=== PATIENT | female | born 1970 | race African-American/Black ===

== ENCOUNTER 2022-04-10 01:21 | Inpatient (IN) | payer OTHER, MEDICAID, SELFPAY ==
[2022-04-10] VITALS (13 sets, daily range): BP systolic 115–150; BP diastolic 63–89; PULSE 76–96; RESP 16–29; TEMP 36.3–37.8; O2SAT 85–98; BMI 50.6
--- NOTE | ~2022-04-10 | XR_ITS ---
EXAMINATION: XR CHEST CLINICAL INFORMATION: Dyspnea COMPARISON: None TECHNIQUE: Frontal view of the chest was obtained. FINDINGS: The lungs are well expanded. Patchy opacities bilaterally with bronchial wall thickening. No pleural effusion or pneumothorax. The cardiomediastinal silhouette is normal in size with a calcified aorta. XR/XR chest 1V IMPRESSION: Bronchial wall thickening with patchy bilateral opacities is likely infectious or inflammatory.
--- NOTE | ~2022-04-10 | XR_ITS ---
EXAMINATION: XR CHEST CLINICAL INFORMATION: Pneumonia, shortness of breath. COMPARISON: 04/10/2022 and 10/02/2007 chest radiographs. TECHNIQUE: Frontal view of the chest was obtained. FINDINGS: Mild bronchial wall thickening is seen bilaterally with similar appearance. No focal infiltrate or pleural effusions. The heart and mediastinal structures are unremarkable. XR/XR chest 1V IMPRESSION: Mild bronchial wall thickening without significant change. This could be baseline for the patient, but can be seen with small airways disease and viral etiologies. No new abnormality.
--- NOTE | 2022-04-10 01:35 | ECG_ITS ---
Test Reason : DYSPNEA Blood Pressure : / mmHG Vent. Rate : 094 BPM Atrial Rate : 094 BPM P-R Int : 168 ms QRS Dur : 096 ms QT Int : 366 ms P-R-T Axes : 057 053 011 degrees QTc Int : 457 ms Normal sinus rhythm Nonspecific T wave abnormality Inferior leads Abnormal ECG No previous ECGs available Referred By: Generic ED Physician Electronically Signed By:DIANA HOWARD MD
[2022-04-10 02:12] LABS: Basophils Percent Auto 0.3 % (0-2); Hemoglobin 12.9 g/dl (12.0-16.0); Imm Gran Abs Auto 0.01 X10*3/uL (0.00-0.03); Imm Gran Pct Auto 0.3 % (0.0-0.4); PLT CLUMP 1
[2022-04-10 02:14] LABS: Hematocrit 42.7 % (37.0-47.0); Lymphocytes Absolute Auto 0.4 X10*3/uL (1.2-4.9); Lymphocytes Percent Auto 11.7 % (20-40); MANUAL DIFF FLAG SCAN; Mean Corpuscular HGB Conc 30.2 g/dl (31.0-35.0); Mean Corpuscular Hemoglobin 28.9 pg (27.0-33.0); Mean Corpuscular Volume 95.7 fL (80.0-98.0); Mean Platelet Volume 9.6 fL (9.4-12.3); Monocytes Absolute Auto 0.6 X10*3/uL (0.1-1.2); Monocytes Percent Auto 20.4 % (2-11); Neutrophils Absolute Auto 2.1 x10*3/uL (2.0-8.3); Neutrophils Percent Auto 67.3 % (45-73); Red Blood Count 4.46 X10*6/uL (4.20-5.50); Red Cell Distribution Width 13.5 % (11.0-16.0); SCAN SMEAR FLAG 1
[2022-04-10 02:16] LABS: Platelet Count 146 X10*3/uL (160-400); White Blood Count 3.1 X10*3/uL (4.8-10.8)
[2022-04-10 02:23] LABS: COVID-19 Test Negative (Negative); IDNOW Serial# 9DB6401D
[2022-04-10 02:25] LABS: Anion Gap 14 (12-20); Blood Urea Nitrogen 10 mg/dL (9-16); Carbon Dioxide 26 mmol/L (22-29); Chloride 104 mmol/L (96-108); Creatinine Clr Calc Pharmacy 113.6; Estimated Glomerular Filt Rate > 60; Glucose Random 139 mg/dL (60-115); Potassium 3.1 mmol/L (3.3-5.1); Sodium 141 mmol/L (135-145)
[2022-04-10 02:33] LABS: Troponin-I High Sensitivity 7.5 ng/L (<3.5-17.0)
[2022-04-10 02:46] LABS: SLIDE REVIEW VERIFIED
--- NOTE | 2022-04-10 03:32 | ED.SOB ---
HPI - SOB/Dyspnea General Chief Complaint: Dyspnea Stated Complaint: Dyspnea- Asthma Time Seen by Provider: 04/10/22 03:13 Source: patient Mode of arrival: ambulatory Limitations: no limitations History of Present Illness HPI Narrative: Patient history of asthma been having shortness of breath with wheezing for last 2 days got worse today was using nebulizing treatment at home saturating high 80s after DuoNeb treatment by EMS patient saturating 96% patient feels slightly congested with dry cough no other family member sick Related Data Home Medications Medication Instructions Recorded Confirmed albuterol sulfate 2.5 mg/3 mL 1 vial inhalation Q6H PRN wheezing 04/10/22 (0.083 %) solution for nebulization albuterol sulfate 90 mcg/actuation 2 puff inhalation Q4H PRN 04/10/22 aerosol inhaler Shortness Of Breath Or Wheezing amlodipine 10 mg tablet 1 tab PO DAILY 04/10/22 atorvastatin 40 mg tablet 1 tab PO DAILY 04/10/22 baclofen 10 mg tablet 1 tab PO TID PRN muscle spasm 04/10/22 budesonide-formoterol HFA 160 2 puff inhalation BID 04/10/22 mcg-4.5 mcg/actuation aerosol inhaler (Symbicort) cholecalciferol (vitamin D3) 25 1 tab PO DAILY 04/10/22 mcg (1,000 unit) tablet (Vitamin D3) duloxetine 30 mg capsule,delayed 1 cap PO DAILY 04/10/22 release fluticasone propionate 50 intranasal 04/10/22 mcg/actuation nasal spray,suspension gabapentin 300 mg capsule 1 cap PO BID 04/10/22 glatiramer 40 mg/mL subcutaneous mg subcut 04/10/22 syringe ibuprofen 800 mg tablet 1 tab PO TID 04/10/22 montelukast 10 mg tablet 1 tab PO DAILY 04/10/22 Allergies Allergy/AdvReac Type Severity Reaction Status Date / Time No Known Allergies Allergy Verified 04/10/22 03:38 Review of Systems Review of Systems: Yes all other systems are reviewed and are negative [facility] Social History Social History Alcohol intake: never Smoked in Last 30 Days: No Use of substances other than those prescribed or required for medical reasons: No Advance Directives: No Advance Directives Information Provided: No Patient : No Physical Exam Vital Signs: Vital Signs: Last Vital Signs Temp 99.8 F 04/10/22 07:28 Pulse 92 04/10/22 07:28 Resp 29 H 04/10/22 07:28 BP 128/66 04/10/22 07:28 Pulse Ox 93 04/10/22 08:22 O2 Del Method 04/10/22 08:22 O2 Flow Rate 4 04/10/22 07:28 Oxygen Flow Rate 4 04/10/22 01:37 BMI result Body Mass Index 50.6 Appearance: Alert. Oriented X3. No acute distress. Eyes: No pallor or icterus ENT: Pharynx normal. Oral Mucosa moist Neck: Normal inspection. Neck supple. CVS: Normal heart rate and rhythm. Pulses normal. Respiratory: No respiratory distress. Equal air entry bilateral, prolonged expiration bilateral wheezing and rhonchi no rales Abdomen: Soft and nontender. Bowel sounds are present, no mass palpable, no CVA tenderness Skin: Skin warm and dry. Normal skin color. Normal skin turgor. Extremities: No lower extremity edema. No calf tenderness Neuro: Oriented X 3. No motor deficit. Medications Administered Discontinued Medications Generic Name Dose Route Start Last Admin Trade Name Freq PRN Reason Stop Dose Admin Albuterol Sulfate 5 mg/ 0 mg 04/10/22 05:14 04/10/22 05:30 Albuterol/Ipratropium 3 ml INHALE 04/10/22 05:15 1 each ONCE ONE Administration Methylprednisolone Sodium Succinate 125 mg 04/10/22 03:38 04/10/22 03:43 Methylprednisolone Sod Succ 125 Mg/2 Ml Vial IVPUSH 04/10/22 03:39 125 mg ONCE ONE Administration Oseltamivir Phosphate 75 mg 04/10/22 05:12 04/10/22 05:29 Oseltamivir Phosphate 75 Mg Capsule PO 04/10/22 05:13 75 mg ONCE ONE Administration MDM - SOB/Dyspnea MDM Narrative Medical decision making narrative: Patient influenza A positive with hypoxia not on oxygen at home with history of asthma will admit patient for acute respiratory failure with influenza a chest x-ray positive for patchy bilateral opacities likely infectious or inflammatory clinically not bacterial infection will admit patient for influenza a pneumonia Differential Diagnosis Differential diagnosis: Likely pneumonia and asthma with exacerbation Lab Data Attestation: I reviewed the patient's lab results. Result diagrams: 04/10/22 01:58 04/10/22 01:58 Labs: Lab Results 04/10/22 04/10/22 04/10/22 Range/Units 01:58 01:58 01:58 WBC 3.1 L (4.8-10.8) X10*3/uL RBC 4.46 (4.20-5.50) X10*6/uL Hgb 12.9 (12.0-16.0) g/dl Hct 42.7 (37.0-47.0) % MCV 95.7 (80.0-98.0) fL MCH 28.9 (27.0-33.0) pg MCHC 30.2 L (31.0-35.0) g/dl RDW 13.5 (11.0-16.0) % Plt Count 146 L (160-400) X10*3/uL MPV 9.6 (9.4-12.3) fL Immature Gran % (Auto) 0.3 (0.0-0.4) % Neut % (Auto) 67.3 (45-73) % Lymph % (Auto) 11.7 L (20-40) % [place] % (Auto) 20.4 H (2-11) % Eos % (Auto) 0.0 (0-4) % Baso % (Auto) 0.3 (0-2) % Lymph # (Auto) 0.4 L (1.2-4.9) X10*3/uL [place] # (Auto) 0.6 (0.1-1.2) X10*3/uL Eos # (Auto) 0.0 (0.0-0.4) X10*3/uL Baso # (Auto) 0.0 (0.0-0.2) X10*3/uL Abs Immat Gran (auto) 0.01 (0.00-0.03) X10*3/uL Absolute Neuts (auto) 2.1 (2.0-8.3) x10*3/uL Absolute Nucleated RBC 0.000 (0.0-0.012) X10*3/uL Nucleated RBC % (auto) 0.0 (0.0-0.2) /100WBC Smear Tech's Comments VERIFIED Sodium 141 (135-145) mmol/L Potassium 3.1 L (3.3-5.1) mmol/L Chloride 104 (96-108) mmol/L Carbon Dioxide 26 (22-29) mmol/L Anion Gap 14 (12-20) BUN 10 (9-16) mg/dL Creatinine 0.78 (0.5-1.4) mg/dL Estim Creat Clear Calc 113.6 Estimated GFR > 60 Random Glucose 139 H (60-115) mg/dL Calcium 9.0 (8.4-10.2) mg/dL Troponin I High Sens 7.5 (<3.5-17.0) ng/L B-Natriuretic Peptide (<100) pg/mL COVID-19 ([facility]) (Negative) COVID-19 Clin Com Influenza Type A ([facility]) (Negative) Influenza Type B ([facility]) (Negative) Influenza A & B Note 04/10/22 04/10/22 04/10/22 Range/Units 01:58 01:58 04:06 WBC (4.8-10.8) X10*3/uL RBC (4.20-5.50) X10*6/uL Hgb (12.0-16.0) g/dl Hct (37.0-47.0) % MCV (80.0-98.0) fL MCH (27.0-33.0) pg MCHC (31.0-35.0) g/dl RDW (11.0-16.0) % Plt Count (160-400) X10*3/uL MPV (9.4-12.3) fL Immature Gran % (Auto) (0.0-0.4) % Neut % (Auto) (45-73) % Lymph % (Auto) (20-40) % [place] % (Auto) (2-11) % Eos % (Auto) (0-4) % Baso % (Auto) (0-2) % Lymph # (Auto) (1.2-4.9) X10*3/uL [place] # (Auto) (0.1-1.2) X10*3/uL Eos # (Auto) (0.0-0.4) X10*3/uL Baso # (Auto) (0.0-0.2) X10*3/uL Abs Immat Gran (auto) (0.00-0.03) X10*3/uL Absolute Neuts (auto) (2.0-8.3) x10*3/uL Absolute Nucleated RBC (0.0-0.012) X10*3/uL Nucleated RBC % (auto) (0.0-0.2) /100WBC Smear Tech's Comments Sodium (135-145) mmol/L Potassium (3.3-5.1) mmol/L Chloride (96-108) mmol/L Carbon Dioxide (22-29) mmol/L Anion Gap (12-20) BUN (9-16) mg/dL Creatinine (0.5-1.4) mg/dL Estim Creat Clear Calc Estimated GFR Random Glucose (60-115) mg/dL Calcium (8.4-10.2) mg/dL Troponin I High Sens (<3.5-17.0) ng/L B-Natriuretic Peptide 60 (<100) pg/mL COVID-19 ([facility]) Negative (Negative) COVID-19 Clin Com See Note Influenza Type A ([facility]) Positive A (Negative) Influenza Type B ([facility]) Negative (Negative) Influenza A & B Note See Note ECG Data Attestation: I personally reviewed and interpreted this ECG as follows: Interpretation: Normal sinus rhythm heart rate 94 beats per minute normal interval normal axis no acute ST changes no acute ischemia impression normal EKG Discharge Plan Discharge Clinical Impression: Asthma with exacerbation, Influenza A, Acute respiratory failure with hypoxemia Patient Disposition: Admitted As Inpatient
[2022-04-10] MEDS: methylPREDNISolone Sod Succ 125 MG/2 ML VIAL IVPUSH (03:43)
[2022-04-10 03:49] LABS: B Type Natriuretic Peptide 60 pg/mL (<100)
[2022-04-10 04:31] LABS: IDNOW Serial# 16C4AD1C; Influenza A Positive (Negative); Influenza B2 Negative (Negative)
[2022-04-10] MEDS: Oseltamivir Phosphate 75 MG CAPSULE PO ×2 (05:29→18:02)
[2022-04-10] MEDS: Albuterol Sulfate 5 MG, Albuterol/Iprat 2.5/0.5MG 3 ML 3 ML INHALE (05:30)
--- NOTE | 2022-04-10 09:01 | P.HPHOSP_ITS ---
History of Present Illness Date of Service: 04/10/22 Chief Complaint: Shortness of breath 51-year-old female presents with worsening shortness of breath over the 48 hours prior to admission. Patient admits known history of asthma however states her nebulizer treatments were not effective. EMS arrived patient was satting in the 80s after DuoNeb improved to 96%. Chest x-ray demonstrates bilateral patchy opacities likely infectious. Review of Systems Review of Systems: Denies chest pain Admits to shortness of breath with minimal exertion Denies nausea vomiting diarrhea Admits fevers to 103 at home PMFSH Social History Alcohol intake: never Smoked in Last 30 Days: No Use of substances other than those prescribed or required for medical reasons: No Advance Directives: No Advance Directives Information Provided: No Patient : No Meds Allergies Allergy/AdvReac Type Severity Reaction Status Date / Time No Known Allergies Allergy Verified 04/10/22 03:38 Active Medications: Current Medications Acetaminophen (Acetaminophen 325 Mg Tablet) 650 mg PO Q6H [facility] Enoxaparin Sodium (Enoxaparin Sodium 40 Mg/0.4 Ml Syringe) 40 mg SUBCUT Q24H [facility] Ceftriaxone Sodium 1 gm/ (Sodium Chloride) 50 mls @ 100 mls/hr IV Q24H [facility] Doxycycline Hyclate 100 mg/ (Sodium Chloride) 250 mls @ 166.67 mls/hr IV Q12H [facility] Methylprednisolone Sodium Succinate (Methylprednisolone Sod Succ 125 Mg/2 Ml Vial) 60 mg IVPUSH Q6H [facility] Ondansetron HCl (Ondansetron Hcl 4 Mg/2 Ml Vial) 4 mg IVPUSH Q6H [facility] Oseltamivir Phosphate (Oseltamivir Phosphate 75 Mg Capsule) 75 mg PO Q12H [facility] Stop: 04/14/22 21:01 Pharmacy Consult (Consult Rx Perform Med Rec) 1 each MISCELLANE ONCE PRN PRN Reason: Consult order Sodium Chloride (0.9 % Sodium Chloride Flush 3 Ml Syringe) 3 ml IVFLUSH QSHIFT [facility] Home Medications Medication Instructions Recorded Confirmed Last Taken Type albuterol sulfate 2.5 mg/3 mL 1 vial inhalation Q6H PRN wheezing 04/10/22 Unknown History (0.083 %) solution for nebulization albuterol sulfate 90 mcg/actuation 2 puff inhalation Q4H PRN 04/10/22 Unknown History aerosol inhaler Shortness Of Breath Or Wheezing amlodipine 10 mg tablet 1 tab PO DAILY 04/10/22 Unknown History atorvastatin 40 mg tablet 1 tab PO DAILY 04/10/22 Unknown History baclofen 10 mg tablet 1 tab PO TID PRN muscle spasm 04/10/22 Unknown History budesonide-formoterol HFA 160 2 puff inhalation BID 04/10/22 Unknown History mcg-4.5 mcg/actuation aerosol inhaler (Symbicort) cholecalciferol (vitamin D3) 25 1 tab PO DAILY 04/10/22 Unknown History mcg (1,000 unit) tablet (Vitamin D3) duloxetine 30 mg capsule,delayed 1 cap PO DAILY 04/10/22 Unknown History release fluticasone propionate 50 intranasal 04/10/22 Unknown History mcg/actuation nasal spray,suspension gabapentin 300 mg capsule 1 cap PO BID 04/10/22 Unknown History glatiramer 40 mg/mL subcutaneous mg subcut 04/10/22 Unknown History syringe ibuprofen 800 mg tablet 1 tab PO TID 04/10/22 Unknown History montelukast 10 mg tablet 1 tab PO DAILY 04/10/22 Unknown History Physical Exam Vital Signs and Narrative: Vital Signs: Last Vital Signs Temp 99.8 F 04/10/22 07:28 Pulse 92 04/10/22 07:28 Resp 29 H 04/10/22 07:28 BP 128/66 04/10/22 07:28 Pulse Ox 93 04/10/22 08:22 O2 Del Method 04/10/22 08:22 O2 Flow Rate 4 04/10/22 07:28 Oxygen Flow Rate 4 04/10/22 01:37 BMI result Body Mass Index 50.6 Const: Other: Awake alert no acute distress. Able to speak full sentences while essentially supine HEENT: Other: Membranes dry Resp: Other: Diffuse expiratory wheezes with crackles heard left base Cardio: Other: No S4; positive S1-S2; no S3 murmurs rubs or gallops GI: Other: Soft nontender nondistended with normoactive bowel sounds Neuro: Other: Cranial nerves 2-12 grossly intact as tested. Motor is 5/5 all extremities. Sensation intact. Cognition appropriate Extrem: Other: No edema bilaterally Results Labs CBC and Chem 7: 04/10/22 01:58 04/10/22 01:58 Labs: Laboratory Results - last 24 hr 04/10/22 04/10/22 04/10/22 01:58 01:58 01:58 MCV 95.7 MCH 28.9 MCHC 30.2 L RDW 13.5 Plt Count 146 L MPV 9.6 Immature Gran % (Auto) 0.3 Neut % (Auto) 67.3 Lymph % (Auto) 11.7 L [place] % (Auto) 20.4 H Eos % (Auto) 0.0 Baso % (Auto) 0.3 Lymph # (Auto) 0.4 L [place] # (Auto) 0.6 Eos # (Auto) 0.0 Baso # (Auto) 0.0 Abs Immat Gran (auto) 0.01 Absolute Neuts (auto) 2.1 Absolute Nucleated RBC 0.000 Nucleated RBC % (auto) 0.0 Smear Tech's Comments VERIFIED Anion Gap 14 Estim Creat Clear Calc 113.6 Estimated GFR > 60 Random Glucose 139 H Calcium 9.0 Troponin I High Sens 7.5 B-Natriuretic Peptide COVID-19 ([facility]) COVID-19 Clin Com Influenza Type A ([facility]) Influenza Type B ([facility]) Influenza A & B Note 04/10/22 04/10/22 04/10/22 01:58 01:58 04:06 MCV MCH MCHC RDW Plt Count MPV Immature Gran % (Auto) Neut % (Auto) Lymph % (Auto) [place] % (Auto) Eos % (Auto) Baso % (Auto) Lymph # (Auto) [place] # (Auto) Eos # (Auto) Baso # (Auto) Abs Immat Gran (auto) Absolute Neuts (auto) Absolute Nucleated RBC Nucleated RBC % (auto) Smear Tech's Comments Anion Gap Estim Creat Clear Calc Estimated GFR Random Glucose Calcium Troponin I High Sens B-Natriuretic Peptide 60 COVID-19 ([facility]) Negative COVID-19 Clin Com See Note Influenza Type A ([facility]) Positive A Influenza Type B ([facility]) Negative Influenza A & B Note See Note Imaging Radiologist's Impressions: Impressions Chest X-Ray 04/10/22 02:05 IMPRESSION: Bronchial wall thickening with patchy bilateral opacities is likely infectious or inflammatory. Assessment and Plan (1) Acute respiratory failure with hypoxemia: Status: Acute (2) Asthma with exacerbation: Status: Acute (3) Influenza A: Status: Acute (4) Pneumonia: Status: Acute (5) Multiple sclerosis: Status: Acute (6) Hypertension: Status: Acute Plan 51-year-old female with known history of asthma presents with worsening shortness of breath or the 48 hours prior to admission. Failed outpatient therapies. In the emergency room O2 responsive saturation as well as DuoNebs with affect. 1. Acute respiratory failure with hypoxemia secondary to pneumonia -ceftriaxone/doxycycline -titrate O2 to maintain sats greater equal to 90% -DuoNebs q.4 hours while awake -pulse dose steroids 2. Influenza A -Oseltamivir b.i.d. x5 days 3. Multiple sclerosis -asymptomatic at this time -Glatiramer as per outpatient dosing 4. Hypertension -acceptable control on amlodipine -adjust as indicated Full code Lovenox Patient will require inpatient stay of at least 2 midnights for IV antibiotics to treat pneumonia secondary to influenza. This cannot be achieved and a lesser acute setting Quality Stroke Does the patient have a stroke diagnosis?: No VTE Prior VTE?: No VTE Risk Level:: Medical - moderate - high VTE Device Contraindication: Treatment Not Indicated VTE Drug Contraindication: N/A - Med Ordered
[2022-04-10] MEDS: Acetaminophen 325 MG TABLET 650 MG PO ×3 (10:16→22:06)
[2022-04-10] MEDS: cefTRIAXone sodium 1 GM in 0.9 % Sodium Chloride 50 ML IV (10:16)
[2022-04-10] MEDS: Potassium Chloride ER 20 MEQ TAB.ER.PRT 40 MEQ PO (10:17)
[2022-04-10] MEDS: Enoxaparin Sodium 40 MG/0.4 ML SYRINGE SUBCUT (10:17)
[2022-04-10] MEDS: ondansetron HCL 4 MG/2 ML VIAL IVPUSH ×3 (10:18→22:05)
[2022-04-10] MEDS: Doxycycline Hyclate 100 MG in 0.9 % Sodium Chloride 250 ML 166.67 MG IV ×2 (10:18→22:05)
[2022-04-10 10:22] LABS: Appearance Urine Clear; Color Urine Yellow; Glucose Urine UA Negative (Negative); Leukocyte Esterase Urine Negative (Negative); Nitrite Urine Negative (Negative); PH 6.5 (5.0-9.0); Specific Gravity - Urine 1.015 (1.005-1.025); UMIC TRIGGER UACC YES; Urine Blood Negative (Negative); Urine Ketones Negative (Negative); Urine Protein 100 (2+) mg/dL (Neg-Trace)
[2022-04-10 10:36] LABS: Bacteria Urine None Seen (None Seen); Hyaline Casts Urine 0-2 /LPF (0-2); Squamous Epithelial Cell Urine 0-2 /HPF (0-2); WBC Urine 0-5 /HPF (0-5)
--- NOTE | 2022-04-10 10:43 | PHA.MEDREC ---
Pharmacy Consult ? Medication Reconciliation Pharmacy has completed the medication reconciliation. Confirmed medication list with patient. She states she takes her glatiramer injection on tuesday, tuesday, and tuesday and she did use the injection yesterday (04/09/22). Confirmed that her next dose of that would be due on tuesday04/12/22.
--- NOTE | 2022-04-10 11:30 | PC.NURSE ---
sat patient at commode, washed pt while sitting on the commode, complete bed change
--- NOTE | 2022-04-10 14:08 | PC.NURSE ---
PT CONTINUES ON 02 IV ANTIBIOTICS ORDERED. AOX4 AMB WITH STEADY GAIT NEEDS BEING MET WAITING ON BED ASSIGNMENT
[2022-04-10] MEDS: methylPREDNISolone Sod Succ 125 MG/2 ML VIAL 60 MG IVPUSH ×2 (15:31→22:06)
[2022-04-10] MEDS: 0.9 % Sodium Chloride Flush 3 ML SYRINGE IVFLUSH (15:32)
--- NOTE | 2022-04-10 15:49 | PC.NURSE ---
Patient alert and oriented x 3. Patient afebrile, but still weak. Patient c/o back and leg pain from being on the stretcher just medicated with tylenol for the pain. Patient on 4l nasal cannula at 91% not on oxygen at home. tele: sinus rythym 70's Will continue with plan of care.
[2022-04-10] MEDS: Albuterol Sulfate (0.083%) 2.5 MG/3 ML VIAL.NEB INHALE ×2 (16:08→22:07)
--- NOTE | 2022-04-10 22:39 | PC.NURSE ---
Pt. requesting a breathing treatment, respiratory at bedside to administer treatment with good effect.
--- NOTE | 2022-04-11 02:44 | PC.NURSE ---
Pt. requesting PRN pain medications, doesn't have any ordered on JUL. Notified Hospitalist MD Rey for orders. Awaiting new orders at this time.
[2022-04-11] MEDS: methylPREDNISolone Sod Succ 125 MG/2 ML VIAL 60 MG IVPUSH ×4 (03:18→22:49)
[2022-04-11] MEDS: Acetaminophen 325 MG TABLET 650 MG PO ×4 (03:18→22:49)
[2022-04-11] MEDS: ondansetron HCL 4 MG/2 ML VIAL IVPUSH ×4 (03:18→22:49)
[2022-04-11] MEDS: traMADoL HCL 50 MG TABLET PO (03:18)
[2022-04-11 05:54] VITALS: BP 104/55; PULSE 79; RESP 17; TEMP 36.7; O2SAT 96
[2022-04-11] MEDS: Oseltamivir Phosphate 75 MG CAPSULE PO ×2 (06:50→17:24)
[2022-04-11 07:11] LABS: MANUAL DIFF FLAG NO
[2022-04-11 07:15] LABS: Hematocrit 44.3 % (37.0-47.0); Hemoglobin 13.2 g/dl (12.0-16.0); Imm Gran Pct Auto 3.7 % (0.0-0.4); Lymphocytes Absolute Auto 0.3 X10*3/uL (1.2-4.9); Lymphocytes Percent Auto 10.3 % (20-40); Mean Corpuscular HGB Conc 29.8 g/dl (31.0-35.0); Mean Corpuscular Hemoglobin 29.3 pg (27.0-33.0); Mean Corpuscular Volume 98.4 fL (80.0-98.0); Mean Platelet Volume 9.9 fL (9.4-12.3); Monocytes Absolute Auto 0.2 X10*3/uL (0.1-1.2); Monocytes Percent Auto 7.7 % (2-11); Neutrophils Absolute Auto 2.1 x10*3/uL (2.0-8.3); Neutrophils Percent Auto 78.3 % (45-73); Platelet Count 144 X10*3/uL (160-400); Red Cell Distribution Width 13.2 % (11.0-16.0); White Blood Count 2.7 X10*3/uL (4.8-10.8)
[2022-04-11 07:27] VITALS: BP 110/64; PULSE 78; RESP 23; O2SAT 93
[2022-04-11 07:36] LABS: Alanine Aminotransferase 10 U/L (0-31); Albumin Level 3.8 g/dL (3.5-5.0); Alkaline Phosphatase 55 U/L (39-117); Aspartate Amino Transferase 15 U/L (5-31); Bilirubin Total 0.3 mg/dL (0.0-1.0); Blood Urea Nitrogen 13 mg/dL (9-16); Calcium 8.9 mg/dL (8.4-10.2); Creatinine Clr Calc Pharmacy 113.6; Estimated Glomerular Filt Rate > 60; Glucose Fasting 158 mg/dL (60-99)
[2022-04-11 07:46] LABS: Anion Gap 15 (12-20); Carbon Dioxide 26 mmol/L (22-29); Chloride 106 mmol/L (96-108); Potassium 4.9 mmol/L (3.3-5.1); Sodium 142 mmol/L (135-145)
[2022-04-11] MEDS: Albuterol Sulfate (0.083%) 2.5 MG/3 ML VIAL.NEB INHALE ×2 (08:12→17:42)
[2022-04-11 08:13] VITALS: PULSE 73; RESP 19; O2SAT 97
[2022-04-11] MEDS: cefTRIAXone sodium 1 GM in 0.9 % Sodium Chloride 50 ML IV (08:29)
[2022-04-11] MEDS: Enoxaparin Sodium 40 MG/0.4 ML SYRINGE SUBCUT (08:30)
[2022-04-11] MEDS: 0.9 % Sodium Chloride Flush 3 ML SYRINGE IVFLUSH ×2 (08:35→17:25)
--- NOTE | 2022-04-11 11:38 | PC.NURSE ---
Per pharmacy, doxycyline hyclate currently unavailable
--- NOTE | 2022-04-11 15:36 | PC.NURSE ---
Pt sleeping at this time, respirations even and unlabored.
[2022-04-11 15:51] VITALS: BP 128/74; PULSE 79; TEMP 36.6; O2SAT 96
--- NOTE | 2022-04-11 15:56 | HO.PM.IMPN ---
Subjective Subjective Date of Service: 04/11/22 Interval History: Minimal improvement overnight. No acute issues Review of Systems Denies chest pain Admits to shortness of breath with minimal exertion Denies nausea vomiting diarrhea Admits fevers to 103 at home Physical Exam Vital Signs: Vital Signs: Last Vital Signs Temp 97.8 F 04/11/22 15:51 Pulse 79 04/11/22 15:51 Resp 19 04/11/22 08:13 BP 128/74 04/11/22 15:51 Pulse Ox 96 04/11/22 15:51 O2 Del Method 04/11/22 15:51 O2 Flow Rate 4 04/11/22 15:51 Oxygen Flow Rate 4 04/10/22 01:37 BMI result Body Mass Index 50.6 Const: Other: Awake alert no acute distress. Able to speak full sentences while essentially supine HEENT: Other: Membranes dry Resp: Other: Diffuse expiratory wheezes with crackles heard left base Cardio: Other: No S4; positive S1-S2; no S3 murmurs rubs or gallops GI: Other: Soft nontender nondistended with normoactive bowel sounds Neuro: Other: Cranial nerves 2-12 grossly intact as tested. Motor is 5/5 all extremities. Sensation intact. Cognition appropriate Extrem: Other: No edema bilaterally Objective Data Active Medications Acetaminophen (Acetaminophen 325 Mg Tablet) 650 mg PO Q6H [facility] Last Admin: 04/11/22 10:05 Dose: 650 mg Documented By: JASPER Albuterol Sulfate (Albuterol Sulfate (0.083%) 2.5 Mg/3 Ml Vial.Neb) 2.5 mg INHALE Q6H PRN PRN Reason: wheezing Last Admin: 04/11/22 08:12 Dose: 2.5 mg Documented By: MARLYN Albuterol Sulfate (Albuterol Sulfate 90 Mcg 8 Gm Inhaler) 2 puff INHALE Q4H PRN PRN Reason: Shortness Of Breath Or Wheezing Enoxaparin Sodium (Enoxaparin Sodium 40 Mg/0.4 Ml Syringe) 40 mg SUBCUT Q24H [facility] Last Admin: 04/11/22 08:30 Dose: 40 mg Documented By: JASPER Ceftriaxone Sodium 1 gm/ (Sodium Chloride) 50 mls @ 100 mls/hr IV Q24H [facility] Last Infusion: 04/11/22 09:58 Dose: 0 mls/hr Documented By: JASPER Doxycycline Hyclate 100 mg/ (Sodium Chloride) 250 mls @ 166.67 mls/hr IV Q12H [facility] Last Admin: 04/11/22 13:57 Dose: Not Given Documented By: JASPER Non-Admin Reason: Med Not Available Methylprednisolone Sodium Succinate (Methylprednisolone Sod Succ 125 Mg/2 Ml Vial) 60 mg IVPUSH Q6H [facility] Last Admin: 04/11/22 10:05 Dose: 60 mg Documented By: JASPER Ondansetron HCl (Ondansetron Hcl 4 Mg/2 Ml Vial) 4 mg IVPUSH Q6H [facility] Last Admin: 04/11/22 08:28 Dose: 4 mg Documented By: JASPER Oseltamivir Phosphate (Oseltamivir Phosphate 75 Mg Capsule) 75 mg PO Q12H [facility] Stop: 04/15/22 06:01 Last Admin: 04/11/22 06:50 Dose: 75 mg Documented By: MELO Pharmacy Consult (Consult Rx Perform Med Rec) 1 each MISCELLANE ONCE PRN PRN Reason: Consult order Sodium Chloride (0.9 % Sodium Chloride Flush 3 Ml Syringe) 3 ml IVFLUSH QSHIFT [facility] Last Admin: 04/11/22 08:35 Dose: 3 ml Documented By: JASPER Labs CBC & Chem 7: 04/11/22 06:59 04/11/22 06:59 Labs: Laboratory Results - last 24 hr 04/11/22 04/11/22 06:59 06:59 MCV 98.4 H MCH 29.3 MCHC 29.8 L RDW 13.2 Plt Count 144 L MPV 9.9 Immature Gran % (Auto) 3.7 H Neut % (Auto) 78.3 H Lymph % (Auto) 10.3 L [place] % (Auto) 7.7 Eos % (Auto) 0.0 Baso % (Auto) 0.0 Lymph # (Auto) 0.3 L [place] # (Auto) 0.2 Eos # (Auto) 0.0 Baso # (Auto) 0.0 Abs Immat Gran (auto) 0.10 H Absolute Neuts (auto) 2.1 Absolute Nucleated RBC 0.000 Nucleated RBC % (auto) 0.0 Anion Gap 15 Estim Creat Clear Calc 113.6 Estimated GFR > 60 Fasting Glucose 158 H Calcium 8.9 Total Bilirubin 0.3 AST 15 ALT 10 Alkaline Phosphatase 55 Total Protein 7.0 Albumin 3.8 Assessment and Plan (1) Acute respiratory failure with hypoxemia: Status: Acute (2) Pneumonia: Status: Acute (3) Asthma with exacerbation: Status: Acute (4) Influenza A: Status: Acute Plan 51-year-old female with known history of asthma presents with worsening shortness of breath or the 48 hours prior to admission. Failed outpatient therapies. In the emergency room O2 responsive saturation as well as DuoNebs with affect. 1.Acute respiratory failure with hypoxemia secondary to pneumonia -ceftriaxone/doxycycline(2) -titrate O2 to maintain sats greater equal to 90% -DuoNebs q.4 hours while awake -pulse dose steroids 2. Influenza A -Oseltamivir b.i.d. x5 days 3. Multiple sclerosis -asymptomatic at this time -Glatiramer as per outpatient dosing 4. Hypertension -acceptable control on amlodipine -adjust as indicated Full code Lovenox Requires ongoing hospitalization for IV antibiotics to treat pneumonia Quality Stroke Does the patient have a stroke diagnosis?: No VTE Prior VTE?: No VTE Risk Level:: Medical - moderate - high VTE Device Contraindication: Treatment Not Indicated VTE Drug Contraindication: N/A - Med Ordered
[2022-04-11 17:42] VITALS: PULSE 74; RESP 18; O2SAT 95
--- NOTE | 2022-04-11 17:49 | PC.NURSE ---
Respiratory at bedside for PRN
[2022-04-11] MEDS: Albuterol Sulfate 90 MCG 8 GM INHALER 2 PUFF INHALE (19:25)
[2022-04-11 19:26] VITALS: PULSE 74; RESP 19; O2SAT 94
[2022-04-11] MEDS: Doxycycline Hyclate 100 MG in 0.9 % Sodium Chloride 250 ML 200 MG IV (22:50)
[2022-04-12 00:03] VITALS: BP 115/58; PULSE 74; RESP 20; TEMP 36.4; O2SAT 96
--- NOTE | 2022-04-12 01:32 | PC.NURSE ---
late entry-pt reporting that iv in L AC was bothering her because she cant use her arm. pt requested that rn place new IV in hand. this rn informed iv may be more painful. pt requested iv be placed in hand despite this. this rn place 20 in L hand. flushed well, medication running through well
--- NOTE | 2022-04-12 01:50 | PC.NURSE ---
pt requested that this rn come to pt room. pt states that recently placed L hand IV was killing her . this assessed IV placed in L AC, noticed this IV had been removed from arm. pt states she
--- NOTE | 2022-04-12 01:59 | PC.NURSE ---
pt requested that this rn come to pt room. pt states that recently placed L hand IV was killing her . this assessed IV placed in L AC, noticed this IV had been removed from arm. pt states she was not aware of this. this RN placed new IC 20 in R AC. flushed well. L hand IV removed at this time. pt reports no pain at this time
--- NOTE | 2022-04-12 03:08 | PC.NURSE ---
pt states to this RN she would like something to help her sleep. this rn relayed this messaged to Dr. Le. Dr. le placed order for melatonin 6mg
[2022-04-12] MEDS: Albuterol Sulfate (0.083%) 2.5 MG/3 ML VIAL.NEB INHALE (03:25)
[2022-04-12 03:27] VITALS: PULSE 74; RESP 20; O2SAT 94
[2022-04-12 04:10] VITALS: BP 128/70; PULSE 73; RESP 23; O2SAT 94
[2022-04-12] MEDS: Melatonin 3 MG TABLET 6 MG PO (04:12)
--- NOTE | 2022-04-12 04:15 | PC.NURSE ---
this rn, social media sr strategy manager, and another rn assisted pt in transfer to hospital bed. pt repositioned in bed with use of pillows. this rn medicated pt with melatonin 6mg at this time. pt reports no pain and no SOB at this time
[2022-04-12] MEDS: Acetaminophen 325 MG TABLET 650 MG PO ×2 (04:47→18:10)
[2022-04-12] MEDS: methylPREDNISolone Sod Succ 125 MG/2 ML VIAL 60 MG IVPUSH ×4 (04:48→20:48)
[2022-04-12] MEDS: ondansetron HCL 4 MG/2 ML VIAL IVPUSH ×4 (04:48→20:48)
--- NOTE | 2022-04-12 04:54 | PC.NURSE ---
pt medicated according to [facility]. warm blanket provided at this time
[2022-04-12] MEDS: Oseltamivir Phosphate 75 MG CAPSULE PO ×2 (06:19→18:10)
[2022-04-12 06:26] LABS: MANUAL DIFF FLAG NO
[2022-04-12 06:29] LABS: Hematocrit 43.6 % (37.0-47.0); Hemoglobin 12.8 g/dl (12.0-16.0); Imm Gran Abs Auto 0.09 X10*3/uL (0.00-0.03); Lymphocytes Absolute Auto 0.3 X10*3/uL (1.2-4.9); Mean Corpuscular HGB Conc 29.4 g/dl (31.0-35.0); Mean Corpuscular Hemoglobin 28.8 pg (27.0-33.0); Mean Corpuscular Volume 98.2 fL (80.0-98.0); Mean Platelet Volume 9.9 fL (9.4-12.3); Monocytes Absolute Auto 0.2 X10*3/uL (0.1-1.2); Monocytes Percent Auto 6.4 % (2-11); NRBC Pct Auto 0.7 /100WBC (0.0-0.2); Neutrophils Absolute Auto 2.4 x10*3/uL (2.0-8.3); Neutrophils Percent Auto 81.6 % (45-73); Platelet Count 158 X10*3/uL (160-400); Red Blood Count 4.44 X10*6/uL (4.20-5.50)
[2022-04-12 07:07] LABS: Alanine Aminotransferase 9 U/L (0-31); Albumin Level 3.8 g/dL (3.5-5.0); Alkaline Phosphatase 49 U/L (39-117); Anion Gap 10 (12-20); Aspartate Amino Transferase 11 U/L (5-31); Bilirubin Total 0.3 mg/dL (0.0-1.0); Blood Urea Nitrogen 20 mg/dL (9-16); Calcium 9.1 mg/dL (8.4-10.2); Carbon Dioxide 30 mmol/L (22-29); Chloride 102 mmol/L (96-108); Creatinine Clr Calc Pharmacy 115.1; Estimated Glomerular Filt Rate > 60; Glucose Fasting 173 mg/dL (60-99); Potassium 4.5 mmol/L (3.3-5.1); Sodium 137 mmol/L (135-145); Total Protein 6.8 g/dL (6.5-8.0)
--- NOTE | 2022-04-12 09:12 | P.CDIC_ITS ---
CDI Concurrent Query Documentation Clarification: PHYSICIAN'S DOCUMENTATION REQUEST Date of Query: 04/12/22 0913 Patient Name: Roxane Chapa Admit Date: 04/10/22 Dear Doctor, Please review the following and provide your response in the progress notes. Clinical Indicators: Risk Factors/Clinical Indicators/Treatments ED 04/10 - Clinical impression - Asthma exacerbation Nebulizer treatment not effective. Albuterol Based on the above, please clarify in the Progress Notes further specificity regarding the type and acuity of the asthma: Type: * Mild intermittent - less than 2x/week * Mild persistent - more than 2x/week but not daily * Moderate persistent - daily and may restrict physical activity * Severe persistent - throughout the day with frequent attacks, limiting activities * Other ? please specify * Unable to determine Acuity: * With acute exacerbation * With status asthmaticus * Uncomplicated * Unable to determine Use of terms such as suspected, likely, concern for, or probable (associated with a specific diagnosis that is being evaluated, monitored, or treated as if it exists) are acceptable and can be coded in the inpatient setting, when documented at the time of discharge. Thank you, Regi Ghosh [facility], CDIS Extension: [phone] Please use your independent medical judgment in providing your response. THIS QUERY IS PART OF THE PERMANENT MEDICAL RECORD Provider Response: Other Other Diagnosis: Mild intermittent asthma with acute exacerbation
--- NOTE | 2022-04-12 09:12 | MHC.CDI.CONC ---
CDI Concurrent Query Documentation Clarification: PHYSICIAN'S DOCUMENTATION REQUEST Date of Query: 04/12/22 0913 Patient Name: Roxane Chapa Admit Date: 04/10/22 Dear Doctor, Please review the following and provide your response in the progress notes. Clinical Indicators: Risk Factors/Clinical Indicators/Treatments ED 04/10 - Clinical impression - Asthma exacerbation Nebulizer treatment not effective. Albuterol Based on the above, please clarify in the Progress Notes further specificity regarding the type and acuity of the asthma: Type: Mild intermittent - less than 2x/week Mild persistent - more than 2x/week but not daily Moderate persistent - daily and may restrict physical activity Severe persistent - throughout the day with frequent attacks, limiting activities Other ? please specify Unable to determine Acuity: With acute exacerbation With status asthmaticus Uncomplicated Unable to determine Use of terms such as suspected, likely, concern for, or probable (associated with a specific diagnosis that is being evaluated, monitored, or treated as if it exists) are acceptable and can be coded in the inpatient setting, when documented at the time of discharge. Thank you, Regi Ghosh [facility], CDIS Extension: [phone] Please use your independent medical judgment in providing your response. THIS QUERY IS PART OF THE PERMANENT MEDICAL RECORD Provider Response: Other Other Diagnosis: Mild intermittent asthma with acute exacerbation
--- NOTE | 2022-04-12 09:16 | P.CDIC_ITS ---
CDI Concurrent Query Documentation Clarification: PHYSICIAN'S DOCUMENTATION REQUEST Date of Query: 04/12/22 0916 Patient Name: Roxane Chapa Admit Date: 04/10/22 Dear Doctor, A review of the medical record indicates additional documentation may be needed. Please review below and update the documentation accordingly. Clinical Indicators: Risk Factors/Clinical Indicators/Treatments BMI: 50.6 5' 4 in height If possible, please provide an associated diagnosis related to the abnormal BMI, such as: For a BMI >= 40: * Overweight * Obesity * Due to excess calories * Drug induced * Due to other cause * Severe or Morbid Obesity * With alveolar hypoventilation * Without alveolar hypoventilation Use of terms such as suspected, likely, concern for, or probable (associated with a specific diagnosis that is being evaluated, monitored, or treated as if it exists) are acceptable and can be coded in the inpatient setting, when documented at the time of discharge. Thank you, Regi Ghosh [facility], CDIS Extension:[phone] Please use your independent medical judgment in providing your response. THIS QUERY IS PART OF THE PERMANENT MEDICAL RECORD Provider Response: Other Other Diagnosis: Obesity due to excess calories
--- NOTE | 2022-04-12 09:25 | PC.NURSE ---
Antibioic given late due to not being loaded in pyxis
[2022-04-12] MEDS: Enoxaparin Sodium 40 MG/0.4 ML SYRINGE SUBCUT (09:44)
[2022-04-12] MEDS: 0.9 % Sodium Chloride Flush 3 ML SYRINGE IVFLUSH ×2 (09:44→21:40)
--- NOTE | 2022-04-12 10:38 | PC.NURSE ---
Addendum entered by Bradford Seals 04/12/22 12:21: Dr. Ngo to order blood cultures and pharmacyy to change time of antibiotics Original Note: Blood cultures were not drawn. Dr. Ngo notified. Awaiting pharmacy to bring antibitoic
--- NOTE | 2022-04-12 11:45 | HO.PM.IMPN ---
Subjective Subjective Date of Service: 04/12/22 Interval History: Still short of breath with minimal exertion Review of Systems Denies chest pain Admit shortness of breath Denies nausea vomiting diarrhea Denies fever chills Physical Exam Vital Signs: Vital Signs: Last Vital Signs Temp 97.5 F 04/12/22 00:03 Pulse 73 04/12/22 04:10 Resp 23 H 04/12/22 04:10 BP 128/70 04/12/22 04:10 Pulse Ox 94 04/12/22 04:10 O2 Del Method 04/12/22 04:10 O2 Flow Rate 4 04/12/22 04:10 Oxygen Flow Rate 4 04/10/22 01:37 BMI result Body Mass Index 50.6 Const: Other: Awake alert no acute distress. Able to speak full sentences while essentially supine HEENT: Other: Membranes dry Resp: Other: Diffuse expiratory wheezes with crackles heard left base Cardio: Other: No S4; positive S1-S2; no S3 murmurs rubs or gallops GI: Other: Soft nontender nondistended with normoactive bowel sounds Neuro: Other: Cranial nerves 2-12 grossly intact as tested. Motor is 5/5 all extremities. Sensation intact. Cognition appropriate Extrem: Other: No edema bilaterally Objective Data Active Medications Acetaminophen (Acetaminophen 325 Mg Tablet) 650 mg PO Q6H [facility] Last Admin: 04/12/22 04:47 Dose: 650 mg Documented By: DAVONTE Albuterol Sulfate (Albuterol Sulfate (0.083%) 2.5 Mg/3 Ml Vial.Neb) 2.5 mg INHALE Q6H PRN PRN Reason: wheezing Last Admin: 04/12/22 03:25 Dose: 2.5 mg Documented By: RONALD Albuterol Sulfate (Albuterol Sulfate 90 Mcg 8 Gm Inhaler) 2 puff INHALE Q4H PRN PRN Reason: Shortness Of Breath Or Wheezing Last Admin: 04/11/22 19:25 Dose: 2 puff Documented By: RONALD Enoxaparin Sodium (Enoxaparin Sodium 40 Mg/0.4 Ml Syringe) 40 mg SUBCUT Q24H [facility] Last Admin: 04/12/22 09:44 Dose: 40 mg Documented By: DILAN Ceftriaxone Sodium 1 gm/ (Sodium Chloride) 50 mls @ 100 mls/hr IV Q24H [facility] Last Infusion: 04/11/22 09:58 Dose: 0 mls/hr Documented By: JASPER Doxycycline Hyclate 100 mg/ (Sodium Chloride) 250 mls @ 166.67 mls/hr IV Q12H [facility] Last Infusion: 04/12/22 01:50 Dose: 0 mls/hr Documented By: DAVONTE Melatonin (Melatonin 3 Mg Tablet) 6 mg PO BEDTIME PRN PRN Reason: insomnia Last Admin: 04/12/22 04:12 Dose: 6 mg Documented By: DAVONTE Methylprednisolone Sodium Succinate (Methylprednisolone Sod Succ 125 Mg/2 Ml Vial) 60 mg IVPUSH Q6H [facility] Last Admin: 04/12/22 09:44 Dose: 60 mg Documented By: DILAN Ondansetron HCl (Ondansetron Hcl 4 Mg/2 Ml Vial) 4 mg IVPUSH Q6H [facility] Last Admin: 04/12/22 09:44 Dose: 4 mg Documented By: DILAN Oseltamivir Phosphate (Oseltamivir Phosphate 75 Mg Capsule) 75 mg PO Q12H [facility] Stop: 04/15/22 06:01 Last Admin: 04/12/22 06:19 Dose: 75 mg Documented By: DAVONTE Pharmacy Consult (Consult Rx Perform Med Rec) 1 each MISCELLANE ONCE PRN PRN Reason: Consult order Sodium Chloride (0.9 % Sodium Chloride Flush 3 Ml Syringe) 3 ml IVFLUSH QSHIFT [facility] Last Admin: 04/12/22 09:44 Dose: 3 ml Documented By: DILAN Labs CBC & Chem 7: 04/12/22 05:55 04/12/22 05:55 Labs: Laboratory Results - last 24 hr 04/12/22 04/12/22 05:55 05:55 MCV 98.2 H MCH 28.8 MCHC 29.4 L RDW 13.0 Plt Count 158 L MPV 9.9 Immature Gran % (Auto) 3.0 H Neut % (Auto) 81.6 H Lymph % (Auto) 9.0 L [place] % (Auto) 6.4 Eos % (Auto) 0.0 Baso % (Auto) 0.0 Lymph # (Auto) 0.3 L [place] # (Auto) 0.2 Eos # (Auto) 0.0 Baso # (Auto) 0.0 Abs Immat Gran (auto) 0.09 H Absolute Neuts (auto) 2.4 Absolute Nucleated RBC 0.020 H Nucleated RBC % (auto) 0.7 H Anion Gap 10 L Estim Creat Clear Calc 115.1 Estimated GFR > 60 Fasting Glucose 173 H Calcium 9.1 Total Bilirubin 0.3 AST 11 ALT 9 Alkaline Phosphatase 49 Total Protein 6.8 Albumin 3.8 Assessment and Plan (1) Acute respiratory failure with hypoxemia: Status: Acute (2) Asthma with exacerbation: Status: Acute (3) Pneumonia: Status: Acute (4) Multiple sclerosis: Status: Acute (5) Hypertension: Status: Acute Plan 51-year-old female with known history of asthma presents with worsening shortness of breath or the 48 hours prior to admission. Failed outpatient therapies. In the emergency room O2 responsive saturation as well as DuoNebs with affect. 1.Acute respiratory failure with hypoxemia secondary to pneumonia -ceftriaxone/doxycycline(3)... Minimal improvement thus far -titrate O2 to maintain sats greater equal to 90% -DuoNebs q.4 hours while awake -pulse dose steroids 2. Influenza A -Oseltamivir b.i.d. x5 days 3. Multiple sclerosis -asymptomatic at this time -Glatiramer as per outpatient dosing 4. Hypertension -acceptable control on amlodipine -adjust as indicated Full code Lovenox Requires ongoing hospitalization for IV antibiotics to treat pneumonia Quality Stroke Does the patient have a stroke diagnosis?: No VTE Prior VTE?: No VTE Risk Level:: Medical - moderate - high VTE Device Contraindication: Treatment Not Indicated VTE Drug Contraindication: N/A - Med Ordered
--- NOTE | 2022-04-12 11:45 | MHC.CM.PN ---
This process description writer meet with patient @ bedside in the ER. IMM Delivered. Patient is from home, lived alone, uses walker in the home. Receives [employer] services via [facility]. Marco Antonio'd and agustin. Reports having HCP as sister, copy requested. D/C plan is to return home w/ existed services. Sister to transport.
[2022-04-12] MEDS: Doxycycline Hyclate 100 MG in 0.9 % Sodium Chloride 250 ML 166.67 MG IV (14:33)
[2022-04-12 14:46] VITALS: BP 126/72; PULSE 72; RESP 22; TEMP 36.4; O2SAT 97
[2022-04-12] MEDS: cefTRIAXone sodium 1 GM in 0.9 % Sodium Chloride 50 ML IV (16:33)
[2022-04-12] MEDS: Albuterol Sulfate 90 MCG 8 GM INHALER 2 PUFF INHALE (16:44)
[2022-04-12 19:54] VITALS: BP 118/62; PULSE 76; RESP 17; TEMP 36.6; O2SAT 97
[2022-04-12] MEDS: hydrOXYzine HCL 50 MG TABLET PO (21:34)
[2022-04-12 23:44] VITALS: BP 125/65; PULSE 79; RESP 18; TEMP 36.9; O2SAT 100
[2022-04-13] MEDS: diphenhydrAMINE HCL 50 MG/ML VIAL 25 MG IVPUSH (01:30)
[2022-04-13] MEDS: Doxycycline Hyclate 100 MG in 0.9 % Sodium Chloride 250 ML 166.67 MG IV ×2 (01:30→12:37)
[2022-04-13] MEDS: Acetaminophen 325 MG TABLET 650 MG PO ×3 (01:31→21:11)
[2022-04-13] MEDS: ondansetron HCL 4 MG/2 ML VIAL IVPUSH ×3 (01:31→21:12)
[2022-04-13 04:00] VITALS: BP 131/62; PULSE 78; RESP 17; TEMP 36; O2SAT 96
[2022-04-13] MEDS: Oseltamivir Phosphate 75 MG CAPSULE PO ×2 (05:21→16:56)
[2022-04-13] MEDS: methylPREDNISolone Sod Succ 125 MG/2 ML VIAL 60 MG IVPUSH ×4 (05:21→21:12)
[2022-04-13 05:42] LABS: MANUAL DIFF FLAG NO
[2022-04-13 05:44] LABS: Hematocrit 41.8 % (37.0-47.0); Hemoglobin 12.3 g/dl (12.0-16.0); Imm Gran Abs Auto 0.09 X10*3/uL (0.00-0.03); Imm Gran Pct Auto 3.3 % (0.0-0.4); Lymphocytes Absolute Auto 0.3 X10*3/uL (1.2-4.9); Lymphocytes Percent Auto 12.1 % (20-40); Mean Corpuscular HGB Conc 29.4 g/dl (31.0-35.0); Mean Corpuscular Hemoglobin 28.7 pg (27.0-33.0); Mean Corpuscular Volume 97.7 fL (80.0-98.0); Mean Platelet Volume 10.3 fL (9.4-12.3); Monocytes Absolute Auto 0.2 X10*3/uL (0.1-1.2); Monocytes Percent Auto 7.3 % (2-11); Neutrophils Absolute Auto 2.1 x10*3/uL (2.0-8.3); Neutrophils Percent Auto 77.3 % (45-73); Platelet Count 146 X10*3/uL (160-400); Red Blood Count 4.28 X10*6/uL (4.20-5.50); White Blood Count 2.7 X10*3/uL (4.8-10.8)
[2022-04-13 06:03] LABS: Alanine Aminotransferase 12 U/L (0-31); Albumin Level 3.7 g/dL (3.5-5.0); Alkaline Phosphatase 46 U/L (39-117); Anion Gap 10 (12-20); Aspartate Amino Transferase 12 U/L (5-31); Bilirubin Total 0.3 mg/dL (0.0-1.0); Blood Urea Nitrogen 20 mg/dL (9-16); Calcium 9.2 mg/dL (8.4-10.2); Carbon Dioxide 29 mmol/L (22-29); Chloride 104 mmol/L (96-108); Creatinine Clr Calc Pharmacy 112.2; Estimated Glomerular Filt Rate > 60; Glucose Fasting 193 mg/dL (60-99); Potassium 4.1 mmol/L (3.3-5.1); Sodium 139 mmol/L (135-145); Total Protein 6.7 g/dL (6.5-8.0)
[2022-04-13 07:08] VITALS: BP 152/75; PULSE 74; RESP 16; TEMP 36.1; O2SAT 97
[2022-04-13] MEDS: Enoxaparin Sodium 40 MG/0.4 ML SYRINGE SUBCUT (08:11)
[2022-04-13] MEDS: 0.9 % Sodium Chloride Flush 3 ML SYRINGE IVFLUSH ×3 (08:12→21:12)
[2022-04-13 11:42] VITALS: BP 145/73; PULSE 87; RESP 20; TEMP 36.5
[2022-04-13] MEDS: cefTRIAXone sodium 1 GM in 0.9 % Sodium Chloride 50 ML IV (12:06)
[2022-04-13] MEDS: DULoxetine HCl 30 MG CAPSULE.DR PO (14:29)
[2022-04-13] MEDS: amLODIPine Besylate 10 MG TABLET PO (14:29)
[2022-04-13] MEDS: ALPRAZolam 0.25 MG TABLET PO (14:29)
[2022-04-13] MEDS: Atorvastatin Calcium 40 MG TABLET PO (14:29)
[2022-04-13] MEDS: Gabapentin 300 MG CAPSULE PO ×2 (14:29→21:11)
[2022-04-13] MEDS: Cholecalciferol (Vitamin D3) 25 MCG TABLET PO (14:29)
[2022-04-13 14:57] VITALS: BP 129/63; PULSE 73; RESP 18; TEMP 36.4; O2SAT 97
--- NOTE | 2022-04-13 15:51 | HO.PM.IMPN ---
Subjective Subjective Date of Service: 04/13/22 Interval History: Acute respiratory failure with hypoxemia secondary to pneumonia Review of Systems Still short of breath with minimal exertion, talk with short sentences. Physical Exam Vital Signs: Vital Signs: Last Vital Signs Temp 97.6 F 04/13/22 14:57 Pulse 73 04/13/22 14:57 Resp 18 04/13/22 14:57 BP 129/63 04/13/22 14:57 Pulse Ox 97 04/13/22 14:57 O2 Del Method 04/13/22 14:57 O2 Flow Rate 4.0 04/13/22 14:57 Oxygen Flow Rate 4 04/10/22 01:37 BMI result Body Mass Index 50.6 Appearance: Alert.? Oriented X3.? anxious /sob cvs: rrr, [id number] , no murmur res: Air entry diminished, bilateral wheezing. abd: no rebound or guarding ,nt, bs present. ext pulses present , no cyanosis. neuro: axo3 , nonfocal. Objective Data Active Medications Acetaminophen (Acetaminophen 325 Mg Tablet) 650 mg PO Q6H [facility] Last Admin: 04/13/22 14:29 Dose: Not Given Documented By: SANDY Non-Admin Reason: Patient Refused Albuterol Sulfate (Albuterol Sulfate (0.083%) 2.5 Mg/3 Ml Vial.Neb) 2.5 mg INHALE Q6H PRN PRN Reason: wheezing Last Admin: 04/12/22 03:25 Dose: 2.5 mg Documented By: RONALD Albuterol Sulfate (Albuterol Sulfate 90 Mcg 8 Gm Inhaler) 2 puff INHALE Q4H PRN PRN Reason: Shortness Of Breath Or Wheezing Last Admin: 04/12/22 16:44 Dose: 2 puff Documented By: CHELO Amlodipine Besylate (Amlodipine Besylate 10 Mg Tablet) 10 mg PO DAILY [facility]; Protocol Last Admin: 04/13/22 14:29 Dose: 10 mg Documented By: SANDY Atorvastatin Calcium (Atorvastatin Calcium 40 Mg Tablet) 40 mg PO DAILY [facility] Last Admin: 04/13/22 14:29 Dose: 40 mg Documented By: SANDY Baclofen (Baclofen 10 Mg Tablet) 10 mg PO TID PRN PRN Reason: muscle spasm Duloxetine HCl (Duloxetine Hcl 30 Mg Capsule.) 30 mg PO DAILY [facility] Last Admin: 04/13/22 14:29 Dose: 30 mg Documented By: SANDY Enoxaparin Sodium (Enoxaparin Sodium 40 Mg/0.4 Ml Syringe) 40 mg SUBCUT Q24H [facility] Last Admin: 04/13/22 08:11 Dose: 40 mg Documented By: SANDY Fluticasone Propionate (Fluticasone Propionate Nasal 16 Gm [place]) 1 spray NOSTRIL-B BID [facility] Last Admin: 04/13/22 14:33 Dose: Not Given Documented By: SANDY Non-Admin Reason: Med Not Available Gabapentin (Gabapentin 300 Mg Capsule) 300 mg PO TID [facility] Last Admin: 04/13/22 14:29 Dose: 300 mg Documented By: SANDY Ceftriaxone Sodium 1 gm/ (Sodium Chloride) 50 mls @ 100 mls/hr IV Q24H [facility] Last Infusion: 04/13/22 12:38 Dose: 0 mls/hr Documented By: SANDY Doxycycline Hyclate 100 mg/ (Sodium Chloride) 250 mls @ 166.67 mls/hr IV Q12H [facility] Last Infusion: 04/13/22 14:13 Dose: 0 mls/hr Documented By: SANDY Melatonin (Melatonin 3 Mg Tablet) 6 mg PO BEDTIME PRN PRN Reason: insomnia Last Admin: 04/12/22 04:12 Dose: 6 mg Documented By: DAVONTE Methylprednisolone Sodium Succinate (Methylprednisolone Sod Succ 125 Mg/2 Ml Vial) 60 mg IVPUSH Q6H [facility] Last Admin: 04/13/22 15:23 Dose: 60 mg Documented By: SANDY Non-Formulary Medication (Glatiramer) 40 mg SUBCUT MOWEFR [facility] Ondansetron HCl (Ondansetron Hcl 4 Mg/2 Ml Vial) 4 mg IVPUSH Q6H [facility] Last Admin: 04/13/22 14:29 Dose: Not Given Documented By: SANDY Non-Admin Reason: Patient Refused Oseltamivir Phosphate (Oseltamivir Phosphate 75 Mg Capsule) 75 mg PO Q12H [facility] Stop: 04/15/22 06:01 Last Admin: 04/13/22 05:21 Dose: 75 mg Documented By: CAIN Pharmacy Consult (Consult Rx Perform Med Rec) 1 each MISCELLANE ONCE PRN PRN Reason: Consult order Sodium Chloride (0.9 % Sodium Chloride Flush 3 Ml Syringe) 3 ml IVFLUSH QSHIFT [facility] Last Admin: 04/13/22 14:34 Dose: 3 ml Documented By: SANDY Vitamin D (Cholecalciferol (Vitamin D3) 25 Mcg Tablet) 25 mcg PO DAILY [facility] Last Admin: 04/13/22 14:29 Dose: 25 mcg Documented By: SANDY Labs CBC & Chem 7: 04/13/22 05:05 04/13/22 05:05 Labs: Laboratory Results - last 24 hr 04/13/22 04/13/22 05:05 05:05 MCV 97.7 MCH 28.7 MCHC 29.4 L RDW 13.0 Plt Count 146 L MPV 10.3 Immature Gran % (Auto) 3.3 H Neut % (Auto) 77.3 H Lymph % (Auto) 12.1 L [place] % (Auto) 7.3 Eos % (Auto) 0.0 Baso % (Auto) 0.0 Lymph # (Auto) 0.3 L [place] # (Auto) 0.2 Eos # (Auto) 0.0 Baso # (Auto) 0.0 Abs Immat Gran (auto) 0.09 H Absolute Neuts (auto) 2.1 Absolute Nucleated RBC 0.000 Nucleated RBC % (auto) 0.0 Anion Gap 10 L Estim Creat Clear Calc 112.2 Estimated GFR > 60 Fasting Glucose 193 H Calcium 9.2 Total Bilirubin 0.3 AST 12 ALT 12 Alkaline Phosphatase 46 Total Protein 6.7 Albumin 3.7 Microbiology Microbiology Results: Microbiology 04/12/22 13:33 Blood Culture - Preliminary Blood - Venous No growth after 24 hours. 04/12/22 13:33 Blood Culture - Preliminary Blood - Venous No growth after 24 hours. Assessment and Plan (1) Acute respiratory failure with hypoxemia: Status: Acute (2) Asthma with exacerbation: Status: Acute (3) Pneumonia: Status: Acute (4) Multiple sclerosis: Status: Acute (5) Hypertension: Status: Acute Plan 51-year-old female with known history of asthma presents with worsening shortness of breath or the 48 hours prior to admission. Failed outpatient therapies. In the emergency room O2 responsive saturation as well as DuoNebs with affect. 1.Acute respiratory failure with hypoxemia secondary to pneumonia -ceftriaxone/doxycycline(4)... Minimal improvement thus far -titrate O2 to maintain sats greater equal to 90% -DuoNebs q.4 hours while awake -pulse dose steroids 2. Influenza A -Oseltamivir b.i.d. x5 days 3. Multiple sclerosis -asymptomatic at this time -Glatiramer as per outpatient dosing 4. Hypertension -acceptable control on amlodipine -adjust as indicated 5. morbid obesity: Encouraged to lose weight. Full code Lovenox Requires ongoing hospitalization for IV antibiotics to treat pneumonia/Acute respiratory failure with hypoxemia Quality Stroke Does the patient have a stroke diagnosis?: No VTE Prior VTE?: No VTE Risk Level:: Medical - moderate - high VTE Device Contraindication: Treatment Not Indicated VTE Drug Contraindication: N/A - Med Ordered
--- NOTE | 2022-04-13 18:14 | PM.PSYCN ---
History of Present Illness Date of Service: 04/13/2022 Chief Complaint: Pneumonia HPI Narrative: Roxane is a 51-year-old female who carries a dx of NED. Hx of MS, HTN, morbid obesity. She presented to [facility] [place] [facility] on 04/10/22 due to worsening shortness of breath over the 48 hours prior to admission. Failed outpatient therapies. Admitted to [facility] [place] [place] for further workup of acute respiratory failure with hypoxemia secondary to pneumonia, influenza. Given antibiotics, DuoNebs, steroids. Psych consult placed for pt presenting with acute anxiety, panic attacks. Has been given one time doses of hydroxyzine 50 mg and Xanax 0.25 mg with good effect. Pt takes duloxetine 30 mg daily at home, however this had not been restarted on admission, only started it today 04/13. I spoke with pt this evening, she reports positive benefit on Cymbalta 30 mg daily and appreciates restarting it, thinks this will help with her anxiety. Says she has ?a lot? of episodes of anxiety. Sleep has been poor, ?I wasnt getting any sleep for days,? attributes this to ?my anxiety was real high.? Energy is low. States she has felt increased anxiety for a while, not able to say what triggered it, just says ?I felt really anxious, I was overwhelmed.? She denies depression. No psychotic sx. No hx of manic or hypomanic episodes endorsed. She denies agitation. Past Psychiatric History: Past meds: sertraline Medical Evaluation Reviewed: Yes Diagnostics Vital Signs (24Hr): Vital Signs - 24 hr 04/12/22 19:54 04/12/22 23:44 04/13/22 04:00 Temperature 97.9 F 98.4 F 96.8 F Pulse Rate 76 79 78 Respiratory Rate 17 18 17 Blood Pressure 118/62 125/65 131/62 Pulse Oximetry 97 100 96 Oxygen Delivery Method Room Air Nasal Cannula Nasal Cannula Oxygen Flow Rate 3 2 04/13/22 07:08 04/13/22 11:42 04/13/22 14:57 Temperature 96.9 F 97.7 F 97.6 F Pulse Rate 74 87 73 Respiratory Rate 16 20 18 Blood Pressure 152/75 H 145/73 H 129/63 Pulse Oximetry 97 97 Oxygen Delivery Method Nasal Cannula Nasal Cannula Oxygen Flow Rate 3 4.0 BMI result Body Mass Index 50.6 Labs Results: 04/13/22 05:05 04/13/22 05:05 Labs: Laboratory Results - last 48 hr 04/12/22 04/12/22 04/13/22 05:55 05:55 05:05 WBC 3.0 L 2.7 L RBC 4.44 4.28 Hgb 12.8 12.3 Hct 43.6 41.8 MCV 98.2 H 97.7 MCH 28.8 28.7 MCHC 29.4 L 29.4 L RDW 13.0 13.0 Plt Count 158 L 146 L MPV 9.9 10.3 Immature Gran % (Auto) 3.0 H 3.3 H Neut % (Auto) 81.6 H 77.3 H Lymph % (Auto) 9.0 L 12.1 L [place] % (Auto) 6.4 7.3 Eos % (Auto) 0.0 0.0 Baso % (Auto) 0.0 0.0 Lymph # (Auto) 0.3 L 0.3 L [place] # (Auto) 0.2 0.2 Eos # (Auto) 0.0 0.0 Baso # (Auto) 0.0 0.0 Abs Immat Gran (auto) 0.09 H 0.09 H Absolute Neuts (auto) 2.4 2.1 Absolute Nucleated RBC 0.020 H 0.000 Nucleated RBC % (auto) 0.7 H 0.0 Sodium 137 Potassium 4.5 Chloride 102 Carbon Dioxide 30 H Anion Gap 10 L BUN 20 H Creatinine 0.77 Estim Creat Clear Calc 115.1 Estimated GFR > 60 Fasting Glucose 173 H Calcium 9.1 Total Bilirubin 0.3 AST 11 ALT 9 Alkaline Phosphatase 49 Total Protein 6.8 Albumin 3.8 04/13/22 05:05 WBC RBC Hgb Hct MCV MCH MCHC RDW Plt Count MPV Immature Gran % (Auto) Neut % (Auto) Lymph % (Auto) [place] % (Auto) Eos % (Auto) Baso % (Auto) Lymph # (Auto) [place] # (Auto) Eos # (Auto) Baso # (Auto) Abs Immat Gran (auto) Absolute Neuts (auto) Absolute Nucleated RBC Nucleated RBC % (auto) Sodium 139 Potassium 4.1 Chloride 104 Carbon Dioxide 29 Anion Gap 10 L BUN 20 H Creatinine 0.79 Estim Creat Clear Calc 112.2 Estimated GFR > 60 Fasting Glucose 193 H Calcium 9.2 Total Bilirubin 0.3 AST 12 ALT 12 Alkaline Phosphatase 46 Total Protein 6.7 Albumin 3.7 Imaging Radiology Impressions: ITS Impressions Chest X-Ray 04/10/22 02:05 IMPRESSION: Bronchial wall thickening with patchy bilateral opacities is likely infectious or inflammatory. Mental Status Exam Mental Status Exam Narrative: A&O. Overweight, hospital attire. Poor eye contact, inattentive, lethargic, closing eyes. No Tics or Tremors. No abnormal involuntary movements. Calm, cooperative, engaged but tired and needed prompting to continue interview. Non-pressured speech, spontaneous with regular rate and rhythm, normal volume and prosody. No prolonged speech latency or dysarthria. Mood is ?fine,? affect is appripriate. Denies SI/SIB/HI upon inquiry. Denies A/VH or delusional thought content. Thoughts are coherent, organized. No known cognitive or memory impairment. Insight/ Judgment fair and adequate. Medications Medications Current Medications Acetaminophen (Acetaminophen 325 Mg Tablet) 650 mg PO Q6H [facility] Last Admin: 04/13/22 14:29 Dose: Not Given Albuterol Sulfate (Albuterol Sulfate (0.083%) 2.5 Mg/3 Ml Vial.Neb) 2.5 mg INHALE Q6H PRN PRN Reason: wheezing Last Admin: 04/12/22 03:25 Dose: 2.5 mg Albuterol Sulfate (Albuterol Sulfate 90 Mcg 8 Gm Inhaler) 2 puff INHALE Q4H PRN PRN Reason: Shortness Of Breath Or Wheezing Last Admin: 04/12/22 16:44 Dose: 2 puff Amlodipine Besylate (Amlodipine Besylate 10 Mg Tablet) 10 mg PO DAILY [facility]; Protocol Last Admin: 04/13/22 14:29 Dose: 10 mg Atorvastatin Calcium (Atorvastatin Calcium 40 Mg Tablet) 40 mg PO DAILY [facility] Last Admin: 04/13/22 14:29 Dose: 40 mg Baclofen (Baclofen 10 Mg Tablet) 10 mg PO TID PRN PRN Reason: muscle spasm Duloxetine HCl (Duloxetine Hcl 30 Mg Capsule.Dr) 30 mg PO DAILY [facility] Last Admin: 04/13/22 14:29 Dose: 30 mg Enoxaparin Sodium (Enoxaparin Sodium 40 Mg/0.4 Ml Syringe) 40 mg SUBCUT Q24H [facility] Last Admin: 04/13/22 08:11 Dose: 40 mg Fluticasone Propionate (Fluticasone Propionate Nasal 16 Gm [place]) 1 spray NOSTRIL-B BID [facility] Last Admin: 04/13/22 14:33 Dose: Not Given Gabapentin (Gabapentin 300 Mg Capsule) 300 mg PO TID [facility] Last Admin: 04/13/22 14:29 Dose: 300 mg Ceftriaxone Sodium 1 gm/ (Sodium Chloride) 50 mls @ 100 mls/hr IV Q24H [facility] Last Infusion: 04/13/22 12:38 Dose: Infused Doxycycline Hyclate 100 mg/ (Sodium Chloride) 250 mls @ 166.67 mls/hr IV Q12H [facility] Last Infusion: 04/13/22 14:13 Dose: Infused Melatonin (Melatonin 3 Mg Tablet) 6 mg PO BEDTIME PRN PRN Reason: insomnia Last Admin: 04/12/22 04:12 Dose: 6 mg Methylprednisolone Sodium Succinate (Methylprednisolone Sod Succ 125 Mg/2 Ml Vial) 60 mg IVPUSH Q6H [facility] Last Admin: 04/13/22 15:23 Dose: 60 mg Non-Formulary Medication (Glatiramer) 40 mg SUBCUT MOWEFR [facility] Ondansetron HCl (Ondansetron Hcl 4 Mg/2 Ml Vial) 4 mg IVPUSH Q6H [facility] Last Admin: 04/13/22 14:29 Dose: Not Given Oseltamivir Phosphate (Oseltamivir Phosphate 75 Mg Capsule) 75 mg PO Q12H [facility] Stop: 04/15/22 06:01 Last Admin: 04/13/22 16:56 Dose: 75 mg Pharmacy Consult (Consult Rx Perform Med Rec) 1 each MISCELLANE ONCE PRN PRN Reason: Consult order Sodium Chloride (0.9 % Sodium Chloride Flush 3 Ml Syringe) 3 ml IVFLUSH QSHIFT [facility] Last Admin: 04/13/22 14:34 Dose: 3 ml Vitamin D (Cholecalciferol (Vitamin D3) 25 Mcg Tablet) 25 mcg PO DAILY [facility] Last Admin: 04/13/22 14:29 Dose: 25 mcg Allergies Allergies Allergy/AdvReac Type Severity Reaction Status Date / Time No Known Allergies Allergy Verified 04/10/22 03:38 Assessment & Plan Assessment & Plan (1) NED (generalized anxiety disorder): Status: Acute Code(s): F41.1 - Generalized anxiety disorder (2) Panic disorder without agoraphobia: Status: Acute Code(s): F41.0 - Panic disorder [episodic paroxysmal anxiety] Plan Plan: Continue Cymbalta at 30 mg daily for sx of anxiety. Will add hydroxyzine 50 mg Q6H PRN for anxiety, trazodone 50 mg HS PRN for insomnia as she is on steroids. Thank you for this consultation. If you have any questions or concerns, please do not hesitate to contact psychiatry service. I spent minutes with the patient and/or on the patient floor today, greater than?50% of which was spent counseling/coordinating care.
[2022-04-13 19:04] VITALS: BP 144/69; PULSE 81; RESP 20; TEMP 36.4; O2SAT 94
[2022-04-13] MEDS: Melatonin 3 MG TABLET 6 MG PO (21:11)
[2022-04-13] MEDS: Fluticasone Propionate Nasal 16 GM SPRAY 1 SPRAY NOSTRIL-B (22:38)
[2022-04-13 23:23] VITALS: BP 122/67; PULSE 76; RESP 18; TEMP 36.6; O2SAT 100
[2022-04-14] VITALS (7 sets, daily range): BP systolic 121–134; BP diastolic 60–77; PULSE 68–85; RESP 18–22; TEMP 36.3–36.8; O2SAT 88–97
[2022-04-14] MEDS: Doxycycline Hyclate 100 MG in 0.9 % Sodium Chloride 250 ML 166.67 MG IV ×2 (01:40→13:11)
[2022-04-14] MEDS: methylPREDNISolone Sod Succ 125 MG/2 ML VIAL 60 MG IVPUSH ×3 (03:15→19:30)
[2022-04-14] MEDS: ondansetron HCL 4 MG/2 ML VIAL IVPUSH ×3 (03:15→19:30)
[2022-04-14] MEDS: Acetaminophen 325 MG TABLET 650 MG PO ×4 (03:15→19:30)
[2022-04-14] MEDS: Oseltamivir Phosphate 75 MG CAPSULE PO ×2 (05:40→17:23)
[2022-04-14] MEDS: Cholecalciferol (Vitamin D3) 25 MCG TABLET PO (08:09)
[2022-04-14] MEDS: Atorvastatin Calcium 40 MG TABLET PO (08:09)
[2022-04-14] MEDS: DULoxetine HCl 30 MG CAPSULE.DR PO (08:09)
[2022-04-14] MEDS: Gabapentin 300 MG CAPSULE PO ×3 (08:09→19:30)
[2022-04-14] MEDS: amLODIPine Besylate 10 MG TABLET PO (08:09)
[2022-04-14] MEDS: Fluticasone Propionate Nasal 16 GM SPRAY 1 SPRAY NOSTRIL-B ×2 (08:09→19:31)
[2022-04-14] MEDS: Enoxaparin Sodium 40 MG/0.4 ML SYRINGE SUBCUT (08:10)
[2022-04-14] MEDS: 0.9 % Sodium Chloride Flush 3 ML SYRINGE IVFLUSH ×3 (08:10→19:31)
[2022-04-14] MEDS: cefTRIAXone sodium 1 GM in 0.9 % Sodium Chloride 50 ML IV (12:37)
--- NOTE | 2022-04-14 14:15 | P.PNIM_ITS ---
Subjective Subjective Date of Service: 04/14/22 Interval History: Acute respiratory failure with hypoxemia secondary to pneumonia Review of Systems Still short of breath with minimal exertion, talk with short sentences. Physical Exam Vital Signs: Vital Signs: Last Vital Signs Temp 97.6 F 04/14/22 11:00 Pulse 73 04/14/22 11:00 Resp 18 04/14/22 11:00 BP 134/77 04/14/22 11:00 Pulse Ox 91 L 04/14/22 11:00 O2 Del Method 04/14/22 11:00 O2 Flow Rate 1.0 04/14/22 11:00 Oxygen Flow Rate 4 04/10/22 01:37 BMI result Body Mass Index 50.6 Appearance: Alert.? Oriented X3.? anxious /sob cvs: rrr, [id number] , no murmur res: ? Air entry diminished, bilateral wheezing. abd: no rebound or guarding ,nt, bs present. ext pulses present , no cyanosis. neuro: axo3 , nonfocal. Objective Data Active Medications Acetaminophen (Acetaminophen 325 Mg Tablet) 650 mg PO Q6H [facility] Last Admin: 04/14/22 08:09 Dose: 650 mg Documented By: SANDY Albuterol Sulfate (Albuterol Sulfate (0.083%) 2.5 Mg/3 Ml Vial.Neb) 2.5 mg INHALE Q6H PRN PRN Reason: wheezing Last Admin: 04/12/22 03:25 Dose: 2.5 mg Documented By: RONALD Albuterol Sulfate (Albuterol Sulfate 90 Mcg 8 Gm Inhaler) 2 puff INHALE Q4H PRN PRN Reason: Shortness Of Breath Or Wheezing Last Admin: 04/12/22 16:44 Dose: 2 puff Documented By: CHELO Amlodipine Besylate (Amlodipine Besylate 10 Mg Tablet) 10 mg PO DAILY [facility]; Protocol Last Admin: 04/14/22 08:09 Dose: 10 mg Documented By: SANDY Atorvastatin Calcium (Atorvastatin Calcium 40 Mg Tablet) 40 mg PO DAILY [facility] Last Admin: 04/14/22 08:09 Dose: 40 mg Documented By: SANDY Baclofen (Baclofen 10 Mg Tablet) 10 mg PO TID PRN PRN Reason: muscle spasm Duloxetine HCl (Duloxetine Hcl 30 Mg Capsule.) 30 mg PO DAILY [facility] Last Admin: 04/14/22 08:09 Dose: 30 mg Documented By: SANDY Enoxaparin Sodium (Enoxaparin Sodium 40 Mg/0.4 Ml Syringe) 40 mg SUBCUT Q24H [facility] Last Admin: 04/14/22 08:10 Dose: 40 mg Documented By: SANDY Fluticasone Propionate (Fluticasone Propionate Nasal 16 Gm [place]) 1 spray NOSTRIL-B BID [facility] Last Admin: 04/14/22 08:09 Dose: 1 spray Documented By: SANDY Gabapentin (Gabapentin 300 Mg Capsule) 300 mg PO TID [facility] Last Admin: 04/14/22 08:09 Dose: 300 mg Documented By: SANDY Hydroxyzine HCl (Hydroxyzine Hcl 50 Mg Tablet) 50 mg PO Q6H PRN PRN Reason: anxiety Ceftriaxone Sodium 1 gm/ (Sodium Chloride) 50 mls @ 100 mls/hr IV Q24H [facility] Last Infusion: 04/14/22 13:16 Dose: 0 mls/hr Documented By: SANDY Doxycycline Hyclate 100 mg/ (Sodium Chloride) 250 mls @ 166.67 mls/hr IV Q12H [facility] Last Admin: 04/14/22 13:11 Dose: 166.67 mls/hr Documented By: SANDY Melatonin (Melatonin 3 Mg Tablet) 6 mg PO BEDTIME PRN PRN Reason: insomnia Last Admin: 04/13/22 21:11 Dose: 6 mg Documented By: PHANI Methylprednisolone Sodium Succinate (Methylprednisolone Sod Succ 125 Mg/2 Ml Vial) 60 mg IVPUSH Q6H [facility] Last Admin: 04/14/22 08:13 Dose: 60 mg Documented By: SANDY Non-Formulary Medication (Glatiramer) 40 mg SUBCUT MOWEFR [facility] Ondansetron HCl (Ondansetron Hcl 4 Mg/2 Ml Vial) 4 mg IVPUSH Q6H [facility] Last Admin: 04/14/22 08:09 Dose: 4 mg Documented By: SANDY Oseltamivir Phosphate (Oseltamivir Phosphate 75 Mg Capsule) 75 mg PO Q12H [facility] Stop: 04/15/22 06:01 Last Admin: 04/14/22 05:40 Dose: 75 mg Documented By: PHANI Comments: downtime Pharmacy Consult (Consult Rx Perform Med Rec) 1 each MISCELLANE ONCE PRN PRN Reason: Consult order Sodium Chloride (0.9 % Sodium Chloride Flush 3 Ml Syringe) 3 ml IVFLUSH QSHIFT [facility] Last Admin: 04/14/22 08:10 Dose: 3 ml Documented By: SANDY Trazodone HCl (Trazodone Hcl 50 Mg Tablet) 50 mg PO BEDTIME PRN PRN Reason: insomnia Vitamin D (Cholecalciferol (Vitamin D3) 25 Mcg Tablet) 25 mcg PO DAILY [facility] Last Admin: 04/14/22 08:09 Dose: 25 mcg Documented By: SANDY Labs CBC & Chem 7: 04/13/22 05:05 04/13/22 05:05 Microbiology Microbiology Results: Microbiology 04/12/22 13:33 Blood Culture - Preliminary Blood - Venous No growth after 24 hours. 04/12/22 13:33 Blood Culture - Preliminary Blood - Venous No growth after 24 hours. Assessment and Plan (1) Influenza A: Status: Acute (2) Asthma with exacerbation: Status: Acute (3) Panic disorder without agoraphobia: Status: Acute Plan 51-year-old female with known history of asthma presents with worsening shortness of breath or the 48 hours prior to admission.? Failed outpatient therapies.? In the emergency room O2 responsive saturation as well as DuoNebs with affect. 1.Acute respiratory failure with hypoxemia secondary to pneumonia -ceftriaxone/doxycycline(5)...? Minimal improvement thus far -titrate O2 to maintain sats greater equal to 90% -DuoNebs q.4 hours while awake -pulse dose steroids 2. Influenza A -Oseltamivir b.i.d. x5 days 3. Multiple sclerosis -asymptomatic at this time -Glatiramer as per outpatient dosing 4. Hypertension -acceptable control on amlodipine -adjust as indicated 5. morbid obesity: ? Encouraged to lose weight. 6. anxiety/panic: continue home meds,prn trazodone ,if needed prn hydroxyzine Full code Lovenox Requires ongoing hospitalization for IV antibiotics to treat pneumonia/Acute respiratory failure with hypoxemia Quality Stroke Does the patient have a stroke diagnosis?: No VTE Prior VTE?: No VTE Risk Level:: Medical - moderate - high VTE Device Contraindication: Treatment Not Indicated VTE Drug Contraindication: N/A - Med Ordered
--- NOTE | 2022-04-14 14:24 | MHC.CM.PN ---
EMR REVIEWED, PT REMAINS ON SUPPLEMENTAL O2, NEB TX'S AND IV SOLUMEDROL, PT NOT READY FOR D/C AT THIS TIME, CM WILL CONT TO FOLLOW D/C NEEDS.
[2022-04-14] MEDS: traZODone HCL 50 MG TABLET PO (19:30)
[2022-04-14] MEDS: Melatonin 3 MG TABLET 6 MG PO (19:30)
[2022-04-15] VITALS (8 sets, daily range): BP systolic 131–149; BP diastolic 68–73; PULSE 68–102; RESP 16–24; TEMP 36.2–36.7; O2SAT 80–97
[2022-04-15] MEDS: Doxycycline Hyclate 100 MG in 0.9 % Sodium Chloride 250 ML 166.67 MG IV ×2 (01:33→13:58)
[2022-04-15] MEDS: ondansetron HCL 4 MG/2 ML VIAL IVPUSH ×2 (03:20→20:14)
[2022-04-15] MEDS: Acetaminophen 325 MG TABLET 650 MG PO ×4 (03:20→20:14)
[2022-04-15] MEDS: Oseltamivir Phosphate 75 MG CAPSULE PO (05:33)
[2022-04-15] MEDS: Atorvastatin Calcium 40 MG TABLET PO (08:47)
[2022-04-15] MEDS: Cholecalciferol (Vitamin D3) 25 MCG TABLET PO (08:47)
[2022-04-15] MEDS: amLODIPine Besylate 10 MG TABLET PO (08:47)
[2022-04-15] MEDS: Gabapentin 300 MG CAPSULE PO ×3 (08:47→20:13)
[2022-04-15] MEDS: DULoxetine HCl 30 MG CAPSULE.DR PO (08:47)
[2022-04-15] MEDS: methylPREDNISolone Sod Succ 125 MG/2 ML VIAL 60 MG IVPUSH ×2 (08:48→20:13)
[2022-04-15] MEDS: Fluticasone Propionate Nasal 16 GM SPRAY 1 SPRAY NOSTRIL-B ×2 (08:49→20:15)
[2022-04-15] MEDS: 0.9 % Sodium Chloride Flush 3 ML SYRINGE IVFLUSH ×3 (08:49→20:16)
[2022-04-15] MEDS: Enoxaparin Sodium 40 MG/0.4 ML SYRINGE SUBCUT (08:51)
--- NOTE | 2022-04-15 11:21 | HO.PM.IMPN ---
Subjective Subjective Date of Service: 04/15/22 Interval History: Acute respiratory failure with hypoxemia secondary to pneumonia Review of Systems Still short of breath with minimal exertion, talk with short sentences. Physical Exam Vital Signs: Vital Signs: Last Vital Signs Temp 97.6 F 04/15/22 07:43 Pulse 68 04/15/22 07:43 Resp 19 04/15/22 07:43 BP 149/72 H 04/15/22 07:43 Pulse Ox 95 04/15/22 07:43 O2 Del Method 04/15/22 07:43 O2 Flow Rate 3.0 04/15/22 07:43 Oxygen Flow Rate 4 04/10/22 01:37 BMI result Body Mass Index 50.6 Appearance: Alert.? Oriented X3.? anxious /sob cvs: rrr, [id number] , no murmur res: ? Air entry diminished, bilateral wheezing. abd: no rebound or guarding ,nt, bs present. ext pulses present , no cyanosis. neuro: axo3 , nonfocal. Objective Data Active Medications Acetaminophen (Acetaminophen 325 Mg Tablet) 650 mg PO Q6H [facility] Last Admin: 04/15/22 08:48 Dose: 650 mg Documented By: SANDY Albuterol Sulfate (Albuterol Sulfate (0.083%) 2.5 Mg/3 Ml Vial.Neb) 2.5 mg INHALE Q6H PRN PRN Reason: wheezing Last Admin: 04/12/22 03:25 Dose: 2.5 mg Documented By: RONALD Albuterol Sulfate (Albuterol Sulfate 90 Mcg 8 Gm Inhaler) 2 puff INHALE Q4H PRN PRN Reason: Shortness Of Breath Or Wheezing Last Admin: 04/12/22 16:44 Dose: 2 puff Documented By: CHELO Amlodipine Besylate (Amlodipine Besylate 10 Mg Tablet) 10 mg PO DAILY [facility]; Protocol Last Admin: 04/15/22 08:47 Dose: 10 mg Documented By: SANDY Atorvastatin Calcium (Atorvastatin Calcium 40 Mg Tablet) 40 mg PO DAILY [facility] Last Admin: 04/15/22 08:47 Dose: 40 mg Documented By: SANDY Baclofen (Baclofen 10 Mg Tablet) 10 mg PO TID PRN PRN Reason: muscle spasm Duloxetine HCl (Duloxetine Hcl 30 Mg Capsule.) 30 mg PO DAILY [facility] Last Admin: 04/15/22 08:47 Dose: 30 mg Documented By: SANDY Enoxaparin Sodium (Enoxaparin Sodium 40 Mg/0.4 Ml Syringe) 40 mg SUBCUT Q24H [facility] Last Admin: 04/15/22 08:51 Dose: 40 mg Documented By: SANDY Fluticasone Propionate (Fluticasone Propionate Nasal 16 Gm [place]) 1 spray NOSTRIL-B BID [facility] Last Admin: 04/15/22 08:49 Dose: 1 spray Documented By: SANDY Gabapentin (Gabapentin 300 Mg Capsule) 300 mg PO TID [facility] Last Admin: 04/15/22 08:47 Dose: 300 mg Documented By: SANDY Guaifenesin/Codeine Phosphate (Guaifen/Codeine Sf 200/20/10ml 10 Ml Liquid) 10 ml PO Q4H PRN PRN Reason: Cough Hydroxyzine HCl (Hydroxyzine Hcl 50 Mg Tablet) 50 mg PO Q6H PRN PRN Reason: anxiety Ceftriaxone Sodium 1 gm/ (Sodium Chloride) 50 mls @ 100 mls/hr IV Q24H [facility] Last Infusion: 04/14/22 13:16 Dose: 0 mls/hr Documented By: SANDY Doxycycline Hyclate 100 mg/ (Sodium Chloride) 250 mls @ 166.67 mls/hr IV Q12H [facility] Last Infusion: 04/15/22 03:20 Dose: 0 mls/hr Documented By: PHANI Melatonin (Melatonin 3 Mg Tablet) 6 mg PO BEDTIME PRN PRN Reason: insomnia Last Admin: 04/14/22 19:30 Dose: 6 mg Documented By: PHANI Methylprednisolone Sodium Succinate (Methylprednisolone Sod Succ 125 Mg/2 Ml Vial) 60 mg IVPUSH Q12H [facility] Last Admin: 04/15/22 08:48 Dose: 60 mg Documented By: SANDY Non-Formulary Medication (Glatiramer) 40 mg SUBCUT MOWEFR [facility] Ondansetron HCl (Ondansetron Hcl 4 Mg/2 Ml Vial) 4 mg IVPUSH Q6H [facility] Last Admin: 04/15/22 08:50 Dose: Not Given Documented By: SANDY Non-Admin Reason: Patient Refused Pharmacy Consult (Consult Rx Perform Med Rec) 1 each MISCELLANE ONCE PRN PRN Reason: Consult order Sodium Chloride (0.9 % Sodium Chloride Flush 3 Ml Syringe) 3 ml IVFLUSH QSHIFT [facility] Last Admin: 04/15/22 08:49 Dose: 3 ml Documented By: SANDY Trazodone HCl (Trazodone Hcl 50 Mg Tablet) 50 mg PO BEDTIME PRN PRN Reason: insomnia Last Admin: 04/14/22 19:30 Dose: 50 mg Documented By: DILCIAQC Vitamin D (Cholecalciferol (Vitamin D3) 25 Mcg Tablet) 25 mcg PO DAILY [facility] Last Admin: 04/15/22 08:47 Dose: 25 mcg Documented By: SANDY Labs CBC & Chem 7: 04/13/22 05:05 04/13/22 05:05 Microbiology Microbiology Results: Microbiology 04/12/22 13:33 Blood Culture - Preliminary Blood - Venous No growth after 48 hours. 04/12/22 13:33 Blood Culture - Preliminary Blood - Venous No growth after 48 hours. Assessment and Plan (1) Pneumonia: Status: Acute (2) Asthma with exacerbation: Status: Acute Plan 51-year-old female with known history of asthma presents with worsening shortness of breath or the 48 hours prior to admission.? Failed outpatient therapies.? In the emergency room O2 responsive saturation as well as DuoNebs with affect. 1.Acute respiratory failure with hypoxemia secondary to pneumonia having coughing spells, also seems anxious Added Hycodan, loratidine -ceftriaxone/doxycycline(6)...? Minimal improvement thus far -titrate O2 to maintain sats greater equal to 90% -DuoNebs q.4 hours while awake -pulse dose steroids 2. Influenza A -Oseltamivir b.i.d. x5 days 3. Multiple sclerosis -asymptomatic at this time -Glatiramer as per outpatient dosing 4. Hypertension -acceptable control on amlodipine -adjust as indicated 5. morbid obesity: ? Encouraged to lose weight. 6. anxiety/panic: continue home meds,prn trazodone ,if needed prn hydroxyzine Full code Lovenox Requires ongoing hospitalization :IV antibiotics to treat pneumonia/Acute respiratory failure with hypoxemia Quality Stroke Does the patient have a stroke diagnosis?: No VTE Prior VTE?: No VTE Risk Level:: Medical - moderate - high VTE Device Contraindication: Treatment Not Indicated VTE Drug Contraindication: N/A - Med Ordered
[2022-04-15] MEDS: ALPRAZolam 0.25 MG TABLET PO (11:59)
[2022-04-15] MEDS: Loratadine 10 MG TABLET PO (11:59)
[2022-04-15 12:09] LABS: Venous Blood Gas Refer to POC result
[2022-04-15 12:11] LABS: VBG Base Excess 4.7 mmol/L; VBG HCO3 33 mmol/L (22-26); VBG pCO2 68 mmHg; VBG pO2 202 mmHg
[2022-04-15] MEDS: cefTRIAXone sodium 1 GM in 0.9 % Sodium Chloride 50 ML IV (13:05)
[2022-04-15] MEDS: Albuterol Sulfate (0.083%) 2.5 MG/3 ML VIAL.NEB INHALE ×2 (15:57→22:50)
[2022-04-15] MEDS: Melatonin 3 MG TABLET 6 MG PO (20:14)
[2022-04-15] MEDS: traZODone HCL 50 MG TABLET PO (20:15)
[2022-04-16] MEDS: Doxycycline Hyclate 100 MG in 0.9 % Sodium Chloride 250 ML 166.67 MG IV ×2 (01:39→14:10)
[2022-04-16 03:05] VITALS: BP 146/77; PULSE 74; RESP 19; TEMP 36.2; O2SAT 96
[2022-04-16] MEDS: ondansetron HCL 4 MG/2 ML VIAL IVPUSH ×4 (03:12→20:50)
[2022-04-16] MEDS: Acetaminophen 325 MG TABLET 650 MG PO ×4 (03:12→20:51)
[2022-04-16 07:32] VITALS: BP 132/76; PULSE 66; RESP 20; TEMP 36.2; O2SAT 94
[2022-04-16] MEDS: amLODIPine Besylate 10 MG TABLET PO (07:52)
[2022-04-16] MEDS: Gabapentin 300 MG CAPSULE PO ×3 (07:52→20:51)
[2022-04-16] MEDS: Cholecalciferol (Vitamin D3) 25 MCG TABLET PO (07:52)
[2022-04-16] MEDS: DULoxetine HCl 30 MG CAPSULE.DR PO (07:52)
[2022-04-16] MEDS: Enoxaparin Sodium 40 MG/0.4 ML SYRINGE SUBCUT (07:52)
[2022-04-16] MEDS: Loratadine 10 MG TABLET PO (07:52)
[2022-04-16] MEDS: Atorvastatin Calcium 40 MG TABLET PO (07:52)
[2022-04-16] MEDS: 0.9 % Sodium Chloride Flush 3 ML SYRINGE IVFLUSH ×3 (07:53→20:50)
[2022-04-16] MEDS: Fluticasone Propionate Nasal 16 GM SPRAY 1 SPRAY NOSTRIL-B ×2 (07:53→20:53)
[2022-04-16] MEDS: predniSONE 10 MG TABLET 50 MG PO (09:34)
--- NOTE | 2022-04-16 11:44 | MHC.CM.PN ---
EMR REVIEWED, PT REMAINS ON SUPPLEMENTAL O2 W/NEED INCREASING, TWO IV ABX'S AND PREDNISONE CHANGED TO PO THIS AM, PER HOSPITALIST PT NOT READY FOR D/C, CM WILL CONT TO FOLLOW.
[2022-04-16] MEDS: cefTRIAXone sodium 1 GM in 0.9 % Sodium Chloride 50 ML IV (13:30)
[2022-04-16 14:48] VITALS: PULSE 100; PULSE 88; PULSE 94; PULSE 98; O2SAT 82; O2SAT 84; O2SAT 88; O2SAT 91; O2SAT 99
[2022-04-16 14:56] VITALS: BP 132/76; PULSE 66; O2SAT 94
[2022-04-16 15:13] VITALS: BP 154/76; PULSE 81; RESP 16; TEMP 36.1; O2SAT 93
--- NOTE | 2022-04-16 16:23 | HO.PM.IMPN ---
Subjective Subjective Date of Service: 04/16/22 Interval History: hypoxia,cough Review of Systems Patient still short of breath with mild exertion? , out this intermittent coughing spells. Physical Exam Vital Signs: Vital Signs: Last Vital Signs Temp 97 F 04/16/22 15:13 Pulse 81 04/16/22 15:13 Resp 16 04/16/22 15:13 BP 154/76 H 04/16/22 15:13 Pulse Ox 93 04/16/22 15:13 O2 Del Method 04/16/22 15:13 O2 Flow Rate 4 04/16/22 15:13 Oxygen Flow Rate 4 04/10/22 01:37 BMI result Body Mass Index 50.6 Appearance: Alert.? Oriented X3.? anxious /sob cvs: rrr, [id number] , no murmur res: ? Air entry diminished, bilateral wheezing. abd: no rebound or guarding ,nt, bs present. ext pulses present , no cyanosis. neuro: axo3 , nonfocal. Objective Data Active Medications Acetaminophen (Acetaminophen 325 Mg Tablet) 650 mg PO Q6H [facility] Last Admin: 04/16/22 15:43 Dose: 650 mg Documented By: MAURO Albuterol Sulfate (Albuterol Sulfate (0.083%) 2.5 Mg/3 Ml Vial.Neb) 2.5 mg INHALE Q6H PRN PRN Reason: wheezing Last Admin: 04/15/22 22:50 Dose: 2.5 mg Documented By: AMINATA Albuterol Sulfate (Albuterol Sulfate 90 Mcg 8 Gm Inhaler) 2 puff INHALE Q4H PRN PRN Reason: Shortness Of Breath Or Wheezing Last Admin: 04/12/22 16:44 Dose: 2 puff Documented By: CHELO Amlodipine Besylate (Amlodipine Besylate 10 Mg Tablet) 10 mg PO DAILY [facility]; Protocol Last Admin: 04/16/22 07:52 Dose: 10 mg Documented By: MAURO Atorvastatin Calcium (Atorvastatin Calcium 40 Mg Tablet) 40 mg PO DAILY [facility] Last Admin: 04/16/22 07:52 Dose: 40 mg Documented By: MAURO Baclofen (Baclofen 10 Mg Tablet) 10 mg PO TID PRN PRN Reason: muscle spasm Duloxetine HCl (Duloxetine Hcl 30 Mg Capsule.) 30 mg PO DAILY [facility] Last Admin: 04/16/22 07:52 Dose: 30 mg Documented By: MAURO Enoxaparin Sodium (Enoxaparin Sodium 40 Mg/0.4 Ml Syringe) 40 mg SUBCUT Q24H [facility] Last Admin: 04/16/22 07:52 Dose: 40 mg Documented By: MAURO Fluticasone Propionate (Fluticasone Propionate Nasal 16 Gm [place]) 1 spray NOSTRIL-B BID [facility] Last Admin: 04/16/22 07:53 Dose: 1 spray Documented By: MAURO Gabapentin (Gabapentin 300 Mg Capsule) 300 mg PO TID [facility] Last Admin: 04/16/22 15:44 Dose: 300 mg Documented By: MAURO Guaifenesin/Codeine Phosphate (Guaifen/Codeine Sf 200/20/10ml 10 Ml Liquid) 10 ml PO Q4H PRN PRN Reason: Cough Hydroxyzine HCl (Hydroxyzine Hcl 50 Mg Tablet) 50 mg PO Q6H PRN PRN Reason: anxiety Ceftriaxone Sodium 1 gm/ (Sodium Chloride) 50 mls @ 100 mls/hr IV Q24H [facility] Last Infusion: 04/16/22 14:20 Dose: 0 mls/hr Documented By: MAURO Doxycycline Hyclate 100 mg/ (Sodium Chloride) 250 mls @ 166.67 mls/hr IV Q12H [facility] Last Infusion: 04/16/22 16:05 Dose: 0 mls/hr Documented By: MAURO Loratadine (Loratadine 10 Mg Tablet) 10 mg PO DAILY [facility] Last Admin: 04/16/22 07:52 Dose: 10 mg Documented By: MAURO Melatonin (Melatonin 3 Mg Tablet) 6 mg PO BEDTIME PRN PRN Reason: insomnia Last Admin: 04/15/22 20:14 Dose: 6 mg Documented By: PHANI Non-Formulary Medication (Glatiramer) 40 mg SUBCUT MOWEFR [facility] Ondansetron HCl (Ondansetron Hcl 4 Mg/2 Ml Vial) 4 mg IVPUSH Q6H [facility] Last Admin: 04/16/22 15:44 Dose: 4 mg Documented By: MAURO Pharmacy Consult (Consult Rx Perform Med Rec) 1 each MISCELLANE ONCE PRN PRN Reason: Consult order Prednisone (Prednisone 10 Mg Tablet) 50 mg PO DAILY [facility] Last Admin: 04/16/22 09:34 Dose: 50 mg Documented By: MAURO Sodium Chloride (0.9 % Sodium Chloride Flush 3 Ml Syringe) 3 ml IVFLUSH QSHIFT [facility] Last Admin: 04/16/22 15:45 Dose: 3 ml Documented By: MAURO Trazodone HCl (Trazodone Hcl 50 Mg Tablet) 50 mg PO BEDTIME PRN PRN Reason: insomnia Last Admin: 04/15/22 20:15 Dose: 50 mg Documented By: PHANI Vitamin D (Cholecalciferol (Vitamin D3) 25 Mcg Tablet) 25 mcg PO DAILY [facility] Last Admin: 04/16/22 07:52 Dose: 25 mcg Documented By: MAURO Labs CBC & Chem 7: 04/13/22 05:05 04/13/22 05:05 Assessment and Plan (1) Influenza A: Status: Acute (2) Asthma with exacerbation: Status: Acute (3) Pneumonia: Status: Acute (4) Panic disorder without agoraphobia: Status: Acute Plan 51-year-old female with known history of asthma presents with worsening shortness of breath or the 48 hours prior to admission.? Failed outpatient therapies.? In the emergency room O2 responsive saturation as well as DuoNebs with affect. 1.Acute respiratory failure with hypoxemia secondary to pneumonia having coughing spells, also seems anxious Added Hycodan, loratidine -ceftriaxone/doxycycline(6)...? Minimal improvement thus far -titrate O2 to maintain sats greater equal to 90% -DuoNebs q.4 hours while awake -pulse dose steroids 2. Influenza A -Oseltamivir b.i.d. x5 days 3. Multiple sclerosis -asymptomatic at this time -Glatiramer as per outpatient dosing 4. Hypertension -acceptable control on amlodipine -adjust as indicated 5. morbid obesity: ? Encouraged to lose weight. 6. anxiety/panic: continue home meds,prn trazodone ,if needed prn hydroxyzine added pt eval Full code Lovenox Requires ongoing hospitalization :IV antibiotics to treat pneumonia/Acute respiratory failure with hypoxemia Quality Stroke Does the patient have a stroke diagnosis?: No VTE Prior VTE?: No VTE Risk Level:: Medical - moderate - high VTE Device Contraindication: Treatment Not Indicated VTE Drug Contraindication: N/A - Med Ordered
[2022-04-16 19:15] VITALS: BP 153/81; PULSE 73; RESP 16; TEMP 36.6; O2SAT 95
[2022-04-17] MEDS: Doxycycline Hyclate 100 MG in 0.9 % Sodium Chloride 250 ML 166.67 MG IV (01:01)
[2022-04-17] MEDS: ondansetron HCL 4 MG/2 ML VIAL IVPUSH (02:23)
[2022-04-17] MEDS: Acetaminophen 325 MG TABLET 650 MG PO ×2 (02:23→10:06)
--- NOTE | 2022-04-17 03:06 | PC.NURSE ---
Pt C/0 of IV site pain, IV taken out; Patient refused another IV access. Sister Gin called this nurse that her sister would not get anymore IV access. Hospitalis, Dr. Le made aware.
[2022-04-17 04:00] VITALS: BP 140/73; PULSE 100; RESP 18; TEMP 36.9; O2SAT 93
[2022-04-17 07:23] VITALS: BP 153/75; PULSE 69; RESP 16; TEMP 37.1; O2SAT 96
[2022-04-17] MEDS: Enoxaparin Sodium 40 MG/0.4 ML SYRINGE SUBCUT (10:05)
[2022-04-17] MEDS: amLODIPine Besylate 10 MG TABLET PO (10:06)
[2022-04-17] MEDS: DULoxetine HCl 30 MG CAPSULE.DR PO (10:06)
[2022-04-17] MEDS: Loratadine 10 MG TABLET PO (10:06)
[2022-04-17] MEDS: predniSONE 10 MG TABLET 50 MG PO (10:06)
[2022-04-17] MEDS: Cholecalciferol (Vitamin D3) 25 MCG TABLET PO (10:06)
[2022-04-17] MEDS: Gabapentin 300 MG CAPSULE PO (10:07)
[2022-04-17] MEDS: Atorvastatin Calcium 40 MG TABLET PO (10:07)
--- NOTE | 2022-04-17 11:03 | PM.DS ---
DS: Providers Provider Date of Service: 04/17/22 Date of admission: 04/10/22 08:48 Primary care physician: Nonstaff Physician Consults: 04/13/22 16:45 Consult to Psychiatry Routine Consulting Provider: Psych Covering Reason for consultation: anxiety vs panic type symptoms Has provider been notified: No 04/16/22 07:33 Consult to Pulmonology Routine Consulting Provider: [facility] Reason for consultation: hypoxia -not improving ,in setting of asthma excerebation/flu Has provider been notified: No DS: Diagnosis Discharge Diagnosis (1) Influenza A: Status: Acute (2) Asthma with exacerbation: Status: Acute (3) Pneumonia: Status: Acute (4) Panic disorder without agoraphobia: Status: Acute (5) Acute respiratory failure with hypoxemia: Status: Acute DS: Summary Hospital Course Hospital Course: 51-year-old female presents with worsening shortness of breath over the 48 hours prior to admission.? Patient admits known history of asthma however states her nebulizer treatments were not effective.? EMS arrived patient was satting in the 80s after DuoNeb improved to 96%.? Chest x-ray demonstrates bilateral patchy opacities likely infectious. Hospital course: Patient admitted for acute hypoxemic respiratory failure secondary to asthma exacerbation(mild intermittent asthma), pneumonia, flu: Patient was started on nebs, steroids, IV antibiotics seems to be improving significantly but still required some oxygen considering multifactorial respiratory failure. Patient completed the course of Tamiflu, will switch to p.o. antibiotics and steroids upon discharge. Patient has mild leukopenia and thrombocytopenia possibly related to recent infection as above-monitor CBC outpatient. Please repeat chest imaging in 3-4 weeks to see resolution of pneumonia. Patient is going to go home with oxygen. Further management outpatient with PCP. Assessment and plan coordination time spent 50 minute, discussed with the patient in detail length she understand and in agreement with the plan. Time Spent with Patient Time attestation: Total time spent providing and/or coordinating discharge services: Discharge coordination time: Greater than 30 minutes Quality: Safe Use of Opioids Does Pt have an Active Cancer Diagnosis on the Problem List?: No Quality: Stroke Does the patient have a stroke diagnosis?: No Physical Exam Vital Signs: Vital Signs: Last Vital Signs Temp 98.7 F 04/17/22 07:23 Pulse 69 04/17/22 07:23 Resp 16 04/17/22 07:23 BP 153/75 H 04/17/22 07:23 Pulse Ox 96 04/17/22 07:23 O2 Del Method 04/17/22 07:23 O2 Flow Rate 4 04/17/22 07:23 Oxygen Flow Rate 4 04/10/22 01:37 BMI result Body Mass Index 50.6 Appearance: Alert.? Oriented X3.? cvs: rrr, [id number] , no murmur res: ? Air entry improving ,no rales /wheezin. abd: no rebound or guarding ,nt, bs present. ext pulses present , no cyanosis. neuro: axo3 , nonfocal. DS: Data Data Completed and Pending Labs on day of discharge: Preliminary micro results at discharge 04/12/22 13:33 Blood Culture - Preliminary Blood - Venous No growth after 48 hours. 04/12/22 13:33 Blood Culture - Preliminary Blood - Venous No growth after 48 hours. Imaging Chest x-ray: Radiologist's impression: ITS Impressions Chest X-Ray 04/10/22 02:05 IMPRESSION: Bronchial wall thickening with patchy bilateral opacities is likely infectious or inflammatory. Chest X-Ray 04/15/22 11:47 IMPRESSION: Mild bronchial wall thickening without significant change. This could be baseline for the patient, but can be seen with small airways disease and viral etiologies. No new abnormality. Discharge Plan Discharge Anticipated Discharge Date/Time: 04/17/22 10:48 Patient Disposition: Home Health Service Discharge Diagnosis: Acute hypoxemic respiratory failure multifactorial including pneumonia, asthma exacerbation and flu. Referrals: Toby PINEDA [Outside] - 1 Week Physician,Nonstaff [Primary Care Provider] - 1 Week Discharge Medications: New loratadine 10 mg Tablet 10 mg PO DAILY Qty: 7 0RF prednisone 10 mg tablet See Taper PO DAILY Qty: 30 0RF Taper: Prednisone 40 mg daily for 3 Days and 0 Hour 30 mg daily for 3 Days and 0 Hour 20 mg daily for 3 Days and 0 Hour 10 mg daily for 3 Days and 0 Hour doxycycline monohydrate 100 mg Capsule 100 mg PO Q12H Qty: 8 0RF cefuroxime axetil 500 mg Tablet 500 mg PO Q12H Qty: 8 0RF Continued atorvastatin 40 mg tablet 40 mg PO DAILY albuterol sulfate 2.5 mg /3 mL (0.083 %) solution for nebulization 2.5 mg inhalation Q6H PRN (Reason: wheezing) ibuprofen 800 mg tablet 800 mg PO TID PRN (Reason: Pain) baclofen 10 mg tablet 10 mg PO TID PRN (Reason: muscle spasm) amlodipine 10 mg tablet 10 mg PO DAILY gabapentin 300 mg capsule 300 mg PO TID albuterol sulfate 90 mcg/actuation HFA aerosol inhaler 2 puff INHALATION Q4H PRN (Reason: Shortness Of Breath Or Wheezing) fluticasone propionate 50 mcg/actuation spray,suspension 1 spray intranasal BID duloxetine 30 mg capsule,delayed release(DR/EC) 30 mg PO DAILY cholecalciferol (vitamin D3) [Vitamin D3] 25 mcg (1,000 unit) tablet 25 mcg PO DAILY budesonide-formoterol [Symbicort] 160-4.5 mcg/actuation HFA aerosol inhaler 2 puff INHALATION BID glatiramer 40 mg/mL syringe 40 mg subcut MOWEFR Discharge Orders: Discharge Order (Routine); Ordered 04/17/22 Ordered By: Deedee Valdez Diet: Advance to usual diet Activity on Discharge: As tolerated Stand Alone Forms: Patient Portal Discharge page Care Plan Goals: Patient admitted for acute hypoxemic respiratory failure secondary to asthma exacerbation(mild intermittent asthma), pneumonia, flu: Patient was started on nebs, steroids, IV antibiotics seems to be improving significantly but still required some oxygen considering multifactorial respiratory failure. Patient completed the course of Tamiflu, will switch to p.o. antibiotics and steroids upon discharge. Patient has mild leukopenia and thrombocytopenia possibly related to recent infection as above-monitor CBC outpatient. Please repeat chest imaging in 3-4 weeks to see resolution of pneumonia. Patient is going to go home with oxygen. Further management outpatient with PCP. Health Concerns: As above. Plan of Treatment: As above. Assessment: As above.
--- NOTE | 2022-04-17 11:34 | MHC.CM.PN ---
Patient has been medically cleared for dc to home today with [facility]. A referral has been made to [facility], who has been made aware of today's dc. CM met with Patient at bedside and addressed IMM with her, providing her with the original and placing a copy on the chart.
[2022-04-17] MEDS: Doxycycline Monohydrate 100 MG CAPSULE PO (11:38)
--- NOTE | 2022-04-17 12:57 | P.F2F_ITS ---
Service Date Service Date: 04/17/22 Encounter Date of encounter: 04/17/22 Encounter: Asthma, pneumonia, flu Reasons for Services Signs and symptoms assessed: Shortness of breath or fever or chills. Reason for jail: medication management, medication treatment and teach disease management Reason for physical therapy: home safety and mobility, therapeutic exercises, restore joint function, gait/transfer training, assess need for DME, ADL training, energy conservation and other MD Overseeing Care: Louisa Guzmán Homebound: Leaving the home is medically contraindicated at this time without the asist of a device and/or another person due th the listed conditions above and below. Reason homebound: weakness related to hospital stay Homebound supporting statement: Patient is generally weak and has multiple medical issues including pneumonia, generalized weak post hospitalization-need help to go appointments as well as outpatient PT Certification: Based on the above findings, I certify that this patient is confined to the home and needs intermittent jail care, physical therapy and/or speech t herapy, or continues to need occupational therapy. The patient is under my care, and I have initiated the establishment of the plan of care. The patient will be followed by a physician who will periodically review the plan of care.
== END 2022-04-17 15:52 | disposition home health service (06) | DRG 193 ==
LOC: HO.ED 08:14 → HO.EDOVER 08:53 → HO.S3 04-12 17:52 → HO.IMC 04-17 07:21
PROVIDERS: Admitting Provider Hospitalist; Emergency Provider Internal Medicine; Visit Provider Internal Medicine
DX: J10.00 Influenza due to other identified influenza virus with unspecified type of pneumonia (principal); J96.01 Acute respiratory failure with hypoxia; J45.21 Mild intermittent asthma with (acute) exacerbation; Z68.43 Body mass index [BMI] 50.0-59.9, adult; F41.1 Generalized anxiety disorder; F41.0 Panic disorder [episodic paroxysmal anxiety]; E66.01 Morbid (severe) obesity due to excess calories; I10 Essential (primary) hypertension; G35 Multiple sclerosis; Z20.822 Contact with and (suspected) exposure to COVID-19; Z79.899 Other long term (current) drug therapy
CPT/HCPCS: 36415; 71045; 80048; 80053; 81001; 82803; 83880; 84484; 85025; 87040; 87502; 87635; 93005; 94640; 97162; 99285; J0696; J1200; J1650; J2405; J2930

== ENCOUNTER 2023-04-14 17:55 | Emergency (ER) | payer OTHER, SELFPAY ==
--- NOTE | ~2023-04-14 | XR_ITS ---
EXAMINATION: XR ABDOMEN KUB CLINICAL INDICATION: Constipation. COMPARISON: None available. TECHNIQUE: AP view of the abdomen. FINDINGS: Nonobstructive bowel gas pattern. Large amount of stool in the left hemicolon and rectum. Lung bases are clear. 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 XR/XR KUB IMPRESSION: 1. Nonobstructive bowel gas pattern. 2. Large amount of stool in the left hemicolon and rectum.
[2023-04-14 18:04] VITALS: BP 128/70; PULSE 88; O2SAT 96; BMI 43.2
[2023-04-14 18:06] VITALS: BP 101/41; PULSE 96; RESP 18; O2SAT 94
--- NOTE | 2023-04-14 18:10 | PC.NURSE ---
a&ox3, vss and up to date. pt comes in today d/t constipation x 3 days. pt denies n/v/pain/any medication administration to help promote PM. abdomen slightly distended/tender upon palpation. provider bedside assessing pt as well. pt aware of plan of care at this time. no sob/wob noted at this time. respirations even and unlabored. call muir placed within reach.
--- NOTE | 2023-04-14 18:33 | ED.GENADULT ---
HPI - General Adult General Chief complaint: General Medical Stated complaint: CONSTIPATION X3DAYS Time Seen by Provider: 04/14/23 18:02 Source: patient Mode of arrival: ambulatory Limitations: no limitations History of Present Illness HPI narrative: Patient comes to the emergency room complaining of constipation for 3 days. Patient denies nausea vomiting or diarrhea, no abdominal pain. Patient states that she has not tried any [id number] medications yet. Related Data Home Medications Medication Instructions Recorded Confirmed albuterol sulfate 2.5 mg/3 mL 2.5 mg inhalation Q6H PRN wheezing 04/10/22 04/10/22 (0.083 %) solution for nebulization albuterol sulfate 90 mcg/actuation 2 puff inhalation Q4H PRN 04/10/22 04/10/22 aerosol inhaler Shortness Of Breath Or Wheezing amlodipine 10 mg tablet 10 mg PO DAILY 04/10/22 04/10/22 atorvastatin 40 mg tablet 40 mg PO DAILY 04/10/22 04/10/22 baclofen 10 mg tablet 10 mg PO TID PRN muscle spasm 04/10/22 04/10/22 budesonide-formoterol HFA 160 2 puff inhalation BID 04/10/22 04/10/22 mcg-4.5 mcg/actuation aerosol inhaler (Symbicort) cholecalciferol (vitamin D3) 25 25 mcg PO DAILY 04/10/22 04/10/22 mcg (1,000 unit) tablet (Vitamin D3) duloxetine 30 mg capsule,delayed 30 mg PO DAILY 04/10/22 04/10/22 release fluticasone propionate 50 1 spray intranasal BID 04/10/22 04/10/22 mcg/actuation nasal spray,suspension gabapentin 300 mg capsule 300 mg PO TID 04/10/22 04/10/22 glatiramer 40 mg/mL subcutaneous 40 mg subcut MOWEFR 04/10/22 04/10/22 syringe ibuprofen 800 mg tablet 800 mg PO TID PRN Pain 04/10/22 04/10/22 Previous Rx's Medication Instructions Recorded cefuroxime axetil 500 mg tablet 500 mg PO Q12H #8 tabs 04/17/22 doxycycline monohydrate 100 mg 100 mg PO Q12H #8 caps 04/17/22 capsule loratadine 10 mg tablet 10 mg PO DAILY #7 tabs 04/17/22 prednisone 10 mg tablet See Taper PO DAILY #30 tabs 04/17/22 polyethylene glycol 3350 17 17 g PO BID #510 grams 04/14/23 gram/dose oral powder (Miralax) Allergies Allergy/AdvReac Type Severity Reaction Status Date / Time No Known Allergies Allergy Verified 04/14/23 18:04 Review of Systems Review of Systems: Constitutional : No Weight loss, No Fever, No Chills, No Night Sweats, No Fatigue, No Malaise ENT/Mouth : No Hearing loss, No Ear Pain, No Nasal Congestion, No Sinus Pain, No Hoarseness, No sore throat, No Rhinorrhea, No Swallowing Difficulty Eyes: No Eye Pain, No Swelling, No Redness, No Foreign Body, No Discharge, No Vision Changes Cardiovascular : No Chest Pain, No SOB, No Dyspnea on Exertion, No Orthopnea, No Edema, No Palpitations Respiratory : No Cough, No Sputum, No Wheezing, No Smoke Exposure, No Dyspnea Gastrointestinal : No Nausea, No Vomiting, No Diarrhea, complaining of Constipation, No abdominal Pain, No Hematochezia, No Melena Genitourinary : no irregular bleeding, No Dysuria, No Urinary Frequency, No Hematuria, No Urinary Incontinence, No Urgency, No Flank Pain, No Urinary Flow Changes, No Hesitancy Musculoskeletal : No joint pain, No Myalgias, No Joint Swelling Skin : No Skin Lesions, No rash Neuro : No Weakness, No Numbness, No Paresthesias, No Loss of Consciousness, No Dizziness, No Headache Psych : No Anxiety/Panic, No Depression, No SI/HI/AH/VH, No Social Issues, Heme/Lymph: No Bruising, No Bleeding,No Lymphadenopathy Endocrine : No Polyuria, No Polydipsia, No Temperature Intolerance [facility] Past Medical History Medical History (Updated 04/14/23 @ 21:32 by Merle Harper MD) Vitiligo Panic disorder without agoraphobia NED (generalized anxiety disorder) Hypertension Multiple sclerosis Asthma with exacerbation Social History Social History Household Members: Family Housing: Apartment Do you presently have visiting nurse or other home services: No Alcohol intake: never Patient Tobacco Use Status: Never used Tobacco Smoked in Last 30 Days: No Use of substances other than those prescribed or required for medical reasons: Yes Substance Use Type: Marijuana Advance Directives: No Patient : No service: No Current occupational status: unemployed Physical Exam ED Vital Signs: Vital Signs - 24 hr 04/14/23 18:06 Pulse Rate 96 Respiratory Rate 18 Blood Pressure 101/41 L Pulse Oximetry 94 Oxygen Delivery Method Room Air BMI result Body Mass Index 43.2 Const Other: Appearance: Alert. Oriented X3. No acute distress. Eyes: Pupils equal, round and reactive to light. ENT: Pharynx normal. Neck: Normal inspection. Neck supple. No lymph nodes noted. No crepitus CVS: Normal heart rate and rhythm. Pulses normal. Normal S1 and S2 Respiratory: No respiratory distress. Breath sounds normal. No Wheezing. No rales Abdomen: Soft and nontender. No rigidity. No distention. Skin: Skin warm and dry. Normal skin color. Normal skin turgor. Extremities: No lower extremity edema. No Lacerations. No Rash Neuro: Oriented X 3. No motor deficit. No sensory deficit. Moving all extremities. No slurred speech. CN 2 through 12 grossly intact Psych: calm, cooperative, normal affect Medications Administered Discontinued Medications Generic Name Dose Route Start Last Admin Trade Name Freq PRN Reason Stop Dose Admin Sodium Biphosphate/Sodium Phosphate 133 ml 04/14/23 20:16 04/14/23 20:38 Sodium Phosphate,[place]-Dibasic 133 Ml Enema AL 04/14/23 20:17 133 ml ONCE ONE Administration Medical Decision Making Medical Decision Making [facility] Narrative: -abdominal exam unremarkable -my interpretation KUB: Large amount of stool in colon -patient was giving a Fleet enema, patient had good results, patient feeling better. Radiology Impression Discussion of test interpretation with radiology: I have reviewed the radiologist's reading. Radiologist Impression: FINDINGS: Nonobstructive bowel gas pattern. Large amount of stool in the left hemicolon and rectum. Lung bases are clear. 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 XR/XR KUB IMPRESSION: 1. Nonobstructive bowel gas pattern. 2. Large amount of stool in the left hemicolon and rectum. Discharge Plan Discharge Clinical Impression: Constipation Patient Disposition: Home, Self-Care Instructions: Constipation (ED) Additional Instructions: Please follow-up with your primary care physician tomorrow. If you have any worsening or new symptoms, please return to the emergency room or call 911 Prescriptions: New polyethylene glycol 3350 [Miralax] 17 gram/dose powder 17 g PO BID Qty: 510 0RF No Action atorvastatin 40 mg tablet 40 mg PO DAILY albuterol sulfate 2.5 mg /3 mL (0.083 %) solution for nebulization 2.5 mg inhalation Q6H PRN (Reason: wheezing) ibuprofen 800 mg tablet 800 mg PO TID PRN (Reason: Pain) baclofen 10 mg tablet 10 mg PO TID PRN (Reason: muscle spasm) amlodipine 10 mg tablet 10 mg PO DAILY gabapentin 300 mg capsule 300 mg PO TID albuterol sulfate 90 mcg/actuation HFA aerosol inhaler 2 puff INHALATION Q4H PRN (Reason: Shortness Of Breath Or Wheezing) fluticasone propionate 50 mcg/actuation spray,suspension 1 spray intranasal BID duloxetine 30 mg capsule,delayed release(DR/EC) 30 mg PO DAILY cholecalciferol (vitamin D3) [Vitamin D3] 25 mcg (1,000 unit) tablet 25 mcg PO DAILY budesonide-formoterol [Symbicort] 160-4.5 mcg/actuation HFA aerosol inhaler 2 puff INHALATION BID glatiramer 40 mg/mL syringe 40 mg subcut MOWEFR loratadine 10 mg Tablet 10 mg PO DAILY Qty: 7 0RF prednisone 10 mg tablet See Taper PO DAILY Qty: 30 0RF Taper: Prednisone 40 mg daily for 3 Days and 0 Hour 30 mg daily for 3 Days and 0 Hour 20 mg daily for 3 Days and 0 Hour 10 mg daily for 3 Days and 0 Hour doxycycline monohydrate 100 mg Capsule 100 mg PO Q12H Qty: 8 0RF cefuroxime axetil 500 mg Tablet 500 mg PO Q12H Qty: 8 0RF
--- NOTE | 2023-04-14 19:11 | PC.NURSE ---
pt to xray at this time.
--- NOTE | 2023-04-14 19:38 | PC.NURSE ---
pt resting w/ eyes closed in no apparent distress at this time. pt awaiting results from xray at this time.
[2023-04-14] MEDS: Sodium Phosphate,Mono-Dibasic 133 ML ENEMA PR (20:38)
--- NOTE | 2023-04-14 20:42 | PC.NURSE ---
enema administered per provider order.
--- NOTE | 2023-04-14 20:51 | PC.NURSE ---
BM successful - pt resting on bed padilla at this time. remains in no apparent distress. respirations remain even and unlabored. call muir placed within reach.
--- NOTE | 2023-04-14 21:40 | PC.NURSE ---
pt had 1 large bm and 1 small. pt states feels comfortable now requesting to go home. Dr. Harper notified. Monogram Operator notified for ems transport home.
== END 2023-04-14 23:33 | disposition home or self-care (01) ==
PROVIDERS: Emergency Provider Emergency Medicine
DX: K59.00 Constipation, unspecified (principal); R11.2 Nausea with vomiting, unspecified
CPT/HCPCS: 74018; 99284

== ENCOUNTER 2023-04-29 14:15 | Outpatient (REF) | payer OTHER, SELFPAY ==
[2023-04-29 15:19] LABS: MANUAL DIFF FLAG NO
[2023-04-29 15:31] LABS: Basophils Percent Auto 0.4 % (0-2); Eosinophils Absolute Auto 0.1 X10*3/uL (0.0-0.4); Eosinophils Percent Auto 1.8 % (0-4); Hematocrit 42.3 % (37.0-47.0); Hemoglobin 12.6 g/dl (12.0-16.0); Imm Gran Abs Auto 0.01 X10*3/uL (0.00-0.03); Imm Gran Pct Auto 0.2 % (0.0-0.4); Lymphocytes Absolute Auto 0.9 X10*3/uL (1.2-4.9); Lymphocytes Percent Auto 19.1 % (20-40); Mean Corpuscular HGB Conc 29.8 g/dl (31.0-35.0); Mean Corpuscular Hemoglobin 27.4 pg (27.0-33.0); Mean Platelet Volume 9.1 fL (9.4-12.3); Monocytes Absolute Auto 0.4 X10*3/uL (0.1-1.2); Neutrophils Absolute Auto 3.2 x10*3/uL (2.0-8.3); Neutrophils Percent Auto 69.5 % (45-73); Platelet Count 227 X10*3/uL (160-400); Red Cell Distribution Width 14.5 % (11.0-16.0); White Blood Count 4.6 X10*3/uL (4.8-10.8)
[2023-04-29 16:15] LABS: Alanine Aminotransferase 6 U/L (0-31); Albumin Level 3.6 g/dL (3.5-5.0); Alkaline Phosphatase 71 U/L (39-117); Aspartate Amino Transferase 10 U/L (5-31); Bilirubin Direct 0.1 mg/dL (0.0-0.5); Bilirubin Total 0.4 mg/dL (0.0-1.0); Blood Urea Nitrogen 20 mg/dL (9-16); Estimated Glomerular Filt Rate > 60; Rheumatoid Factor < 13.0 IU/mL (<15.0)
[2023-04-29 16:31] LABS: TSH reflex Free T4 0.78 uIU/mL (0.32-4.0); Vitamin D 25-OH Total 24.9 ng/mL (>30)
[2023-04-29 16:45] LABS: Vitamin B12 617 pg/mL (200-900)
[2023-05-01 23:54] LABS: TS Negative Control Passed; TS Panel A 0; TS Panel B 0; TS Positive Control Passed; TSpotTB Negative (Negative)
[2023-05-02 04:19] LABS: HBc Num1 0.11 S/CO (0.00-0.79); HBsAGNum1 0.29 S/CO (0.00-0.99); Hepatitis B Core Antibody Nonreactive (Nonreactive); Hepatitis B Surface Antigen Negative (Negative)
[2023-05-02 05:26] LABS: ~HepC Num2 0.85; ~HepC Num3 0.88; ~Hepatitis C Antibody GRAYZONE (Nonreactive)
[2023-05-02 22:18] LABS: Varicella IgG Antibody <135.00 index
[2023-05-03 09:58] LABS: Antibody to SS-A Antigen <1.0 NEG AI (<1.0 NEG); Antibody to SS-B Antigen <1.0 NEG AI (<1.0 NEG)
[2023-05-03 15:37] LABS: Anti Nuclear Antibody Screen NEGATIVE (NEGATIVE)
[2023-05-03 19:04] LABS: IgA 345 mg/dL (47-310); IgG 1181 mg/dL (600-1640); IgM 196 mg/dL (50-300)
[2023-05-04 22:07] LABS: Angiotensin Converting Enzyme 21.7 U/L (9-67)
[2023-05-09 21:24] LABS: JCV Antibody POSITIVE
== END 2023-04-29 14:16 | disposition home or self-care (01) ==
LOC: HO.LAB 14:15
PROVIDERS: PCP Student in an Organized Health Care Education/Training Program; Visit Provider Student in an Organized Health Care Education/Training Program
DX: Z11.1 Encounter for screening for respiratory tuberculosis (principal); G35 Multiple sclerosis
CPT/HCPCS: 80076; 82164; 82306; 82565; 82607; 82746; 82784; 84443; 84520; 85025; 86038; 86052; 86235; 86362; 86431; 86481; 86704; 86711; 86787; 86803; 87340; 87536; 87900

== ENCOUNTER 2023-09-06 19:29 | Inpatient (IN) | payer MEDICARE, SELFPAY ==
--- NOTE | ~2023-09-06 | XR_ITS ---
EXAMINATION: XR CHEST CLINICAL INFORMATION: Reason for Exam Hypoxia F U COMPARISON: Chest radiograph 09/07/2023 TECHNIQUE: One view of the chest FINDINGS: Lines and tubes: Removal of the enteric tube. Clear lungs. No pleural effusion. No pneumothorax. Unchanged cardiomediastinal silhouette. XR/XR chest 1V IMPRESSION: 1. Clear lungs. 2. Removal of the enteric tube.
--- NOTE | ~2023-09-06 | XR_ITS ---
EXAMINATION: XR CHEST CLINICAL INFORMATION: Shortness of breath. COMPARISON: Chest radiograph 04/15/2022. TECHNIQUE: Frontal view of the chest was obtained. FINDINGS: Stable prominence of the cardiomediastinal silhouette. Unchanged mild diffuse interstitial thickening. No focal consolidation, pleural effusion or pneumothorax. No acute osseous findings. XR/XR chest 1V IMPRESSION: Stable compared to 04/15/2022.
--- NOTE | ~2023-09-06 | XR_ITS ---
EXAMINATION: XR CHEST CLINICAL INFORMATION: Respiratory failure. Status post intubation. COMPARISON: 09/06/2023 TECHNIQUE: Frontal view of the chest was obtained. FINDINGS: The cardiomediastinal silhouette is stable. There is an endotracheal tube in good position above the pooja. A gastric tube extends below the diaphragm into left upper abdomen. There is no focal lung consolidation or pleural effusion. The bony structures and soft tissues are unremarkable. XR/XR chest 1V IMPRESSION: No evidence for acute disease in the chest. Endotracheal tube and gastric tube in good position.
--- NOTE | ~2023-09-06 | CT_ITS ---
EXAMINATION: CT HEAD WITHOUT CONTRAST CLINICAL INFORMATION: Altered mental status. Pain. COMPARISON: None available. TECHNIQUE: Contiguous axial imaging was performed from the skull base to vertex without intravenous administration of contrast. This CT examination was performed using dose optimization techniques as appropriate, variously including the following: *Automated exposure control *Adjustment of mA and/or kV according to patient size (this includes techniques or standardized protocols for targeted exams where dose is matched to indication/reason for exam; i.e. extremities or head) *Use of iterative reconstruction technique DLP: 1476 mGy-cm FINDINGS: Study is limited as the patient is unable to fully cooperate and there is motion. The lateral, third and fourth ventricles are normally outlined. The cortical sulci and basal cisterns are normally outlined as well. There is no acute territorial defect, hemorrhage or midline shift. The extra-axial spaces are unremarkable. Calvarium: Intact. Maxillofacial sinuses and mastoids: Clear as visualized. CT/CT head/brain wo IV con IMPRESSION: 1. Limited study as the patient is unable to fully cooperate and there is motion artifact. 2. No gross acute intracranial pathology.
--- NOTE | 2023-09-06 19:30 | ED_ITS ---
HPI - SOB/Dyspnea General Chief Complaint: Altered Mental Status Stated Complaint: SOB Time Seen by Provider: 09/06/23 19:30 Source: EMS Mode of arrival: EMS Limitations: altered mental status History of Present Illness HPI Narrative: Patient's history of asthma hypertension multiple sclerosis on home oxygen noncompliant brought by EMS for increased shortness of breath and increased lethargy for last few days patient was saturating 86% at room air patient is very poor historian falling asleep Related Data Home Medications ?Medication ?Instructions ?Recorded ?Confirmed albuterol sulfate 2.5 mg/3 mL 2.5 mg inhalation Q6H PRN wheezing 04/10/22 04/10/22 (0.083 %) solution for nebulization albuterol sulfate 90 mcg/actuation 2 puff inhalation Q4H PRN 04/10/22 04/10/22 aerosol inhaler Shortness Of Breath Or Wheezing amlodipine 10 mg tablet 10 mg PO DAILY 04/10/22 04/10/22 atorvastatin 40 mg tablet 40 mg PO DAILY 04/10/22 04/10/22 baclofen 10 mg tablet 10 mg PO TID PRN muscle spasm 04/10/22 04/10/22 budesonide-formoterol HFA 160 2 puff inhalation BID 04/10/22 04/10/22 mcg-4.5 mcg/actuation aerosol inhaler (Symbicort) cholecalciferol (vitamin D3) 25 25 mcg PO DAILY 04/10/22 04/10/22 mcg (1,000 unit) tablet (Vitamin D3) duloxetine 30 mg capsule,delayed 30 mg PO DAILY 04/10/22 04/10/22 release fluticasone propionate 50 1 spray intranasal BID 04/10/22 04/10/22 mcg/actuation nasal spray,suspension gabapentin 300 mg capsule 300 mg PO TID 04/10/22 04/10/22 glatiramer 40 mg/mL subcutaneous 40 mg subcut MOWEFR 04/10/22 04/10/22 syringe ibuprofen 800 mg tablet 800 mg PO TID PRN Pain 04/10/22 04/10/22 Previous Rx's ?Medication ?Instructions ?Recorded cefuroxime axetil 500 mg tablet 500 mg PO Q12H #8 tabs 04/17/22 doxycycline monohydrate 100 mg 100 mg PO Q12H #8 caps 12/03/22 capsule loratadine 10 mg tablet 10 mg PO DAILY #7 tabs 04/17/22 prednisone 10 mg tablet See Taper PO DAILY #30 tabs 04/17/22 polyethylene glycol 3350 17 17 g PO BID #510 grams 04/14/23 gram/dose oral powder (Miralax) Allergies Allergy/AdvReac Type Severity Reaction Status Date / Time No Known Allergies Allergy Verified 09/06/23 19:39 Review of Systems 2 Review of Systems: Yes Unobtainable due to mental status PMFSH Past Medical History Medical History Vitiligo Panic disorder without agoraphobia NED (generalized anxiety disorder) Hypertension Multiple sclerosis Asthma with exacerbation Social History Social History Household Members: Family Housing: Apartment Do you presently have visiting nurse or other home services: No Alcohol intake: never Patient Tobacco Use Status: Never used Tobacco Smoked in Last 30 Days: Yes Use of substances other than those prescribed or required for medical reasons: No Substance Use Type: Marijuana Advance Directives: No Advance Directives Information Provided: No Do you have a plan to hurt others: No Plan service: No Current occupational status: unemployed Physical Exam 2 Vital Signs: Vital Signs: Last Vital Signs Temp 98.2 F 09/06/23 19:33 Pulse 84 09/07/23 01:44 Resp 22 H 09/07/23 01:44 BP 127/78 09/07/23 01:17 Pulse Ox 95 09/07/23 01:17 O2 Del Method Nasal Cannula 09/07/23 00:44 O2 Flow Rate 4 09/06/23 22:00 FiO2 60 09/07/23 01:44 BMI result Body Mass Index 34.9 Appearance: Lethargic falling sleep Eyes: PERRLA, ENT: Pharynx normal. Oral Mucosa moist AT NC Neck: Normal inspection. Neck supple. CVS: Normal heart rate and rhythm. Pulses normal. Respiratory: Motor respiratory distress. Equal air entry bilateral, bilateral crackles+ Abdomen: Soft and nontender. Bowel sounds are present, no mass palpable, no CVA tenderness Skin: Skin warm and dry. Normal skin color. Normal skin turgor. Extremities: No lower extremity edema. No calf tenderness Neuro: Lethargic sleepy No motor deficit. Medications Administered Generic Name Dose Route Start Last Admin Trade Name Freq PRN Reason Stop Dose Admin Propofol 1,000 mg in 100 mls @ 0 mls/hr 09/07/23 01:00 09/07/23 01:17 Diprivan IVCONT 30 mcg/kg/min .Q0M ELOY 17.66 mls/hr Administration Protocol Per Protocol Discontinued Medications Generic Name Dose Route Start Last Admin Trade Name Ramyq PRN Reason Stop Dose Admin Albuterol Sulfate 7.5 mg/ 0 mg 09/07/23 01:41 09/07/23 01:49 Albuterol/Ipratropium 3 ml INHALE 09/07/23 01:42 2.5 each ONCE ONE Administration Etomidate 20 mg 09/07/23 00:57 09/07/23 01:05 Etomidate 20 Mg/10 Ml Vial IVPUSH 09/07/23 00:58 20 mg ONCE ONE Administration Ketamine HCl 100 mg 09/06/23 21:52 09/06/23 21:57 Ketamine Hcl 500 Mg/5 Ml Vial IM 09/06/23 21:53 100 mg ONCE ONE Administration Ketamine HCl 100 mg 09/06/23 22:00 09/06/23 22:01 Ketamine Hcl 500 Mg/5 Ml Vial IM 09/06/23 22:01 100 mg ONCE ONE Administration Ketamine HCl 100 mg 09/06/23 22:05 09/06/23 22:06 Ketamine Hcl 500 Mg/5 Ml Vial IM 09/06/23 22:06 100 mg ONCE ONE Administration Lorazepam 2 mg 09/06/23 20:57 09/06/23 21:00 Lorazepam 2 Mg/Ml Vial IVPUSH 09/06/23 20:58 2 mg ONCE ONE Administration Naloxone HCl 2 mg 09/07/23 00:26 09/07/23 00:35 Naloxone Hcl 2 Mg/2 Ml Syringe IVPUSH 09/07/23 00:27 2 mg ONCE ONE Administration Rocuronium [place] 50 mg 09/07/23 00:57 09/07/23 01:05 Rocuronium [place] 50 Mg/5 Ml Vial IVPUSH 09/07/23 00:58 50 mg ONCE ONE Administration Medical Decision Making Medical Decision Making MDM Narrative: Patient's sister came to the ER says that patient does have a history of asthma anxiety hypertension multiple sclerosis uses oxygen off and on walks with walker was okay until yesterday today she woke up was very agitated and hyper patient took her gabapentin went to sleep patient's sister gives her medication in regulated way denies any likelihood of overdose or opiate use after taking the medication patient went to sleep and woke up lethargic just prior to arrival door sister called EMS at 15:30 also for increased agitation but patient refused transport to the hospital patient was brought the ED at 19:30 etiology is not very clear per sister unlikely would be any overdose as she has a control of medications patient does have ?history of sleep apnea but does not use CPAP 1 am patient is still obtunded thick secretions from the nose and oropharynx poor gag reflex etiology not very clear poor response to Narcan will intubate patient for airway protection patient placed on pressure control as peak inspiratory pressure was more than 45 Differential Diagnosis Differential Diagnoses: The differential diagnosis associated with the presentation includes Metabolic encephalopathy/pneumonia/opiate use/CVA Admission/Observation Consideration of admission/observation: Escalation of care including admission/observation considered Lab Data MDM Lab Attestation statement: I reviewed the patient's lab results. 09/06/23 20:04 09/06/23 20:03 Labs: Lab Results 09/06/23 09/06/23 09/06/23 Range/Units 20:02 20:03 20:04 WBC 6.1 (4.8-10.8) X10*3/uL RBC 5.66 H D (4.20-5.50) X10*6/uL Hgb 15.0 (12.0-16.0) g/dl Hct 50.5 H (37.0-47.0) % MCV 89.2 (80.0-98.0) fL MCH 26.5 L (27.0-33.0) pg MCHC 29.7 L (31.0-35.0) g/dl RDW 14.4 (11.0-16.0) % Plt Count 176 (160-400) X10*3/uL MPV 9.7 (9.4-12.3) fL Immature Gran % (Auto) 0.2 (0.0-0.4) % Neut % (Auto) 81.5 H (45-73) % Lymph % (Auto) 10.4 L (20-40) % [place] % (Auto) 7.2 (2-11) % Eos % (Auto) 0.5 (0-4) % Baso % (Auto) 0.2 (0-2) % Lymph # (Auto) 0.6 L (1.2-4.9) X10*3/uL [place] # (Auto) 0.4 (0.1-1.2) X10*3/uL Eos # (Auto) 0.0 (0.0-0.4) X10*3/uL Baso # (Auto) 0.0 (0.0-0.2) X10*3/uL Abs Immat Gran (auto) 0.01 (0.00-0.03) X10*3/uL Absolute Neuts (auto) 5.0 (2.0-8.3) x10*3/uL Absolute Nucleated RBC 0.000 (0.0-0.012) X10*3/uL Nucleated RBC % (auto) 0.0 (0.0-0.2) /100WBC PT (11.1-13.3) SEC INR (0.9-1.1) VBG pH (7.32-7.43) VBG pCO2 mmHg VBG pO2 mmHg VBG HCO3 (22-26) mmol/L VBG O2 Saturation % VBG Base Excess mmol/L Sodium 143 (135-145) mmol/L Potassium 3.8 (3.3-5.1) mmol/L Chloride 105 (96-108) mmol/L Carbon Dioxide 28 (22-29) mmol/L Anion Gap 14 (12-20) BUN 14 (9-16) mg/dL Creatinine 0.76 (0.5-1.4) mg/dL Estim Creat Clear Calc 98.8 Estimated GFR > 60 Random Glucose 103 (60-115) mg/dL Lactic Acid 1.1 (0.5-2.0) mmol/L Calcium 9.7 (8.4-10.2) mg/dL Magnesium 2.0 (1.6-2.6) mg/dL Total Bilirubin 0.8 (0.0-1.0) mg/dL AST 13 (5-31) U/L ALT 8 (0-31) U/L Alkaline Phosphatase 78 (39-117) U/L Troponin I High Sens < 2.7 D (<3.5-17.0) ng/L B-Natriuretic Peptide 25 (<100) pg/mL Total Protein 7.8 (6.5-8.0) g/dL Albumin 3.9 (3.5-5.0) g/dL Urine Color Urine Appearance Urine pH (5.0-9.0) Ur Specific [place] (1.005-1.025) Urine Protein (Neg-Trace) mg/dL Urine Glucose (UA) (Negative) mg/dL Urine Ketones (Negative) mg/dL Urine Blood (Negative) Urine Nitrite (Negative) Ur Leukocyte Esterase (Negative) Urine RBC (0-2) /HPF Urine WBC (0-5) /HPF Ur Squamous Epith Cells (0-2) /HPF Urine Bacteria (None Seen) Hyaline Casts (0-2) /LPF Urine Opiates Screen (Not Detect) Ur Buprenorphine Scrn (Not Detect) ng/mL Ur Oxycodone Screen (Not Detect) ng/mL Urine Methadone Screen (Not Detect) ng/mL Urine Fentanyl Screen (Not Detect) Ur Barbiturates Screen (Not Detect) Ur Phencyclidine Scrn (Not Detect) Ur Amphetamines Screen (Not Detect) U Benzodiazepines Scrn (Not Detect) Urine Cocaine Screen (Not Detect) U Marijuana (THC) Screen (Not Detect) Influenza Type A (PCR) NEGATIVE (Negative) Influenza Type B (PCR) NEGATIVE (Negative) RSV RNA Qual (PCR) NEGATIVE (Negative) SARS-CoV-2 RNA (RT-PCR) NEGATIVE (Negative) 09/06/23 09/06/23 09/07/23 Range/Units 20:09 20:19 00:28 WBC (4.8-10.8) X10*3/uL RBC (4.20-5.50) X10*6/uL Hgb (12.0-16.0) g/dl Hct (37.0-47.0) % MCV (80.0-98.0) fL MCH (27.0-33.0) pg MCHC (31.0-35.0) g/dl RDW (11.0-16.0) % Plt Count (160-400) X10*3/uL MPV (9.4-12.3) fL Immature Gran % (Auto) (0.0-0.4) % Neut % (Auto) (45-73) % Lymph % (Auto) (20-40) % [place] % (Auto) (2-11) % Eos % (Auto) (0-4) % Baso % (Auto) (0-2) % Lymph # (Auto) (1.2-4.9) X10*3/uL [place] # (Auto) (0.1-1.2) X10*3/uL Eos # (Auto) (0.0-0.4) X10*3/uL Baso # (Auto) (0.0-0.2) X10*3/uL Abs Immat Gran (auto) (0.00-0.03) X10*3/uL Absolute Neuts (auto) (2.0-8.3) x10*3/uL Absolute Nucleated RBC (0.0-0.012) X10*3/uL Nucleated RBC % (auto) (0.0-0.2) /100WBC PT 12.4 (11.1-13.3) SEC INR 1.0 (0.9-1.1) VBG pH 7.30 L (7.32-7.43) VBG pCO2 61 mmHg VBG pO2 60 mmHg VBG HCO3 30 H (22-26) mmol/L VBG O2 Saturation 88.0 % VBG Base Excess 2.5 mmol/L Sodium (135-145) mmol/L Potassium (3.3-5.1) mmol/L Chloride (96-108) mmol/L Carbon Dioxide (22-29) mmol/L Anion Gap (12-20) BUN (9-16) mg/dL Creatinine (0.5-1.4) mg/dL Estim Creat Clear Calc Estimated GFR Random Glucose (60-115) mg/dL Lactic Acid (0.5-2.0) mmol/L Calcium (8.4-10.2) mg/dL Magnesium (1.6-2.6) mg/dL Total Bilirubin (0.0-1.0) mg/dL AST (5-31) U/L ALT (0-31) U/L Alkaline Phosphatase (39-117) U/L Troponin I High Sens (<3.5-17.0) ng/L B-Natriuretic Peptide (<100) pg/mL Total Protein (6.5-8.0) g/dL Albumin (3.5-5.0) g/dL Urine Color Urine Appearance Urine pH (5.0-9.0) Ur Specific [place] (1.005-1.025) Urine Protein (Neg-Trace) mg/dL Urine Glucose (UA) (Negative) mg/dL Urine Ketones (Negative) mg/dL Urine Blood (Negative) Urine Nitrite (Negative) Ur Leukocyte Esterase (Negative) Urine RBC (0-2) /HPF Urine WBC (0-5) /HPF Ur Squamous Epith Cells (0-2) /HPF Urine Bacteria (None Seen) Hyaline Casts (0-2) /LPF Urine Opiates Screen Not Detected (Not Detect) Ur Buprenorphine Scrn Not Detected (Not Detect) ng/mL Ur Oxycodone Screen Positive (Not Detect) ng/mL Urine Methadone Screen Not Detected (Not Detect) ng/mL Urine Fentanyl Screen Not Detected (Not Detect) Ur Barbiturates Screen Not Detected (Not Detect) Ur Phencyclidine Scrn Not Detected (Not Detect) Ur Amphetamines Screen Not Detected (Not Detect) U Benzodiazepines Scrn POSITIVE H (Not Detect) Urine Cocaine Screen POSITIVE H (Not Detect) U Marijuana (THC) Screen POSITIVE H (Not Detect) Influenza Type A (PCR) (Negative) Influenza Type B (PCR) (Negative) RSV RNA Qual (PCR) (Negative) SARS-CoV-2 RNA (RT-PCR) (Negative) 09/07/23 Range/Units 00:30 WBC (4.8-10.8) X10*3/uL RBC (4.20-5.50) X10*6/uL Hgb (12.0-16.0) g/dl Hct (37.0-47.0) % MCV (80.0-98.0) fL MCH (27.0-33.0) pg MCHC (31.0-35.0) g/dl RDW (11.0-16.0) % Plt Count (160-400) X10*3/uL MPV (9.4-12.3) fL Immature Gran % (Auto) (0.0-0.4) % Neut % (Auto) (45-73) % Lymph % (Auto) (20-40) % [place] % (Auto) (2-11) % Eos % (Auto) (0-4) % Baso % (Auto) (0-2) % Lymph # (Auto) (1.2-4.9) X10*3/uL [place] # (Auto) (0.1-1.2) X10*3/uL Eos # (Auto) (0.0-0.4) X10*3/uL Baso # (Auto) (0.0-0.2) X10*3/uL Abs Immat Gran (auto) (0.00-0.03) X10*3/uL Absolute Neuts (auto) (2.0-8.3) x10*3/uL Absolute Nucleated RBC (0.0-0.012) X10*3/uL Nucleated RBC % (auto) (0.0-0.2) /100WBC PT (11.1-13.3) SEC INR (0.9-1.1) VBG pH (7.32-7.43) VBG pCO2 mmHg VBG pO2 mmHg VBG HCO3 (22-26) mmol/L VBG O2 Saturation % VBG Base Excess mmol/L Sodium (135-145) mmol/L Potassium (3.3-5.1) mmol/L Chloride (96-108) mmol/L Carbon Dioxide (22-29) mmol/L Anion Gap (12-20) BUN (9-16) mg/dL Creatinine (0.5-1.4) mg/dL Estim Creat Clear Calc Estimated GFR Random Glucose (60-115) mg/dL Lactic Acid (0.5-2.0) mmol/L Calcium (8.4-10.2) mg/dL Magnesium (1.6-2.6) mg/dL Total Bilirubin (0.0-1.0) mg/dL AST (5-31) U/L ALT (0-31) U/L Alkaline Phosphatase (39-117) U/L Troponin I High Sens (<3.5-17.0) ng/L B-Natriuretic Peptide (<100) pg/mL Total Protein (6.5-8.0) g/dL Albumin (3.5-5.0) g/dL Urine Color Dark Yellow Urine Appearance Clear Urine pH 6.5 (5.0-9.0) Ur Specific [place] 1.025 (1.005-1.025) Urine Protein 100 (2+) H (Neg-Trace) mg/dL Urine Glucose (UA) Negative (Negative) mg/dL Urine Ketones 40 (Negative) mg/dL Urine Blood Negative (Negative) Urine Nitrite Negative (Negative) Ur Leukocyte Esterase Negative (Negative) Urine RBC 0-2 (0-2) /HPF Urine WBC 0-5 (0-5) /HPF Ur Squamous Epith Cells 0-2 (0-2) /HPF Urine Bacteria None Seen (None Seen) Hyaline Casts 0-2 (0-2) /LPF Urine Opiates Screen (Not Detect) Ur Buprenorphine Scrn (Not Detect) ng/mL Ur Oxycodone Screen (Not Detect) ng/mL Urine Methadone Screen (Not Detect) ng/mL Urine Fentanyl Screen (Not Detect) Ur Barbiturates Screen (Not Detect) Ur Phencyclidine Scrn (Not Detect) Ur Amphetamines Screen (Not Detect) U Benzodiazepines Scrn (Not Detect) Urine Cocaine Screen (Not Detect) U Marijuana (THC) Screen (Not Detect) Influenza Type A (PCR) (Negative) Influenza Type B (PCR) (Negative) RSV RNA Qual (PCR) (Negative) SARS-CoV-2 RNA (RT-PCR) (Negative) ABG Data Attestation ABG: I personally reviewed and interpreted this ABG as follows: Interpretation: Mild respiratory hypoxia Independent Interpretation I performed an independent interpretation of an: EKG, Plain X-Ray and CT Scan Interpretation: Normal sinus rhythm heart rate 83 beats per minute normal interval normal axis no acute ST T wave changes no acute ischemia Radiology Impression Discussion of test interpretation with radiology: I have reviewed the radiologist's reading. Procedures Intubation Intubation Type:: Endotracheal Tube Insertion Intubation Date:: 09/07/23 Intubation Time:: 01:11 Time out performed: Yes sedative: Etomidate Mg Given: 20 paralytic: Rocuronium Mg Given: 50 Laryngoscope: fiber optic video scope ET Tube Size: 6 ET Tube Uncuffed: Yes Tube Secured Depth (cm): 23 Tube Secured Location: teeth Tube Placement Confirmation: visualized tube passing through cords Patient Tolerated Procedure: well Intubation Complications: none Critical Care Time Critical Care Time Critical Care Time: Yes Total Critical Care Time: 100 Attestation: The patient was critically ill with a high probability of imminent or life threatening deterioration. I spent greater than 110?minutes of discontinuous time evaluating the patient,delivering critical care at the bedside, discussing and evaluating pertinent data with consultants. Critical care time does not include time spent performing separately billable procedures or teaching. Total time spent performing critical care was 100??minutes. Discharge Plan Discharge Clinical Impression: Acute respiratory failure with hypoxemia, Acute metabolic encephalopathy Patient Disposition: Admitted As Inpatient
--- NOTE | 2023-09-06 19:30 | ECG_ITS ---
Test Reason : AMS Blood Pressure : / mmHG Vent. Rate : 083 BPM Atrial Rate : 083 BPM P-R Int : 178 ms QRS Dur : 088 ms QT Int : 360 ms P-R-T Axes : 061 062 042 degrees QTc Int : 423 ms Normal sinus rhythm Normal ECG When compared with ECG of 10-APR-2022 01:46, Non-specific change in ST segment in Inferior leads Referred By: Urbano Matthews Electronically Signed By:MARCELLO OGLESBY MD
[2023-09-06 19:33] VITALS: BP 132/72; BP 137/75; PULSE 74; PULSE 81; RESP 22; TEMP 36.8; O2SAT 87; O2SAT 93; BMI 34.9
[2023-09-06 20:00] VITALS: BP 137/66; PULSE 82; RESP 18; O2SAT 91
[2023-09-06 20:11] LABS: Basophils Percent Auto 0.2 % (0-2); Eosinophils Percent Auto 0.5 % (0-4); Hematocrit 50.5 % (37.0-47.0); Imm Gran Abs Auto 0.01 X10*3/uL (0.00-0.03); Imm Gran Pct Auto 0.2 % (0.0-0.4); Lymphocytes Absolute Auto 0.6 X10*3/uL (1.2-4.9); Lymphocytes Percent Auto 10.4 % (20-40); MANUAL DIFF FLAG NO; Mean Corpuscular HGB Conc 29.7 g/dl (31.0-35.0); Mean Corpuscular Hemoglobin 26.5 pg (27.0-33.0); Mean Corpuscular Volume 89.2 fL (80.0-98.0); Mean Platelet Volume 9.7 fL (9.4-12.3); Monocytes Absolute Auto 0.4 X10*3/uL (0.1-1.2); Monocytes Percent Auto 7.2 % (2-11); Neutrophils Percent Auto 81.5 % (45-73); Platelet Count 176 X10*3/uL (160-400); Red Blood Count 5.66 X10*6/uL (4.20-5.50); Red Cell Distribution Width 14.4 % (11.0-16.0); White Blood Count 6.1 X10*3/uL (4.8-10.8)
[2023-09-06 20:14] LABS: Venous Blood Gas Refer to POC result
[2023-09-06 20:15] LABS: VBG Base Excess 2.5 mmol/L; VBG HCO3 30 mmol/L (22-26); VBG pCO2 61 mmHg; VBG pO2 60 mmHg
[2023-09-06 20:24] LABS: Lactic Acid 1.1 mmol/L (0.5-2.0)
[2023-09-06 20:29] LABS: Alanine Aminotransferase 8 U/L (0-31); Albumin Level 3.9 g/dL (3.5-5.0); Alkaline Phosphatase 78 U/L (39-117); Anion Gap 14 (12-20); Aspartate Amino Transferase 13 U/L (5-31); Bilirubin Total 0.8 mg/dL (0.0-1.0); Blood Urea Nitrogen 14 mg/dL (9-16); Calcium 9.7 mg/dL (8.4-10.2); Carbon Dioxide 28 mmol/L (22-29); Chloride 105 mmol/L (96-108); Creatinine Clr Calc Pharmacy 98.8; Estimated Glomerular Filt Rate > 60; Glucose Random 103 mg/dL (60-115); Potassium 3.8 mmol/L (3.3-5.1); Sodium 143 mmol/L (135-145); Total Protein 7.8 g/dL (6.5-8.0)
[2023-09-06 20:32] LABS: Prothrombin Time 12.4 SEC (11.1-13.3)
[2023-09-06 20:34] LABS: B Type Natriuretic Peptide 25 pg/mL (<100)
[2023-09-06 20:36] LABS: Troponin-I High Sensitivity < 2.7 ng/L (<3.5-17.0)
[2023-09-06 20:51] LABS: Influenza A PCR NEGATIVE (Negative); Influenza B PCR NEGATIVE (Negative); Resp Syncy Virus RNA Qual PCR NEGATIVE (Negative); SARS COV2 PCR INHOUSE NEGATIVE (Negative)
[2023-09-06] MEDS: LORazepam 2 MG/ML VIAL IVPUSH (21:00)
[2023-09-06] MEDS: Ketamine HCl 500 MG/5 ML VIAL 100 MG IM ×3 (21:57→22:06)
[2023-09-06 22:00] VITALS: BP 142/82; PULSE 90; RESP 20; O2SAT 92
--- NOTE | 2023-09-06 22:24 | PC.NURSE ---
Addendum entered by Edwardo Wiley RN 09/06/23 22:29: Jagruti, Pharmacy was contact for notification Original Note: Due to pt alteration in mentation, Ketamine used to obtain CT. Initiallly pulled 500mg vial, wasted 400mg with Venkat Barrera RN, maintained vial in the event additional would have to be given. Additional 200mg given per orders, notified Pharmacy of use of documented waste and use from vial. Discarded remaining 200mg witnessed by Holly Robledo RN.
[2023-09-06 22:32] VITALS: BP 173/92; PULSE 88; RESP 13; O2SAT 92
[2023-09-07] VITALS (35 sets, daily range): BP systolic 115–182; BP diastolic 70–96; PULSE 61–105; RESP 16–25; TEMP 34.5–37.6; O2SAT 90–96; BMI 34.9; BMI 35.2
[2023-09-07] MEDS: Naloxone HCl 2 MG/2 ML SYRINGE IVPUSH (00:35)
[2023-09-07 00:36] LABS: Appearance Urine Clear; Color Urine Dark Yellow; Glucose Urine UA Negative (Negative); Leukocyte Esterase Urine Negative (Negative); Nitrite Urine Negative (Negative); PH 6.5 (5.0-9.0); Specific Gravity - Urine 1.025 (1.005-1.025); UMIC TRIGGER UACC YES; Urine Blood Negative (Negative); Urine Ketones 40 mg/dL (Negative); Urine Protein 100 (2+) mg/dL (Neg-Trace)
[2023-09-07 00:44] LABS: Bacteria Urine None Seen (None Seen); Hyaline Casts Urine 0-2 /LPF (0-2); RBC Urine 0-2 /HPF (0-2); Squamous Epithelial Cell Urine 0-2 /HPF (0-2); WBC Urine 0-5 /HPF (0-5)
[2023-09-07 00:45] LABS: Amphetamine Screen Urine Not Detected (Not Detect); Barbiturates, Urine Not Detected (Not Detect); Benzodiazepines Screen Urine POSITIVE (Not Detect); Buprenorphine Scr Not Detected (Not Detect); Cannabinoid Screen Urine POSITIVE (Not Detect); Cocaine Screen Urine POSITIVE (Not Detect); Fentanyl, urine Not Detected (Not Detect); Methadone Screen, Urine Not Detected (Not Detect); Opiate Screen Urine Not Detected (Not Detect); Oxycodone Screen Urine Positive (Not Detect); Phencyclidine Screen Urine Not Detected (Not Detect)
--- NOTE | 2023-09-07 00:55 | PC.NURSE ---
With pt reduced mental status and decreased oxygenation, plan for intubation.
[2023-09-07] MEDS: Rocuronium Bromide 50 MG/5 ML VIAL IVPUSH (01:05)
[2023-09-07] MEDS: Etomidate 20 MG/10 ML VIAL IVPUSH (01:05)
[2023-09-07] MEDS: propofoL 1,000 MG/100 ML VIAL 17.66 MG IVCONT (01:17)
--- NOTE | 2023-09-07 01:32 | PC.NURSE ---
Pt intubated successfully, 6.0, 24 at [facility], OG in place, both verified by CXR at bedside, confirmed by MD Matthews.
[2023-09-07] MEDS: Albuterol Sulfate 7.5 MG, Albuterol/Iprat 2.5/0.5MG 3 ML 3 ML INHALE (01:49)
--- NOTE | 2023-09-07 01:58 | P.HPCC_ITS ---
History of Present Illness Date of Service: 09/07/23 <FAY Guerra - Last Filed: 09/07/23 03:23> Attending physician on admission: Misbah Murillo <FAY Guerra - Last Filed: 09/07/23 03:23> Chief Complaint: TOXIC ENCEPHALOPATHY / POLY SUBS ABUSE <FAY Guerra - Last Filed: 09/07/23 03:23> HPI: ?53-year-old female with underlying history of hypoxic respiratory failure in the setting of influenza, history of asthma who is noncompliant with her O2 nasal cannula usage, hypertension, multiple sclerosis, generalized anxiety disorder, obesity, peripheral neuropathy, constipation, vitiligo, panic disorder among others. ?Patient had been transported via EMS, family members have reported the patient had increased shortness of breath and lethargy over the past few days with an oxygen saturation of 86% and falling asleep constantly but also having intermittent episodes of alertness and sort of erratic behavior which was also noted in the emergency room.? Patient received Narcan with very little effect but she also received lorazepam and ketamine . ?Family also reported the patient had been very agitated and had been taking gabapentin going back to sleep, they deny the possibility of this being related to an opioid overdose as they claimed that she does not use any drugs and the sister controls her home medications. In the emergency room, her workup revealed normal vital signs without hypoxia, tachycardia tachypnea, no white count or fever. ?Given the obtunded state, CT of the head was done which showed no gross acute intracranial pathology. ?Her H&H was 15 and 50 respectively, completely unremarkable electrolytes and renal function.? Her initial venous blood gas pH was 7.30 with pCO2 of 61, PO2 of 60 and HC03 of 30, oxygen saturation 88%.? Urine show 100 (2+) proteinuria and patient is positive for benzos, cocaine, oxycodone and THC. ?Respiratory panel negative.? Patient had become obtunded having thick secretions from nose and mouth; given the concern of a crush airway in the setting of intermittent episodes of delirium, delusion and obtunded state patient was intubated for airway protection. ?Review of x-ray pre and post intubation show no evidence of acute pulmonary disease and endotracheal tube, gastric tube in good position. ?Patient was then subsequently admitted to the ICU. ROS:? Unable to obtain Past Medical History:? As above Past Surgical History: ?None per records Family history:? Noncontributory Social History:? Lives at home with her family, has never smoked other than marijuana, apparently uses cocaine, oxycodone but family had denied their knowledge about this. CODE STATUS: FULL CODE Allergies: NKDA Home Medications: See Med Rec PHYSICAL EXAM: VS: ?128/78, 89, 20, 92% on a mechanical ventilator AC, 20, 500, 35%, 5 General:? Sedated and intubated Skin: ?Hypopigmented skin of the lips, multiple areas of the bilateral forearms, hands consistent with vitiligo, otherwise Intact, no lesions, edema, erythema, clubbing or cyanosis.? No ulcers. HEENT:? Head is normocephalic, atraumatic, pupils equal round reactive to light accommodation bilaterally.? Extraocular movements appear intact.? Buccal mucosa is moist, Neck is supple without lymphadenopathy. Cardiac:? Clear S1-S2, no murmurs rubs or gallops. Pulmonary:? Minimal expiratory wheezing in an intermittent manner, no crackles, rales or rhonchi. Abdomen:? Protuberant, positive bowel sounds in all 4 quadrants.? Soft, nontender, no rebound or guarding.? Musculoskeletal:? On passive range of motion of the upper and lower extremities at the major joints there is no crepitus, no cogwheeling, no asymmetry of the legs and no edema. Neurologic:? As above, otherwise unable to further assess Vascular:? 2+ pulses upper and lower extremities distally. SIGNIFICANT LABORATORY DATA:? As above? REVIEW OF IMAGES: ?As above EKG REVIEW: ?To my view this sinus rhythm rate of 83 beats per minute.? There is no ST elevations, no ST depressions.? QTC 423.? No comparison available. ? ASSESSMENT: 1. Acute toxic encephalopathy 2. Acute hypoxic/early hypercarbic respiratory failure 3. Polysubstance abuse 4. Drug related delirium 5. Acute asthma exacerbation 6. Hemo concentration and Clinical ehydration 7. Chronic MS PLAN OF CARE: Patient admitted to ICU, monitor vital signs, I and O's, continue with propofol for sedation, obtain TSH, T4, ammonia, ventilation support with overall goal of O2 sat between 90 and 92% for which I have decreased the FiO2 from 60% to 35% and decrease the vent rate to 20.? Repeat labs in the morning as well as blood gas. Patient will need addiction medicine consult eventually, will start her on maintenance LR, Pandya catheter placement, methylprednisolone 40 mg q.8 hours along with DuoNebs every 6 and albuterol p.r.n. wheezing.? I do not think this patient needs antibiotics at this point. ? There was a question of whether or not the patient had dinner way edema given the difficult intubation and although a CT of the neck soft tissue evaluation was order, patient was unable to tolerate the pressure control ambulatory event therefore this study was not performed.? I do not think the patient has any evidence of angioedema and I am not concerned about epiglottitis. GI PROPHYLAXIS: ?Famotidine IV DVT PROPHYLAXIS:? Lovenox subQ Critical care time used for critical evaluation of this patient, diagnosis, treatment and coordination of care, review her records and documentation TOTAL CRITICAL CARE TIME? 75 MIN . discussion and coordination with consultants, completely separate from any procedures performed. Patient's care was discussed in detail with Dr. Murillo who is aware of all the above as well as the plan of care for this patient. <FAY Guerra - Last Filed: 09/07/23 03:23> [facility] Past Medical History Medical History: Medical History Vitiligo Panic disorder without agoraphobia NED (generalized anxiety disorder) Hypertension Multiple sclerosis Asthma with exacerbation <FAY Guerra - Last Filed: 09/07/23 03:23> Social History Social History: Social History Household Members: Unknown / Unable to assess Housing: Apartment Do you presently have visiting nurse or other home services: No Alcohol intake: never Patient Tobacco Use Status: Never used Tobacco Smoked in Last 30 Days: Yes Use of substances other than those prescribed or required for medical reasons: Unable to respond Substance Use Type: Marijuana Currently Displaying Signs/Symptoms of Drug Intoxication Withdrawal: No Advance Directives: No Advance Directives Information Provided: No Do you have a plan to hurt others: No Plan Nutrition Risks: On aspiration precautions Patient : No service: No Current occupational status: unemployed <FAY Guerra - Last Filed: 09/07/23 03:23> Meds Allergies/Adverse reactions: Allergies Allergy/AdvReac Type Severity Reaction Status Date / Time No Known Allergies Allergy Verified 09/06/23 19:39 <FAY Guerra - Last Filed: 09/07/23 03:23> Active Medications: Current Medications Enoxaparin Sodium (Enoxaparin Sodium 40 Mg/0.4 Ml Syringe) 40 mg SUBCUT ONCE ONE Stop: 09/07/23 01:57 Famotidine (Famotidine/Pf 20 Mg/2 Ml Vial) 20 mg IVPUSH DAILY ONE Stop: 09/07/23 06:01 Propofol (Diprivan) 1,000 mg in 100 mls @ 0 mls/hr IVCONT .Q0M ELOY; Protocol Last Admin: 09/07/23 01:17 Dose: 30 mcg/kg/min, 17.66 mls/hr Lactated Ringer's (Lr) 1,000 mls @ 100 mls/hr IVCONT .Q10H ELOY <FAY Guerra - Last Filed: 09/07/23 03:23> Home medications: Home Medications ?Medication ?Instructions ?Recorded ?Confirmed ?Last Taken ?Type albuterol sulfate 2.5 mg/3 mL mg inhalation 09/07/23 Unknown History (0.083 %) solution for nebulization albuterol sulfate 90 mcg/actuation 2 puff inhalation QID PRN wheezing 09/07/23 Unknown History aerosol inhaler amlodipine 5 mg tablet 5 mg PO DAILY 09/07/23 Unknown History baclofen 20 mg tablet 20 mg PO TID 09/07/23 Unknown History budesonide-formoterol HFA 160 inhalation 09/07/23 Unknown History mcg-4.5 mcg/actuation aerosol inhaler duloxetine 30 mg capsule,delayed 1 - 2 PO BEDTIME 09/07/23 Unknown History release ergocalciferol (vitamin D2) 1,250 1,250 mcg PO QWEEK 09/07/23 Unknown History mcg (50,000 unit) capsule gabapentin 600 mg tablet 600 mg PO TID 09/07/23 Unknown History glatiramer 40 mg/mL subcutaneous mg subcut 09/07/23 Unknown History syringe montelukast 10 mg tablet 10 mg PO DAILY 09/07/23 Unknown History <FAY Guerra - Last Filed: 09/07/23 03:23> Physical Exam 2 Vital Signs: Vital Signs: Last Vital Signs Temp 98.2 F 09/06/23 19:33 Pulse 84 09/07/23 01:44 Resp 22 H 09/07/23 01:44 BP 127/78 09/07/23 01:17 Pulse Ox 95 09/07/23 01:17 O2 Del Method Nasal Cannula 09/07/23 00:44 O2 Flow Rate 4 09/06/23 22:00 FiO2 60 09/07/23 01:44 BMI result Body Mass Index 34.9 <FAY Guerra - Last Filed: 09/07/23 03:23> Results Labs CBC and Chem 7: 09/07/23 05:55 09/07/23 05:55 <FAY Guerra - Last Filed: 09/07/23 03:23> Labs: Laboratory Results - last 24 hr 09/06/23 09/06/23 09/06/23 20:02 20:03 20:04 MCV 89.2 MCH 26.5 L MCHC 29.7 L RDW 14.4 Plt Count 176 MPV 9.7 Immature Gran % (Auto) 0.2 Neut % (Auto) 81.5 H Lymph % (Auto) 10.4 L [place] % (Auto) 7.2 Eos % (Auto) 0.5 Baso % (Auto) 0.2 Lymph # (Auto) 0.6 L [place] # (Auto) 0.4 Eos # (Auto) 0.0 Baso # (Auto) 0.0 Abs Immat Gran (auto) 0.01 Absolute Neuts (auto) 5.0 Absolute Nucleated RBC 0.000 Nucleated RBC % (auto) 0.0 PT INR VBG pH VBG pCO2 VBG pO2 VBG HCO3 VBG O2 Saturation VBG Base Excess Anion Gap 14 Estim Creat Clear Calc 98.8 Estimated GFR > 60 Random Glucose 103 Lactic Acid 1.1 Calcium 9.7 Magnesium 2.0 Total Bilirubin 0.8 AST 13 ALT 8 Alkaline Phosphatase 78 Troponin I High Sens < 2.7 D B-Natriuretic Peptide 25 Total Protein 7.8 Albumin 3.9 Urine Color Urine Appearance Urine pH Ur Specific [place] Urine Protein Urine Glucose (UA) Urine Ketones Urine Blood Urine Nitrite Ur Leukocyte Esterase Urine RBC Urine WBC Ur Squamous Epith Cells Urine Bacteria Hyaline Casts Urine Opiates Screen Ur Buprenorphine Scrn Ur Oxycodone Screen Urine Methadone Screen Urine Fentanyl Screen Ur Barbiturates Screen Ur Phencyclidine Scrn Ur Amphetamines Screen U Benzodiazepines Scrn Urine Cocaine Screen U Marijuana (THC) Screen Influenza Type A (PCR) NEGATIVE Influenza Type B (PCR) NEGATIVE RSV RNA Qual (PCR) NEGATIVE SARS-CoV-2 RNA (RT-PCR) NEGATIVE 09/06/23 09/06/23 09/07/23 20:09 20:19 00:28 MCV MCH MCHC RDW Plt Count MPV Immature Gran % (Auto) Neut % (Auto) Lymph % (Auto) [place] % (Auto) Eos % (Auto) Baso % (Auto) Lymph # (Auto) [place] # (Auto) Eos # (Auto) Baso # (Auto) Abs Immat Gran (auto) Absolute Neuts (auto) Absolute Nucleated RBC Nucleated RBC % (auto) PT 12.4 INR 1.0 VBG pH 7.30 L VBG pCO2 61 VBG pO2 60 VBG HCO3 30 H VBG O2 Saturation 88.0 VBG Base Excess 2.5 Anion Gap Estim Creat Clear Calc Estimated GFR Random Glucose Lactic Acid Calcium Magnesium Total Bilirubin AST ALT Alkaline Phosphatase Troponin I High Sens B-Natriuretic Peptide Total Protein Albumin Urine Color Urine Appearance Urine pH Ur Specific [place] Urine Protein Urine Glucose (UA) Urine Ketones Urine Blood Urine Nitrite Ur Leukocyte Esterase Urine RBC Urine WBC Ur Squamous Epith Cells Urine Bacteria Hyaline Casts Urine Opiates Screen Not Detected Ur Buprenorphine Scrn Not Detected Ur Oxycodone Screen Positive Urine Methadone Screen Not Detected Urine Fentanyl Screen Not Detected Ur Barbiturates Screen Not Detected Ur Phencyclidine Scrn Not Detected Ur Amphetamines Screen Not Detected U Benzodiazepines Scrn POSITIVE H Urine Cocaine Screen POSITIVE H U Marijuana (THC) Screen POSITIVE H Influenza Type A (PCR) Influenza Type B (PCR) RSV RNA Qual (PCR) SARS-CoV-2 RNA (RT-PCR) 09/07/23 00:30 MCV MCH MCHC RDW Plt Count MPV Immature Gran % (Auto) Neut % (Auto) Lymph % (Auto) [place] % (Auto) Eos % (Auto) Baso % (Auto) Lymph # (Auto) [place] # (Auto) Eos # (Auto) Baso # (Auto) Abs Immat Gran (auto) Absolute Neuts (auto) Absolute Nucleated RBC Nucleated RBC % (auto) PT INR VBG pH VBG pCO2 VBG pO2 VBG HCO3 VBG O2 Saturation VBG Base Excess Anion Gap Estim Creat Clear Calc Estimated GFR Random Glucose Lactic Acid Calcium Magnesium Total Bilirubin AST ALT Alkaline Phosphatase Troponin I High Sens B-Natriuretic Peptide Total Protein Albumin Urine Color Dark Yellow Urine Appearance Clear Urine pH 6.5 Ur Specific [place] 1.025 Urine Protein 100 (2+) H Urine Glucose (UA) Negative Urine Ketones 40 Urine Blood Negative Urine Nitrite Negative Ur Leukocyte Esterase Negative Urine RBC 0-2 Urine WBC 0-5 Ur Squamous Epith Cells 0-2 Urine Bacteria None Seen Hyaline Casts 0-2 Urine Opiates Screen Ur Buprenorphine Scrn Ur Oxycodone Screen Urine Methadone Screen Urine Fentanyl Screen Ur Barbiturates Screen Ur Phencyclidine Scrn Ur Amphetamines Screen U Benzodiazepines Scrn Urine Cocaine Screen U Marijuana (THC) Screen Influenza Type A (PCR) Influenza Type B (PCR) RSV RNA Qual (PCR) SARS-CoV-2 RNA (RT-PCR) <FAY Guerra - Last Filed: 09/07/23 03:23> Imaging Radiologist's Impressions: Impressions Chest X-Ray 09/06/23 19:38 IMPRESSION: Stable compared to 04/15/2022. Head CT 09/06/23 22:25 IMPRESSION: 1. Limited study as the patient is unable to fully cooperate and there is motion artifact. 2. No gross acute intracranial pathology. Chest X-Ray 09/07/23 01:30 IMPRESSION: No evidence for acute disease in the chest. Endotracheal tube and gastric tube in good position. <FAY Guerra - Last Filed: 09/07/23 03:23> Assessment and Plan (1) Acute metabolic encephalopathy: Status: Acute <FAY Guerra - Last Filed: 09/07/23 03:23> (2) Asthma with exacerbation: Status: Acute <FAY Guerra Last Filed: 09/07/23 03:23> (3) Acute respiratory failure with hypoxemia: Status: Acute <FAY Guerra - Last Filed: 09/07/23 03:23> (4) Multiple sclerosis: Status: Acute <FYA Guerra Last Filed: 09/07/23 03:23> (5) Hypertension: Status: Acute <FAY Guerra - Last Filed: 09/07/23 03:23> 53-year-old lady with past medical history of chronic lung possibly asthma? Noncompliant to home oxygen therapy, hypertension, obesity, multiple sclerosis, generalized anxiety disorder presented to the ED with acute encephalopathy possibly due to toxic encephalopathy as a UDS is positive for cocaine and marijuana. Subsequently She also developed hypoxemic respiratory failure needing intubation and ventilator support. Neurology: Acute encephalopathy possibly secondary to toxic metabolic encephalopathy CT brain normal UDS positive for cocaine, marijuana; received lorazepam in the ED distal positive for benzodiazepines too Currently on propofol for sedation, we will add Precedex and wean propofol Cardiology: Blood pressure slightly on the higher side, possibly secondary to sympathomimetic action of cocaine Will add as needed labetalol, we will restart home amlodipine 10 mg Respiratory: Acute hypoxemic respiratory failure on ventilator support Respiratory failure is possibly secondary to poor mental status leading to respiratory depression leading to agonal breaths Currently on pressure control mode FiO2 50%, 24/5, rate 20 Rule out bronchodilators as needed Ventilator bundle, her dental elevation to 30 degrees, oral hygiene with chlorhexidine, frequent suctioning, daily spontaneous awakening trials, daily spontaneous breathing trials GI: We will start the patient on tube feeds Kidneys: Normal renal function We will monitor I's and O's Hematology: Normal WBC and hemoglobin Endocrinology: Blood sugars under control Infectious disease: No source of infection, not on any antibiotics Lines: Peripheral lines We will take out catheter Prophylaxis: Lovenox and famotidine <Misbah Murillo MD - Last Filed: 09/07/23 11:23> Total time managing care of this patient today: 45 minutes. <Misbah Murillo MD - Last Filed: 09/07/23 11:23>
[2023-09-07] MEDS: cefTRIAXone sodium 1 GM in 0.9 % Sodium Chloride 50 ML IV (02:05)
[2023-09-07 02:16] LABS: ABG Base Excess 3.1 mmol/L; ABG HCO3 30 mmol/L (22-26); ABG pCO2 54 mmHg (32-45); ABG pH 7.34 (7.35-7.45); ABG pO2 74 mmHg (83-108)
[2023-09-07 02:25] LABS: ABG Refer to POC result
[2023-09-07 02:26] LABS: T4 Thyroxine 6.7 ug/dL (4.5-12.0); Thyroid Stimulating Hormone 0.93 uIU/mL (0.32-4.0)
--- NOTE | 2023-09-07 02:28 | MHC.EDTECH ---
Daughter took all belonging home. patient only has what is stated on belongings lists
--- NOTE | 2023-09-07 02:30 | PC.NURSE ---
Pt demonstrated continuing decline in O2 saturation and mentation, requiring need for intubation. 2nd IV access obtained, difficult intubation completed, OG tube inserted, temp sensing cassidy placed, sedation medication titrated per MAR for decrease in RASS with changing respiratory systems (vent to portable vent, bagging). Unable to obtain neck CT d/t pt sedation decrease, defered per MD. Report given via phone and at bedside to BROADCAST METEOROLOGIST.
[2023-09-07 02:38] LABS: Phosphorus 3.3 mg/dL (2.7-4.5)
[2023-09-07] MEDS: Lactated Ringers 1,000 ML 100 ML IVCONT (02:47)
[2023-09-07] MEDS: Enoxaparin Sodium 40 MG/0.4 ML SYRINGE SUBCUT (02:48)
[2023-09-07] MEDS: propofoL 1,000 MG/100 ML VIAL 29.43 MG IVCONT ×2 (03:52→06:21)
[2023-09-07 06:02] LABS: VBG Base Excess 3.5 mmol/L; VBG HCO3 26 mmol/L (22-26); VBG pCO2 35 mmHg; VBG pH 7.48 (7.32-7.43); VBG pO2 44 mmHg
[2023-09-07 06:17] LABS: MANUAL DIFF FLAG NO
[2023-09-07 06:18] LABS: Venous Blood Gas Refer to POC result
[2023-09-07 06:19] LABS: Basophils Percent Auto 0.3 % (0-2); Eosinophils Percent Auto 0.3 % (0-4); Hematocrit 49.1 % (37.0-47.0); Hemoglobin 14.8 g/dl (12.0-16.0); Imm Gran Abs Auto 0.02 X10*3/uL (0.00-0.03); Imm Gran Pct Auto 0.3 % (0.0-0.4); Lymphocytes Absolute Auto 0.8 X10*3/uL (1.2-4.9); Lymphocytes Percent Auto 12.3 % (20-40); Mean Corpuscular HGB Conc 30.1 g/dl (31.0-35.0); Mean Corpuscular Volume 89.4 fL (80.0-98.0); Mean Platelet Volume 9.8 fL (9.4-12.3); Monocytes Absolute Auto 0.6 X10*3/uL (0.1-1.2); Monocytes Percent Auto 9.2 % (2-11); Neutrophils Absolute Auto 4.7 x10*3/uL (2.0-8.3); Neutrophils Percent Auto 77.6 % (45-73); Platelet Count 172 X10*3/uL (160-400); Red Blood Count 5.49 X10*6/uL (4.20-5.50); Red Cell Distribution Width 14.5 % (11.0-16.0); White Blood Count 6.1 X10*3/uL (4.8-10.8)
[2023-09-07] MEDS: Famotidine/PF 20 MG/2 ML VIAL IVPUSH (06:21)
[2023-09-07 06:34] LABS: Alanine Aminotransferase 9 U/L (0-31); Albumin Level 3.5 g/dL (3.5-5.0); Alkaline Phosphatase 73 U/L (39-117); Anion Gap 14 (12-20); Aspartate Amino Transferase 12 U/L (5-31); Bilirubin Total 0.9 mg/dL (0.0-1.0); Blood Urea Nitrogen 14 mg/dL (9-16); Calcium 9.7 mg/dL (8.4-10.2); Carbon Dioxide 26 mmol/L (22-29); Chloride 104 mmol/L (96-108); Creatinine Clr Calc Pharmacy 107.2; Estimated Glomerular Filt Rate > 60; Glucose Random 114 mg/dL (60-115); Potassium 3.5 mmol/L (3.3-5.1); Sodium 140 mmol/L (135-145); Total Protein 7.1 g/dL (6.5-8.0)
--- NOTE | 2023-09-07 09:43 | MHC.CM.PN ---
EMR REVIEWED, PT ADMITTED W/TOXIC ENCEPHALOPATHY/PSA/ASTHMA, PT NOW VENTED AND SEDATED, CM ATTEMPTED TO CONTACT PT'S SISTER ARISTIDES AT 9:40AM [phone], NO ANSWER AND DETAILED MESSAGE LEFT W/REQUEST FOR CALL BACK. PER PREVIOUS ADMISSION PT LIVES ALONE, USES A WALKER FOR AMBULATION, HAS [facility] STRATEGIC ADVISOR (HRS UNKNOWN), HAS HCP WHO IS PT'S SISTER HOWEVER NO COPY ON FILE, PCP NOT NOTED. CM WILL REVISIT IF NO CALL BACK FROM PT'S SISTER, PT WILL NEED RECOVERY TEAM PRIOR TO DC.
[2023-09-07] MEDS: dexmedeTOMIDidine HCL/NS 400 MCG/100 ML INFUS..BTL 24.5 MCG IVCONT (10:10)
[2023-09-07] MEDS: amLODIPine Besylate 10 MG TABLET PO (12:15)
--- NOTE | 2023-09-07 12:16 | PHA.MEDREC ---
Pharmacy Consult ? Medication Reconciliation Pharmacy has completed the medication reconciliation. Spoke to nurse Becerril regarding patient contact to complete med rec, unable to get in touch with patient's sister all day. Utilized claim history and information from last visit med rec to complete.
[2023-09-07] MEDS: Labetalol HCL 100 MG/20 ML VIAL 20 MG IVPUSH ×2 (13:00→19:13)
[2023-09-07] MEDS: dexmedeTOMIDidine HCL/NS 400 MCG/100 ML INFUS..BTL 34.3 MCG IVCONT ×4 (13:13→21:40)
[2023-09-07] MEDS: Chlorhexidine Gluc Oral Rinse 15 ML MOUTHWASH BUCCAL ×2 (15:31→21:40)
[2023-09-07] MEDS: Nicotine 14 MG PATCH.TD24 TRANSDERMA (16:35)
[2023-09-07] MEDS: hydrALAZINE HCl 20 MG/ML VIAL 10 MG IVPUSH (20:00)
[2023-09-07] MEDS: Gabapentin 600 MG TABLET PO (22:29)
[2023-09-08] VITALS (31 sets, daily range): BP systolic 102–159; BP diastolic 58–95; PULSE 60–110; RESP 12–67; TEMP 35–37.3; O2SAT 90–98; BMI 37.1
[2023-09-08] MEDS: Enoxaparin Sodium 40 MG/0.4 ML SYRINGE SUBCUT ×2 (00:11→23:45)
[2023-09-08] MEDS: dexmedeTOMIDidine HCL/NS 400 MCG/100 ML INFUS..BTL 34.3 MCG IVCONT ×2 (00:17→02:54)
[2023-09-08 06:06] LABS: VBG Base Excess 3.1 mmol/L; VBG HCO3 25 mmol/L (22-26); VBG pCO2 33 mmHg; VBG pH 7.49 (7.32-7.43); VBG pO2 80 mmHg
[2023-09-08 06:07] LABS: Venous Blood Gas Refer to POC result
[2023-09-08] MEDS: dexmedeTOMIDidine HCL/NS 400 MCG/100 ML INFUS..BTL 26.95 MCG IVCONT (06:12)
[2023-09-08 06:36] LABS: MANUAL DIFF FLAG NO
[2023-09-08 06:37] LABS: Basophils Percent Auto 0.4 % (0-2); Eosinophils Absolute Auto 0.1 X10*3/uL (0.0-0.4); Eosinophils Percent Auto 1.2 % (0-4); Hematocrit 45.1 % (37.0-47.0); Imm Gran Abs Auto 0.01 X10*3/uL (0.00-0.03); Imm Gran Pct Auto 0.2 % (0.0-0.4); Lymphocytes Absolute Auto 1.1 X10*3/uL (1.2-4.9); Lymphocytes Percent Auto 21.9 % (20-40); Mean Corpuscular Hemoglobin 26.3 pg (27.0-33.0); Mean Corpuscular Volume 84.8 fL (80.0-98.0); Mean Platelet Volume 9.4 fL (9.4-12.3); Monocytes Absolute Auto 0.6 X10*3/uL (0.1-1.2); Monocytes Percent Auto 11.2 % (2-11); Neutrophils Absolute Auto 3.2 x10*3/uL (2.0-8.3); Neutrophils Percent Auto 65.1 % (45-73); Platelet Count 184 X10*3/uL (160-400); Red Blood Count 5.32 X10*6/uL (4.20-5.50); Red Cell Distribution Width 14.3 % (11.0-16.0); White Blood Count 4.9 X10*3/uL (4.8-10.8)
[2023-09-08 06:51] LABS: Alanine Aminotransferase 7 U/L (0-31); Albumin Level 3.2 g/dL (3.5-5.0); Alkaline Phosphatase 68 U/L (39-117); Anion Gap 10 (12-20); Aspartate Amino Transferase 9 U/L (5-31); Bilirubin Total 0.7 mg/dL (0.0-1.0); Blood Urea Nitrogen 10 mg/dL (9-16); Carbon Dioxide 27 mmol/L (22-29); Chloride 105 mmol/L (96-108); Creatinine Clr Calc Pharmacy 119.7; Estimated Glomerular Filt Rate > 60; Glucose Random 135 mg/dL (60-115); Potassium 3.3 mmol/L (3.3-5.1); Sodium 139 mmol/L (135-145); Total Protein 6.6 g/dL (6.5-8.0)
[2023-09-08] MEDS: Nicotine 14 MG PATCH.TD24 TRANSDERMA (07:22)
[2023-09-08] MEDS: Chlorhexidine Gluc Oral Rinse 15 ML MOUTHWASH BUCCAL ×2 (07:22→16:09)
[2023-09-08] MEDS: Baclofen 20 MG TABLET PO ×3 (07:22→20:26)
[2023-09-08] MEDS: amLODIPine Besylate 10 MG TABLET PO (07:22)
[2023-09-08] MEDS: Gabapentin 600 MG TABLET PO ×3 (07:22→20:26)
[2023-09-08 08:33] LABS: Prolactin 14.6 ng/mL
--- NOTE | 2023-09-08 09:56 | P.PNCC_ITS ---
Subjective Subjective Date of Service: 09/08/23 Critical Care Time (minutes): 40 Comment: Doing better, continues to be on ventilator Support this morning. Placed on supper pressor support trials, doing well Sedation tapered off currently on only on Precedex following some commands Physical Exam 2 Vital Signs: Vital Signs: Last Vital Signs Temp 98.8 F 09/08/23 08:00 Pulse 64 09/08/23 09:00 Resp 28 H 09/08/23 09:00 BP 151/84 H 09/08/23 09:00 Pulse Ox 94 09/08/23 09:00 O2 Del Method Mechanical Ventil ation 09/08/23 09:00 O2 Flow Rate 4 09/06/23 22:00 FiO2 30 09/08/23 09:02 BMI result Body Mass Index 37.1 Const: General: comfortable, no acute distress (Mild distress) and confusion (Mild confusion) Orientation/consciousness: confusion (Mild confusion) HEENT: Head: Yes normal to inspection and Yes normocephalic Eyes: General: appearance normal, both eyes and all related structures V isual Dominique: normal visual dominique by confrontation Chest: Other: Occasional wheezes heard bilaterally, breath sounds equal bilaterally, ET tube in place Cardio: Other: Normal as normal S1-S2 heard no murmur GI: Other: Soft, nontender, no organomegaly : General: Yes bladder normal to inspection and Yes bladder normal to palpation Bimanual exam- vagina & uterus: bladder normal to palpation Skin: Other: No breakdown Neuro: Other: Passive movements okay, no focal deficits General: confusion (Mild confusion) Objective Data Labs 09/08/23 06:11 09/08/23 06:11 Labs: Laboratory Results - last 24 hr 09/07/23 09/08/23 09/08/23 05:55 05:56 06:11 WBC 4.9 RBC 5.32 Hgb 14.0 Hct 45.1 MCV 84.8 MCH 26.3 L MCHC 31.0 RDW 14.3 Plt Count 184 MPV 9.4 Immature Gran % (Auto) 0.2 Neut % (Auto) 65.1 Lymph % (Auto) 21.9 [place] % (Auto) 11.2 H Eos % (Auto) 1.2 Baso % (Auto) 0.4 Lymph # (Auto) 1.1 L [place] # (Auto) 0.6 Eos # (Auto) 0.1 Baso # (Auto) 0.0 Abs Immat Gran (auto) 0.01 Absolute Neuts (auto) 3.2 Absolute Nucleated RBC 0.000 Nucleated RBC % (auto) 0.0 VBG pH 7.49 H VBG pCO2 33 VBG pO2 80 VBG HCO3 25 VBG O2 Saturation 98.0 VBG Base Excess 3.1 Sodium 139 Potassium 3.3 Chloride 105 Carbon Dioxide 27 Anion Gap 10 L BUN 10 Creatinine 0.63 Estim Creat Clear Calc 119.7 Estimated GFR > 60 Random Glucose 135 H Calcium 9.0 D Total Bilirubin 0.7 AST 9 ALT 7 Alkaline Phosphatase 68 Total Protein 6.6 Albumin 3.2 L Prolactin 14.6 Microbiology Microbiology Results: Microbiology 09/06/23 20:01 Blood - Venous Blood Culture - Preliminary No growth after 24 hours. 09/06/23 20:02 Blood - Venous Blood Culture - Preliminary No growth after 24 hours. Progress Note: A&P Assessment and plan (1) Acute metabolic encephalopathy: Status: Acute (2) Asthma with exacerbation: Status: Acute (3) Multiple sclerosis: Status: Acute (4) Hypertension: Status: Acute (5) Acute respiratory failure with hypoxemia: Status: Acute Plan 53-year-old lady with past medical history of chronic lung disease possibly asthma? Noncompliant to home oxygen therapy, hypertension, obesity, multiple sclerosis with significant difficulty in ambulation where she can not walk outside the home, needs assistance walking, generalized anxiety disorder presented to the ED with acute encephalopathy possibly due to toxic encephalopathy as a UDS is positive for cocaine and marijuana. Subsequently She also developed hypoxemic respiratory failure needing intubation and ventilator support. Neurology: Acute encephalopathy possibly secondary to toxic metabolic encephalopathy CT brain normal UDS positive for cocaine, marijuana; received lorazepam in the ED distal positive for benzodiazepines too Currently on Precedex for anxiolysis, off propofol Cardiology: Blood pressure slightly on the higher side, possibly secondary to sympathomimetic action of cocaine Continue home amlodipine 10 mg daily, as needed hydralazine Respiratory: Acute hypoxemic respiratory failure on ventilator support Respiratory failure is possibly secondary to poor mental status leading to respiratory depression leading to agonal breaths Currently on pressure control mode FiO2 50%, 24/5, rate 20 doing well. We will get weaning parameters and possibly extubate the patient Rule out bronchodilators as needed Ventilator bundle, her dental elevation to 30 degrees, oral hygiene with chlorhexidine, frequent suctioning, daily spontaneous awakening trials, daily spontaneous breathing trials GI: We will do a bedside swallow evaluation once she is extubated and started on oral feeds. Kidneys: Normal renal function We will monitor I's and O's Hematology: Normal WBC and hemoglobin Endocrinology: Blood sugars under control Infectious disease: No source of infection, not on any antibiotics Lines: Peripheral lines [place] catheter Prophylaxis: Lovenox and famotidine Quality Stroke Does the patient have a stroke diagnosis?: No VTE Prior VTE?: No VTE Risk Level:: Medical - moderate - high VTE Device Contraindication: N/A - Device Ordered VTE Drug Contraindication: N/A - Med Ordered
--- NOTE | 2023-09-08 10:49 | MHC.CLN ---
F/U DISCUSSED AT ROUNDS WITH MD PLAN TO EXTUBATE TODAY TF PAUSED R/T PLAN FOR EXTUBATION FOLLOWING WITH TEAM
[2023-09-08] MEDS: Albuterol/Iprat 2.5/0.5MG 3 ML AMPUL.NEB INHALE ×3 (12:11→19:47)
[2023-09-08] MEDS: Ketorolac Tromethamine 30 MG/ML VIAL IM (12:16)
--- NOTE | 2023-09-08 13:15 | MHC.CM.PN ---
Pt extubated today and is on nasal canula O2: Pt groggy and not able to fully participate in CM assessment: CM to follow
[2023-09-08] MEDS: Montelukast Sodium 10 MG TABLET PO (20:26)
[2023-09-08] MEDS: Acetaminophen 325 MG TABLET 975 MG PO (20:26)
[2023-09-08] MEDS: DULoxetine HCl 20 MG CAPSULE.DR PO (20:27)
[2023-09-09] VITALS (12 sets, daily range): BP systolic 129–149; BP diastolic 66–77; PULSE 72–84; RESP 16–18; TEMP 36.1–36.7; O2SAT 92–98; BMI 31.5
[2023-09-09] MEDS: Acetaminophen 325 MG TABLET 975 MG PO ×3 (04:41→21:51)
[2023-09-09 06:06] LABS: MANUAL DIFF FLAG NO
[2023-09-09 06:26] LABS: Alanine Aminotransferase 8 U/L (0-31); Albumin Level 3.3 g/dL (3.5-5.0); Alkaline Phosphatase 63 U/L (39-117); Anion Gap 10 (12-20); Aspartate Amino Transferase 10 U/L (5-31); Basophils Percent Auto 0.7 % (0-2); Bilirubin Total 0.6 mg/dL (0.0-1.0); Blood Urea Nitrogen 10 mg/dL (9-16); Calcium 8.7 mg/dL (8.4-10.2); Carbon Dioxide 29 mmol/L (22-29); Chloride 106 mmol/L (96-108); Eosinophils Absolute Auto 0.1 X10*3/uL (0.0-0.4); Eosinophils Percent Auto 2.5 % (0-4); Estimated Glomerular Filt Rate > 60; Glucose Random 106 mg/dL (60-115); Hematocrit 45.7 % (37.0-47.0); Hemoglobin 13.9 g/dl (12.0-16.0); Imm Gran Abs Auto 0.02 X10*3/uL (0.00-0.03); Imm Gran Pct Auto 0.5 % (0.0-0.4); Lymphocytes Absolute Auto 0.8 X10*3/uL (1.2-4.9); Mean Corpuscular HGB Conc 30.4 g/dl (31.0-35.0); Mean Corpuscular Hemoglobin 26.9 pg (27.0-33.0); Mean Corpuscular Volume 88.4 fL (80.0-98.0); Mean Platelet Volume 9.8 fL (9.4-12.3); Monocytes Absolute Auto 0.5 X10*3/uL (0.1-1.2); Monocytes Percent Auto 12.1 % (2-11); Neutrophils Absolute Auto 2.6 x10*3/uL (2.0-8.3); Neutrophils Percent Auto 64.2 % (45-73); Platelet Count 177 X10*3/uL (160-400); Potassium 3.3 mmol/L (3.3-5.1); Red Blood Count 5.17 X10*6/uL (4.20-5.50); Red Cell Distribution Width 14.6 % (11.0-16.0); Sodium 142 mmol/L (135-145); Total Protein 6.7 g/dL (6.5-8.0); White Blood Count 4.1 X10*3/uL (4.8-10.8)
[2023-09-09] MEDS: Albuterol/Iprat 2.5/0.5MG 3 ML AMPUL.NEB INHALE ×4 (07:28→19:07)
[2023-09-09] MEDS: Gabapentin 600 MG TABLET PO ×3 (09:32→21:51)
[2023-09-09] MEDS: amLODIPine Besylate 10 MG TABLET PO (09:32)
[2023-09-09] MEDS: Baclofen 20 MG TABLET PO ×3 (09:33→21:52)
[2023-09-09] MEDS: Nicotine 14 MG PATCH.TD24 TRANSDERMA (09:33)
[2023-09-09] MEDS: DULoxetine HCl 20 MG CAPSULE.DR PO ×2 (09:33→21:52)
--- NOTE | 2023-09-09 11:55 | MHC.CM.PN ---
IMM DELIVERED PT LIVES WITH SISTER. PT USES WALKER/ELECTRIC W/C FOR MOBILITY. USES HOME 02 AT 2L/MIN VIA [facility]. + HCP ON FILE PCP DR. MARLINE CONNER. DP: HOME, NO SERVICES VS HOME WITH SERVICES. PT WILL GET RIDE HOME WITH SON. CM WILL CONTINUE TO FOLLOW FOR ANY CHANGE IN DC NEEDS/PLAN.
--- NOTE | 2023-09-09 13:08 | MHC.CLN ---
F/U PATIENT EXTUBATED 09/07 AND TF DISCONTINUED. DIET ADVANCED TO 2 GRAM SODIUM 09/07. NELIA=19. NO SKIN ISSUES NOTED. RD TO FOLLOW UP WEEKLY.
[2023-09-09] MEDS: Montelukast Sodium 10 MG TABLET PO (21:52)
[2023-09-10] MEDS: Enoxaparin Sodium 40 MG/0.4 ML SYRINGE SUBCUT (00:32)
[2023-09-10 04:00] VITALS: BP 130/62; PULSE 75; RESP 18; TEMP 36.7; O2SAT 95
[2023-09-10] MEDS: Acetaminophen 325 MG TABLET 975 MG PO ×2 (04:16→12:39)
[2023-09-10 07:29] VITALS: PULSE 75; RESP 18; O2SAT 93
[2023-09-10] MEDS: Albuterol/Iprat 2.5/0.5MG 3 ML AMPUL.NEB INHALE ×3 (07:29→15:35)
[2023-09-10 07:41] VITALS: BP 134/75; PULSE 76; RESP 20; TEMP 36.8; O2SAT 92
[2023-09-10 09:52] VITALS: BP 130/74
[2023-09-10] MEDS: amLODIPine Besylate 10 MG TABLET PO (09:52)
[2023-09-10] MEDS: DULoxetine HCl 20 MG CAPSULE.DR PO (09:52)
[2023-09-10] MEDS: Gabapentin 600 MG TABLET PO ×2 (09:52→15:26)
[2023-09-10] MEDS: Nicotine 14 MG PATCH.TD24 TRANSDERMA (09:53)
[2023-09-10] MEDS: Baclofen 20 MG TABLET PO ×2 (09:53→15:26)
[2023-09-10 11:15] VITALS: PULSE 76; RESP 20; O2SAT 94
--- NOTE | 2023-09-10 11:38 | P.DS_ITS ---
DS: Providers Provider Date of Service: 09/10/23 Date of admission: 09/07/23 01:46 Primary care physician: None Physician Consults: 09/10/23 11:35 Addiction Medicine Routine Consulting Provider: Addiction Covering Reason for consultation: Pending discharge, for eval, rec and outpatient plan DS: Diagnosis Discharge Diagnosis (1) Acute metabolic encephalopathy: Status: Acute (2) Acute respiratory failure with hypoxemia: Status: Acute (3) Drug abuse: Status: Acute DS: Summary Hospital Course Hospital Course: Admission note 53-year-old female with underlying history of hypoxic respiratory failure in the setting of influenza, history of asthma who is noncompliant with her O2 nasal cannula usage, hypertension, multiple sclerosis, generalized anxiety disorder, obesity, peripheral neuropathy, constipation, vitiligo, panic disorder among others. ?Patient had been transported via EMS, family members have reported the patient had increased shortness of breath and lethargy over the past few days with an oxygen saturation of 86% and falling asleep constantly but also having intermittent episodes of alertness and sort of erratic behavior which was also noted in the emergency room.? Patient received Narcan with very little effect but she also received lorazepam and ketamine . ?F jesica also reported the patient had been very agitated and had been taking gabapentin going back to sleep, they deny the possibility of this being related to an opioid overdose as they claimed that she does not use any drugs and the sister controls her home medications. In the emergency room, her workup revealed normal vital signs without hypoxia, tachycardia tachypnea, no white count or fever. ?Given the obtunded state, CT of the head was done which showed no gross acute intracranial pathology. ?Her H&H was 15 and 50 respectively, completely unremarkable electrolytes and renal function.? Her initial venous blood gas pH was 7.30 with pCO2 of 61, PO2 of 60 and HC03 of 30, oxygen saturation 88%.? Urine show 100 (2+) proteinuria and patient is positive for benzos, cocaine, oxycodone and THC. ?Respiratory panel negative.? Patient had become obtunded having thick secretions from nose and mouth; given the concern of a crush airway in the setting of intermittent episodes of delirium, delusion and obtunded state patient was intubated for airway protection. ?Review of x-ray pre and post intubation show no evidence of acute pulmonary disease and endotracheal tube, gastric tube in good position. ?Patient was then subsequently admitted to the ICU. Hospital course The patient was intubated and admitted to ICU with likely cause of altered mentation and respiratory failure a drug overdose as she tested positive for Benzodiazepines, Cocaine and THC. She was monitored in ICU and extubated successfully with no reported hypoxia as she is stable on 2L home O2 dose. She was able to participate with PT and will do home VNA PT. Started on Nicotine patches to help quitting smoking. Evaluated by Recovery team for drug abuse. Discharge Plan We advise you complete abstinence from drugs Increase physical activity as tolerated Time Attestation Discharge Coordination Time (in mins): 36 Quality: Safe Use of Opioids Does Pt have an Active Cancer Diagnosis on the Problem List?: No Quality: Stroke Does the patient have a stroke diagnosis?: No Physical Exam Vital Signs: Vital Signs: Last Vital Signs Temp 98.3 F 09/10/23 07:41 Pulse 76 09/10/23 11:15 Resp 20 09/10/23 11:15 BP 130/74 09/10/23 09:52 Pulse Ox 92 09/10/23 07:41 O2 Del Method Nasal Cannula 09/10/23 07:41 O2 Flow Rate 2 09/10/23 07:41 FiO2 30 09/08/23 10:00 BMI result Body Mass Index 31.5 Const: Other: Constitutional : Awake, interactive, not in distress Neck : Normal inspection, Supple Cardiovascular : RRR, no JVP, no lower extremity edema Respiratory : good bilateral air entry, no crackles, wheezes or rhonchi Gastrointestinal: soft, lax, Normal bowel sounds, Non tender Skin : Warm, Dry Neurological : Alert & oriented x3, No focal deficit DS: Data Data Completed and Pending Labs on day of discharge: Preliminary micro results at discharge 09/06/23 20:01 Blood Culture - Preliminary Blood - Venous No growth after 48 hours. 09/06/23 20:02 Blood Culture - Preliminary Blood - Venous No growth after 48 hours. Imaging Chest x-ray: Radiologist's impression: ITS Impressions Chest X-Ray 09/06/23 19:38 IMPRESSION: Stable compared to 04/15/2022. Head CT 09/06/23 22:25 IMPRESSION: 1. Limited study as the patient is unable to fully cooperate and there is motion artifact. 2. No gross acute intracranial pathology. Chest X-Ray 09/07/23 01:30 IMPRESSION: No evidence for acute disease in the chest. Endotracheal tube and gastric tube in good position. Discharge Plan Discharge Anticipated Discharge Date/Time: 09/10/23 11:34 Patient Disposition: Home Health Service Discharge Diagnosis: Drug overdose Respiratory failure Referrals: Toby PINEDA [Outside] - 3-5 Days (home physical therapy) Elida Powell MD [Physician] - 1 Week Discharge Medications: New nicotine 14 mg/24 hr Patch 24 Hour 14 mg transdermal DAILY Qty: 30 0RF Continued gabapentin 600 mg tablet 600 mg PO TID albuterol sulfate 2.5 mg /3 mL (0.083 %) solution for nebulization 2.5 mg inhalation Q6H PRN (Reason: Shortness Of Breath Or Wheezing) amlodipine 5 mg tablet 5 mg PO DAILY baclofen 20 mg tablet 20 mg PO TID montelukast 10 mg tablet 10 mg PO DAILY ergocalciferol (vitamin D2) 1,250 mcg (50,000 unit) capsule 1,250 mcg PO MARTI albuterol sulfate 90 mcg/actuation HFA aerosol inhaler 2 puff INHALATION QID PRN (Reason: wheezing) duloxetine 30 mg capsule,delayed release(DR/EC) 1 - 2 PO BEDTIME budesonide-formoterol 160-4.5 mcg/actuation HFA aerosol inhaler 2 inh inhalation BID glatiramer 40 mg/mL syringe 40 mg subcut MOWEFR Discharge Orders: Discharge Order (Routine); Ordered 09/10/23 Ordered By: Zenia Kilpatrick Diet: Advance to usual diet Activity on Discharge: As tolerated Stand Alone Forms: Patient Portal Discharge page Print Language: Malaysian Care Plan Goals: Read below Health Concerns: Read below Plan of Treatment: Read below Assessment: We advise you complete abstinence from drugs Increase physical activity as tolerated Discharge Date/Time: 09/10/23 16:25
--- NOTE | 2023-09-10 12:19 | HE.CSO ---
pt medically cleared for dc w/new [facility] for home PT.
[2023-09-10 15:36] VITALS: PULSE 60; RESP 20; O2SAT 95
--- NOTE | 2023-09-14 14:42 | W.MHC.F2F ---
Service Date Service Date: 09/14/23 Encounter Date of encounter: 09/14/23 Reasons for Services Signs and symptoms assessed: Physical deconditioning Reason for physical therapy: home safety and mobility and therapeutic exercises Homebound: Leaving the home is medically contraindicated at this time without the asist of a device and/or another person due th the listed conditions above and below. Reason homebound: unsteady gait / fall risk Certification: Based on the above findings, I certify that this patient is confined to the home and needs intermittent care home care, physical therapy and/or speech therapy, or continues to need occupational therapy. The patient is under my care, and I have initiated the establishment of the plan of care. The patient will be followed by a physician who will periodically review the plan of care. Time Spent With Patient Time: Total time managing care of this patient today ____ minutes.
== END 2023-09-10 16:25 | disposition home health service (06) | DRG 917 ==
LOC: HO.ED 21:25 → HO.EDOVER 09-07 02:02 → HO.ICU 09-07 02:09 → HO.S3 09-08 22:29
PROVIDERS: Internal Medicine Critical Care Medicine; Admitting Provider Physician Assistant Medical; Emergency Provider Internal Medicine; PCP Internal Medicine; Visit Provider Student in an Organized Health Care Education/Training Program
DX: T42.4X1A Poisoning by benzodiazepines, accidental (unintentional), initial encounter (principal); G92.8 Other toxic encephalopathy; J96.01 Acute respiratory failure with hypoxia; J45.901 Unspecified asthma with (acute) exacerbation; T40.5X1A Poisoning by cocaine, accidental (unintentional), initial encounter; G35 Multiple sclerosis; I10 Essential (primary) hypertension; F41.1 Generalized anxiety disorder; L80 Vitiligo; F19.10 Other psychoactive substance abuse, uncomplicated; E86.0 Dehydration; E66.9 Obesity, unspecified; Z68.31 Body mass index [BMI] 31.0-31.9, adult; Z20.822 Contact with and (suspected) exposure to COVID-19; Z99.81 Dependence on supplemental oxygen; Z91.199 Patient's noncompliance with other medical treatment and regimen due to unspecified reason; Z79.899 Other long term (current) drug therapy
CPT/HCPCS: 0241U; 36415; 70450; 71045; 80053; 80307; 81001; 82803; 82947; 83605; 83735; 83880; 84100; 84146; 84436; 84443; 84484; 85025; 85610; 87040; 93005; 94002; 94003; 94640; 99284; 99285; C1758; J0360; J0696; J1650; J1885; J1920; J2060; J2310; J2704; J7120

== ENCOUNTER → 2023-09-06 19:30 | Outpatient (BNV) | payer OTHER, SELFPAY | PROVIDERS: Admitting Provider Physician Assistant Medical; Emergency Provider Internal Medicine; Visit Provider Internal Medicine Cardiovascular Disease | DX: R41.82 Altered mental status, unspecified (principal) | CPT/HCPCS: 93010 ==

== ENCOUNTER → 2023-09-07 01:46 | Outpatient (BNV) | payer MEDICARE, SELFPAY | PROVIDERS: Admitting Provider Physician Assistant Medical; Emergency Provider Internal Medicine; Visit Provider Student in an Organized Health Care Education/Training Program | DX: R53.81 Other malaise (principal) | CPT/HCPCS: 99239; G0180 ==

== ENCOUNTER → 2023-09-07 01:46 | Outpatient (BNV) | payer OTHER, SELFPAY | PROVIDERS: Admitting Provider Physician Assistant Medical; Emergency Provider Internal Medicine; Visit Provider Physician Assistant Medical | DX: G93.41 Metabolic encephalopathy (principal); J45.901 Unspecified asthma with (acute) exacerbation; J96.01 Acute respiratory failure with hypoxia; G35 Multiple sclerosis; I10 Essential (primary) hypertension | CPT/HCPCS: 99291 ==

== ENCOUNTER 2023-12-30 11:51 | Inpatient (IN) | payer MEDICARE, SELFPAY ==
[2023-12-30] VITALS (24 sets, daily range): BP systolic 100–177; BP diastolic 60–91; PULSE 73–92; RESP 18–27; TEMP 36.6–37.6; O2SAT 82–98; BMI 36.1
--- NOTE | ~2023-12-30 | CT_ITS ---
EXAMINATION: CT HEAD WITHOUT CONTRAST CLINICAL INFORMATION: Change in mental status. Head trauma. COMPARISON: CT head dated 09/06/2023. TECHNIQUE: Contiguous axial imaging was performed from the skull base to vertex without intravenous administration of contrast. This CT examination was performed using dose optimization techniques as appropriate, variously including the following: *Automated exposure control *Adjustment of mA and/or kV according to patient size (this includes techniques or standardized protocols for targeted exams where dose is matched to indication/reason for exam; i.e. extremities or head) *Use of iterative reconstruction technique DLP: 1463 mGy-cm FINDINGS: The examination is limited secondary to motion artifact. There is no gross intracranial hemorrhage. There is no evidence of acute/subacute cerebral or cerebellar infarction. There is no midline shift or mass effect. Grossly, there is no extra-axial fluid collection. The ventricles are normal in size. The visualized orbits are normal in appearance. There is no depressed skull fracture. The mastoid air cells and paranasal sinuses are clear. CT/CT head/brain wo IV con IMPRESSION: This examination is markedly limited secondary to motion artifact. Grossly there is no acute intracranial abnormality detected.
--- NOTE | ~2023-12-30 | CT_ITS ---
EXAMINATION: CT CHEST WITHOUT CONTRAST CLINICAL INFORMATION: Hypoxia, cough COMPARISON: None available. TECHNIQUE: Multidetector volumetric CT imaging of the chest was done. Axial MIP volume rendering provided. Sagittal and coronal reformatted images were obtained. This CT examination was performed using dose optimization techniques as appropriate, variously including the following: *Automated exposure control *Adjustment of mA and/or kV according to patient size (this includes techniques or standardized protocols for targeted exams where dose is matched to indication/reason for exam; i.e. extremities or head) *Use of iterative reconstruction technique DLP: 549 mGy-cm EXAMINATION: CT chest. INDICATION: Hypoxia, cough. COMPARISON: None. TECHNIQUE: A multidetector helical CT acquisition of the chest was obtained without intravenous contrast injection. Multiplanar reformats were acquired and utilized for image interpretation. Coronal and sagittal images were reconstructed from axial image data. Dose reduction technique: One or more of the following individual dose optimization techniques were used including: Automated exposure control, mA and/or kV were adjusted according to patient size or iterative reconstruction. DLP: 549 mGy-cm FINDINGS: LUNGS: Extensive lobar airspace disease with air bronchograms is seen in the right middle lobe, more extensive in the lateral segment. Additional coronal atelectasis is seen along the posterior lateral pleural border of right lower lobe lateral and posterior basal segments. More focal coronal atelectasis is seen at posterior border of left lower lobe posterior basal segment. -Nodule #1 (Series 35, image 206): 4.2 mm solid nodule, right upper lobe anterior segment. PLEURA: No pleural effusion or pneumothorax is seen. PERICARDIUM: No pericardial effusion is seen. There is marked cardiomegaly. MEDIASTINUM AND FANG: Inadequate evaluation of the mediastinal and hilar lymph nodes due to absence of IV contrast filling the surrounding blood vessels. TRACHEOBRONCHIAL TREE: Trachea and bilateral mainstem bronchi are patent. Layering retained secretion is seen in the right mainstem bronchus. The right middle lobe are bronchus could be occluded. THORACIC AORTA: The thoracic aorta is normal in size with scattered atherosclerotic calcifications. CORONARY ARTERY CALCIFICATIONS: Absent PULMONARY ARTERIES: The main pulmonary arteries appear to be normal in size. CHEST WALL AND LOWER NECK: The subcutaneous and muscular chest wall are intact with no focal lesion. No abnormal mass lesion could be seen in the visualized lower neck. BONES: No fracture or dislocation. No focal bone lesion diagnostic of metastatic disease could be seen in the thorax. VISUALIZED UPPER ABDOMEN: Bilateral adrenal glands are not enlarged. There is hepatic steatosis, mean attenuation of 24 Hounsfield units, compared to splenic attenuation of [address]/CT chest wo IV con IMPRESSION: 1. Extensive lobar airspace disease with air bronchograms is seen in the right middle lobe, more extensive in the lateral segment, could be associated with right middle lobe bronchial obstruction, possibly by mucus plugging and postobstructive pneumonia. 2. Bilateral lower lobe platelike atelectasis. 3. 4.2 mm solid nodule, right upper lobe anterior segment. 4. Marked cardiomegaly. 5. Hepatic steatosis. According to the UPDATED 2017 Fleischner Society recommendations, the advised follow-up imaging for nodules <6mm in the upper lobes is not necessarily required in low-risk patients. In high-risk patients with a nodule in the upper lobe and/or demonstrating suspicious morphology, an optional CT follow-up at 12 months may be obtained. If stable at 12 months, no further follow-up is recommended. Fleischner guidelines were followed.
--- NOTE | ~2023-12-30 | XR_ITS ---
EXAMINATION: XR CHEST CLINICAL INFORMATION: Intubation COMPARISON: 09/10/2023 TECHNIQUE: AP upright portable view of the chest was obtained. FINDINGS: Endotracheal tube tip midline projecting approximately 4-5 cm above the pooja. Abnormal opacity at the right base. This is consistent with consolidation in the middle and lower lobes. Small right hemithorax. Favor atelectasis. Attention on short follow-up. Left lung clear. Cardiac silhouette remains prominent partially obscured on the right by middle lobe disease. Central vasculature is prominent, unchanged from prior without overt edema. Nonobstructive gas pattern. A nasogastric tube passes beneath the diaphragm tip not seen. No acute osseous finding XR/XR chest 1V IMPRESSION: 1. Endotracheal tube tip 4-5 cm above pooja. 2. Right middle and lower lobe consolidation and partial collapse.
--- NOTE | ~2023-12-30 | CT_ITS ---
EXAMINATION: CT CERVICAL SPINE WITHOUT CONTRAST CLINICAL INFORMATION: Neck trauma. Fall. COMPARISON: None available. TECHNIQUE: Noncontrast computed tomography of the cervical spine was performed. This CT examination was performed using dose optimization techniques as appropriate, variously including the following: *Automated exposure control *Adjustment of mA and/or kV according to patient size (this includes techniques or standardized protocols for targeted exams where dose is matched to indication/reason for exam; i.e. extremities or head) *Use of iterative reconstruction technique DLP: 2394 mGy-cm FINDINGS: There is straightening of the cervical lordosis. Alignment is otherwise anatomic. The vertebral bodies demonstrate preserved stature. Intervertebral disc space heights are well preserved. The prevertebral soft tissue is grossly normal in appearance. The C1-C2 relationship appears anatomic. The dens appears intact. No gross cervical spine fracture is identified. Please note, this evaluation is markedly limited secondary to motion artifact. The lung apices are clear. The thyroid gland is normal in appearance. CT/CT cervical spine wo IV con IMPRESSION: This examination is markedly limited secondary to motion artifact. Grossly, there is no acute osseous cervical spine abnormality. Fleischner guidelines were followed.
--- NOTE | 2023-12-30 12:12 | ECG_ITS ---
Test Reason : ALTERED MENTAL Blood Pressure : / mmHG Vent. Rate : 085 BPM Atrial Rate : 085 BPM P-R Int : 140 ms QRS Dur : 098 ms QT Int : 376 ms P-R-T Axes : 076 056 -16 degrees QTc Int : 447 ms Normal sinus rhythm T wave abnormality, consider anterior ischemia Abnormal ECG When compared with ECG of 06-SEP-2023 19:44, Non-specific change in ST segment in Inferior leads Inverted T waves have replaced nonspecific T wave abnormality in Inferior leads Nonspecific T wave abnormality now evident in Anterolateral leads Referred By: Vero Hand Electronically Signed By:SCOUT GARCIA
[2023-12-30 12:15] LABS: Glucose, Whole Blood 136 mg/dL (60-115)
[2023-12-30 12:23] LABS: ABG Base Excess 3.1 mmol/L; ABG HCO3 35 mmol/L (22-26); ABG pCO2 89 mmHg (32-45); ABG pH 7.19 (7.35-7.45); ABG pO2 70 mmHg (83-108)
[2023-12-30] MEDS: Naloxone HCl 0.4 MG/ML VIAL 0.2 MG IVPUSH ×2 (12:23→12:42)
[2023-12-30] MEDS: ondansetron HCL 4 MG/2 ML VIAL IVPUSH (12:26)
[2023-12-30] MEDS: Albuterol Sulfate 5 MG, Albuterol/Iprat 2.5/0.5MG 3 ML 3 ML INHALE (12:27)
--- NOTE | 2023-12-30 12:30 | ED_ITS ---
HPI - Altered Mental Status General Chief Complaint: Fall Stated Complaint: WEAKNESS FALL THIS AM Time Seen by Provider: 12/30/23 12:11 Source: patient, EMS and old records reviewed Mode of arrival: EMS Limitations: altered mental status History of Present Illness ED Provider: SAÚL CALL narrative: 53 yo female with PMH of prior hypoxic respiratory failure due to flu, asthma who is not compliant with her home O2, HTN, MS, anxiety, neuropathy, vitiligo admitted to our ICU in August for AMS in setting of grossly positive tox screen benzos, cocaine, oxycodone and THC that led to respiratory failure, obtundation, hypoxia requiring intubation and ICU stay. Admitted for 3 days. She called 911 today and told EMS that she was weak after sliding off her bed. They note on arrival she was talking to them alert and oriented x 3 moving all extremities. She denied taking any of her medications including gabapentin or baclofen this AM. EMS noted her O2 sat was 82% on RA and she was not on her home O2. They placed her on 6L O2 and she went up to 94%. On ED EMS called staff to stretcher on arrival to ED patient had acute change more sleepy sedated somnolent and not answering many questions started to have slower RR - brought right to room CO2 elevated, hypoxic, seems to be retaining she is answering questions - denies she took extra medications denies hitting her head. ABG ordered. 0.2mg IV narcan x 2 no response, IV 4mg zofran. Bipap for hypercarbic and hypoxic respiratory failure ordered. MD complaint: altered mental status, confusion and decreased responsiveness Onset (ago): minute(s) (5) Timing confirmed by: other (EMS) Consistency of symptoms: waxing and waning Context: drug abuse and other (hypercarbia) Associated symptoms: cough and other (reports her MS is bad and she is weak) Treatments prior to arrival: oxygen (increased from 2L to 6L ) Related Data Home Medications ?Medication ?Instructions ?Recorded ?Confirmed albuterol sulfate 2.5 mg/3 mL 2.5 mg inhalation Q6H PRN 09/07/23 09/07/23 (0.083 %) solution for nebulization Shortness Of Breath Or Wheezing albuterol sulfate 90 mcg/actuation 2 puff inhalation QID PRN wheezing 09/07/23 09/07/23 aerosol inhaler amlodipine 5 mg tablet 5 mg PO DAILY 09/07/23 09/07/23 baclofen 20 mg tablet 20 mg PO TID 09/07/23 09/07/23 budesonide-formoterol HFA 160 2 inh inhalation BID 09/07/23 09/07/23 mcg-4.5 mcg/actuation aerosol inhaler duloxetine 30 mg capsule,delayed 1 - 2 PO BEDTIME 09/07/23 release ergocalciferol (vitamin D2) 1,250 1,250 mcg PO MARTI 09/07/23 09/07/23 mcg (50,000 unit) capsule gabapentin 600 mg tablet 600 mg PO TID 09/07/23 09/07/23 glatiramer 40 mg/mL subcutaneous 40 mg subcut MOWEFR 09/07/23 09/07/23 syringe montelukast 10 mg tablet 10 mg PO DAILY 09/07/23 09/07/23 Previous Rx's ?Medication ?Instructions ?Recorded nicotine 14 mg/24 hr daily 14 mg transdermal DAILY #30 ea 09/10/23 transdermal patch Allergies Allergy/AdvReac Type Severity Reaction Status Date / Time No Known Allergies Allergy Verified 12/30/23 12:16 Review of Systems 2 Review of Systems: ROS unable to be obtained due to altered mental status PMFSH Past Medical History Attestation statement: The following information was validated with the patient. Source: old records reviewed Medical History Vitiligo Panic disorder without agoraphobia NED (generalized anxiety disorder) Hypertension Multiple sclerosis Asthma with exacerbation Social History Social History Household Members: Unknown / Unable to assess Housing: Apartment Do you presently have visiting nurse or other home services: No Alcohol intake: never Patient Tobacco Use Status: Never used Tobacco Substance Use Type: Marijuana Advance Directives: No Advance Directives Information Provided: No service: No Current occupational status: unemployed Physical Exam ED Vital Signs: Vital Signs - 24 hr 12/30/23 12:14 12/30/23 12:34 12/30/23 12:34 Pulse Rate 88 84 Respiratory Rate 20 20 Blood Pressure 121/70 109/74 Pulse Oximetry 89 L 86 L 93 Oxygen Delivery Method Nasal Cannula Nasal Cannula BiPAP Oxygen Flow Rate 2 Fraction of Inspired Oxygen 100 12/30/23 12:36 12/30/23 13:11 12/30/23 14:00 Pulse Rate 85 91 Respiratory Rate 25 H 22 H 19 Blood Pressure 127/83 177/83 H Pulse Oximetry 91 L 89 L Oxygen Delivery Method BiPAP BiPAP Oxygen Flow Rate Fraction of Inspired Oxygen 40 12/30/23 14:02 12/30/23 14:55 12/30/23 14:58 Pulse Rate 87 83 Respiratory Rate 27 H 19 Blood Pressure 142/91 H 115/64 Pulse Oximetry 93 Oxygen Delivery Method BiPAP Oxygen Flow Rate Fraction of Inspired Oxygen 12/30/23 15:02 Pulse Rate Respiratory Rate 25 H Blood Pressure Pulse Oximetry Oxygen Delivery Method Oxygen Flow Rate Fraction of Inspired Oxygen BMI result Body Mass Index 36.1 Appearance: Somnolent. she is able to answer most questions but is confused on time and is slow to respond. she is able to clear her airway. Moderate acute distress. Eyes: Pupils equal, round and reactive to light. not pinpoint ENT: Pharynx normal. Neck: Normal inspection. Neck supple. CVS: Normal heart rate and rhythm. Pulses normal. Respiratory: No respiratory distress. Breath sounds wheezes heard posteriorly diminished bases Abdomen: Soft and nontender. Skin: Skin warm and dry. Normal skin color. Normal skin turgor. Extremities: No lower extremity edema. No calf ttp Neuro: Oriented to person and place. No motor deficit. No sensory deficit. Course Course Course Narrative: hypercarbic hypoxic respiratory failure due to substance misuse and not infection or severe sepsis Reevaluation(s) Reevaluation #1: repeat VBG ordered Reevaluation #2: no change in VBG plan to admit to unit Reevaluation #3: 307pm patient has been difficult to stay awake and now is asking for pain medications will stick with tylenol at this time 325pm patient more sleeping difficult to ventilate failed AVAPS, RT and me at bedside not responding much at this time she does not have secure airway will intubate Additional Reevaluation(s): infection suspected 348pm at 12/30/23 will order zosyn and vancomycin Medications Administered Generic Name Dose Route Start Last Admin Trade Name Freq PRN Reason Stop Dose Admin Fentanyl 1,000 mcg in 100 mls @ 0 mls/hr 12/30/23 15:30 12/30/23 15:47 Sublimaze/Ns IVCONT 25 mcg/hr .Q0M ELOY 2.5 mls/hr Administration Protocol Per Protocol Propofol 1,000 mg in 100 mls @ 0 mls/hr 12/30/23 15:30 12/30/23 15:48 Diprivan IVCONT 30 mcg/kg/min .Q0M ELOY 17.44 mls/hr Administration Protocol Per Protocol Discontinued Medications Generic Name Dose Route Start Last Admin Trade Name [place]ita PRN Reason Stop Dose Admin Albuterol Sulfate 5 mg/ 0 mg 12/30/23 12:21 12/30/23 12:27 Albuterol/Ipratropium 3 ml INHALE 12/30/23 12:22 1 each ONCE ONE Administration Albuterol Sulfate 2.5 mg/ 0 mg 12/30/23 13:57 12/30/23 14:01 Albuterol/Ipratropium 3 ml INHALE 12/30/23 13:58 1 dose ONCE ONE Administration Furosemide 40 mg 12/30/23 14:38 12/30/23 14:55 Furosemide 40 Mg/4 Ml Vial IVPUSH 12/30/23 14:39 40 mg STAT STA Administration Protocol Methylprednisolone Sodium Succinate 60 mg 12/30/23 12:39 12/30/23 12:42 Methylprednisolone Sod Succ 125 Mg/2 Ml Vial IVPUSH 12/30/23 12:40 60 mg ONCE ONE Administration Naloxone HCl 0.2 mg 12/30/23 12:20 12/30/23 12:23 Naloxone Hcl 0.4 Mg/Ml Vial IVPUSH 12/30/23 12:21 0.2 mg STAT STA Administration Naloxone HCl 0.2 mg 12/30/23 12:37 12/30/23 12:42 Naloxone Hcl 0.4 Mg/Ml Vial IVPUSH 12/30/23 12:38 0.2 mg STAT STA Administration Ondansetron HCl 4 mg 12/30/23 12:22 12/30/23 12:26 Ondansetron Hcl 4 Mg/2 Ml Vial IVPUSH 12/30/23 12:23 4 mg ONCE ONE Administration Medical Decision Making Medical Decision Making MDM Narrative: 53 yo female with PMH of prior hypoxic respiratory failure due to flu, asthma who is not compliant with her home O2, HTN, MS, anxiety, neuropathy, vitiligo hx of intubation and ICU stay post substance misuse and overdose here initially for MS flare and slip out of bed then became somnolent with hypercarbic respiratory failure denies drug use to me. At this time no signs of head trauma, will place in Bipap for retention possibly in setting of drug misuse, narcan x 2, neb, IV steroids, CT head for ICH, CT chest for pneumonia. Hx of similar presentation in the past. Drug screen ordered. Differential Diagnosis Differential Diagnoses: The differential diagnosis associated with the presentation includes drug abuse, hypoxic hypercarbic respiratory failure, asthma, encephalopathy Admission/Observation Consideration of admission/observation: Escalation of care including admission/observation considered admit given respiratory failure Consult Healthcare Provider Management of the patient was discussed with: Hematology Oncology Consultant (Dr. Dupree aware plan to admit) Lab Data MDM Lab Attestation statement: I reviewed the patient's lab results. 12/30/23 12:51 12/30/23 12:51 Labs: Lab Results 12/30/23 12/30/23 12/30/23 Range/Units 12:08 12:13 12:17 WBC (4.8-10.8) X10*3/uL RBC (4.20-5.50) X10*6/uL Hgb (12.0-16.0) g/dl Hct (37.0-47.0) % MCV (80.0-98.0) fL MCH (27.0-33.0) pg MCHC (31.0-35.0) g/dl RDW (11.0-16.0) % Plt Count (160-400) X10*3/uL MPV (9.4-12.3) fL Immature Gran % (Auto) (0.0-0.4) % Neut % (Auto) (45-73) % Lymph % (Auto) (20-40) % [place] % (Auto) (2-11) % Eos % (Auto) (0-4) % Baso % (Auto) (0-2) % Lymph # (Auto) (1.2-4.9) X10*3/uL [place] # (Auto) (0.1-1.2) X10*3/uL Eos # (Auto) (0.0-0.4) X10*3/uL Baso # (Auto) (0.0-0.2) X10*3/uL Abs Immat Gran (auto) (0.00-0.03) X10*3/uL Absolute Neuts (auto) (2.0-8.3) x10*3/uL Absolute Nucleated RBC (0.0-0.012) X10*3/uL Nucleated RBC % (auto) (0.0-0.2) /100WBC PT (11.1-13.3) SEC INR (0.9-1.1) O2 Saturation 91.0 % ABG pH at Pt Temp 7.19 L* (7.35-7.45) ABG pCO2 at Pt Temp 89 H* (32-45) mmHg ABG pO2 at Pt Temp 70 L (83-108) mmHg ABG HCO3 35 H (22-26) mmol/L ABG Base Excess (Actual) 3.1 mmol/L VBG pH (7.32-7.43) VBG pCO2 mmHg VBG pO2 mmHg VBG HCO3 (22-26) mmol/L VBG O2 Saturation % VBG Base Excess mmol/L Sodium (135-145) mmol/L Potassium (3.3-5.1) mmol/L Chloride (96-108) mmol/L Carbon Dioxide (22-29) mmol/L Anion Gap (12-20) BUN (9-16) mg/dL Creatinine (0.5-1.4) mg/dL Estim Creat Clear Calc Estimated GFR POC Glucose 136 H (60-115) mg/dL Random Glucose (60-115) mg/dL Lactic Acid (0.5-2.0) mmol/L Calcium (8.4-10.2) mg/dL Magnesium (1.6-2.6) mg/dL Total Bilirubin (0.0-1.0) mg/dL Direct Bilirubin (0.0-0.5) mg/dL AST (5-31) U/L ALT (0-31) U/L Alkaline Phosphatase (39-117) U/L Ammonia (13-55) umol/L Total Creatine Kinase (26-140) U/L Troponin I High Sens (<3.5-17.0) ng/L C-Reactive Protein (< or = 0.50) mg/dL B-Natriuretic Peptide 939 H (<100) pg/mL Total Protein (6.5-8.0) g/dL Albumin (3.5-5.0) g/dL Lipase (8-78) U/L Procalcitonin ng/mL TSH (0.32-4.0) uIU/mL Urine Color Urine Appearance Urine pH (5.0-9.0) Ur Specific [place] (1.005-1.025) Urine Protein (Neg-Trace) mg/dL Urine Glucose (UA) (Negative) mg/dL Urine Ketones (Negative) mg/dL Urine Blood (Negative) Urine Nitrite (Negative) Ur Leukocyte Esterase (Negative) Urine RBC (0-2) /HPF Urine WBC (0-5) /HPF Ur Squamous Epith Cells (0-2) /HPF Urine Bacteria (None Seen) Hyaline Casts (0-2) /LPF Urine Opiates Screen (Not Detect) Ur Buprenorphine Scrn (Not Detect) ng/mL Ur Oxycodone Screen (Not Detect) ng/mL Urine Methadone Screen (Not Detect) ng/mL Urine Fentanyl Screen (Not Detect) Ur Barbiturates Screen (Not Detect) Ur Phencyclidine Scrn (Not Detect) Ur Amphetamines Screen (Not Detect) U Benzodiazepines Scrn (Not Detect) Urine Cocaine Screen (Not Detect) U Marijuana (THC) Screen (Not Detect) Influenza Type A (PCR) (Negative) Influenza Type B (PCR) (Negative) RSV RNA Qual (PCR) (Negative) SARS-CoV-2 RNA (RT-PCR) (Negative) 12/30/23 12/30/23 12/30/23 Range/Units 12:18 12:19 12:28 WBC (4.8-10.8) X10*3/uL RBC (4.20-5.50) X10*6/uL Hgb (12.0-16.0) g/dl Hct (37.0-47.0) % MCV (80.0-98.0) fL MCH (27.0-33.0) pg MCHC (31.0-35.0) g/dl RDW (11.0-16.0) % Plt Count (160-400) X10*3/uL MPV (9.4-12.3) fL Immature Gran % (Auto) (0.0-0.4) % Neut % (Auto) (45-73) % Lymph % (Auto) (20-40) % [place] % (Auto) (2-11) % Eos % (Auto) (0-4) % Baso % (Auto) (0-2) % Lymph # (Auto) (1.2-4.9) X10*3/uL [place] # (Auto) (0.1-1.2) X10*3/uL Eos # (Auto) (0.0-0.4) X10*3/uL Baso # (Auto) (0.0-0.2) X10*3/uL Abs Immat Gran (auto) (0.00-0.03) X10*3/uL Absolute Neuts (auto) (2.0-8.3) x10*3/uL Absolute Nucleated RBC (0.0-0.012) X10*3/uL Nucleated RBC % (auto) (0.0-0.2) /100WBC PT 12.6 (11.1-13.3) SEC INR 1.0 (0.9-1.1) O2 Saturation % ABG pH at Pt Temp (7.35-7.45) ABG pCO2 at Pt Temp (32-45) mmHg ABG pO2 at Pt Temp (83-108) mmHg ABG HCO3 (22-26) mmol/L ABG Base Excess (Actual) mmol/L VBG pH 7.16 L* (7.32-7.43) VBG pCO2 95 mmHg VBG pO2 66 mmHg VBG HCO3 34 H (22-26) mmol/L VBG O2 Saturation 89.0 % VBG Base Excess 1.4 mmol/L Sodium (135-145) mmol/L Potassium (3.3-5.1) mmol/L Chloride (96-108) mmol/L Carbon Dioxide (22-29) mmol/L Anion Gap (12-20) BUN (9-16) mg/dL Creatinine (0.5-1.4) mg/dL Estim Creat Clear Calc Estimated GFR POC Glucose (60-115) mg/dL Random Glucose (60-115) mg/dL Lactic Acid (0.5-2.0) mmol/L Calcium (8.4-10.2) mg/dL Magnesium (1.6-2.6) mg/dL Total Bilirubin (0.0-1.0) mg/dL Direct Bilirubin (0.0-0.5) mg/dL AST (5-31) U/L ALT (0-31) U/L Alkaline Phosphatase (39-117) U/L Ammonia 50 (13-55) umol/L Total Creatine Kinase (26-140) U/L Troponin I High Sens 15.4 D (<3.5-17.0) ng/L C-Reactive Protein (< or = 0.50) mg/dL B-Natriuretic Peptide (<100) pg/mL Total Protein (6.5-8.0) g/dL Albumin (3.5-5.0) g/dL Lipase (8-78) U/L Procalcitonin ng/mL TSH 3.20 (0.32-4.0) uIU/mL Urine Color Urine Appearance Urine pH (5.0-9.0) Ur Specific [place] (1.005-1.025) Urine Protein (Neg-Trace) mg/dL Urine Glucose (UA) (Negative) mg/dL Urine Ketones (Negative) mg/dL Urine Blood (Negative) Urine Nitrite (Negative) Ur Leukocyte Esterase (Negative) Urine RBC (0-2) /HPF Urine WBC (0-5) /HPF Ur Squamous Epith Cells (0-2) /HPF Urine Bacteria (None Seen) Hyaline Casts (0-2) /LPF Urine Opiates Screen (Not Detect) Ur Buprenorphine Scrn (Not Detect) ng/mL Ur Oxycodone Screen (Not Detect) ng/mL Urine Methadone Screen (Not Detect) ng/mL Urine Fentanyl Screen (Not Detect) Ur Barbiturates Screen (Not Detect) Ur Phencyclidine Scrn (Not Detect) Ur Amphetamines Screen (Not Detect) U Benzodiazepines Scrn (Not Detect) Urine Cocaine Screen (Not Detect) U Marijuana (THC) Screen (Not Detect) Influenza Type A (PCR) (Negative) Influenza Type B (PCR) (Negative) RSV RNA Qual (PCR) (Negative) SARS-CoV-2 RNA (RT-PCR) (Negative) 12/30/23 12/30/23 12/30/23 Range/Units 12:51 13:40 14:23 WBC 7.0 (4.8-10.8) X10*3/uL RBC 4.91 (4.20-5.50) X10*6/uL Hgb 13.8 (12.0-16.0) g/dl Hct 47.9 H (37.0-47.0) % MCV 97.6 (80.0-98.0) fL MCH 28.1 (27.0-33.0) pg MCHC 28.8 L (31.0-35.0) g/dl RDW 15.9 (11.0-16.0) % Plt Count 162 (160-400) X10*3/uL MPV 9.6 (9.4-12.3) fL Immature Gran % (Auto) 0.7 H (0.0-0.4) % Neut % (Auto) 78.3 H (45-73) % Lymph % (Auto) 10.1 L (20-40) % [place] % (Auto) 10.3 (2-11) % Eos % (Auto) 0.3 (0-4) % Baso % (Auto) 0.3 (0-2) % Lymph # (Auto) 0.7 L (1.2-4.9) X10*3/uL [place] # (Auto) 0.7 (0.1-1.2) X10*3/uL Eos # (Auto) 0.0 (0.0-0.4) X10*3/uL Baso # (Auto) 0.0 (0.0-0.2) X10*3/uL Abs Immat Gran (auto) 0.05 H (0.00-0.03) X10*3/uL Absolute Neuts (auto) 5.5 (2.0-8.3) x10*3/uL Absolute Nucleated RBC 0.090 H (0.0-0.012) X10*3/uL Nucleated RBC % (auto) 1.3 H (0.0-0.2) /100WBC PT (11.1-13.3) SEC INR (0.9-1.1) O2 Saturation % ABG pH at Pt Temp (7.35-7.45) ABG pCO2 at Pt Temp (32-45) mmHg ABG pO2 at Pt Temp (83-108) mmHg ABG HCO3 (22-26) mmol/L ABG Base Excess (Actual) mmol/L VBG pH 7.17 L* (7.32-7.43) VBG pCO2 94 mmHg VBG pO2 78 mmHg VBG HCO3 35 H (22-26) mmol/L VBG O2 Saturation 95.0 % VBG Base Excess 2.7 mmol/L Sodium 141 (135-145) mmol/L Potassium 4.6 D (3.3-5.1) mmol/L Chloride 104 (96-108) mmol/L Carbon Dioxide 29 (22-29) mmol/L Anion Gap 13 (12-20) BUN 17 H (9-16) mg/dL Creatinine 1.01 (0.5-1.4) mg/dL Estim Creat Clear Calc 71.1 Estimated GFR 57 POC Glucose (60-115) mg/dL Random Glucose 130 H (60-115) mg/dL Lactic Acid 0.9 (0.5-2.0) mmol/L Calcium 9.3 D (8.4-10.2) mg/dL Magnesium 2.3 (1.6-2.6) mg/dL Total Bilirubin 0.8 (0.0-1.0) mg/dL Direct Bilirubin 0.4 (0.0-0.5) mg/dL AST 20 (5-31) U/L ALT 27 (0-31) U/L Alkaline Phosphatase 87 (39-117) U/L Ammonia (13-55) umol/L Total Creatine Kinase 35 (26-140) U/L Troponin I High Sens (<3.5-17.0) ng/L C-Reactive Protein 2.15 H (< or = 0.50) mg/dL B-Natriuretic Peptide (<100) pg/mL Total Protein 7.2 (6.5-8.0) g/dL Albumin 3.6 (3.5-5.0) g/dL Lipase 8 (8-78) U/L Procalcitonin 0.07 ng/mL TSH (0.32-4.0) uIU/mL Urine Color Dark Yellow Urine Appearance Clear Urine pH 6.0 (5.0-9.0) Ur Specific [place] 1.015 (1.005-1.025) Urine Protein 100 (2+) H (Neg-Trace) mg/dL Urine Glucose (UA) Negative (Negative) mg/dL Urine Ketones Trace (Negative) mg/dL Urine Blood Negative (Negative) Urine Nitrite Negative (Negative) Ur Leukocyte Esterase Trace H (Negative) Urine RBC 0-2 (0-2) /HPF Urine WBC 0-5 (0-5) /HPF Ur Squamous Epith Cells 3-5 (0-2) /HPF Urine Bacteria None Seen (None Seen) Hyaline Casts 11-20 (0-2) /LPF Urine Opiates Screen Not Detected (Not Detect) Ur Buprenorphine Scrn Not Detected (Not Detect) ng/mL Ur Oxycodone Screen Not Detected (Not Detect) ng/mL Urine Methadone Screen Not Detected (Not Detect) ng/mL Urine Fentanyl Screen Not Detected (Not Detect) Ur Barbiturates Screen Not Detected (Not Detect) Ur Phencyclidine Scrn Not Detected (Not Detect) Ur Amphetamines Screen Not Detected (Not Detect) U Benzodiazepines Scrn POSITIVE H (Not Detect) Urine Cocaine Screen POSITIVE H (Not Detect) U Marijuana (THC) Screen Not Detected (Not Detect) Influenza Type A (PCR) NEGATIVE (Negative) Influenza Type B (PCR) NEGATIVE (Negative) RSV RNA Qual (PCR) NEGATIVE (Negative) SARS-CoV-2 RNA (RT-PCR) NEGATIVE (Negative) Independent Interpretation I performed an independent interpretation of an: EKG and CT Scan (no ICH - artifact, R lung fluid in the fissure) Interpretation: Rate: 85 Rhythm: NSR [place]: normal Normal P waves. Normal MONO. Normal QRS complex. ST T wave : inverted t waves V3-V5, III and aVF, no ZOEY qTC: 447 prior studies: new t wave changes The study has been interpreted contemporaneously by me. . Radiology Impression Discussion of test interpretation with radiology: I have reviewed the radiologist's reading. Independent Historian Clinical information obtained from an independent historian. History obtained from or confirmed by: EMS External Record Review External record reviewed: Inpatient record Procedures Procedure Narrative Procedure Narrative: OG tube placed no issues. one attempt under glidescope view confirmed by xray Intubation Intubation Type:: Endotracheal Tube Insertion Intubation Date:: 12/30/23 Intubation Time:: 15:50 Time out performed: Yes sedative: Ketamine Mg Given: 75 paralytic: Rocuronium Mg Given: 50 Laryngoscope: other (glidescope) ET Tube Size: 6 ET Tube Uncuffed: Yes Tube Secured Depth (cm): 24 Tube Secured Location: teeth Tube Placement Confirmation: visualized tube passing through cords, equal breath sounds bilaterally, no breath sounds over epigastrium and confirmation by capnometry Patient Tolerated Procedure: well Additional Comments: 1st pass attempt cords were very swollen and unable to pass 7.5 tube also curved to the right and would not pass - placed 6.0 tube no issue but still felt curve to the right, was bagged in between no issues lowest O2 sat 95% for procedure duration as she was preoxygenated. Critical Care Time Critical Care Time Critical Care Time: Yes Total Critical Care Time: 75 Attestation: repeat ABG, NIPPV, admission to ICU, review of records, IV narcan x 2 I attest to this time spent taking care of the patient Discharge Plan Discharge Clinical Impression: Substance abuse, Acute on chronic respiratory failure with hypoxia and hypercapnia, Elevated brain natriuretic peptide (BNP) level Patient Disposition: Admitted As Inpatient
--- NOTE | 2023-12-30 12:37 | PC.RT ---
RT at bedside. Pt lethagric and sleepy, quantitative CO2 WNL, SATs 88% on 6L NC. ABG drawn and results showed a respiratory acidosis. Pt placed on bipap and given breathing tx. Pt khurram allan, settings optimized for pt. Will continue to monitor.
[2023-12-30 12:40] LABS: VBG Base Excess 1.4 mmol/L; VBG HCO3 34 mmol/L (22-26); VBG pCO2 95 mmHg; VBG pH 7.16 (7.32-7.43); VBG pO2 66 mmHg
[2023-12-30 12:41] LABS: Venous Blood Gas Refer to POC result
[2023-12-30] MEDS: methylPREDNISolone Sod Succ 125 MG/2 ML VIAL 60 MG IVPUSH (12:42)
[2023-12-30 12:46] LABS: Prothrombin Time 12.6 SEC (11.1-13.3)
[2023-12-30 12:50] LABS: B Type Natriuretic Peptide 939 pg/mL (<100)
[2023-12-30 12:51] LABS: Troponin-I High Sensitivity 15.4 ng/L (<3.5-17.0)
[2023-12-30 12:53] LABS: Ammonia 50 umol/L (13-55)
[2023-12-30 12:57] LABS: MANUAL DIFF FLAG NO
[2023-12-30 12:58] LABS: Basophils Percent Auto 0.3 % (0-2); Eosinophils Percent Auto 0.3 % (0-4); Hematocrit 47.9 % (37.0-47.0); Hemoglobin 13.8 g/dl (12.0-16.0); Imm Gran Abs Auto 0.05 X10*3/uL (0.00-0.03); Imm Gran Pct Auto 0.7 % (0.0-0.4); Lymphocytes Absolute Auto 0.7 X10*3/uL (1.2-4.9); Lymphocytes Percent Auto 10.1 % (20-40); Mean Corpuscular HGB Conc 28.8 g/dl (31.0-35.0); Mean Corpuscular Hemoglobin 28.1 pg (27.0-33.0); Mean Corpuscular Volume 97.6 fL (80.0-98.0); Mean Platelet Volume 9.6 fL (9.4-12.3); Monocytes Absolute Auto 0.7 X10*3/uL (0.1-1.2); Monocytes Percent Auto 10.3 % (2-11); Neutrophils Absolute Auto 5.5 x10*3/uL (2.0-8.3); Neutrophils Percent Auto 78.3 % (45-73); Platelet Count 162 X10*3/uL (160-400); Red Blood Count 4.91 X10*6/uL (4.20-5.50); Red Cell Distribution Width 15.9 % (11.0-16.0)
[2023-12-30 12:59] LABS: NRBC Pct Auto 1.3 /100WBC (0.0-0.2)
[2023-12-30 13:09] LABS: Lactic Acid 0.9 mmol/L (0.5-2.0)
--- NOTE | 2023-12-30 13:13 | PC.NURSE ---
Pt brought to CT, pt would not follow directions during CT. Pt brought back to room, BiPap mask changed to bigger size to better fit the pt
[2023-12-30 13:25] LABS: Alanine Aminotransferase 27 U/L (0-31); Albumin Level 3.6 g/dL (3.5-5.0); Alkaline Phosphatase 87 U/L (39-117); Anion Gap 13 (12-20); Aspartate Amino Transferase 20 U/L (5-31); Bilirubin Direct 0.4 mg/dL (0.0-0.5); Bilirubin Total 0.8 mg/dL (0.0-1.0); Blood Urea Nitrogen 17 mg/dL (9-16); C Reactive Protein 2.15 mg/dL (< or = 0.50); Calcium 9.3 mg/dL (8.4-10.2); Carbon Dioxide 29 mmol/L (22-29); Chloride 104 mmol/L (96-108); Creatinine Clr Calc Pharmacy 71.1; Estimated Glomerular Filt Rate 57; Glucose Random 130 mg/dL (60-115); Lipase 8 U/L (8-78); Magnesium 2.3 mg/dL (1.6-2.6); Potassium 4.6 mmol/L (3.3-5.1); Sodium 141 mmol/L (135-145); Total Protein 7.2 g/dL (6.5-8.0)
[2023-12-30 13:47] LABS: ABG Refer to POC result
[2023-12-30 13:48] LABS: Procalcitonin 0.07 ng/mL
[2023-12-30 13:49] LABS: Appearance Urine Clear; Color Urine Dark Yellow; Glucose Urine UA Negative (Negative); Leukocyte Esterase Urine Trace (Negative); Nitrite Urine Negative (Negative); Specific Gravity - Urine 1.015 (1.005-1.025); UMIC TRIGGER UACC YES; Urine Blood Negative (Negative); Urine Ketones Trace mg/dL (Negative); Urine Protein 100 (2+) mg/dL (Neg-Trace)
[2023-12-30 13:58] LABS: Bacteria Urine None Seen (None Seen); RBC Urine 0-2 /HPF (0-2); WBC Urine 0-5 /HPF (0-5)
[2023-12-30] MEDS: Albuterol Sulfate 2.5 MG, Albuterol/Iprat 2.5/0.5MG 3 ML 3 ML INHALE (14:01)
[2023-12-30 14:07] LABS: Amphetamine Screen Urine Not Detected (Not Detect); Barbiturates, Urine Not Detected (Not Detect); Benzodiazepines Screen Urine POSITIVE (Not Detect); Buprenorphine Scr Not Detected (Not Detect); Cannabinoid Screen Urine Not Detected (Not Detect); Cocaine Screen Urine POSITIVE (Not Detect); Fentanyl, urine Not Detected (Not Detect); Methadone Screen, Urine Not Detected (Not Detect); Opiate Screen Urine Not Detected (Not Detect); Oxycodone Screen Urine Not Detected (Not Detect); Phencyclidine Screen Urine Not Detected (Not Detect)
[2023-12-30 14:25] LABS: Influenza A PCR NEGATIVE (Negative); Influenza B PCR NEGATIVE (Negative); Resp Syncy Virus RNA Qual PCR NEGATIVE (Negative); SARS COV2 PCR INHOUSE NEGATIVE (Negative)
--- NOTE | 2023-12-30 14:25 | PC.NURSE ---
Pt BIBA, per EMS pt was not lethargic en route. Upon arrival pt was lethargic, opening eyes to verbal stimuli only, not following commands and a few episodes of vomiting. EMS had pt on 2L NC and was satting 84-87%. Respiratory at bedside and Pt immediately placed on BIPAP with good effects, O2 sat 92-96%. 20g IV placed in right ac, labs and EKG obtained. MD at bedside assessing pt. Pt was given IV narcan and zofran. Pt more alert, maintaining sat on BIPAP.
[2023-12-30 14:32] LABS: VBG Base Excess 2.7 mmol/L; VBG HCO3 35 mmol/L (22-26); VBG pCO2 94 mmHg; VBG pH 7.17 (7.32-7.43); VBG pO2 78 mmHg; Venous Blood Gas Refer to POC result
[2023-12-30] MEDS: Furosemide 40 MG/4 ML VIAL IVPUSH (14:55)
--- NOTE | 2023-12-30 15:02 | PC.NURSE ---
Pt O2 sat decreased to 92-94%, respiratory at bedside to adjust BIPAP numbers. Pt now maintaining sat at 96%. Pt lethargic and confused. Medicated per MAR with 40mg Lasix.
[2023-12-30] MEDS: Ketamine HCl/NS 50 MG/5 ML SYRINGE IVPUSH (15:45)
[2023-12-30] MEDS: Ketamine HCl 500 MG/5 ML VIAL 25 MG IVPUSH (15:45)
[2023-12-30] MEDS: fentaNYL citrate/NS 1,000 MCG/100 ML PLAST..BAG 2.5 MCG IVCONT (15:47)
[2023-12-30] MEDS: Rocuronium Bromide 50 MG/5 ML VIAL IVPUSH (15:47)
[2023-12-30] MEDS: propofoL 1,000 MG/100 ML VIAL 17.44 MG IVCONT (15:48)
--- NOTE | 2023-12-30 16:02 | PC.RT ---
Pt attempted on AVAPs settings. Pt was not tolerating. Decision was made by MD, RN and RT to intubate. Intubation attempts x2 with first failure due to what MD described as a blockage in airway just below vocal cords. Pt successfully intubated by MD with a 6.0 ETT 24 cm at the teeth. Intubation was confirmed with colormetric and quantitative CO2, bilateral breath sounds, condensation in tube, and pending x-ray. Pt placed on ventilator settings PC settings after not tolerating volume settings. Pt resting comfortably on mechanical ventilation as documented. MD Dupree at bedside. ETT off loaded and alarms audible.
--- NOTE | 2023-12-30 16:04 | P.HPCC_ITS ---
History of Present Illness Date of Service: 12/30/23 Chief Complaint: Acute respiratory failure 53-year-old lady with underlying history asthma, chronic hypoxic respiratory failure 2 L of supplemental oxygen multiple sclerosis, generalized anxiety disorder obesity, panic disorder admitted on 12/30/2023 with acute hypoxic and hypercapnia respiratory failure secondary to exacerbation of underlying asthma and polysubstance abuse initially trialed on BiPAP, with worsening hypercapnia requiring intubation and emergency room, on the able to place [address] head with acute findings. CT chest with right-sided basilar infiltrate likely secondary to an aspiration. Admitted to the intensive care unit. Review of Systems 2 Review of Systems: Yes unobtainable due to endotracheal tube and Unobtainable due to mental condition PMFSH Past Medical History Medical History Vitiligo Panic disorder without agoraphobia NED (generalized anxiety disorder) Hypertension Multiple sclerosis Asthma with exacerbation Social History Social History Household Members: Unknown / Unable to assess Housing: Apartment Do you presently have visiting nurse or other home services: No Alcohol intake: never Patient Tobacco Use Status: Never used Tobacco Substance Use Type: Marijuana Advance Directives: No Advance Directives Information Provided: No service: No Current occupational status: unemployed Meds Allergies Allergy/AdvReac Type Severity Reaction Status Date / Time No Known Allergies Allergy Verified 12/30/23 12:16 Active Medications: Current Medications Albuterol/Ipratropium (Albuterol/Iprat 2.5/0.5mg 3 Ml Ampul.Neb) 3 ml INHALE RQ6H WHILE AWAKE [facility] Chlorhexidine Gluconate (Chlorhexidine Gluc Oral Rinse 15 Ml Mouthwash) 15 ml BUCCAL TID [facility] Famotidine (Famotidine/Pf 20 Mg/2 Ml Vial) 20 mg IVPUSH DAILY [facility] Heparin Sodium (Porcine) (Heparin Sodium,Porcine 5,000 Unit/Ml Vial) 5,000 unit SUBCUT Q8H [facility] Fentanyl (Sublimaze/Ns) 1,000 mcg in 100 mls @ 0 mls/hr IVCONT .Q0M [facility]; Protocol Last Admin: 12/30/23 15:47 Dose: 25 mcg/hr, 2.5 mls/hr Propofol (Diprivan) 1,000 mg in 100 mls @ 0 mls/hr IVCONT .Q0M [facility]; Protocol Last Admin: 12/30/23 15:48 Dose: 30 mcg/kg/min, 17.44 mls/hr Piperacillin Sod/Tazobactam (Sod 4.5 gm/ Sodium Chloride) 100 mls @ 200 mls/hr IV ONCE ONE Stop: 12/30/23 16:18 Vancomycin HCl 2,000 mg/ (Sodium Chloride) 500 mls @ 250 mls/hr IV ONCE ONE Stop: 12/30/23 17:48 Levofloxacin (Levaquin) 750 mg in 150 mls @ 100 mls/hr IV Q24H [facility] Methylprednisolone Sodium Succinate (Methylprednisolone Sod Succ 40 Mg/Ml Vial) 40 mg IVPUSH Q24H [facility] Naloxone HCl (Naloxone Hcl 0.4 Mg/Ml Vial) 0.2 mg IVPUSH Q2M PRN PRN Reason: Excessive sedation or RR < 8 Home Medications ?Medication ?Instructions ?Recorded ?Confirmed ?Last Taken ?Type albuterol sulfate 2.5 mg/3 mL 2.5 mg inhalation Q6H PRN 09/07/23 09/07/23 Unknown History (0.083 %) solution for nebulization Shortness Of Breath Or Wheezing albuterol sulfate 90 mcg/actuation 2 puff inhalation QID PRN wheezing 09/07/23 09/07/23 Unknown History aerosol inhaler amlodipine 5 mg tablet 5 mg PO DAILY 09/07/23 09/07/23 Unknown History baclofen 20 mg tablet 20 mg PO TID 09/07/23 09/07/23 Unknown History budesonide-formoterol HFA 160 2 inh inhalation BID 09/07/23 09/07/23 Unknown History mcg-4.5 mcg/actuation aerosol inhaler duloxetine 30 mg capsule,delayed 1 - 2 PO BEDTIME 09/07/23 Unknown History release ergocalciferol (vitamin D2) 1,250 1,250 mcg PO MARTI 09/07/23 09/07/23 Unknown History mcg (50,000 unit) capsule gabapentin 600 mg tablet 600 mg PO TID 09/07/23 09/07/23 Unknown History glatiramer 40 mg/mL subcutaneous 40 mg subcut MOWEFR 09/07/23 09/07/23 Unknown History syringe montelukast 10 mg tablet 10 mg PO DAILY 09/07/23 09/07/23 Unknown History Physical Exam 2 Vital Signs: Vital Signs: Last Vital Signs Pulse 85 12/30/23 15:48 Resp 18 12/30/23 15:48 BP 121/78 12/30/23 15:48 Pulse Ox 96 12/30/23 15:48 O2 Del Method BiPAP 12/30/23 14:58 O2 Flow Rate 2 12/30/23 12:34 FiO2 40 12/30/23 15:58 Oxygen Flow Rate 2 12/30/23 12:14 BMI result Body Mass Index 36.1 Const: General: no acute distress and other (Sedated on ventilatory support) Nutritional Appearance: obese Eyes: Sclerae: sclerae normal EOM: EOMs intact bilaterally Neck: Neck: Yes no lymphadenopathy, Yes trachea midline and Yes supple Resp: Auscultation: crackles (Right basilar) Cardio: Rate: regular rate Rhythm: regular rhythm Heart sounds: no gallops, no murmurs and no rubs GI: Palpation (GI): Soft to palpation and Other GI palpation findings present ( Nontender) Auscultation: normal bowel sounds Extrem: General: No clubbing, No cyanosis and Yes edema (1+ bilateral) Results Labs 12/30/23 12:51 12/30/23 12:51 Labs: Laboratory Results - last 24 hr 12/30/23 12/30/23 12/30/23 12:08 12:13 12:17 MCV MCH MCHC RDW Plt Count MPV Immature Gran % (Auto) Neut % (Auto) Lymph % (Auto) [place] % (Auto) Eos % (Auto) Baso % (Auto) Lymph # (Auto) [place] # (Auto) Eos # (Auto) Baso # (Auto) Abs Immat Gran (auto) Absolute Neuts (auto) Absolute Nucleated RBC Nucleated RBC % (auto) PT INR O2 Saturation 91.0 ABG pH at Pt Temp 7.19 L* ABG pCO2 at Pt Temp 89 H* ABG pO2 at Pt Temp 70 L ABG HCO3 35 H ABG Base Excess (Actual) 3.1 VBG pH VBG pCO2 VBG pO2 VBG HCO3 VBG O2 Saturation VBG Base Excess Anion Gap Estim Creat Clear Calc Estimated GFR POC Glucose 136 H Random Glucose Lactic Acid Calcium Magnesium Total Bilirubin Direct Bilirubin AST ALT Alkaline Phosphatase Ammonia Total Creatine Kinase Troponin I High Sens C-Reactive Protein B-Natriuretic Peptide 939 H Total Protein Albumin Lipase Procalcitonin TSH Urine Color Urine Appearance Urine pH Ur Specific [place] Urine Protein Urine Glucose (UA) Urine Ketones Urine Blood Urine Nitrite Ur Leukocyte Esterase Urine RBC Urine WBC Ur Squamous Epith Cells Urine Bacteria Hyaline Casts Urine Opiates Screen Ur Buprenorphine Scrn Ur Oxycodone Screen Urine Methadone Screen Urine Fentanyl Screen Ur Barbiturates Screen Ur Phencyclidine Scrn Ur Amphetamines Screen U Benzodiazepines Scrn Urine Cocaine Screen U Marijuana (THC) Screen Influenza Type A (PCR) Influenza Type B (PCR) RSV RNA Qual (PCR) SARS-CoV-2 RNA (RT-PCR) 12/30/23 12/30/23 12/30/23 12:18 12:19 12:28 MCV MCH MCHC RDW Plt Count MPV Immature Gran % (Auto) Neut % (Auto) Lymph % (Auto) [place] % (Auto) Eos % (Auto) Baso % (Auto) Lymph # (Auto) [place] # (Auto) Eos # (Auto) Baso # (Auto) Abs Immat Gran (auto) Absolute Neuts (auto) Absolute Nucleated RBC Nucleated RBC % (auto) PT 12.6 INR 1.0 O2 Saturation ABG pH at Pt Temp ABG pCO2 at Pt Temp ABG pO2 at Pt Temp ABG HCO3 ABG Base Excess (Actual) VBG pH 7.16 L* VBG pCO2 95 VBG pO2 66 VBG HCO3 34 H VBG O2 Saturation 89.0 VBG Base Excess 1.4 Anion Gap Estim Creat Clear Calc Estimated GFR POC Glucose Random Glucose Lactic Acid Calcium Magnesium Total Bilirubin Direct Bilirubin AST ALT Alkaline Phosphatase Ammonia 50 Total Creatine Kinase Troponin I High Sens 15.4 D C-Reactive Protein B-Natriuretic Peptide Total Protein Albumin Lipase Procalcitonin TSH 3.20 Urine Color Urine Appearance Urine pH Ur Specific [place] Urine Protein Urine Glucose (UA) Urine Ketones Urine Blood Urine Nitrite Ur Leukocyte Esterase Urine RBC Urine WBC Ur Squamous Epith Cells Urine Bacteria Hyaline Casts Urine Opiates Screen Ur Buprenorphine Scrn Ur Oxycodone Screen Urine Methadone Screen Urine Fentanyl Screen Ur Barbiturates Screen Ur Phencyclidine Scrn Ur Amphetamines Screen U Benzodiazepines Scrn Urine Cocaine Screen U Marijuana (THC) Screen Influenza Type A (PCR) Influenza Type B (PCR) RSV RNA Qual (PCR) SARS-CoV-2 RNA (RT-PCR) 12/30/23 12/30/2324 12:51 13:40 14:23 MCV 97.6 MCH 28.1 MCHC 28.8 L RDW 15.9 Plt Count 162 MPV 9.6 Immature Gran % (Auto) 0.7 H Neut % (Auto) 78.3 H Lymph % (Auto) 10.1 L [place] % (Auto) 10.3 Eos % (Auto) 0.3 Baso % (Auto) 0.3 Lymph # (Auto) 0.7 L [place] # (Auto) 0.7 Eos # (Auto) 0.0 Baso # (Auto) 0.0 Abs Immat Gran (auto) 0.05 H Absolute Neuts (auto) 5.5 Absolute Nucleated RBC 0.090 H Nucleated RBC % (auto) 1.3 H PT INR O2 Saturation ABG pH at Pt Temp ABG pCO2 at Pt Temp ABG pO2 at Pt Temp ABG HCO3 ABG Base Excess (Actual) VBG pH 7.17 L* VBG pCO2 94 VBG pO2 78 VBG HCO3 35 H VBG O2 Saturation 95.0 VBG Base Excess 2.7 Anion Gap 13 Estim Creat Clear Calc 71.1 Estimated GFR 57 POC Glucose Random Glucose 130 H Lactic Acid 0.9 Calcium 9.3 D Magnesium 2.3 Total Bilirubin 0.8 Direct Bilirubin 0.4 AST 20 ALT 27 Alkaline Phosphatase 87 Ammonia Total Creatine Kinase 35 Troponin I High Sens C-Reactive Protein 2.15 H B-Natriuretic Peptide Total Protein 7.2 Albumin 3.6 Lipase 8 Procalcitonin 0.07 TSH Urine Color Dark Yellow Urine Appearance Clear Urine pH 6.0 Ur Specific [place] 1.015 Urine Protein 100 (2+) H Urine Glucose (UA) Negative Urine Ketones Trace Urine Blood Negative Urine Nitrite Negative Ur Leukocyte Esterase Trace H Urine RBC 0-2 Urine WBC 0-5 Ur Squamous Epith Cells 3-5 Urine Bacteria None Seen Hyaline Casts 11-20 Urine Opiates Screen Not Detected Ur Buprenorphine Scrn Not Detected Ur Oxycodone Screen Not Detected Urine Methadone Screen Not Detected Urine Fentanyl Screen Not Detected Ur Barbiturates Screen Not Detected Ur Phencyclidine Scrn Not Detected Ur Amphetamines Screen Not Detected U Benzodiazepines Scrn POSITIVE H Urine Cocaine Screen POSITIVE H U Marijuana (THC) Screen Not Detected Influenza Type A (PCR) NEGATIVE Influenza Type B (PCR) NEGATIVE RSV RNA Qual (PCR) NEGATIVE SARS-CoV-2 RNA (RT-PCR) NEGATIVE Imaging Radiologist's Impressions: Impressions Cervical Spine CT 12/30/23 13:04 IMPRESSION: This examination is markedly limited secondary to motion artifact. Grossly, there is no acute osseous cervical spine abnormality. Fleischner guidelines were followed. Chest CT 12/30/23 13:04 IMPRESSION: 1. Extensive lobar airspace disease with air bronchograms is seen in the right middle lobe, more extensive in the lateral segment, could be associated with right middle lobe bronchial obstruction, possibly by mucus plugging and postobstructive pneumonia. 2. Bilateral lower lobe platelike atelectasis. 3. 4.2 mm solid nodule, right upper lobe anterior segment. 4. Marked cardiomegaly. 5. Hepatic steatosis. According to the UPDATED 2017 Fleischner Society recommendations, the advised follow-up imaging for nodules <6mm in the upper lobes is not necessarily required in low-risk patients. In high-risk patients with a nodule in the upper lobe and/or demonstrating suspicious morphology, an optional CT follow-up at 12 months may be obtained. If stable at 12 months, no further follow-up is recommended. Fleischner guidelines were followed. Head CT 12/30/23 13:04 IMPRESSION: This examination is markedly limited secondary to motion artifact. Grossly there is no acute intracranial abnormality detected. Assessment and Plan (1) Acute on chronic respiratory failure with hypoxia and hypercapnia: Status: Acute (2) Substance abuse: Status: Acute (3) Asthma: Status: Acute (4) Aspiration pneumonitis: Status: Acute Plan Assessment: 53-year-old lady with underlying chronic hypoxic respiratory failure, asthma, multiple sclerosis, and substance abuse admitted with acute hypoxic and hypercapnic respiratory failure requiring ventilatory support Plan: Neuro: No acute issues. Underlying multiple sclerosis. Cardiac: No acute issues. Elevated BNP. Will obtain 2D echocardiogram. Pulmonary: Acute on chronic hypoxic and hypercapnic respiratory failure requiring ventilatory support. Continue to titrate off as tolerated. Likely underlying aspiration pneumonitis. Underlying asthma. Renal: No acute issues. Endo: No acute issues. GI: No acute issues. ID: Empiric coverage for aspiration pneumonitis/pneumonia with Levaquin. Heme/Onc: No acute issues. Psych: No acute issues. Miscellaneous: No acute issues. Prophylaxis: Heparin, famotidine Diet: NPO Critical care time spent: 60 minutes
--- NOTE | 2023-12-30 16:32 | PC.NURSE ---
This RN notified RT that patient continued to not do well on BiPAP and continued to alarm and guppy breath. Decision was made to intubate patient, pt brought to room5, all supplies ready, RSI medications given per JUL, IVF sedation started post intubation per JUL. Pt intubated with some difficulty, ICU MD notified to come to bedside, intubation was completed, cassidy paced, second IV placed. Resp at bedside for suctioning. Report called to RESIDENTIAL SERVICE TECHNICIAN, pt transferred to ICU at this time.
[2023-12-30] MEDS: levoFLOXacin/D5W 750 MG/150 ML PIGGYBACK 100 MG IV (16:44)
[2023-12-30] MEDS: Piperacillin Sodium/Tazobactam 4.5 GM in 0.9 % Sodium Chloride 100 ML IV (16:50)
[2023-12-30] MEDS: Heparin Sodium,Porcine 5,000 UNIT/ML VIAL 5000 UNIT SUBCUT ×2 (16:51→23:34)
[2023-12-30 17:05] LABS: ABG Base Excess 7.3 mmol/L; ABG HCO3 34 mmol/L (22-26); ABG pCO2 57 mmHg (32-45); ABG pH 7.38 (7.35-7.45); ABG pO2 73 mmHg (83-108)
[2023-12-30] MEDS: propofoL 1,000 MG/100 ML VIAL 29.07 MG IVCONT ×2 (18:34→21:34)
[2023-12-30] MEDS: Albuterol/Iprat 2.5/0.5MG 3 ML AMPUL.NEB INHALE (18:48)
--- NOTE | 2023-12-30 21:02 | PHA.MEDREC ---
Addendum entered by Manuel Cagle [facility] 12/31/23 11:17: Reviewed by [facility] Addendum entered by Shabbir Reeder 12/31/23 10:56: Spoke with patient's sister Rosy over the phone. She confirmed that patient is not using nicotine patches or symbicort. She only uses albuterol inhaler and nebulizer solution. She confirmed the patient uses duloxetine prn at bedtime but was unsure of the reason. She reports the patient has glatiramer injection (40mg SQ MOWEFR) at home but has not used it in about a month or two because it makes her sore. She confirmed she takes atorvastatin and tylenol prn, along with the rest of her medications. Original Note: Pharmacy Consult ? Medication Reconciliation Pharmacy has completed the medication reconciliation, called pt's sister Rosy x2 with no response and left a message. Looked at previous discharge packet and utilized was matched with pharmacy claims. Pt previously had [facility] earlier this year, spoke to [facility] nurse who confirmed medications that were on the list in September 2023, although claims weren't completely accurate with list so left some meds unconfirmed.
[2023-12-30] MEDS: Chlorhexidine Gluc Oral Rinse 15 ML MOUTHWASH BUCCAL (21:20)
[2023-12-30] MEDS: Midazolam HCl/PF 2 MG/2 ML VIAL IVPUSH (22:06)
[2023-12-30] MEDS: fentaNYL citrate/NS 1,000 MCG/100 ML PLAST..BAG 12.5 MCG IVCONT (23:39)
[2023-12-30 23:48] LABS: ABG Refer to POC result
[2023-12-31] VITALS (29 sets, daily range): BP systolic 106–145; BP diastolic 59–90; PULSE 68–99; RESP 8–26; TEMP 36.2–37.5; O2SAT 91–98; BMI 37.2
[2023-12-31] MEDS: propofoL 1,000 MG/100 ML VIAL 29.07 MG IVCONT ×4 (00:49→09:45)
[2023-12-31] MEDS: Midazolam HCl/PF 2 MG/2 ML VIAL IVPUSH (02:30)
[2023-12-31 05:18] LABS: VBG Base Excess 9.7 mmol/L; VBG HCO3 31 mmol/L (22-26); VBG pCO2 34 mmHg; VBG pH 7.57 (7.32-7.43); VBG pO2 65 mmHg
[2023-12-31 05:28] LABS: MANUAL DIFF FLAG NO
[2023-12-31 05:31] LABS: Basophils Percent Auto 0.2 % (0-2); Hemoglobin 13.3 g/dl (12.0-16.0); Imm Gran Abs Auto 0.02 X10*3/uL (0.00-0.03); Imm Gran Pct Auto 0.4 % (0.0-0.4); Lymphocytes Absolute Auto 0.8 X10*3/uL (1.2-4.9); Mean Corpuscular HGB Conc 30.9 g/dl (31.0-35.0); Mean Corpuscular Hemoglobin 28.1 pg (27.0-33.0); Mean Corpuscular Volume 90.9 fL (80.0-98.0); Mean Platelet Volume 9.8 fL (9.4-12.3); Monocytes Absolute Auto 0.6 X10*3/uL (0.1-1.2); Monocytes Percent Auto 11.4 % (2-11); NRBC Pct Auto 0.6 /100WBC (0.0-0.2); Neutrophils Absolute Auto 3.9 x10*3/uL (2.0-8.3); Platelet Count 147 X10*3/uL (160-400); Red Blood Count 4.73 X10*6/uL (4.20-5.50); Red Cell Distribution Width 14.9 % (11.0-16.0); White Blood Count 5.3 X10*3/uL (4.8-10.8)
[2023-12-31 05:34] LABS: Venous Blood Gas Refer to POC result
[2023-12-31 05:48] LABS: Alanine Aminotransferase 24 U/L (0-31); Albumin Level 3.1 g/dL (3.5-5.0); Alkaline Phosphatase 75 U/L (39-117); Anion Gap 16 (12-20); Aspartate Amino Transferase 17 U/L (5-31); Bilirubin Total 1.2 mg/dL (0.0-1.0); Blood Urea Nitrogen 18 mg/dL (9-16); Calcium 9.3 mg/dL (8.4-10.2); Carbon Dioxide 30 mmol/L (22-29); Chloride 100 mmol/L (96-108); Creatinine Clr Calc Pharmacy 83.9; Estimated Glomerular Filt Rate > 60; Glucose Random 90 mg/dL (60-115); Magnesium 1.7 mg/dL (1.6-2.6); Phosphorus 2.2 mg/dL (2.7-4.5); Potassium 3.8 mmol/L (3.3-5.1); Sodium 142 mmol/L (135-145); Total Protein 6.3 g/dL (6.5-8.0)
[2023-12-31] MEDS: Potassium Phosphate/NS 15 MMOL/250 ML PLAST..BAG 62.5 MMOL IV (06:16)
[2023-12-31] MEDS: Albumin Human 25 % 100 ML IV ×4 (06:19→23:21)
[2023-12-31] MEDS: Heparin Sodium,Porcine 5,000 UNIT/ML VIAL 5000 UNIT SUBCUT ×3 (07:26→23:21)
[2023-12-31] MEDS: fentaNYL citrate/NS 1,000 MCG/100 ML PLAST..BAG 12.5 MCG IVCONT (07:28)
[2023-12-31] MEDS: Famotidine/PF 20 MG/2 ML VIAL IVPUSH (07:29)
[2023-12-31] MEDS: Chlorhexidine Gluc Oral Rinse 15 ML MOUTHWASH BUCCAL ×2 (07:29→16:04)
[2023-12-31] MEDS: methylPREDNISolone Sod Succ 40 MG/ML VIAL IVPUSH (07:29)
[2023-12-31] MEDS: Albuterol/Iprat 2.5/0.5MG 3 ML AMPUL.NEB INHALE ×3 (08:01→19:21)
--- NOTE | 2023-12-31 09:47 | PM.CCPN ---
Subjective Subjective Date of Service: 12/31/23 Interval History: 53-year-old lady with underlying history asthma, chronic hypoxic respiratory failure 2 L of supplemental oxygen multiple sclerosis, generalized anxiety disorder obesity, panic disorder admitted on 12/30/2023 with acute hypoxic and hypercapnia respiratory failure secondary to exacerbation of underlying asthma and polysubstance abuse initially trialed on BiPAP, with worsening hypercapnia requiring intubation and emergency room, on the able to place [address] head with acute findings. CT chest with right-sided basilar infiltrate likely secondary to an aspiration. Admitted to the intensive care unit. No events overnight. Critical Care Time (minutes): 60 Physical Exam Vital Signs: Vital Signs: Last Vital Signs Temp 99.1 F 12/31/23 09:00 Pulse 84 12/31/23 09:00 Resp 20 12/31/23 09:00 BP 131/75 12/31/23 09:00 Pulse Ox 96 12/31/23 09:00 O2 Del Method Mechanical Ventil ation 12/31/23 09:00 O2 Flow Rate 2 12/30/23 12:34 FiO2 35 12/31/23 09:00 Oxygen Flow Rate 2 12/30/23 12:14 BMI result Body Mass Index 37.2 Const: General: no acute distress and other (Sedated on ventilatory support) Eyes: Sclerae: sclerae normal EOM: EOMs intact bilaterally Neck: Neck: Yes no lymphadenopathy, Yes trachea midline and Yes supple Resp: Auscultation: crackles (Right basilar) Cardio: Rate: regular rate Rhythm: regular rhythm Heart sounds: no gallops, no murmurs and no rubs GI: Palpation (GI): Soft to palpation and Other GI palpation findings present ( Nontender) Auscultation: normal bowel sounds Extrem: General: Yes no pedal edema, No clubbing and No cyanosis Objective Data Labs 12/31/23 05:12 12/31/23 05:12 Labs: Laboratory Results - last 24 hr 12/30/23 12/30/23 12/30/23 12:08 12:13 12:17 WBC RBC Hgb Hct MCV MCH MCHC RDW Plt Count MPV Immature Gran % (Auto) Neut % (Auto) Lymph % (Auto) Alexander % (Auto) Eos % (Auto) Baso % (Auto) Lymph # (Auto) Alexander # (Auto) Eos # (Auto) Baso # (Auto) Abs Immat Gran (auto) Absolute Neuts (auto) Absolute Nucleated RBC Nucleated RBC % (auto) PT INR O2 Saturation 91.0 ABG pH at Pt Temp 7.19 L* ABG pCO2 at Pt Temp 89 H* ABG pO2 at Pt Temp 70 L ABG HCO3 35 H ABG Base Excess (Actual) 3.1 VBG pH VBG pCO2 VBG pO2 VBG HCO3 VBG O2 Saturation VBG Base Excess Sodium Potassium Chloride Carbon Dioxide Anion Gap BUN Creatinine Estim Creat Clear Calc Estimated GFR POC Glucose 136 H Random Glucose Lactic Acid Calcium Phosphorus Magnesium Total Bilirubin Direct Bilirubin AST ALT Alkaline Phosphatase Ammonia Total Creatine Kinase Troponin I High Sens C-Reactive Protein B-Natriuretic Peptide 939 H Total Protein Albumin Lipase Procalcitonin TSH Urine Color Urine Appearance Urine pH Ur Specific [place] Urine Protein Urine Glucose (UA) Urine Ketones Urine Blood Urine Nitrite Ur Leukocyte Esterase Urine RBC Urine WBC Ur Squamous Epith Cells Urine Bacteria Hyaline Casts Urine Opiates Screen Ur Buprenorphine Scrn Ur Oxycodone Screen Urine Methadone Screen Urine Fentanyl Screen Ur Barbiturates Screen Ur Phencyclidine Scrn Ur Amphetamines Screen U Benzodiazepines Scrn Urine Cocaine Screen U Marijuana (THC) Screen Influenza Type A (PCR) Influenza Type B (PCR) RSV RNA Qual (PCR) SARS-CoV-2 RNA (RT-PCR) 12/30/23 12/30/23 12/30/23 12:18 12:19 12:28 WBC RBC Hgb Hct MCV MCH MCHC RDW Plt Count MPV Immature Gran % (Auto) Neut % (Auto) Lymph % (Auto) Alexander % (Auto) Eos % (Auto) Baso % (Auto) Lymph # (Auto) Alexander # (Auto) Eos # (Auto) Baso # (Auto) Abs Immat Gran (auto) Absolute Neuts (auto) Absolute Nucleated RBC Nucleated RBC % (auto) PT 12.6 INR 1.0 O2 Saturation ABG pH at Pt Temp ABG pCO2 at Pt Temp ABG pO2 at Pt Temp ABG HCO3 ABG Base Excess (Actual) VBG pH 7.16 L* VBG pCO2 95 VBG pO2 66 VBG HCO3 34 H VBG O2 Saturation 89.0 VBG Base Excess 1.4 Sodium Potassium Chloride Carbon Dioxide Anion Gap BUN Creatinine Estim Creat Clear Calc Estimated GFR POC Glucose Random Glucose Lactic Acid Calcium Phosphorus Magnesium Total Bilirubin Direct Bilirubin AST ALT Alkaline Phosphatase Ammonia 50 Total Creatine Kinase Troponin I High Sens 15.4 D C-Reactive Protein B-Natriuretic Peptide Total Protein Albumin Lipase Procalcitonin TSH 3.20 Urine Color Urine Appearance Urine pH Ur Specific [place] Urine Protein Urine Glucose (UA) Urine Ketones Urine Blood Urine Nitrite Ur Leukocyte Esterase Urine RBC Urine WBC Ur Squamous Epith Cells Urine Bacteria Hyaline Casts Urine Opiates Screen Ur Buprenorphine Scrn Ur Oxycodone Screen Urine Methadone Screen Urine Fentanyl Screen Ur Barbiturates Screen Ur Phencyclidine Scrn Ur Amphetamines Screen U Benzodiazepines Scrn Urine Cocaine Screen U Marijuana (THC) Screen Influenza Type A (PCR) Influenza Type B (PCR) RSV RNA Qual (PCR) SARS-CoV-2 RNA (RT-PCR) 12/30/23 12/30/23 12/30/23 12:51 13:40 14:23 WBC 7.0 RBC 4.91 Hgb 13.8 Hct 47.9 H MCV 97.6 MCH 28.1 MCHC 28.8 L RDW 15.9 Plt Count 162 MPV 9.6 Immature Gran % (Auto) 0.7 H Neut % (Auto) 78.3 H Lymph % (Auto) 10.1 L Alexander % (Auto) 10.3 Eos % (Auto) 0.3 Baso % (Auto) 0.3 Lymph # (Auto) 0.7 L Alexander # (Auto) 0.7 Eos # (Auto) 0.0 Baso # (Auto) 0.0 Abs Immat Gran (auto) 0.05 H Absolute Neuts (auto) 5.5 Absolute Nucleated RBC 0.090 H Nucleated RBC % (auto) 1.3 H PT INR O2 Saturation ABG pH at Pt Temp ABG pCO2 at Pt Temp ABG pO2 at Pt Temp ABG HCO3 ABG Base Excess (Actual) VBG pH 7.17 L* VBG pCO2 94 VBG pO2 78 VBG HCO3 35 H VBG O2 Saturation 95.0 VBG Base Excess 2.7 Sodium 141 Potassium 4.6 D Chloride 104 Carbon Dioxide 29 Anion Gap 13 BUN 17 H Creatinine 1.01 Estim Creat Clear Calc 71.1 Estimated GFR 57 POC Glucose Random Glucose 130 H Lactic Acid 0.9 Calcium 9.3 D Phosphorus Magnesium 2.3 Total Bilirubin 0.8 Direct Bilirubin 0.4 AST 20 ALT 27 Alkaline Phosphatase 87 Ammonia Total Creatine Kinase 35 Troponin I High Sens C-Reactive Protein 2.15 H B-Natriuretic Peptide Total Protein 7.2 Albumin 3.6 Lipase 8 Procalcitonin 0.07 TSH Urine Color Dark Yellow Urine Appearance Clear Urine pH 6.0 Ur Specific [place] 1.015 Urine Protein 100 (2+) H Urine Glucose (UA) Negative Urine Ketones Trace Urine Blood Negative Urine Nitrite Negative Ur Leukocyte Esterase Trace H Urine RBC 0-2 Urine WBC 0-5 Ur Squamous Epith Cells 3-5 Urine Bacteria None Seen Hyaline Casts 11-20 Urine Opiates Screen Not Detected Ur Buprenorphine Scrn Not Detected Ur Oxycodone Screen Not Detected Urine Methadone Screen Not Detected Urine Fentanyl Screen Not Detected Ur Barbiturates Screen Not Detected Ur Phencyclidine Scrn Not Detected Ur Amphetamines Screen Not Detected U Benzodiazepines Scrn POSITIVE H Urine Cocaine Screen POSITIVE H U Marijuana (THC) Screen Not Detected Influenza Type A (PCR) NEGATIVE Influenza Type B (PCR) NEGATIVE RSV RNA Qual (PCR) NEGATIVE SARS-CoV-2 RNA (RT-PCR) NEGATIVE 12/30/23 12/31/23 12/31/23 16:55 05:09 05:12 WBC 5.3 RBC 4.73 Hgb 13.3 Hct 43.0 MCV 90.9 D MCH 28.1 MCHC 30.9 L RDW 14.9 Plt Count 147 L MPV 9.8 Immature Gran % (Auto) 0.4 Neut % (Auto) 73.0 Lymph % (Auto) 15.0 L Alexander % (Auto) 11.4 H Eos % (Auto) 0.0 Baso % (Auto) 0.2 Lymph # (Auto) 0.8 L Alexander # (Auto) 0.6 Eos # (Auto) 0.0 Baso # (Auto) 0.0 Abs Immat Gran (auto) 0.02 Absolute Neuts (auto) 3.9 Absolute Nucleated RBC 0.030 H Nucleated RBC % (auto) 0.6 H PT INR O2 Saturation 96.0 ABG pH at Pt Temp 7.38 ABG pCO2 at Pt Temp 57 H ABG pO2 at Pt Temp 73 L ABG HCO3 34 H ABG Base Excess (Actual) 7.3 VBG pH 7.57 H VBG pCO2 34 VBG pO2 65 VBG HCO3 31 H VBG O2 Saturation 95.0 VBG Base Excess 9.7 Sodium 142 Potassium 3.8 Chloride 100 Carbon Dioxide 30 H Anion Gap 16 BUN 18 H Creatinine 0.87 Estim Creat Clear Calc 83.9 Estimated GFR > 60 POC Glucose Random Glucose 90 Lactic Acid Calcium 9.3 Phosphorus 2.2 L Magnesium 1.7 Total Bilirubin 1.2 H Direct Bilirubin AST 17 ALT 24 Alkaline Phosphatase 75 Ammonia Total Creatine Kinase Troponin I High Sens C-Reactive Protein B-Natriuretic Peptide Total Protein 6.3 L Albumin 3.1 L Lipase Procalcitonin TSH Urine Color Urine Appearance Urine pH Ur Specific [place] Urine Protein Urine Glucose (UA) Urine Ketones Urine Blood Urine Nitrite Ur Leukocyte Esterase Urine RBC Urine WBC Ur Squamous Epith Cells Urine Bacteria Hyaline Casts Urine Opiates Screen Ur Buprenorphine Scrn Ur Oxycodone Screen Urine Methadone Screen Urine Fentanyl Screen Ur Barbiturates Screen Ur Phencyclidine Scrn Ur Amphetamines Screen U Benzodiazepines Scrn Urine Cocaine Screen U Marijuana (THC) Screen Influenza Type A (PCR) Influenza Type B (PCR) RSV RNA Qual (PCR) SARS-CoV-2 RNA (RT-PCR) Progress Note: A&P Assessment and plan (1) Aspiration pneumonitis: Status: Acute (2) Asthma: Status: Acute (3) Acute on chronic respiratory failure with hypoxia and hypercapnia: Status: Acute (4) Substance abuse: Status: Acute Plan Assessment: 53-year-old lady with underlying chronic hypoxic respiratory failure, asthma, multiple sclerosis, and substance abuse admitted with acute hypoxic and hypercapnic respiratory failure requiring ventilatory support Plan: Neuro: No acute issues. Underlying multiple sclerosis. Cardiac: No acute issues. Elevated BNP. Will obtain 2D echocardiogram. Pulmonary: Acute on chronic hypoxic and hypercapnic respiratory failure requiring ventilatory support. Continue to titrate off as tolerated. Likely underlying aspiration pneumonitis. Underlying asthma. Renal: No acute issues. Endo: No acute issues. GI: No acute issues. ID: Empiric coverage for aspiration pneumonitis/pneumonia with Levaquin. Heme/Onc: No acute issues. Psych: No acute issues. Miscellaneous: No acute issues. Prophylaxis: Heparin, famotidine Diet: NPO Critical care time spent: 60 minutes Quality Stroke Does the patient have a stroke diagnosis?: No VTE Prior VTE?: No VTE Risk Level:: Medical - moderate - high VTE Device Contraindication: Treatment Not Indicated VTE Drug Contraindication: N/A - Med Ordered
[2023-12-31] MEDS: Acetaminophen Oral Liquid 650 MG/20.3 ML SOLUTION PO ×2 (11:22→18:02)
--- NOTE | 2023-12-31 11:55 | PC.NURSE ---
Sedation vacation initiated at 1030 to determine appropriateness of extubation. At 1100, pt was able to follow commands. Pt extubated at 1105 with MD and RT at bedside. Oral suction provided. Pt able to cough and speak. Pt placed on HFNC, 50L @ 50%, o2 sat at 95%.
[2023-12-31] MEDS: levoFLOXacin/D5W 750 MG/150 ML PIGGYBACK 100 MG IV (16:04)
[2024-01-01] VITALS (11 sets, daily range): BP systolic 116–148; BP diastolic 55–75; PULSE 66–86; RESP 18–20; TEMP 36.3–37.1; O2SAT 91–98
[2024-01-01] MEDS: Acetaminophen Oral Liquid 650 MG/20.3 ML SOLUTION PO ×3 (01:50→16:20)
[2024-01-01] MEDS: traMADoL HCL 50 MG TABLET 25 MG PO (04:02)
[2024-01-01 06:17] LABS: MANUAL DIFF FLAG NO
[2024-01-01 06:21] LABS: Venous Blood Gas Refer to POC result
[2024-01-01 06:24] LABS: Basophils Percent Auto 0.3 % (0-2); Eosinophils Percent Auto 0.3 % (0-4); Hematocrit 39.5 % (37.0-47.0); Hemoglobin 11.8 g/dl (12.0-16.0); Imm Gran Abs Auto 0.01 X10*3/uL (0.00-0.03); Imm Gran Pct Auto 0.3 % (0.0-0.4); Lymphocytes Absolute Auto 0.7 X10*3/uL (1.2-4.9); Lymphocytes Percent Auto 18.3 % (20-40); Mean Corpuscular HGB Conc 29.9 g/dl (31.0-35.0); Mean Corpuscular Hemoglobin 28.3 pg (27.0-33.0); Mean Corpuscular Volume 94.7 fL (80.0-98.0); Mean Platelet Volume 9.5 fL (9.4-12.3); Monocytes Absolute Auto 0.5 X10*3/uL (0.1-1.2); Monocytes Percent Auto 14.4 % (2-11); Neutrophils Absolute Auto 2.4 x10*3/uL (2.0-8.3); Neutrophils Percent Auto 66.4 % (45-73); Platelet Count 130 X10*3/uL (160-400); Red Blood Count 4.17 X10*6/uL (4.20-5.50); Red Cell Distribution Width 15.4 % (11.0-16.0); White Blood Count 3.6 X10*3/uL (4.8-10.8)
[2024-01-01 06:28] LABS: VBG Base Excess 9.5 mmol/L; VBG HCO3 36 mmol/L (22-26); VBG pCO2 60 mmHg; VBG pH 7.38 (7.32-7.43); VBG pO2 103 mmHg
[2024-01-01 06:37] LABS: Albumin Level 3.8 g/dL (3.5-5.0); Anion Gap 12 (12-20); Blood Urea Nitrogen 18 mg/dL (9-16); Calcium 9.1 mg/dL (8.4-10.2); Carbon Dioxide 33 mmol/L (22-29); Chloride 102 mmol/L (96-108); Creatinine Clr Calc Pharmacy 86.9; Estimated Glomerular Filt Rate > 60; Glucose Random 124 mg/dL (60-115); Magnesium 1.9 mg/dL (1.6-2.6); Phosphorus 4.6 mg/dL (2.7-4.5); Potassium 3.7 mmol/L (3.3-5.1); Sodium 143 mmol/L (135-145)
[2024-01-01] MEDS: Albuterol/Iprat 2.5/0.5MG 3 ML AMPUL.NEB INHALE ×3 (07:43→18:41)
[2024-01-01] MEDS: Heparin Sodium,Porcine 5,000 UNIT/ML VIAL 5000 UNIT SUBCUT ×2 (08:47→15:08)
[2024-01-01] MEDS: methylPREDNISolone Sod Succ 40 MG/ML VIAL IVPUSH (08:47)
--- NOTE | 2024-01-01 11:49 | HO.PM.IMPN ---
Subjective Subjective Date of Service: 01/01/24 Review of Systems Follow up makenna SANTIZO from ICU Physical Exam Vital Signs: Vital Signs: Last Vital Signs Temp 97.3 F 01/01/24 07:27 Pulse 77 01/01/24 07:47 Resp 18 01/01/24 07:47 BP 143/75 H 01/01/24 07:27 Pulse Ox 92 01/01/24 07:27 O2 Del Method Nasal Cannula 01/01/24 07:27 O2 Flow Rate 2 01/01/24 07:27 FiO2 30 12/31/23 14:57 Oxygen Flow Rate 2 12/30/23 12:14 BMI result Body Mass Index 37.2 Appearing in no acute distress head is normocephalic atraumatic eyes pupils are PERRLA sclera is anicteric mouth throat mucous membranes are intact and moist neck is supple no lymphadenopathy, no JVD noted lung sounds are clear to auscultation heart regular rate rhythm, clear S1, S2 positive bowel sounds, abdomen is soft, nontender neuro patient is alert x3, no focal deficits Objective Data Active Medications Acetaminophen (Acetaminophen Oral Liquid 650 Mg/20.3 Ml Solution) 650 mg PO Q6H PRN PRN Reason: Headache Last Admin: 01/01/24 08:47 Dose: 650 mg Documented By: PHAN Albuterol/Ipratropium (Albuterol/Iprat 2.5/0.5mg 3 Ml Ampul.Neb) 3 ml INHALE RQ6H WHILE AWAKE [facility] Last Admin: 01/01/24 07:43 Dose: 3 ml Documented By: SEAN Heparin Sodium (Porcine) (Heparin Sodium,Porcine 5,000 Unit/Ml Vial) 5,000 unit SUBCUT Q8H [facility] Last Admin: 01/01/24 08:47 Dose: 5,000 unit Documented By: PHAN Levofloxacin (Levaquin) 750 mg in 150 mls @ 100 mls/hr IV Q24H [facility] Last Infusion: 12/31/23 17:50 Dose: Infused Documented By: KACI Methylprednisolone Sodium Succinate (Methylprednisolone Sod Succ 40 Mg/Ml Vial) 40 mg IVPUSH Q24H [facility] Last Admin: 01/01/24 08:47 Dose: 40 mg Documented By: PHAN Labs 01/01/24 06:11 01/01/24 06:11 Labs: Laboratory Results - last 24 hr 01/01/24 01/01/24 06:11 06:18 MCV 94.7 MCH 28.3 MCHC 29.9 L RDW 15.4 Plt Count 130 L MPV 9.5 Immature Gran % (Auto) 0.3 Neut % (Auto) 66.4 Lymph % (Auto) 18.3 L Craig % (Auto) 14.4 H Eos % (Auto) 0.3 Baso % (Auto) 0.3 Lymph # (Auto) 0.7 L Craig # (Auto) 0.5 Eos # (Auto) 0.0 Baso # (Auto) 0.0 Abs Immat Gran (auto) 0.01 Absolute Neuts (auto) 2.4 Absolute Nucleated RBC 0.000 Nucleated RBC % (auto) 0.0 VBG pH 7.38 VBG pCO2 60 VBG pO2 103 VBG HCO3 36 H VBG O2 Saturation 99.0 VBG Base Excess 9.5 Anion Gap 12 Estim Creat Clear Calc 86.9 Estimated GFR > 60 Random Glucose 124 H Calcium 9.1 Phosphorus 4.6 H Magnesium 1.9 Albumin 3.8 Microbiology Microbiology Results: Microbiology 12/30/23 12:51 Blood Culture - Preliminary Blood - Venous No growth after 24 hours. 12/30/23 12:51 Blood Culture - Preliminary Blood - Venous No growth after 24 hours. Assessment and Plan (1) Aspiration pneumonitis: Status: Acute Plan 53 year old women admitted to ICU with resp failure requiring bipap and subsequently emergent intubation. Chest CT showed right-sided basilar infiltrate secondary to aspiration. Acute on chronic hypoxic and hypercapnic respiratory failure secondary to aspiration pneumonitis Initial chest x-ray showing right middle and lower lobe consolidation and partial collapse Initially requiring ventilatory support in the ICU Was found to have oxygen saturation of 82% upon arrival of EMS to her home Now on supplemental oxygen Continue IV Levaquin Blood cultures negative after 24 hours Metabolic acidosis Likely secondary to GI losses Initial ABG 7.19/89/70/35 Received IV bicarb in the ICU with normalization of repeat ABG HTN continue amlodipine Weakness Initially found by EMS because she had slid off her bed, Thrombocytopenia Appears to be chronic No obvious bleeding History of multiple sclerosis History of substance abuse Toxicology screen positive for benzodiazepines and cocaine DVT prophylaxis with heparin full code Quality Stroke Does the patient have a stroke diagnosis?: No VTE Prior VTE?: No VTE Risk Level:: Medical - moderate - high VTE Device Contraindication: Treatment Not Indicated VTE Drug Contraindication: N/A - Med Ordered
--- NOTE | 2024-01-01 14:45 | MHC.CM.PN ---
IMM 01/01/24 Patient lives at home with her sister. She has a [employer]PER[employer] MANAGER thru [employer]. They assist with personal care. Patient uses a walker. 2L home O2 provided by [facility]. A new HCP has been documented. The previous HCP named the patients . The new HCP names her Sister Rosy. DP resume SUPERMARKET MANAGER services at home. Rosy will provide transportation home.
[2024-01-01] MEDS: levoFLOXacin/D5W 750 MG/150 ML PIGGYBACK 100 MG IV (15:08)
[2024-01-01] MEDS: Gabapentin 600 MG TABLET PO ×2 (15:08→20:24)
[2024-01-01] MEDS: Baclofen 20 MG TABLET PO ×2 (15:08→20:24)
[2024-01-01] MEDS: Ergocalciferol (Vitamin D2) 1,250 MCG CAPSULE 1250 MCG PO (15:10)
[2024-01-01] MEDS: Albuterol Sulfate (0.083%) 2.5 MG/3 ML VIAL.NEB INHALE (17:47)
[2024-01-01] MEDS: Atorvastatin Calcium 40 MG TABLET PO (20:24)
[2024-01-02 03:31] VITALS: BP 118/64; PULSE 75; RESP 18; TEMP 36.6; O2SAT 95
[2024-01-02] MEDS: Acetaminophen Oral Liquid 650 MG/20.3 ML SOLUTION PO ×2 (03:51→12:41)
[2024-01-02 05:59] VITALS: BMI 37.6
--- NOTE | 2024-01-02 07:00 | CA_ITS ---
Transthoracic Echocardiogram Patient (Last, First, Middle): Roxane Chapa, Gender: Female Date of : 1970 Age: 53 Procedure Date: 01/02/2024 Procedure Type: Transthoracic Echocardiogram Location: [facility] [place] Height: 162.56 cm Weight: 100.7 kg BSA: 2.04 m2 Heart Rate: bpm BP: 126 / 74 mmHg Overlocker: DAVID Referring MD: Frankie Dupree MD Symptoms: Dyspnea Study Quality: Fair Conclusions: - Normal left ventricular size and systolic function. There is mildly increased left ventricular wall thickness. The visually estimated ejection fraction is between 55-60%. - There is a flattened septum in systole and diastole consistent with right ventricular pressure and volume overload. - Elevated filling pressures. - Severely increased right ventricular cavity size. - There is normal right ventricular systolic function. - There is mild aortic valve stenosis. - The right ventricular systolic pressure is 46 mmHg. Findings Left Ventricle Normal left ventricular size and systolic function. There is mildly increased left ventricular wall thickness. The visually estimated ejection fraction is between 55-60%. There is no evidence of regional wall motion abnormalities. There is a flattened septum in systole and diastole consistent with right ventricular pressure and volume overload. Abnormal diastolic function is noted. Spectral Doppler is indicative of a pseudonormal filling pattern. Elevated filling pressures. Right Ventricle Severely increased right ventricular cavity size. There is normal right ventricular systolic function. Atria The left atrium is moderately dilated. The right atrium is severely dilated. Aortic Valve There is a normal trileaflet aortic valve. There is mild thickening of the aortic valve. There is mild aortic valve stenosis. The peak aortic velocity is 1.98 m/s. There is no aortic valve regurgitation. Mitral Valve The mitral valve appears normal. There is trace mitral valve regurgitation. There is no mitral valve stenosis. Pulmonic Valve The pulmonic valve is normal. There is no pulmonic valve regurgitation. Tricuspid Valve Normal tricuspid valve structure. There is mild to moderate tricuspid valve regurgitation. The right ventricular systolic pressure is 46 mmHg. Moderately elevated right atrial pressure. Mild to moderate pulmonary hypertension is present. Venous The inferior vena cava is normal in size and collapses less than 50% with inspiration. Pericardium/Pleural There is no evidence of pericardial effusion. Prior Study Comparison No prior study available for comparison. Measurements 2D Linear Measurements IVSd: 1.05 0.6-0.9/0.6-1.0 cm LVIDd: 5.06 3.9-5.3/4.2-5.9 cm LVIDd Index: 2.48 2.4-3.2/2.2-3.1 cm/m2 LVIDs: 3.27 2.0-3.6 cm LVPWd: 1.00 0.7-1.1 cm LA Diam: 3.50 2.7-3.8/3.0-4.0 cm LAIDs Index: 1.72 1.5-2.3 cm/m2 LV Mass: 239.07 67-162/88-224 g LV Mass Index: 117.19 43-95/49-115 g/m2 LVOT Diam: 2.00 3.0+(-)1.3 cm 2D Systolic Function EF 4C: 67.10 >55% EF 2C: 52.20 >55% EF BiP: 59.80 >55% Mitral Valve MV Pk E: 1.30 MV PK A: 0.74 MV Decel Time: 283.00 E/A: 1.70 E'Lateral: 10.20 E'Medial: 7.62 E/E' Med: 17.10 E/E' Lat: 12.70 PHT: 83.00 MVA PHT: 2.65 Decel [place]: 4.59 Aortic Valve AoV Pk Jalen: 1.98 AoV Mn Jalen: 1.50 AoV VTI: 0.44 AoV Pk Grad: 16.00 Aov Mn Grad: 10.00 ANGELO Cont.VTI: 1.96 LVOT LVOT Pk Jalen: 1.27 LVOT Mn Jalen: 0.93 LVOT VTI: 0.27 LVOT Pk Grad: 6.00 LVOT Mn Grad: 4.00 LVOT Diam: 2.00 LVOT Area: 3.14 Diastolic Function MV Pk E: 1.30 MV Pk A: 0.74 E/A: 1.70 E'Medial: 7.62 E/E' Med: 17.10 E' Laterial: 10.20 E/E' Lat: 12.70 Right Ventricle TAPSE (mm): 29.50 TVS' Jalen: 13.60 Tricuspid Valve TR Pk Jalen: 3.09 TR Pk Grad: 38.00 RA Press: 8.00 RVSP: 46.00 Great Vessels Aorta Sinus of Valsalva: 2.83 2.0-3.5 cm Updated in Other Vendor System with Status of Final Laci Campos MD electronically signed on 01/02/2024 2:17:56 PM with status of Final
[2024-01-02 07:23] VITALS: PULSE 75; RESP 18; O2SAT 94
[2024-01-02] MEDS: Albuterol/Iprat 2.5/0.5MG 3 ML AMPUL.NEB INHALE ×2 (07:23→13:18)
[2024-01-02 08:00] VITALS: BP 132/72; PULSE 62; RESP 18; TEMP 37; O2SAT 99
--- NOTE | 2024-01-02 09:03 | PM.DS ---
DS: Providers Provider Date of Service: 01/02/24 Date of admission: 12/30/23 15:33 Primary care physician: Elida Powell MD DS: Diagnosis Discharge Diagnosis (1) Aspiration pneumonitis: Status: Acute DS: Summary Hospital Course Hospital Course: History and physical as per admitting provider. 53-year-old lady with underlying history asthma, chronic hypoxic respiratory failure 2 L of supplemental oxygen multiple sclerosis, generalized anxiety disorder obesity, panic disorder admitted on 12/30/2023 with acute hypoxic and hypercapnia respiratory failure secondary to exacerbation of underlying asthma and polysubstance abuse initially trialed on BiPAP, with worsening hypercapnia requiring intubation and emergency room, on the able to place [address] head with acute findings. CT chest with right-sided basilar infiltrate likely secondary to an aspiration. Admitted to the intensive care unit. 53-year-old woman treated for acute on chronic hypoxic and hypercapnic respiratory failure secondary to aspiration pneumonitis. She was initially placed on BiPAP and subsequently emergently intubated. She had basilar infiltrate secondary to aspiration and was treated with IV Levaquin, blood cultures have remained negative. Extubated 12/31/2023 the patient is alert and oriented, ambulating, on usual dose of oxygen with no increased shortness of breath with ambulation. Patient was also treated with IV Solu-Medrol and scheduled DuoNebs. Plan is for patient to complete a short steroid taper and continue 2 more days of IV antibiotics. Metabolic acidosis. Secondary to GI losses. Initial ABG was 7.19/89/70/35. Received IV bicarb with normalization of ABG. Hypertension. Continue amlodipine Thrombocytopenia. Appears to be chronic, no obvious bleeding. History of multiple sclerosis. Continue care as she would at home History of substance abuse. Toxicology screen positive for benzodiazepine and cocaine. Encouraged to stop using street drugs. Time Attestation Discharge Coordination Time (in mins): 35 Quality: Safe Use of Opioids Does Pt have an Active Cancer Diagnosis on the Problem List?: No Quality: Stroke Does the patient have a stroke diagnosis?: No Physical Exam Vital Signs: Vital Signs: Last Vital Signs Temp 98.6 F 01/02/24 08:00 Pulse 62 01/02/24 08:00 Resp 18 01/02/24 08:00 BP 132/72 01/02/24 08:00 Pulse Ox 99 01/02/24 08:00 O2 Del Method Nasal Cannula 01/02/24 08:00 O2 Flow Rate 3 01/02/24 08:00 FiO2 30 12/31/23 14:57 Oxygen Flow Rate 2 12/30/23 12:14 BMI result Body Mass Index 37.6 Appearing in no acute distress head is normocephalic atraumatic eyes pupils are PERRLA sclera is anicteric mouth throat mucous membranes are intact and moist neck is supple no lymphadenopathy, no JVD noted lung sounds are clear to auscultation heart regular rate rhythm, clear S1, S2 positive bowel sounds, abdomen is soft, nontender neuro patient is alert x3, no focal deficits DS: Data Data Completed and Pending Completed studies during hospitalization [Text1]: Procedures Insertion of Endotracheal Airway into Trachea, Via Natural or Artificial Opening (09/07/23) Respiratory Ventilation, 24-96 Consecutive Hours (09/07/23) Labs on day of discharge: Preliminary micro results at discharge 12/30/23 12:51 Blood Culture - Preliminary Blood - Venous No growth after 48 hours. 12/30/23 12:51 Blood Culture - Preliminary Blood - Venous No growth after 48 hours. Discharge Plan Discharge Anticipated Discharge Date/Time: 01/02/24 08:59 Patient Disposition: Home, Self-Care Discharge Diagnosis: Acute on chronic hypoxic and hypercapnic respiratory failure Aspiration pneumonitis Metabolic acidosis Referrals: Elida Powell MD [Primary Care Provider] - 1 Week Discharge Medications: New prednisone 10 mg tablet See Taper PO DIRECTED Qty: 30 0RF Taper: Prednisone 40 mg daily for 3 Days and 0 Hour 30 mg daily for 3 Days and 0 Hour 20 mg daily for 3 Days and 0 Hour 10 mg daily for 3 Days and 0 Hour Rx Instructions: see taper instructions levofloxacin 500 mg tablet 500 mg PO DAILY Qty: 2 0RF Continued gabapentin 600 mg tablet 600 mg PO TID albuterol sulfate 2.5 mg /3 mL (0.083 %) solution for nebulization 2.5 mg inhalation Q6H PRN (Reason: Shortness Of Breath Or Wheezing) amlodipine 5 mg tablet 5 mg PO DAILY baclofen 20 mg tablet 20 mg PO TID montelukast 10 mg tablet 10 mg PO DAILY ergocalciferol (vitamin D2) 1,250 mcg (50,000 unit) capsule 1,250 mcg PO MARTI albuterol sulfate 90 mcg/actuation HFA aerosol inhaler 2 puff INHALATION QID PRN (Reason: wheezing) duloxetine 30 mg capsule,delayed release(DR/EC) 30 - 60 mg PO BEDTIME PRN (Reason: Sleep) atorvastatin 40 mg tablet 40 mg PO BEDTIME acetaminophen 500 mg Tablet 500 mg PO Q6H PRN (Reason: Pain) Discharge Orders: Discharge Order (Routine); Ordered 01/02/24 Ordered By: Kassie Price Diet: Advance to usual diet Activity on Discharge: As tolerated Stand Alone Forms: Patient Portal Discharge page Print Language: Mohawk Care Plan Goals: Continue home oxygen Complete steroid taper Health Concerns: Acute on chronic hypoxic and hypercapnic respiratory failure Aspiration pneumonitis Metabolic acidosis Plan of Treatment: Follow-up with primary care provider as needed Take all medications as prescribed Assessment: See discharge summary
[2024-01-02] MEDS: Montelukast Sodium 10 MG TABLET PO (10:20)
[2024-01-02] MEDS: methylPREDNISolone Sod Succ 40 MG/ML VIAL IVPUSH (10:20)
[2024-01-02] MEDS: Gabapentin 600 MG TABLET PO ×2 (10:20→16:26)
[2024-01-02] MEDS: amLODIPine Besylate 5 MG TABLET PO (10:20)
[2024-01-02] MEDS: Baclofen 20 MG TABLET PO ×2 (10:20→16:26)
[2024-01-02 12:00] VITALS: BP 126/74; PULSE 78; RESP 20; TEMP 36.8; O2SAT 94
[2024-01-02 13:18] VITALS: PULSE 78; RESP 20; O2SAT 93
--- NOTE | 2024-01-02 13:49 | W.MHC.F2F ---
Service Date Service Date: 01/02/24 Encounter Date of encounter: 01/02/24 Reasons for Services Signs and symptoms assessed: Acute on chronic hypoxic and hypercapnic respiratory failure Aspiration pneumonitis Reason for physical therapy: home safety and mobility Homebound: Leaving the home is medically contraindicated at this time without the asist of a device and/or another person due th the listed conditions above and below. Reason homebound: weakness related to hospital stay Certification: Based on the above findings, I certify that this patient is confined to the home and needs intermittent long-term care, physical therapy and/or speech therapy, or continues to need occupational therapy. The patient is under my care, and I have initiated the establishment of the plan of care. The patient will be followed by a physician who will periodically review the plan of care. Time Spent With Patient Time: Total time managing care of this patient today ____ minutes.
--- NOTE | 2024-01-02 14:07 | MHC.CM.PN ---
Patient has been medically cleared for dc to home/with services, today at 4PM, via [facility].A referral has been made to [facility], who has been made aware of today's dc. CM met with Patient at bedside and addressed IMM with her, providing Patient with the original and a copy has been placed on the chart.
== END 2024-01-02 17:45 | disposition home health service (06) | DRG 208 ==
LOC: HO.ED 15:32 → HO.EDOVER 15:50 → HO.ICU 15:54 → HO.IMC 12-31 19:22
PROVIDERS: Student in an Organized Health Care Education/Training Program; Admitting Provider Internal Medicine Pulmonary Disease; Emergency Provider Emergency Medicine; PCP Internal Medicine; Visit Provider Nurse Practitioner Acute Care
DX: J69.0 Pneumonitis due to inhalation of food and vomit (principal); J96.21 Acute and chronic respiratory failure with hypoxia; J96.22 Acute and chronic respiratory failure with hypercapnia; E87.21 Acute metabolic acidosis; D69.6 Thrombocytopenia, unspecified; F19.10 Other psychoactive substance abuse, uncomplicated; G35 Multiple sclerosis; F41.1 Generalized anxiety disorder; E66.9 Obesity, unspecified; Z68.37 Body mass index [BMI] 37.0-37.9, adult; L80 Vitiligo; Z20.822 Contact with and (suspected) exposure to COVID-19; Z99.81 Dependence on supplemental oxygen; Z91.199 Patient's noncompliance with other medical treatment and regimen due to unspecified reason; Z79.899 Other long term (current) drug therapy
CPT/HCPCS: 0241U; 36415; 36600; 70450; 71045; 71250; 72125; 80048; 80053; 80076; 80307; 81001; 82040; 82140; 82550; 82803; 82947; 83605; 83690; 83735; 83880; 84100; 84145; 84443; 84484; 85025; 85610; 86140; 87040; 93005; 93306; 94002; 94003; 94640; 94799; 97162; 99285; C1758; J1644; J1940; J1956; J2250; J2310; J2405; J2543; J2704; J2919; J3010; J3370; P9047; Q9957

== ENCOUNTER 2023-12-30 15:33 | Outpatient (BNV) | payer MEDICARE, SELFPAY | END 2024-01-02 07:00 | PROVIDERS: Admitting Provider Internal Medicine Pulmonary Disease; Emergency Provider Emergency Medicine; PCP Internal Medicine; Visit Provider Internal Medicine Cardiovascular Disease | DX: I35.0 Nonrheumatic aortic (valve) stenosis (principal); I36.1 Nonrheumatic tricuspid (valve) insufficiency; I27.20 Pulmonary hypertension, unspecified | CPT/HCPCS: 93306 ==

== ENCOUNTER → 2023-12-30 15:33 | Outpatient (BNV) | payer MEDICARE, SELFPAY | PROVIDERS: Admitting Provider Internal Medicine Pulmonary Disease; Emergency Provider Emergency Medicine; PCP Internal Medicine; Visit Provider Nurse Practitioner Acute Care | DX: J69.0 Pneumonitis due to inhalation of food and vomit (principal) | CPT/HCPCS: 99232; 99239; G0180 ==

== ENCOUNTER → 2023-12-30 15:33 | Outpatient (BNV) | payer MEDICARE, SELFPAY | PROVIDERS: Admitting Provider Internal Medicine Pulmonary Disease; Emergency Provider Emergency Medicine; PCP Internal Medicine; Visit Provider Internal Medicine Pulmonary Disease | DX: J96.21 Acute and chronic respiratory failure with hypoxia (principal); J96.22 Acute and chronic respiratory failure with hypercapnia; F19.10 Other psychoactive substance abuse, uncomplicated; J69.0 Pneumonitis due to inhalation of food and vomit; J45.909 Unspecified asthma, uncomplicated | CPT/HCPCS: 99291 ==

== ENCOUNTER 2024-07-13 07:21 | Inpatient (IN) | payer MEDICARE, SELFPAY ==
[2024-07-13] VITALS (14 sets, daily range): BP systolic 106–158; BP diastolic 55–91; PULSE 86–96; RESP 15–32; TEMP 36.2–36.6; O2SAT 85–97; BMI 34.3
--- NOTE | 2024-07-13 | ECG_ITS ---
Test Reason : dyspnea Blood Pressure : */* mmHG Vent. Rate : 83 BPM Atrial Rate : 83 BPM P-R Int : 158 ms QRS Dur : 92 ms QT Int : 400 ms P-R-T Axes : 81 53 36 degrees QTcB Int : 470 ms Normal sinus rhythm Left atrial enlargement Borderline ECG When compared with ECG of 30-Dec-2023 12:27, Non-specific change in ST segment in Inferior leads Nonspecific T wave abnormality has replaced inverted T waves in Inferior leads Nonspecific T wave abnormality no longer evident in Lateral leads Referred By: Generic ED Physician Electronically Signed By: Laci Campos
--- NOTE | ~2024-07-13 | XR_ITS ---
EXAMINATION: XR CHEST 2 VIEWS HISTORY: sob COMPARISON: Comparison is made with the prior examination dated 12/30/2023. FINDINGS: AP and lateral views of the chest are submitted. There is a predominantly linear opacity in the right middle lobe, consistent with atelectasis or pneumonia. The left lung is clear. There is no pleural effusion, pneumothorax, or pulmonary vascular congestion. The heart is enlarged. The aorta is calcified. The bones are intact. XR/XR chest 2V IMPRESSION: Cardiomegaly. Right middle lobe atelectasis versus pneumonia. Electronically signed by: Nicholas Clarke MD 07/13/2024 09:[address] [facility]
--- NOTE | ~2024-07-13 | CT_ITS ---
CLINICAL HISTORY: shortness of breath, elevated d-dimer CT angiography chest with contrast. 3D Postprocessing. Comparison: CT/IN/SR - CT ANGIO CHEST PE PROTOCOL - 07/13/24 14:08 EST Findings: Cardiomegaly. Aortic atherosclerosis. No pulmonary embolus to the proximal segmental level. More distal branches not adequately assessed due to motion. Heterogeneous thyroid gland. No enlarged mediastinal lymph nodes. Left lower lobe and right middle lobe consolidations. No pleural effusion or pneumothorax. Body wall edema. The bones are intact. IMPRESSION: 1. Left lower lobe and right middle lobe consolidations. 2. No pulmonary embolus identified to the proximal segmental level, with more distal branches not adequately assessed due to motion. This document has been electronically signed by: Zeferino Jolly MD on 07/13/2024 20:10:18
--- NOTE | ~2024-07-13 | US_ITS ---
CLINICAL HISTORY: bilat leg sweliing, pain Venous duplex ultrasound bilateral lower extremity Comparison: None Findings: The visualized deep veins are fully compressible with normal Doppler color flow and spectral tracings. No popliteal cyst. IMPRESSION: 1. Negative for bilateral lower extremity deep vein thrombosis. This document has been electronically signed by: Hansel Lujan MD on 07/13/2024 17:59:24
--- NOTE | ~2024-07-13 | CT_ITS ---
EXAMINATION: CT ANGIOGRAM CHEST CLINICAL INFORMATION: Dyspnea, hypoxia, high d-dimer. COMPARISON: Correlation made with CT chest 12/30/2023. Correlation made with chest x-ray dated 07/13/2024. TECHNIQUE: CT pulmonary angiogram chest was attempted. The patient could not lay flat for the examination and terminated the examination. Only the mobile therapist AP and lateral, and single slice localizer images were able to be obtained. This CT examination was performed using dose optimization techniques as appropriate, variously including the following: *Automated exposure control *Adjustment of mA and/or kV according to patient size (this includes techniques or standardized protocols for targeted exams where dose is matched to indication/reason for exam; i.e. extremities or head) *Use of iterative reconstruction technique FINDINGS: Linear platelike atelectasis or scarring right midlung. Cardiomegaly. No effusions. No pneumothorax allowing for limitations. CT/CT angio chest PE protocol IMPRESSION: 1. Incomplete exam. The patient could not lie flat and terminated the examination. See above. 2. Chronic appearing right middle lobe partial atelectasis. 3. Cardiomegaly. Electronically signed by: Desmond Haque MD 07/13/2024 03:43 PM [facility]
[2024-07-13 08:42] LABS: MANUAL DIFF FLAG NO
[2024-07-13 08:45] LABS: Basophils Percent Auto 0.6 % (0-2); Eosinophils Absolute Auto 0.1 X10*3/uL (0.0-0.4); Eosinophils Percent Auto 1.5 % (0-4); Hematocrit 47.3 % (37.0-47.0); Hemoglobin 13.4 g/dl (12.0-16.0); Imm Gran Abs Auto 0.01 X10*3/uL (0.00-0.03); Imm Gran Pct Auto 0.3 % (0.0-0.4); Lymphocytes Absolute Auto 0.3 X10*3/uL (1.2-4.9); Lymphocytes Percent Auto 9.4 % (20-40); Mean Corpuscular HGB Conc 28.3 g/dl (31.0-35.0); Mean Corpuscular Hemoglobin 28.2 pg (27.0-33.0); Mean Corpuscular Volume 99.6 fL (80.0-98.0); Mean Platelet Volume 9.6 fL (9.4-12.3); Monocytes Absolute Auto 0.4 X10*3/uL (0.1-1.2); Monocytes Percent Auto 10.6 % (2-11); Neutrophils Absolute Auto 2.7 x10*3/uL (2.0-8.3); Neutrophils Percent Auto 77.6 % (45-73); Platelet Count 159 X10*3/uL (160-400); Red Blood Count 4.75 X10*6/uL (4.20-5.50); Red Cell Distribution Width 14.7 % (11.0-16.0); White Blood Count 3.4 X10*3/uL (4.8-10.8)
[2024-07-13 09:10] LABS: B Type Natriuretic Peptide 249 pg/mL (<100)
[2024-07-13 09:11] LABS: Alanine Aminotransferase 13 U/L (0-31); Albumin Level 3.7 g/dL (3.5-5.0); Alkaline Phosphatase 81 U/L (39-117); Anion Gap 11 (12-20); Aspartate Amino Transferase 24 U/L (5-31); Bilirubin Total 0.8 mg/dL (0.0-1.0); Blood Urea Nitrogen 11 mg/dL (9-16); Calcium 9.1 mg/dL (8.4-10.2); Carbon Dioxide 32 mmol/L (22-29); Chloride 102 mmol/L (96-108); Creatinine Clr Calc Pharmacy 116.1; Estimated Glomerular Filt Rate > 60; Glucose Random 115 mg/dL (60-115); Potassium 4.4 mmol/L (3.3-5.1); Sodium 141 mmol/L (135-145); Total Protein 7.8 g/dL (6.5-8.0)
--- NOTE | 2024-07-13 10:08 | ED.GENADULT ---
HPI - General Adult General Chief complaint: Dyspnea Stated complaint: SOB Time Seen by Provider: 07/13/24 10:08 History of Present Illness ED Provider: Rj CALL narrative: the patient is a 54-year-old woman with a history of asthma and multiple sclerosis. She is on chronic home oxygen. She has a history of previous episodes of metabolic encephalopathy secondary to hypercarbia. She also has a history of substance use disorder. Substance use disorder. The patient states that over the last few days she has had worsening shortness of breath and an increasing oxygen requirement at home. She is normally on 2 L of oxygen at home but she has been increasing her oxygen to 4 L at home over the last 2 days. She also says that she has had new swelling in both of her legs. Today an ambulance was called. Paramedics felt that she was quite short of breath and may have thought that she was wheezing. She was given 2 albuterol bronchodilator treatments by paramedics and also was given 125 mg of methylprednisolone and 2 g of magnesium. Here the patient says that she has been having worsening shortness of breath and increasing edema of her lower legs. Does not know if she has had a fever. She has been coughing a bit. No significant chest pain. Related Data Home Medications ?Medication ?Instructions ?Recorded ?Confirmed albuterol sulfate 2.5 mg/3 mL 2.5 mg inhalation Q6H PRN 09/07/23 12/30/23 (0.083 %) solution for nebulization Shortness Of Breath Or Wheezing albuterol sulfate 90 mcg/actuation 2 puff inhalation QID PRN wheezing 09/07/23 12/30/23 aerosol inhaler amlodipine 5 mg tablet 5 mg PO DAILY 09/07/23 12/30/23 baclofen 20 mg tablet 20 mg PO TID 09/07/23 12/30/23 duloxetine 30 mg capsule,delayed 30 - 60 mg PO BEDTIME PRN Sleep 09/07/23 12/31/23 release ergocalciferol (vitamin D2) 1,250 1,250 mcg PO MARTI 09/07/23 12/30/23 mcg (50,000 unit) capsule gabapentin 600 mg tablet 600 mg PO TID 09/07/23 12/30/23 montelukast 10 mg tablet 10 mg PO DAILY 09/07/23 12/30/23 acetaminophen 500 mg tablet 500 mg PO Q6H PRN Pain 12/30/23 12/30/23 atorvastatin 40 mg tablet 40 mg PO BEDTIME 12/30/23 12/31/23 Previous Rx's ?Medication ?Instructions ?Recorded levofloxacin 500 mg tablet 500 mg PO DAILY #2 tabs 01/02/24 prednisone 10 mg tablet See Taper PO DIRECTED #30 tabs 01/02/24 Allergies Allergy/AdvReac Type Severity Reaction Status Date / Time No Known Allergies Allergy Verified 07/13/24 07:42 Review of Systems Review of Systems: Yes all other systems are reviewed and are negative [facility] Past Medical History Medical History Vitiligo Panic disorder without agoraphobia NED (generalized anxiety disorder) Hypertension Multiple sclerosis Asthma with exacerbation Social History Social History (System 01/25/24 @ 16:24 by Jael Barraza) Household Members: Unknown / Unable to assess Housing: Unknown / Unable to assess Do you presently have visiting nurse or other home services: No Unable to assess alcohol history related to: Unable to respond Alcohol intake: never Patient Tobacco Use Status: Tobacco use Unknown Substance Use Type: Marijuana Advance Directives: No Advance Directives Information Provided: Yes service: No Current occupational status: unemployed Physical Exam ED Vital Signs: Vital Signs - 24 hr 07/13/24 07:38 07/13/24 10:20 07/13/24 11:41 Temperature 97.8 F 97.9 F Pulse Rate 86 94 96 Respiratory Rate 18 22 H 21 H Blood Pressure 118/55 L 106/77 133/85 Pulse Oximetry 86 L 85 L 95 Oxygen Delivery Method Room Air Nasal Cannula Nasal Cannula Oxygen Flow Rate 3 5 07/13/24 14:09 07/13/24 15:10 07/13/24 18:20 Temperature 97.2 F Pulse Rate 89 92 Respiratory Rate 20 18 15 Blood Pressure 147/89 H 157/80 H Pulse Oximetry 97 Oxygen Delivery Method Nasal Cannula Oxygen Flow Rate 4 07/13/24 20:00 07/13/24 20:13 07/13/24 20:46 Temperature 97.5 F Pulse Rate 90 88 Respiratory Rate 16 22 H 18 Blood Pressure 150/87 H 150/87 H Pulse Oximetry 97 85 L Oxygen Delivery Method Nasal Cannula BiPAP Oxygen Flow Rate 3 25 07/13/24 20:52 07/13/24 21:02 07/13/24 21:33 Temperature Pulse Rate 95 Respiratory Rate 32 H Blood Pressure Pulse Oximetry 90 L 93 Oxygen Delivery Method BiPAP BiPAP Oxygen Flow Rate 28 28 BMI result Body Mass Index 34.3 Const Other: The patient is a 54-year-old woman who is awake and alert but seems quite chronically ill . She she was on 4 L of nasal oxygen and seemed reasonably comfortable and coherent. HENMT Other: Face is symmetrical. Mucous membranes moist. Eyes General: appearance normal, both eyes and all related structures Neck Other: No obvious JVD. Resp Other: Diminished air entry bilaterally. Possibly some scattered wheezes. Cardio Rate: regular rate Rhythm: regular rhythm Heart sounds: S1 normal heart sound present and S2 normal heart sound present GI Other: Abdomen is soft and nontender Skin Other: the patient has a lot of vitiligo. The skin of the lower legs is edematous. Neuro Other: The patient was awake and seemed alert. She had an unusual demeanor. Cranial nerves were intact. She moved her extremities symmetrically. Extrem Other: Bilateral lower extremity edema Medications Administered Discontinued Medications Generic Name Dose Route Start Last Admin Trade Name Freq PRN Reason Stop Dose Admin Albuterol Sulfate 7.5 mg/ 10 mg 07/13/24 20:55 07/13/24 21:02 Albuterol Sulfate 2.5 mg INHALE 07/13/24 20:56 10 mg ONCE ONE Administration Ceftriaxone Sodium 1 gm 07/13/24 11:19 07/13/24 11:40 Ceftriaxone Sodium 1 Gm Vial IVPUSH 07/13/24 11:20 1 gm ONCE ONE Administration Hydromorphone HCl 0.5 mg 07/13/24 13:59 07/13/24 14:09 Hydromorphone Hcl 0.5 Mg/0.5 Ml Syringe IVPUSH 07/13/24 14:00 0.5 mg ONCE ONE Administration Protocol Azithromycin 500 mg/ Sodium 250 mls @ 125 mls/hr 07/13/24 11:19 07/13/24 16:46 Chloride IV 07/13/24 13:18 Infused ONCE ONE Infusion Iohexol 65 ml 07/13/24 19:26 07/13/24 19:26 Iohexol 350 Mg/Ml 100 Ml Infus..Btl IV 07/13/24 19:27 65 ml ONCE ONE Administration Lorazepam 1 mg 07/13/24 14:55 07/13/24 15:11 Lorazepam 2 Mg/Ml Vial IVPUSH 07/13/24 14:56 1 mg ONCE ONE Administration Medical Decision Making Medical Decision Making [facility] Narrative: The patient is a 54-year-old woman with a history of asthma. She is chronically on home oxygen. She also has a history of multiple sclerosis. She has been hospitalized with respiratory failure in the past. She describes having worsening shortness of breath over the last few days without definite fever. Asthma treatment from paramedics with bronchodilator treatments as well as IV steroids and magnesium. Here the patient did not have obvious wheezing. She did not have a fever. Her lactate was normal. Her white count was not elevated. Her chest x-ray suggested the possibility of a right middle lobe infiltrate but clinically I was not certain that she had a right middle lobe infiltrate and clinically was not entirely clear that this was an asthma exacerbation. nevertheless blood cultures were obtained and she was given antibiotics. she had new peripheral edema Of both legs. I think she is quite sedentary. I thought pulmonary embolism would have to be ruled out. Her D-dimer was elevated. Obtaining a pulmonary angiogram was very difficult because the patient seemed to be very anxious at the prospect of going into the CT scanner or would not lie flat. She was 1st given a dose of hydromorphone but this did not seem to help and we had to abort a 1st effort. Later a dose of lorazepam was given And we attempted a CT pulmonary angiogram a 2nd time but this also failed because she could not cooperate. In the meantime we obtained bilateral lower extremity ultrasounds that were negative. Ultimately on a 3rd occasion we were able to obtain a CT pulmonary angiogram not show any definite evidence of pulmonary embolism but did show a left lower lobe and a right middle lobe consolidation. After the negative CT pulmonary angiogram I consulted the hospitalist who was concerned that the patient had a venous blood gas that showed a pH of 7.29 with a pCO2 of 77. The hospitalist requested a period of BiPAP. the patient was also given additional bronchodilator treatments. Lab Data 07/13/24 08:34 07/13/24 08:34 Labs: Lab Results 07/13/24 07/13/24 07/13/24 Range/Units 08:34 10:59 11:04 WBC 3.4 L (4.8-10.8) X10*3/uL RBC 4.75 (4.20-5.50) X10*6/uL Hgb 13.4 (12.0-16.0) g/dl Hct 47.3 H (37.0-47.0) % MCV 99.6 H (80.0-98.0) fL MCH 28.2 (27.0-33.0) pg MCHC 28.3 L (31.0-35.0) g/dl RDW 14.7 (11.0-16.0) % Plt Count 159 L (160-400) X10*3/uL MPV 9.6 (9.4-12.3) fL Immature Gran % (Auto) 0.3 (0.0-0.4) % Neut % (Auto) 77.6 H (45-73) % Lymph % (Auto) 9.4 L (20-40) % [place] % (Auto) 10.6 (2-11) % Eos % (Auto) 1.5 (0-4) % Baso % (Auto) 0.6 (0-2) % Lymph # (Auto) 0.3 L (1.2-4.9) X10*3/uL [place] # (Auto) 0.4 (0.1-1.2) X10*3/uL Eos # (Auto) 0.1 (0.0-0.4) X10*3/uL Baso # (Auto) 0.0 (0.0-0.2) X10*3/uL Abs Immat Gran (auto) 0.01 (0.00-0.03) X10*3/uL Absolute Neuts (auto) 2.7 (2.0-8.3) x10*3/uL Absolute Nucleated RBC 0.000 (0.0-0.012) X10*3/uL Nucleated RBC % (auto) 0.0 (0.0-0.2) /100WBC D-Dimer High Sensitivty NG/ML VBG pH 7.29 L (7.32-7.43) VBG pCO2 77 mmHg VBG pO2 107 mmHg VBG HCO3 38 H (22-26) mmol/L VBG O2 Saturation 100.0 % VBG Base Excess 8.5 mmol/L Sodium 141 (135-145) mmol/L Potassium 4.4 (3.3-5.1) mmol/L Chloride 102 (96-108) mmol/L Carbon Dioxide 32 H (22-29) mmol/L Anion Gap 11 L (12-20) BUN 11 (9-16) mg/dL Creatinine 0.59 (0.5-1.4) mg/dL Estim Creat Clear Calc 116.1 Estimated GFR > 60 Random Glucose 115 (60-115) mg/dL Lactic Acid 0.7 (0.5-2.0) mmol/L Calcium 9.1 (8.4-10.2) mg/dL Total Bilirubin 0.8 (0.0-1.0) mg/dL AST 24 (5-31) U/L ALT 13 (0-31) U/L Alkaline Phosphatase 81 (39-117) U/L C-Reactive Protein 0.78 H (< or = 0.50) mg/dL B-Natriuretic Peptide 249 H (<100) pg/mL Total Protein 7.8 (6.5-8.0) g/dL Albumin 3.7 (3.5-5.0) g/dL Influenza Type A (PCR) (Negative) Influenza Type B (PCR) (Negative) RSV RNA Qual (PCR) (Negative) SARS-CoV-2 RNA (RT-PCR) (Negative) 07/13/24 07/13/24 Range/Units 12:09 17:44 WBC (4.8-10.8) X10*3/uL RBC (4.20-5.50) X10*6/uL Hgb (12.0-16.0) g/dl Hct (37.0-47.0) % MCV (80.0-98.0) fL MCH (27.0-33.0) pg MCHC (31.0-35.0) g/dl RDW (11.0-16.0) % Plt Count (160-400) X10*3/uL MPV (9.4-12.3) fL Immature Gran % (Auto) (0.0-0.4) % Neut % (Auto) (45-73) % Lymph % (Auto) (20-40) % [place] % (Auto) (2-11) % Eos % (Auto) (0-4) % Baso % (Auto) (0-2) % Lymph # (Auto) (1.2-4.9) X10*3/uL [place] # (Auto) (0.1-1.2) X10*3/uL Eos # (Auto) (0.0-0.4) X10*3/uL Baso # (Auto) (0.0-0.2) X10*3/uL Abs Immat Gran (auto) (0.00-0.03) X10*3/uL Absolute Neuts (auto) (2.0-8.3) x10*3/uL Absolute Nucleated RBC (0.0-0.012) X10*3/uL Nucleated RBC % (auto) (0.0-0.2) /100WBC D-Dimer High Sensitivty 772 NG/ML VBG pH (7.32-7.43) VBG pCO2 mmHg VBG pO2 mmHg VBG HCO3 (22-26) mmol/L VBG O2 Saturation % VBG Base Excess mmol/L Sodium (135-145) mmol/L Potassium (3.3-5.1) mmol/L Chloride (96-108) mmol/L Carbon Dioxide (22-29) mmol/L Anion Gap (12-20) BUN (9-16) mg/dL Creatinine (0.5-1.4) mg/dL Estim Creat Clear Calc Estimated GFR Random Glucose (60-115) mg/dL Lactic Acid (0.5-2.0) mmol/L Calcium (8.4-10.2) mg/dL Total Bilirubin (0.0-1.0) mg/dL AST (5-31) U/L ALT (0-31) U/L Alkaline Phosphatase (39-117) U/L C-Reactive Protein (< or = 0.50) mg/dL B-Natriuretic Peptide (<100) pg/mL Total Protein (6.5-8.0) g/dL Albumin (3.5-5.0) g/dL Influenza Type A (PCR) NEGATIVE (Negative) Influenza Type B (PCR) NEGATIVE (Negative) RSV RNA Qual (PCR) NEGATIVE (Negative) SARS-CoV-2 RNA (RT-PCR) NEGATIVE (Negative) Discharge Plan Discharge Clinical Impression: Shortness of breath, Left lower lobe consolidation, Consolidation of middle lobe of lung, Asthma exacerbation, Hypercarbia Patient Disposition: Still a Patient Prescriptions: No Action gabapentin 600 mg tablet 600 mg PO TID albuterol sulfate 2.5 mg /3 mL (0.083 %) solution for nebulization 2.5 mg inhalation Q6H PRN (Reason: Shortness Of Breath Or Wheezing) amlodipine 5 mg tablet 5 mg PO DAILY baclofen 20 mg tablet 20 mg PO TID montelukast 10 mg tablet 10 mg PO DAILY ergocalciferol (vitamin D2) 1,250 mcg (50,000 unit) capsule 1,250 mcg PO MARTI albuterol sulfate 90 mcg/actuation HFA aerosol inhaler 2 puff INHALATION QID PRN (Reason: wheezing) duloxetine 30 mg capsule,delayed release(DR/EC) 30 - 60 mg PO BEDTIME PRN (Reason: Sleep) atorvastatin 40 mg tablet 40 mg PO BEDTIME acetaminophen 500 mg Tablet 500 mg PO Q6H PRN (Reason: Pain) prednisone 10 mg tablet See Taper PO DIRECTED Qty: 30 0RF Taper: Prednisone 40 mg daily for 3 Days and 0 Hour 30 mg daily for 3 Days and 0 Hour 20 mg daily for 3 Days and 0 Hour 10 mg daily for 3 Days and 0 Hour Rx Instructions: see taper instructions levofloxacin 500 mg tablet 500 mg PO DAILY Qty: 2 0RF Print Language: [place]ese
[2024-07-13 11:00] LABS: C Reactive Protein 0.78 mg/dL (< or = 0.50)
[2024-07-13 11:08] LABS: Venous Blood Gas Refer to POC result
[2024-07-13 11:09] LABS: VBG Base Excess 8.5 mmol/L; VBG HCO3 38 mmol/L (22-26); VBG pCO2 77 mmHg; VBG pH 7.29 (7.32-7.43); VBG pO2 107 mmHg
[2024-07-13 11:23] LABS: Lactic Acid 0.7 mmol/L (0.5-2.0)
[2024-07-13] MEDS: cefTRIAXone sodium 1 GM VIAL IVPUSH (11:40)
[2024-07-13] MEDS: Azithromycin 500 MG in 0.9 % Sodium Chloride 250 ML 125 MG IV (12:13)
[2024-07-13 12:28] LABS: D Dimer High Sensitivity 772 NG/ML
[2024-07-13] MEDS: HYDROmorphone HCl 0.5 MG/0.5 ML SYRINGE IVPUSH (14:09)
--- OUTSIDE RECORDS SUMMARY | 2024-07-13 14:36 | XMS_ITS | Encounter Summary ---
Author Organization [employer] Address [address] [place] [address] Care Team Providers Care Mechanical Service Specialist Name Role Phone Unavailable Primary Care Provider Unavailabl e Reason for Visit * Reason Onset Date Comments script to be sent to pharmacy 02/25/2023 Encounter Details Date Type Department Care Team (Late st Contact Info) Description 02/25/2023 Telephone [facility] ADULT DENTAL [address] [place] [address] Bindu Boss DDS [address] [place] [address] script to be sent to pharmacy Social History Tobacco Use Types Packs/Day Years Used Date Smoking Tobacco: Some Days Cigarettes Smokeless Tobacco: Never Alcohol Use Standard Drinks/Week Comments Yes 0 (1 standard drink = 0.6 oz pur e alcohol) Comments Unknown Sex and Gender Information Value Date Recorded Sex Assigned at Female 02/07/2023 9:59 AM EDT Legal Sex Female 3:07 PM EDT Gender Identity Female 02/07/2023 9:59 AM EDT Sexual Orientation Straight 02/07/2023 9: 59 AM EDT documented as of this encounter Miscellaneous Notes * Telephone Encounter - Bindu Boss DDS - 02/25/2023 1:43 PM EDT Medication sent' * Telephone Encounter - Amy Medellin - 02/25/2023 1:34 PM EDT Patient called in stating that she was supposed to receive script for a mouth wash and nothing sentto pharmacy DR documented in this encounter Plan of Treatment Not on file documented as of this encounter Visit Diagnoses Not on filedocumented in this encounter
--- OUTSIDE RECORDS SUMMARY | 2024-07-13 14:36 | XMS_ITS | Encounter Summary ---
Author Organization [employer] Address [address] [place] [address] Care Team Providers Care Cargo Handler Name Role Phone Unavailable Primary Care Provider Unavailabl e Encounter Details Date Type Department Care Team (Late st Contact Info) Description 02/25/2023 Orders Only [facility] ADULT DENTAL [address] [place] [address] Bindu Boss DDS [address] [place] [address] Social History Tobacco Use Types Packs/Day Years [...] AM EDT documented as of this encounter Plan of Treatment Not on file documented as of this encounter Visit Diagnoses Not on filedocumented in this encounter
--- OUTSIDE RECORDS SUMMARY | 2024-07-13 14:36 | XMS_ITS | Clinical Summary ---
Author Organization [employer] Address [address] [place] [address] Care Team Providers Care Hebrew Teacher Name Role Phone Unavailable Primary Care Provider Unavailabl e Allergies Active Allergy Reactions Criticality Noted Date Comments Gabapentin Anaphylaxis High 10/19/2020 Hydrocodone-Acetaminophen 01/11/2014 Other reaction(s): RASH Other reaction(s): Unknown Patient states Allergic to Medication. Prednisone 02/24/2023 Medications albuterol (2.5 MG/3ML) 0.083% nebulizer solution Inhale 2.5 mg every 4 (four) hours if needed. 04/16/2020 Active amLODIPine (Norvasc) 10 MG tablet Take 10 mg by mouth in the morning. Active atorvastatin (Lipitor) 40 MG tablet TAKE 1 TABLET BY MOUTH EVERY DAY AT 5PM 10/20/2022 Active baclofen (Lioresal) 10 MG tablet 05/25/2022 Active Symbicort 160-4.5 MCG/ACT inhaler 2 puffs 2 times daily. 01/30/2023 Active ibuprofen 800 MG tablet Take 1 tablet by mouth. 10/07/2022 Active Glatiramer Acetate (Copaxone) 40 MG/ML solution prefilled syringe Inject 40 mg under the skin. Active gabapentin (Neurontin) 300 MG capsule Take 300 mg by mouth 2 times daily. Active Social History Tobacco Use Types Packs/Day Years Used Date Smoking Tobacco: Some Days Cigarettes Smokeless Tobacco: Never Tobacco Cessation:Counseling Given: Not Answered Alcohol Use Standard Drinks/Week Comments Yes 0 (1 standard drink = 0.6 oz pur e alcohol) Comments Unknown Sex and Gender Information Value Date Recorded Sex Assigned at Female 02/07/2023 9:59 AM EDT Legal Sex Female 3:07 PM EDT Gender Identity Female 02/07/2023 9:59 AM EDT Sexual Orientation Straight 02/07/2023 9: 59 AM EDT Plan of Treatment Health Maintenance Due Date Last Done Comments CT Colonography 1968 Colonoscopy 1968 Colorectal Cancer Screening 1968 Dental Prophylaxis 1968 Depression Screening 1968 FIT DNA/Cologuard 1968 FIT 1968 FOBT 1968 HIV Screening 1968 Lipid Panel 1968 SDOH Screening 1968 Sigmoidoscopy 1968 Alcohol/Substance Use Screening 1980 Hepatitis C Screening 1986 Hepatitis B Vaccines (1 of 3 - 19+ 3-dose series) 1987 Pap Smear 1989 Cervical Cancer Screening 1998 HPV/Cotest 1998 Pneumococcal Vaccine: 50+ Years (2 of 2 - PCV) 01/14/2015 01/14/2014 Pneumococcal Vaccine: Pediatrics (0 to 5 Years) and At-Risk Patients (6 to 49) Years) (2 of 2 - PCV) 01/14/2015 01/14/2014 Zoster Vaccines (1 of 2) 2018 Mammogram 04/25/2020 04/25/2018, 09/13, 09/02/2014 Dental Oral Exam 08/27/2023 02/24/2023 COVID-19 Vaccine ( season) 2024 05/21/2021, 07/31/2020 Influenza Vaccine (#1) 2024 7, 03/29/2016, 03/03/2015, Additional history exists Tobacco Screening 02/25/2024 02/24/2023 Dental X-Ray: Bitewings 02/26/2024 02/24/2023 DTaP/Tdap/Td Vaccines (2 - Td or Tdap) 03/13/2025 03/13/2015, 01/07/2004 Dental X-Ray: Full Mouth 02/25/2026 02/24/2023 RSV Patients and Patients Aged 60 years or older (1 - 1-dose 75+ series) 2043 HIB Vaccines Aged Out No longer eligi ble based on patient's age to complete this topic HPV Vaccines Aged Out No longer eligi ble based on patient's age to complete this topic Hepatitis A Vaccines Aged Out No long er eligible based on patient's age to complete this topic IPV Vaccines Aged Out No longer eligi ble based on patient's age to complete this topic Meningococcal Vaccine Aged Out No adeline isamar eligible based on patient's age to complete this topic RSV under 20 months Aged Out No longe r eligible based on patient's age to complete this topic Rotavirus Vaccines Aged Out No longer eligible based on patient's age to complete this topic Procedures Procedure Name Priority Date/Time Associated Diagnosis Comments INTRAORAL - COMPLETE SERIES OF RADIOGRAPHIC IMAGES Routine 02/24/2023 1:30 PM EDT Encounter for dental examination Dental calculus Teeth missing COMPREHENSIVE ORAL EVALUATION - NEW OR ESTABLISHED PATIENT Routine 02/24/2023 1:30 PM EDT Encounter for dental examination Dental calculus Teeth missing from Last 3 Months or Most Recently Relevant to Health Maintenance Insurance [facility] STANDARD [employer] DENTAL-[facility] MEDICAID STAND ADULT
--- OUTSIDE RECORDS SUMMARY | 2024-07-13 14:36 | XMS_ITS | Patient Health Record ---
Author Organization [facility] Address [address] [place] [address] Care Team Providers Care Entry Table Operator Name Role Phone Fernanda GREEN Eric Primary Care Provider Manju Cabello Unavailable [phone] Reason For Referral No Information Medications Medication SIG (Take, Route, Frequency, Duration) Notes Start Date End Date Status traMADol HCl 50 MG 1 tablet as needed O rally BID for 30 days 03/23/2021 Active Albuterol Sulfate 108 (90 Base) MCG/ACT 1 puff as needed Inhalation every 4 hrs Active Copaxone 40 MG/ML 1 ml Subcutaneous Th ree times a Week for 30 day(s) Activ e Atorvastatin Calcium 40 MG 1 tablet Oral ly Once a day for 30 day(s) Active amLODIPine Besylate 10 MG 1 tablet Orall y Once a day for 30 day(s) Active Social History Tobacco Use: Social History Observation Description Date Details (start date - stop date) Never Smoker NA - NA Tobacco Use/Smoking Question Answer Notes Are you a nonsmoker Problems Problem Type SNOMED Code ICD Code Onset Dates Problem Status W/U Status Risk Notes Problem 96028741 Multiple sclerosis (G35) Active confirmed Problem [id number] Pain in right hip (M25.551) Active confirmed Problem 74106575 Cervicalgia (M54.2) Active confirmed Problem 127954091 Low back pain (M54.5) Active confirmed Plan Of Treatment No Information Insurance Providers Payer Name Payer Address Payer Phone Subscriber Number Group Number Insured Name Patient Relationship to Insured Coverage Start Date Coverage End Date [employer] [address] [address] [place] [address] [id number] MARI QUESADA Self - patient is the insured 5 MEDICAID SECONDARY [address] [address] [place] [address] [id number] SANGITA MARI Self - patient is the insured Medical (General) History Medical History History ICD Code multiple sclerosis asthma Surgical History Surgery Date(Month/Year) back surgery section Hospitalization History Reason Date(Month/Year) falling
--- OUTSIDE RECORDS SUMMARY | 2024-07-13 14:36 | XMS_ITS | Clinical Summary ---
Author Organization [facility] Address [address] [place] [address] Care Team Providers Care Title One Teacher Name Role Phone Unavailable Primary Care Provider Unavailabl e Allergies No known active allergies Medications Medication Sig Dispensed Refills Start Date End Date Status amLODIPine (NORVASC) tablet 10 mg Take 1 tablet (10 mg total) by mouth daily. 0 03/13/2022 Active atorvastatin (LIPITOR) tablet 40 mg Take 1 tablet (40 mg total) by mouth daily. 0 03/13/2022 Active Symbicort 160-4.5 MCG/ACT inhaler 0 05/21/2022 Active albuterol 108 (90 Base) MCG/ACT inhaler INAHEL 2 PUFFS INHALATION 4 TIMES A DAY NEEDED FOR SHORTNESS OF BREATH OR WHEEZING 0 02/22/2023 Active ergocalciferol (VITAMIN D2) capsule 76375 units Take 1 capsule (50,000 Units total) by mouth once a week. 4 capsule 12 05/02/2023 Active glatiramer acetate (COPAXONE) 40 MG/ML SOSY injection INJECT 1 SYRINGE UNDER THE SKIN 3 TIMES A WEEK AT LEAST 48 HOURS APART 1 mL 2 08/23/2023 Active baclofen (LIORESAL) 20 MG tablet TAKE 1 TABLET BY MOUTH 3 TIMES A DAY. 270 tablet 1 11/23/2023 Active gabapentin (NEURONTIN) 600 MG tablet TAKE 1 TABLET BY MOUTH THREE TIMES A DAY 60 tablet 3 02/17/2024 Active DULoxetine (CYMBALTA) DR capsule 30 mg TAKE 1 OR 2 TABLETS BY MOUTH EVERY DAY AT NIGHT 180 capsule 1 02/17/2024 Active Active Problems No known active problems Social History Tobacco Use Types Packs/Day Years Used Date Smoking Tobacco: Never Assessed Sex and Gender Information Value Date Recorded Sex Assigned at Female 04/01/2022 4:14 PM EST Gender Identity Not on file Sexual Orientation Not on file Job Start Date Occupation Industry Not on file Not on file Not on file Last Filed Vital Signs Vital Sign Reading Time Taken Comments Blood Pressure 80/47 06/15/2023 3:47 PM EST Pulse 89 06/15/2023 3:47 PM EST Temperature 36 ??C (96.8 ??F) 06/15/2023 3:47 PM EST Respiratory Rate 16 08/23/2022 3:51 PM EDT Oxygen Saturation 100% 06/15/2023 3:47 PM EST Inhaled Oxygen Concentration - - Weight 109.8 kg (242 lb) 06/15/2023 3:47 PM EST Height 162.6 cm (5' 4 ) 06/15/2023 3:47 PM EST Body Mass Index 41.54 06/15/2023 3:47 PM EST Plan of Treatment Health Maintenance Due Date Last Done Comments Hepatitis B Vaccines (1 of 3 - 3-dose series) 1968 Hepatitis C Screening 1968 Depression Screening 1980 BMI Counseling 1986 Preventative Health Evaluation 1986 Cervical Cancer Screening (Pap Smear) 1989 Colon Cancer Screening (Colonoscopy) 2013 Breast Cancer Screening (Mammogram) 2018 Shingrix-Zoster Vaccine (1 of 2) 2018 COVID-19 Vaccine ( season) 2024 05/21/2021, 07/31/2020 Influenza Vaccine (#1) 2024 7, 03/29/2016, 03/03/2015, Additional history exists DTap / Tdap / Td (2 - Td or Tdap) 03/13/2025 03/13/2015, 01/07/2004 Pneumococcal Vaccine Aged Out 01/14/2014 No long er eligible based on patient's age to complete this topic RSV Ped < 20 months Aged Out No longe r eligible based on patient's age to complete this topic
--- OUTSIDE RECORDS SUMMARY | 2024-07-13 14:36 | XMS_ITS | Encounter Summary ---
Author Organization [facility] Address [address] [place] [address] Care Team Providers Care Medical Billing Clerk Name Role Phone Elida Oneil MD Primary Care Provider [phone] Reason for Visit * Reason Onset Date Comments body pain 07/05/2024 Encounter Details Date Type Department Care Team (Late st Contact Info) Description 07/05/2024 Telephone Adult [address] [phone] Elida Oneil MD [address] [place] [phone] body pain Social History Tobacco Use Types Packs/Day Years Used Date Smoking Tobacco: Every Day Cigarettes Smokeless Tobacco: Never Alcohol Use Standard Drinks/Week Comments Yes 0 (1 standard drink = 0.6 oz pur e alcohol) Comments No Sex and Gender Information Value Date Recorded Sex Assigned at Not on file Legal Sex Female 8:59 PM EST Gender Identity Not on file Sexual Orientation Not on file documented as of this encounter Progress Notes * Lulu Iverson RN - 07/05/2024 3:34 PM EST Call to pt. Left message for pt to call triage Pt has MS now c/o generalized body pain, pt does receive gabapentin from neurology, should be booked with dr oneil in future to discuss alternative but would need to discuss with neurology for changein pain meds * Jeanie Roach - 07/05/2024 3:20 PM EST Patient call requires triage: Symptoms patient is presenting: patient states she has body pain caused by MS. States Gabapentin isn't helping and needs something stronger How long has patient had these symptoms?: ongoing For ALL patients calling to schedule any appointment (routine, sick visit, follow up, consult, etc.) in the outpatient setting please ask the following questions: Do you have fever of higher than 101, sore throat with difficulty swallowing or severe shortness ofbreath? no If YES to any of these above symptoms, send a message to triage and do not book. Red dot. If no, an audio or video visit should be booked. Have you had close contact with someone with Coronavirus in the last 14 days? no Have you traveled abroad? no Have you traveled recently to another state outside of [place], [place], [place], [place], [place], [place], [place]? no o If yes, did you quarantine for 14 days or have a negative covid test? no If yes to any of the above, patient is not to be scheduled in office until after 14 day quarantine or negative covid test. If pain or injury related was it due to an accident at work or from a motor vehicle accident? If yes, date of accident/Injury: No If yes, gather 3rd constitution party insurance information Third Republican Information: not applicable PCP: Elida Oneil MD Payor: [employer]NY MEDICARE ADVANTAGE / Plan: [employer] MEDICARE ADVANTAGE / Product Type: *No Product type* / documented in this encounter Plan of Treatment Upcoming Encounters Date Type Department Care Team (Late st Contact Info) Description 07/24/2024 2:30 PM EDT Office Visit Adult Medicine [address] [phone] Elida Oneil MD [address] [place] [address] documented as of this encounter Visit Diagnoses Not on filedocumented in this encounter Care Teams Medical Billing Clerk Relationship Specialty Start Date End Date Elida Oneil MD [address] [place] [address] PCP - General Internal Medicine 04/16/24 documented as of this encounter
--- OUTSIDE RECORDS SUMMARY | 2024-07-13 14:36 | XMS_ITS | Clinical Summary ---
Author Organization [facility] [address] [place] [address] [place] [address] Phone Care Team Providers Care Bone Char Operator Name Role Phone Elida Powell MD Primary Care Provider [phone] Allergies No known active allergies Medications atorvastatin (LIPITOR) 40 mg tablet Take 1 Tablet by mouth daily. Louisa Guzmán Active baclofen (LIORESAL) 20 mg tablet Take 1 Tablet by mouth 3 times daily. Cathryn Aldridge Active ibuprofen (ADVIL,MOTRIN) 800 mg tablet Take 1 Tablet by mouth every 8 hours as needed. Louisa Guzmán Active lidocaine (LIDODERM) 5 % patch Place 1 Patch onto the skin every 24 hours. Apply for no more than 12 hours in any 24 hour period. 4 Active albuterol HFA (PROAIR HFA ; PROVENTIL HFA ; VENTOLIN HFA) 90 mcg/actuation inhaler Inhale 2 puffs by mouth every 4 (four) hours if needed for wheezing. 8.5 g 1 4 Active budesonide-form oteroL (SYMBICORT) 160-4.5 mcg/actuation inhaler Inhale 2 puffs by mouth 2 (two) times a day. Rinse mouth with water after use to reduce aftertaste and incidence of candidiasis. Do not swallow. 1 each 1 4 Active ergocalciferol (VITAMIN D-2) 1,250 mcg (50,000 unit) capsule TAKE 1 CAPSULE BY MOUTH ONE TIME PER WEEK 12 capsule 3 4 Active amLODIPine (NORVASC) 5 mg tablet TAKE 1 TABLET BY MOUTH 1 TIME EACH DAY. 90 tablet 1 5 Active montelukast (SINGULAIR) 10 mg tablet TAKE 1 TABLET BY MOUTH 1 TIME EACH DAY. 90 tablet 1 5 Active DULoxetine (CYMBALTA) [address] capsule TAKE 1 OR 2 CAPSULES BY MOUTH EVERY DAY AT NIGHT 180 capsule 1 5 Active gabapentin (NEURONTIN) 600 mg tablet TAKE 1 TABLET BY MOUTH THREE TIMES A DAY 60 tablet 3 5 Active Active Problems Problem Noted Date Diagnosed Date Primary hypertension 08/12/2023 Mixed hyperlipidemia 08/12/2023 Asthma 09/23/2022 Overview (03/07/2024): Per PCP note Encounters Date Type Department Care Team Description 07/05/2024 Telephone Adult Medicine [address] [phone] Elida Powell MD body pain from Last 3 Months Immunizations Name Administration Dates Next Due Influenza trivalent, MDCK, 0 .5mL, preservative free (Flucelvax) 6mo and older 03/23/2024 Sponsify/Prowl SARS-CoV-2 COVID -19, vector-nr, [id number], preservative free 05/21/2021,07/31/2020 Pneumococcal polysaccharide 23 valent (Pneumovax 23) 2yo and older 01/14/2014 Surgical History Surgery Date Site/Laterality Comments OTHER SURGICAL HISTORY 2013 PROCEDURE: HISTORY OTHER; COMMENT: Discetomy OTHER SURGICAL HISTORY 1992 PROCEDURE: HISTORY OTHER; COMMENT: C section OTHER SURGICAL HISTORY 1995 PROCEDURE: HISTORY OTHER; COMMENT: C scetion Medical History Medical History Date Comments Mild intermittent asthma, uncomplicated 09/23/2022 DX:Mild intermittent asthma, uncomplicated; COMMENT: Per PCP note Multiple sclerosis (CMS/HCC) DX: Multiple sclerosis (HCC) Essential (primary) hypertension DX:Essential (primary) hypertension Family History Medical History Relation Name Comments Pancreatic cancer Aunt Maternal Stroke Maternal Grandmother Other: heart attack Mother Other: heart failure Mother Colon cancer Paternal Grandfather Relation Name Status Comments Aunt Maternal Maternal Grandmother Mother Paternal Grandfather Social History Tobacco Use Types Packs/Day Years Used Date Smoking Tobacco: Every Day Cigarettes Smokeless Tobacco: Never Tobacco Cessation:Ready to Q uit: Not Asked; Counseling Given: Not Answered Alcohol Use Standard Drinks/Week Comments Yes 0 (1 standard drink = 0.6 oz pur e alcohol) Comments No Sex and Gender Information Value Date Recorded Sex Assigned at Not on file Legal Sex Female 8:59 PM EST Gender Identity Not on file Sexual Orientation Not on file Obstetrics History Last Filed Vital Signs Vital Sign Reading Time Taken Comments Blood Pressure 134/82 03/23/2024 12:48 PM EST Pulse 100 03/23/2024 12:48 PM EST Temperature 36.5 ??C (97.7 ??F) 03/23/2024 12:[address] Respiratory Rate 18 03/23/2024 12:48 PM EST Oxygen Saturation 92% 03/23/2024 12:48 PM EST Inhaled Oxygen Concentration - - Weight 75.8 kg (167 lb) 03/23/2024 12:48 PM EST Height 163.8 cm (5' 4.5 ) 03/23/2024 12:48 PM ES T Body Mass Index 28.22 03/23/2024 12:48 PM EST Plan of Treatment Upcoming Encounters Date Type Department Care Team (Late st Contact Info) Description 07/24/2024 2:30 PM EDT Office Visit Adult Medicine [address] [phone] Elida Powell MD [address] [place] [phone] Health Maintenance Due Date Last Done Comments Diabetes: Annual Foot Exam 1978 Diabetes: Annual Retina Eye Exam 1978 Hepatitis B Vaccines (1 of 3 - 19+ 3-dose series) 1987 Cervical Cancer Screening: Pap Smear 1989 Pneumococcal Vaccine: 50+ Years (2 of 2 - PCV) 01/14/2015 01/14/2014 Pneumococcal Vaccine: Pediatrics (0 to 5 Years) and At-Risk Patients (6 to 64 Years) (2 of 2 - PCV) 01/14/2015 01/14/2014 Zoster Vaccines (1 of 2) 2018 Breast Cancer Screening 04/25/2020 04/25/2018 Diabetes: Annual GFR (Glomerular Filtration Rate) 10/20/2021 10/20/2020, 10/20/2020, 10/18/2020, Additional history exists Cholesterol Screening (Lipid Panel) 06/10/2023 12/14/2016 Colorectal Cancer Screening: Colonoscopy 06/10/2023 Depression Screening 06/10/2023 Hepatitis C Screening 06/10/2023 Medicare Annual Wellness Visit 06/10/2023 Social Influencers of Health Screening 06/10/2023 Hypertension/CHF/CAD Annual BMP Blood Test 12/09/2023 10/20/2020, 10/20/2020, 10/18/2020, Additional history exists COVID-19 Vaccine ( season) 2024 05/21/2021, 07/31/2020 Diabetes: Annual Urine Albumin-Creatinine Ratio (uACR) 03/23/2024 12/14/2016 Diabetes: Blood Sugar Control Test (HGBA1C) 03/23/2024 07/30/2020, 07/30/2020 DTaP,Tdap,and Td Vaccines (2 - Td or Tdap) 03/13/2025 03/13/2015 HIV Screening Completed 12/19/2015 Influenza Vaccine Completed 03/23/2024, , 03/29/2016, Additional history exists HIB Vaccines Aged Out No longer eligi [...] on patient's age to complete this topic MMR Vaccines Aged Out No longer eligi ble based on patient's age to complete this topic Meningococcal ACWY Vaccine Aged Out N o longer eligible based on patient's age to complete this topic Meningococcal B Vacine Aged Out No lo nger eligible based on patient's age to complete this topic RSV Immunization Patients Under 20 months Aged Out No longer eligible based on patient's age to complete this topic Varicella Vaccines Aged Out No longer eligible based on patient's age to complete this topic Insurance [place] AETNA MEDIC[place] ADVANTAGE Care Teams Bone Char Operator Relationship Specialty Start Date End Date Elida Powell MD [address] [place] [id number] PCP - General Internal Medicine 04/16/24
--- OUTSIDE RECORDS SUMMARY | 2024-07-13 14:36 | XMS_ITS ---
Author Name [facility] Organization Unknown History of Medication Use Medication Directions Dispensed Refills Start Date End Date Stat amLODIPine (NORVASC) tablet 10 mg Take 1 tablet (10 mg total) by mouth daily. 03/13/2022 active ergocalciferol (VITAMIN D2) capsule 04904 units Take 1 capsule (50,000 Units total) by mouth once a week. 05/02/2023 active Problems Problem Status Onset Date Problem Type Date of Resoluti on Source Multiple sclerosis (HCC) active EncounterDiagnosisAct CTTHNE MG
--- OUTSIDE RECORDS SUMMARY | 2024-07-13 14:36 | XMS_ITS | Encounter Summary ---
Author Organization [employer] Address [address] [facility] [address] [place] [address] Care Team Providers Care General Clerk Name Role Phone Unavailable Primary Care Provider Unavailabl e Reason for Visit * Reason Onset Date Comments Appointment 02/04/2023 Encounter Details Date Type Department Care Team (Late st Contact Info) Description 02/04/2023 Telephone [facility] ADULT DENTAL [address] [place] [address] Clarke Garland, DMD [address] [place] [address] Appointment Social History Tobacco Use Types Packs/Day Years Used Date Smoking Tobacco: Never Assessed Comments Unknown Sex and Gender Information Value Date Recorded Sex Assigned at Female 02/07/2023 9:59 AM EDT Legal Sex Female 3:07 PM EDT Gender Identity Female 02/07/2023 9:59 AM EDT Sexual Orientation Straight 02/07/2023 9: 59 AM EDT documented as of this encounter Miscellaneous Notes * Telephone Encounter - Amy Medellin - 02/04/2023 3:31 PM EDT Patient on wait list since 11/2021 and checking in on visit for COMP DR documented in this encounter Plan of Treatment Not on file documented as of this encounter Visit Diagnoses Not on filedocumented in this encounter
[2024-07-13] MEDS: LORazepam 2 MG/ML VIAL 1 MG IVPUSH (15:11)
--- NOTE | 2024-07-13 15:14 | PC.NURSE ---
Patient medicated as ordered for axiety, patient was unable to lay flat due to anxiety for CT scan
--- NOTE | 2024-07-13 16:26 | PC.NURSE ---
patient unable to tolerate CT scan, aware
[2024-07-13 18:26] LABS: Influenza A PCR NEGATIVE (Negative); Influenza B PCR NEGATIVE (Negative); Resp Syncy Virus RNA Qual PCR NEGATIVE (Negative); SARS COV2 PCR INHOUSE NEGATIVE (Negative)
--- NOTE | 2024-07-13 19:19 | PC.NURSE ---
pt to CT at this time
[2024-07-13] MEDS: iohexoL 350 MG/ML 100 ML INFUS..BTL 65 ML IV (19:26)
--- NOTE | 2024-07-13 20:09 | PC.NURSE ---
RT placing patient on bipap at this time
--- NOTE | 2024-07-13 20:12 | PC.NURSE ---
Bipap settings 12/6, 25%, rate 16
--- NOTE | 2024-07-13 20:50 | PC.NURSE ---
O2 decreased to 85% on 25% O2 via Bipap, RT at bedside, O2 increased to 28% lungs w/ I/E wheezes throughout, physician made aware and plan is for breathing tx. pateint is sleeping but arousable to verbal stimuli, quickly falling back to sleep. Patient able to state her name, that she is in [facility] and that is June but stated that today is Tuesday. denies pain at this time. patient incontinent of large amount of urine. care provided and linens changed. IV to left arm not patent, removed at this time.
[2024-07-13] MEDS: Albuterol Sulfate 7.5 MG, Albuterol Sulfate (0.083%) 2.5 MG 10 MG INHALE (21:02)
--- NOTE | 2024-07-13 22:14 | PC.NURSE ---
pt continues to be sleeping, opening eyes to name, states she at at [facility] when asked, then falls back to sleep. tolerating bipap well. plan is for ABG at 2300
[2024-07-14] VITALS (12 sets, daily range): BP systolic 146–185; BP diastolic 79–102; PULSE 88–101; RESP 15–26; TEMP 36.4–36.8; O2SAT 91–98; BMI 38.0
[2024-07-14 01:01] LABS: Venous Blood Gas Refer to POC result
[2024-07-14 01:03] LABS: VBG Base Excess 23.2 mmol/L; VBG HCO3 50 mmol/L (22-26); VBG pCO2 60 mmHg; VBG pH 7.52 (7.32-7.43); VBG pO2 60 mmHg
--- NOTE | 2024-07-14 01:16 | P.HPHOSP_ITS ---
History of Present Illness Date of Service: 07/14/24 Chief Complaint: Dyspnea This is a 54-year-old female with pertinent history of chronic hypoxemic respiratory failure due to asthma on 2-3 L baseline supplemental oxygen, hypertension, multiple sclerosis, mood disorder, peripheral neuropathy who presents to the emergency department for evaluation of dyspnea. Patient states her symptoms started 2 days prior to presentation. She has been having productive cough and wheezing. Also dyspnea is worse with exertion. No orthopnea or PND. No sick contacts. No fever, chills, chest pain, palpitations, abdominal pain, changes in urinary or bowel habits. In the emergency department, imaging with pneumonia. Patient initially required BiPAP in the ER due to respiratory acidosis. Given IV ceftriaxone and azithromycin in the ER and multiple DuoNeb treatments Review of Systems 2 Constitutional: Constitutional: Reports fatigue, Reports malaise and Reports weakness Cardiovascular: Cardiovascular: Reports dyspnea on exertion Respiratory: Respiratory: Reports cough, Reports dyspnea on exertion and Reports wheezing Gastrointestinal: Gastrointestinal: Reports no additional gastrointestinal complaints Genitourinary: Genitourinary: Reports no additional female genitourinary complaints Neurologic: Reports weakness Endocrine: Endocrine: Reports fatigue Allergic/Immunologic: Allergic/Immunologic: Reports wheezing [facility] Medical History Asthma Substance abuse Vitiligo Panic disorder without agoraphobia NED (generalized anxiety disorder) Hypertension Multiple sclerosis Asthma with exacerbation Pertinent family history: No family history of early CAD Social History Household Members: Unknown / Unable to assess Housing: Unknown / Unable to assess Do you presently have visiting nurse or other home services: No Unable to assess alcohol history related to: Unable to respond Alcohol intake: never Patient Tobacco Use Status: Tobacco use Unknown Substance Use Type: Marijuana Advance Directives: No Advance Directives Information Provided: Yes service: No Current occupational status: unemployed Meds Allergies Allergy/AdvReac Type Severity Reaction Status Date / Time No Known Allergies Allergy Verified 07/13/24 07:42 Home Medications ?Medication ?Instructions ?Recorded ?Confirmed ?Last Taken ?Type albuterol sulfate 2.5 mg/3 mL 2.5 mg inhalation Q6H PRN 09/07/23 12/30/23 Unknown History (0.083 %) solution for nebulization Shortness Of Breath Or Wheezing albuterol sulfate 90 mcg/actuation 2 puff inhalation QID PRN wheezing 09/07/23 12/30/23 Unknown History aerosol inhaler amlodipine 5 mg tablet 5 mg PO DAILY 09/07/23 12/30/23 Unknown History baclofen 20 mg tablet 20 mg PO TID 09/07/23 12/30/23 Unknown History duloxetine 30 mg capsule,delayed 30 - 60 mg PO BEDTIME PRN Sleep 09/07/23 12/31/23 Unknown History release ergocalciferol (vitamin D2) 1,250 1,250 mcg PO MARTI 09/07/23 12/30/23 Unknown History mcg (50,000 unit) capsule gabapentin 600 mg tablet 600 mg PO TID 09/07/23 12/30/23 Unknown History montelukast 10 mg tablet 10 mg PO DAILY 09/07/23 12/30/23 Unknown History acetaminophen 500 mg tablet 500 mg PO Q6H PRN Pain 12/30/23 12/30/23 Unknown History atorvastatin 40 mg tablet 40 mg PO BEDTIME 12/30/23 12/31/23 Unknown History Physical Exam 2 Vital Signs and Narrative: Vital Signs: Last Vital Signs Temp 97.5 F 07/13/24 20:46 Pulse 86 07/13/24 22:13 Resp 18 07/14/24 00:01 BP 150/87 H 07/13/24 22:13 Pulse Ox 90 L 07/13/24 22:13 O2 Del Method BiPAP 07/13/24 22:13 O2 Flow Rate 28 07/13/24 22:13 BMI result Body Mass Index 34.3 Middle-aged female lying in bed in mild distress on supplemental oxygen Neck supple, no JVD Regular rate and rhythm, S1-S2 heard Bilateral wheezing appreciated Abdomen soft nontender, no guarding, no rigidity Patient is awake, alert and oriented to self, place, time and person ; no focal motor deficit Psych: Normal mood No pedal edema Results Labs 07/13/24 08:34 07/13/24 08:34 Labs: Laboratory Results - last 24 hr 07/13/24 07/13/24 07/13/24 08:34 10:59 11:04 MCV 99.6 H MCH 28.2 MCHC 28.3 L RDW 14.7 Plt Count 159 L MPV 9.6 Immature Gran % (Auto) 0.3 Neut % (Auto) 77.6 H Lymph % (Auto) 9.4 L [place] % (Auto) 10.6 Eos % (Auto) 1.5 Baso % (Auto) 0.6 Lymph # (Auto) 0.3 L [place] # (Auto) 0.4 Eos # (Auto) 0.1 Baso # (Auto) 0.0 Abs Immat Gran (auto) 0.01 Absolute Neuts (auto) 2.7 Absolute Nucleated RBC 0.000 Nucleated RBC % (auto) 0.0 D-Dimer High Sensitivty VBG pH 7.29 L VBG pCO2 77 VBG pO2 107 VBG HCO3 38 H VBG O2 Saturation 100.0 VBG Base Excess 8.5 Anion Gap 11 L Estim Creat Clear Calc 116.1 Estimated GFR > 60 Random Glucose 115 Lactic Acid 0.7 Calcium 9.1 Total Bilirubin 0.8 AST 24 ALT 13 Alkaline Phosphatase 81 C-Reactive Protein 0.78 H B-Natriuretic Peptide 249 H Total Protein 7.8 Albumin 3.7 Influenza Type A (PCR) Influenza Type B (PCR) RSV RNA Qual (PCR) SARS-CoV-2 RNA (RT-PCR) 07/13/24 07/13/24 07/14/24 12:09 17:44 00:59 MCV MCH MCHC RDW Plt Count MPV Immature Gran % (Auto) Neut % (Auto) Lymph % (Auto) [place] % (Auto) Eos % (Auto) Baso % (Auto) Lymph # (Auto) [place] # (Auto) Eos # (Auto) Baso # (Auto) Abs Immat Gran (auto) Absolute Neuts (auto) Absolute Nucleated RBC Nucleated RBC % (auto) D-Dimer High Sensitivty 772 VBG pH 7.52 H VBG pCO2 60 VBG pO2 60 VBG HCO3 50 H VBG O2 Saturation 93.0 VBG Base Excess 23.2 Anion Gap Estim Creat Clear Calc Estimated GFR Random Glucose Lactic Acid Calcium Total Bilirubin AST ALT Alkaline Phosphatase C-Reactive Protein B-Natriuretic Peptide Total Protein Albumin Influenza Type A (PCR) NEGATIVE Influenza Type B (PCR) NEGATIVE RSV RNA Qual (PCR) NEGATIVE SARS-CoV-2 RNA (RT-PCR) NEGATIVE Imaging Radiologist's Impressions: Impressions Chest X-Ray 07/13/24 08:00 IMPRESSION: Cardiomegaly. Right middle lobe atelectasis versus pneumonia. Electronically signed by: Nicholas Clarke MD 07/13/2024 09:53 AM EST RP Chest CTA 07/13/24 14:30 IMPRESSION: 1. Incomplete exam. The patient could not lie flat and terminated the examination. See above. 2. Chronic appearing right middle lobe partial atelectasis. 3. Cardiomegaly. Electronically signed by: Desmond Haque MD 07/13/2024 03:43 PM EST RP Assessment and Plan (1) Hypercarbia: Status: Acute (2) Asthma exacerbation: Status: Acute (3) Consolidation of middle lobe of lung: Status: Acute (4) Left lower lobe consolidation: Status: Acute Plan This is a 54-year-old female with pertinent history of chronic hypoxemic respiratory failure due to asthma on 2-3 L baseline supplemental oxygen, hypertension, multiple sclerosis, mood disorder, peripheral neuropathy, polysubstance use disorder, mixed hyperlipidemia who presents to the emergency department for evaluation of dyspnea. #. Acute on chronic hypoxemic hypercapnic respiratory failure due to community- acquired pneumonia leading to asthma exacerbation: Will admit patient with supplemental oxygen. Initially required BiPAP in the ER. Initiating scheduled, p.r.n. DuoNebs and systemic steroids. IV ceftriaxone and IV azithromycin for CAP coverage. #. Hypertension: Continue home antihypertensives #. Mixed hyperlipidemia: On statin #. Mood disorder: Continue home mood stabilizers #. Peripheral neuropathy: On gabapentin Med rec pending DVT prophylaxis: Lovenox Full code Admit as inpatient and will require two night minimum hospital stay for supplemental oxygen, IV antibiotics (as above), which is not possible in a lesser acute setting. Quality Stroke Does the patient have a stroke diagnosis?: No VTE Prior VTE?: No VTE Risk Level:: Medical - moderate - high VTE Device Contraindication: Treatment Not Indicated VTE Drug Contraindication: N/A - Med Ordered
[2024-07-14] MEDS: methylPREDNISolone Sod Succ 40 MG/ML VIAL IVPUSH (02:47)
[2024-07-14] MEDS: Enoxaparin Sodium 40 MG/0.4 ML SYRINGE SUBCUT (02:50)
[2024-07-14] MEDS: Morphine Sulfate 2 MG/ML CARTRIDGE IVPUSH (03:46)
--- NOTE | 2024-07-14 05:36 | PC.NURSE ---
Pt was wet and needed to be changed. Pt was incontinent of stool and urine. Pt put in a clean gown and bed linens were changed. Purewick was reposition and checked for suction. Pt was incontinent of urine multiple times this shift requiring a complete bed change. Pt reports that she would get up and use the toilet at home and does so independently. A commode was placed in the room and pt encouraged to use it as needed as well as use the call light as needed for assistance. Urine sample collected from canister and sent. Will continue to monitor for any changes. Pt experiences dyspnea with exertion including minor movement/activity.
[2024-07-14 05:58] LABS: Amphetamine Screen Urine Not Detected (Not Detect); Barbiturates, Urine Not Detected (Not Detect); Benzodiazepines Screen Urine Not Detected (Not Detect); Buprenorphine Scr Not Detected (Not Detect); Cannabinoid Screen Urine Not Detected (Not Detect); Cocaine Screen Urine POSITIVE (Not Detect); Fentanyl, urine Not Detected (Not Detect); Methadone Screen, Urine Not Detected (Not Detect); Opiate Screen Urine Not Detected (Not Detect); Oxycodone Screen Urine Not Detected (Not Detect); Phencyclidine Screen Urine Not Detected (Not Detect)
--- NOTE | 2024-07-14 06:38 | PC.NURSE ---
0545 hours: 160/94, 88 regular, 20 non-labored, 95% on 4 LPM oxymask
[2024-07-14 06:54] LABS: MANUAL DIFF FLAG NO
[2024-07-14 07:07] LABS: Basophils Percent Auto 0.2 % (0-2); Hematocrit 47.3 % (37.0-47.0); Hemoglobin 13.7 g/dl (12.0-16.0); Imm Gran Abs Auto 0.02 X10*3/uL (0.00-0.03); Imm Gran Pct Auto 0.5 % (0.0-0.4); Lymphocytes Absolute Auto 0.3 X10*3/uL (1.2-4.9); Mean Corpuscular Hemoglobin 28.1 pg (27.0-33.0); Mean Corpuscular Volume 96.9 fL (80.0-98.0); Mean Platelet Volume 9.5 fL (9.4-12.3); Monocytes Absolute Auto 0.2 X10*3/uL (0.1-1.2); Monocytes Percent Auto 5.8 % (2-11); Neutrophils Absolute Auto 3.6 x10*3/uL (2.0-8.3); Neutrophils Percent Auto 87.5 % (45-73); Platelet Count 167 X10*3/uL (160-400); Red Blood Count 4.88 X10*6/uL (4.20-5.50); Red Cell Distribution Width 14.2 % (11.0-16.0); White Blood Count 4.2 X10*3/uL (4.8-10.8)
[2024-07-14 07:13] LABS: Anion Gap 11 (12-20); Blood Urea Nitrogen 9 mg/dL (9-16); Calcium 9.4 mg/dL (8.4-10.2); Carbon Dioxide 35 mmol/L (22-29); Chloride 98 mmol/L (96-108); Creatinine Clr Calc Pharmacy 120.2; Estimated Glomerular Filt Rate > 60; Glucose Random 133 mg/dL (60-115); Potassium 4.1 mmol/L (3.3-5.1); Sodium 140 mmol/L (135-145)
[2024-07-14] MEDS: Albuterol/Iprat 2.5/0.5MG 3 ML AMPUL.NEB INHALE ×3 (07:50→15:48)
--- NOTE | 2024-07-14 08:55 | P.PNIM_ITS ---
Subjective Subjective Date of Service: 07/14/24 Interval History: Seen in follow up for hypoxia, pneumonia, asthma exacerbation Interval history: Admitted overnight. Reports improvement in sob/wheezing, still with cough. No chest pain Review of Systems Review of Systems: Yes all other systems are reviewed and are negative Physical Exam 2 Vital Signs: Vital Signs: Last Vital Signs Temp 97.8 F 07/14/24 06:35 Pulse 98 07/14/24 07:53 Resp 26 H 07/14/24 07:53 BP 152/83 H 07/14/24 06:35 Pulse Ox 95 07/14/24 06:35 O2 Del Method Oxymask 07/14/24 06:35 O2 Flow Rate 4 07/14/24 06:35 BMI result Body Mass Index 34.3 Constitutional - Awake and Alert, No apparent distress Eyes - PERRLA, EOMI Cardiovascular - S1S2, RRR, No edema Respiratory - Normal lung expansion, Normal respiratory effort, No respiratory distress, bilateral wheezing with good air movement Gastrointestinal - NT / ND; +BS; No rebound or guarding Extremities - no calf tenderness bilaterally, no swelling Skin - Warm/Dry Neurological - Alert & oriented x3 Psychological - Appropriate affect Objective Data Active Medications Acetaminophen (Acetaminophen 325 Mg Tablet) 650 mg PO Q6H PRN PRN Reason: Pain, Mild 1-3,fever,headache Albuterol/Ipratropium (Albuterol/Iprat 2.5/0.5mg 3 Ml Ampul.Neb) 3 ml INHALE Q4H PRN PRN Reason: Shortness of Breath/Wheezing Albuterol/Ipratropium (Albuterol/Iprat 2.5/0.5mg 3 Ml Ampul.Neb) 3 ml INHALE RQ4H WHILE AWAKE ON LICENSE OF [facility] Last Admin: 07/14/24 07:50 Dose: 3 ml Documented By: AMARJITSMILLA Benzonatate (Benzonatate 100 Mg Capsule) 100 mg PO TID PRN PRN Reason: Cough Calcium Carbonate (Calcium Carbonate 750 Mg Tab.Chew) 750 mg PO Q4H PRN PRN Reason: Heartburn Ceftriaxone Sodium (Ceftriaxone Sodium 1 Gm Vial) 1 gm IVPUSH Q24H ON LICENSE OF [facility] Enoxaparin Sodium (Enoxaparin Sodium 40 Mg/0.4 Ml Syringe) 40 mg SUBCUT Q24H ON LICENSE OF [facility] Last Admin: 07/14/24 02:50 Dose: 40 mg Documented By: HELGA Azithromycin 500 mg/ Sodium (Chloride) 250 mls @ 125 mls/hr IV Q24H ON LICENSE OF [facility] Magnesium Hydroxide (Milk Of Magnesia 30 Ml Oral.Susp) 30 ml PO DAILY PRN PRN Reason: Constipation Melatonin (Melatonin 3 Mg Tablet) 6 mg PO BEDTIME PRN PRN Reason: Insomnia Ondansetron HCl (Ondansetron Hcl 4 Mg/2 Ml Vial) 4 mg IVPUSH Q8H PRN PRN Reason: Nausea and Vomiting Prednisone (Prednisone 20 Mg Tablet) 40 mg PO DAILY ON LICENSE OF [facility] Sodium Chloride (0.9 % Sodium Chloride Flush 3 Ml Syringe) 3 ml IVFLUSH QSHIFT ON LICENSE OF [facility] Labs 07/14/24 06:30 07/14/24 06:30 Labs: Laboratory Results - last 24 hr 07/13/24 07/13/24 07/13/24 08:34 10:59 11:04 MCV MCH MCHC RDW Plt Count MPV Immature Gran % (Auto) Neut % (Auto) Lymph % (Auto) [place] % (Auto) Eos % (Auto) Baso % (Auto) Lymph # (Auto) [place] # (Auto) Eos # (Auto) Baso # (Auto) Abs Immat Gran (auto) Absolute Neuts (auto) Absolute Nucleated RBC Nucleated RBC % (auto) D-Dimer High Sensitivty VBG pH 7.29 L VBG pCO2 77 VBG pO2 107 VBG HCO3 38 H VBG O2 Saturation 100.0 VBG Base Excess 8.5 Anion Gap 11 L Estim Creat Clear Calc 116.1 Estimated GFR > 60 Random Glucose 115 Lactic Acid 0.7 Calcium 9.1 Total Bilirubin 0.8 AST 24 ALT 13 Alkaline Phosphatase 81 C-Reactive Protein 0.78 H B-Natriuretic Peptide 249 H Total Protein 7.8 Albumin 3.7 Urine Opiates Screen Ur Buprenorphine Scrn Ur Oxycodone Screen Urine Methadone Screen Urine Fentanyl Screen Ur Barbiturates Screen Ur Phencyclidine Scrn Ur Amphetamines Screen U Benzodiazepines Scrn Urine Cocaine Screen U Marijuana (THC) Screen Influenza Type A (PCR) Influenza Type B (PCR) RSV RNA Qual (PCR) SARS-CoV-2 RNA (RT-PCR) 07/13/24 07/13/24 07/14/24 12:09 17:44 00:59 MCV MCH MCHC RDW Plt Count MPV Immature Gran % (Auto) Neut % (Auto) Lymph % (Auto) [place] % (Auto) Eos % (Auto) Baso % (Auto) Lymph # (Auto) [place] # (Auto) Eos # (Auto) Baso # (Auto) Abs Immat Gran (auto) Absolute Neuts (auto) Absolute Nucleated RBC Nucleated RBC % (auto) D-Dimer High Sensitivty 772 VBG pH 7.52 H VBG pCO2 60 VBG pO2 60 VBG HCO3 50 H VBG O2 Saturation 93.0 VBG Base Excess 23.2 Anion Gap Estim Creat Clear Calc Estimated GFR Random Glucose Lactic Acid Calcium Total Bilirubin AST ALT Alkaline Phosphatase C-Reactive Protein B-Natriuretic Peptide Total Protein Albumin Urine Opiates Screen Ur Buprenorphine Scrn Ur Oxycodone Screen Urine Methadone Screen Urine Fentanyl Screen Ur Barbiturates Screen Ur Phencyclidine Scrn Ur Amphetamines Screen U Benzodiazepines Scrn Urine Cocaine Screen U Marijuana (THC) Screen Influenza Type A (PCR) NEGATIVE Influenza Type B (PCR) NEGATIVE RSV RNA Qual (PCR) NEGATIVE SARS-CoV-2 RNA (RT-PCR) NEGATIVE 07/14/24 07/14/24 05:41 06:30 MCV 96.9 MCH 28.1 MCHC 29.0 L RDW 14.2 Plt Count 167 MPV 9.5 Immature Gran % (Auto) 0.5 H Neut % (Auto) 87.5 H Lymph % (Auto) 6.0 L [place] % (Auto) 5.8 Eos % (Auto) 0.0 Baso % (Auto) 0.2 Lymph # (Auto) 0.3 L [place] # (Auto) 0.2 Eos # (Auto) 0.0 Baso # (Auto) 0.0 Abs Immat Gran (auto) 0.02 Absolute Neuts (auto) 3.6 Absolute Nucleated RBC 0.000 Nucleated RBC % (auto) 0.0 D-Dimer High Sensitivty VBG pH VBG pCO2 VBG pO2 VBG HCO3 VBG O2 Saturation VBG Base Excess Anion Gap 11 L Estim Creat Clear Calc 120.2 Estimated GFR > 60 Random Glucose 133 H Lactic Acid Calcium 9.4 Total Bilirubin AST ALT Alkaline Phosphatase C-Reactive Protein B-Natriuretic Peptide Total Protein Albumin Urine Opiates Screen Not Detected Ur Buprenorphine Scrn Not Detected Ur Oxycodone Screen Not Detected Urine Methadone Screen Not Detected Urine Fentanyl Screen Not Detected Ur Barbiturates Screen Not Detected Ur Phencyclidine Scrn Not Detected Ur Amphetamines Screen Not Detected U Benzodiazepines Scrn Not Detected Urine Cocaine Screen POSITIVE H U Marijuana (THC) Screen Not Detected Influenza Type A (PCR) Influenza Type B (PCR) RSV RNA Qual (PCR) SARS-CoV-2 RNA (RT-PCR) Assessment and Plan (1) Asthma exacerbation: Status: Acute (2) Consolidation of middle lobe of lung: Status: Acute (3) Left lower lobe consolidation: Status: Acute (4) Acute respiratory failure with hypoxia and hypercapnia: Status: Acute Plan This is a 54-year-old female with pertinent history of chronic hypoxemic respiratory failure due to asthma on 2-3 L baseline supplemental oxygen, hypertension, multiple sclerosis, mood disorder, peripheral neuropathy, polysubstance use disorder, mixed hyperlipidemia who presents to the emergency department for evaluation of dyspnea. #. Acute on chronic hypoxemic hypercapnic respiratory failure due to community- acquired pneumonia and asthma exacerbation -weaned from bipap in ed -Continue supplemental O2 -IV ceftriaxone and azithromycin (initiated 07/14) -strep pneumo antigen, Legionella antigen, and MRSA nasal swab pending -IV methylprednisolone -duonebs #Hypertension -continue home antihypertensives #Mixed hyperlipidemia -On statin #Mood disorder -Continue home mood stabilizers #Peripheral neuropathy - gabapentin # cocaine abuse -tox screen positive for cocaine -addiction med consult placed DVT prophylaxis: Lovenox Full code Patient requires ongoing inpatient stay due to community-acquired pneumonia with hypoxia requiring supplemental O2 as well as asthma exacerbation requiring IV steroids Quality Stroke Does the patient have a stroke diagnosis?: No VTE Prior VTE?: No VTE Risk Level:: Medical - moderate - high VTE Device Contraindication: Treatment Not Indicated VTE Drug Contraindication: N/A - Med Ordered
--- NOTE | 2024-07-14 09:26 | MHC.EDTECH ---
pt on commode, bed changed, pt verbalized she wants to be on purewick, not going to commode.
[2024-07-14] MEDS: Acetaminophen 325 MG TABLET 650 MG PO ×2 (10:29→20:37)
[2024-07-14] MEDS: predniSONE 20 MG TABLET 40 MG PO (10:29)
[2024-07-14] MEDS: 0.9 % Sodium Chloride Flush 3 ML SYRINGE IVFLUSH ×3 (10:31→19:53)
[2024-07-14] MEDS: cefTRIAXone sodium 1 GM VIAL IVPUSH (10:32)
[2024-07-14] MEDS: Azithromycin 500 MG in 0.9 % Sodium Chloride 250 ML 125 MG IV (10:39)
--- NOTE | 2024-07-14 11:37 | PHA.MEDREC ---
Addendum entered by Sheba Frazier [facility] 07/14/24 12:10: REVIEWED BY PHARMACIST Original Note: Pharmacy Consult ? Medication Reconciliation Pharmacy has completed the medication reconciliation. Spoke with patient to confirm. She reports vitamin D2 is weekly on Wednesdays and had it last Tuesday. She said she has not taken her cholesterol medication. She reports she still takes baclofen TID (LF 08/2023). She also says singulair is TID...left as daily on med rec per claims. She confirmed duloxetine is 2 caps at bedtime. She reports neb solution and symbicort are both prn. Patient last took medications Tuesday.
[2024-07-14] MEDS: amLODIPine Besylate 5 MG TABLET PO (14:07)
[2024-07-14] MEDS: Gabapentin 600 MG TABLET PO ×2 (14:07→19:52)
[2024-07-14] MEDS: Baclofen 20 MG TABLET PO ×2 (14:07→19:52)
--- NOTE | 2024-07-14 14:23 | PC.NURSE ---
during pt care, IV came out of Arm pt wants to wait a little while before putting back in .
--- NOTE | 2024-07-14 15:10 | MHC.CM.PN ---
CM ATTEMPTED TO MEET WITH PT WHO WAS SLEEPING CM TO REVISIT
[2024-07-14] MEDS: Losartan Potassium 50 MG TABLET PO (16:03)
[2024-07-14] MEDS: DULoxetine HCl 60 MG CAPSULE.DR PO (19:52)
[2024-07-14] MEDS: Montelukast Sodium 10 MG TABLET PO (19:52)
[2024-07-15] VITALS (9 sets, daily range): BP systolic 145–177; BP diastolic 74–91; PULSE 88–101; RESP 16–20; TEMP 36.5–37.1; O2SAT 90–95
[2024-07-15] MEDS: Enoxaparin Sodium 40 MG/0.4 ML SYRINGE SUBCUT (00:44)
[2024-07-15 06:50] LABS: Anion Gap 11 (12-20); Blood Urea Nitrogen 10 mg/dL (9-16); Carbon Dioxide 37 mmol/L (22-29); Chloride 99 mmol/L (96-108); Creatinine Clr Calc Pharmacy 124.8; Estimated Glomerular Filt Rate > 60; Glucose Random 111 mg/dL (60-115); Potassium 3.8 mmol/L (3.3-5.1); Sodium 143 mmol/L (135-145)
--- NOTE | 2024-07-15 07:27 | P.PNIM_ITS ---
Subjective Subjective Date of Service: 07/15/24 Interval History: Seen in follow up for hypoxia, pneumonia, asthma exacerbation Interval history: Admitted overnight. Reports improvement in sob/wheezing, still with productive cough with yellow sputum. No chest pain Review of Systems Review of Systems: Yes all other systems are reviewed and are negative Physical Exam 2 Vital Signs: Vital Signs: Last Vital Signs Temp 98.7 F 07/15/24 03:41 Pulse 92 07/15/24 03:41 Resp 18 07/15/24 03:41 BP 157/84 H 07/15/24 03:41 Pulse Ox 92 07/15/24 03:41 O2 Del Method CPAP 07/15/24 03:41 O2 Flow Rate 4 07/15/24 03:41 BMI result Body Mass Index 38.0 Constitutional - Awake and Alert, No apparent distress Eyes - PERRLA, EOMI Cardiovascular - S1S2, RRR, No edema Respiratory - Normal lung expansion, Normal respiratory effort, No respiratory distress on oxymask. Bilateral wheezing with coarse lung sounds and diminished bases Extremities - no calf tenderness bilaterally, no swelling Skin - Warm/Dry Neurological - Alert & oriented x3 Psychological - Appropriate affect Objective Data Active Medications Acetaminophen (Acetaminophen 325 Mg Tablet) 650 mg PO Q6H PRN PRN Reason: Pain, Mild 1-3,fever,headache Last Admin: 07/14/24 20:37 Dose: 650 mg Documented By: CONNIE Albuterol Sulfate (Albuterol Sulfate (0.083%) 2.5 Mg/3 Ml Vial.Neb) 2.5 mg INHALE Q6H PRN PRN Reason: Shortness Of Breath Or Wheezing Albuterol Sulfate (Albuterol Sulfate 90 Mcg 8 Gm Inhaler) 2 puff INHALE QID PRN PRN Reason: wheezing Albuterol/Ipratropium (Albuterol/Iprat 2.5/0.5mg 3 Ml Ampul.Neb) 3 ml INHALE Q4H PRN PRN Reason: Shortness of Breath/Wheezing Albuterol/Ipratropium (Albuterol/Iprat 2.5/0.5mg 3 Ml Ampul.Neb) 3 ml INHALE RQ4H WHILE AWAKE [facility] Last Admin: 07/14/24 19:08 Dose: Not Given Documented By: APARNA Non-Admin Reason: Patient Refused Amlodipine Besylate (Amlodipine Besylate 5 Mg Tablet) 5 mg PO DAILY [facility]; Protocol Last Admin: 07/14/24 14:07 Dose: 5 mg Documented By: JENNIFER Baclofen (Baclofen 20 Mg Tablet) 20 mg PO TID [facility] Last Admin: 07/14/24 19:52 Dose: 20 mg Documented By: CONNIE Benzonatate (Benzonatate 100 Mg Capsule) 100 mg PO TID PRN PRN Reason: Cough Calcium Carbonate (Calcium Carbonate 750 Mg Tab.Chew) 750 mg PO Q4H PRN PRN Reason: Heartburn Ceftriaxone Sodium (Ceftriaxone Sodium 1 Gm Vial) 1 gm IVPUSH Q24H [facility] Last Admin: 07/14/24 10:32 Dose: 1 gm Documented By: DOMINIQUE Duloxetine HCl (Duloxetine Hcl 60 Mg Capsule.Dr) 60 mg PO BEDTIME [facility] Last Admin: 07/14/24 19:52 Dose: 60 mg Documented By: CONNIE Enoxaparin Sodium (Enoxaparin Sodium 40 Mg/0.4 Ml Syringe) 40 mg SUBCUT Q24H [facility] Last Admin: 07/15/24 00:44 Dose: 40 mg Documented By: CONNIE Ergocalciferol (Ergocalciferol (Vitamin D2) 1,250 Mcg Capsule) 1,250 mcg PO We@1000 [facility] Fluticasone/Vilanterol (Fluticasone/Vilanterol 200/25 Blst.W.Dev) 1 puff INHALE RDAILY [facility] Gabapentin (Gabapentin 600 Mg Tablet) 600 mg PO TID [facility] Last Admin: 07/14/24 19:52 Dose: 600 mg Documented By: CONNIE Azithromycin 500 mg/ Sodium (Chloride) 250 mls @ 125 mls/hr IV Q24H [facility] Last Infusion: 07/14/24 13:18 Dose: Infused Documented By: JENNIFER Magnesium Hydroxide (Milk Of Magnesia 30 Ml Oral.Susp) 30 ml PO DAILY PRN PRN Reason: Constipation Melatonin (Melatonin 3 Mg Tablet) 6 mg PO BEDTIME PRN PRN Reason: Insomnia Montelukast Sodium (Montelukast Sodium 10 Mg Tablet) 10 mg PO BEDTIME [facility] Last Admin: 07/14/24 19:52 Dose: 10 mg Documented By: CONNIE Ondansetron HCl (Ondansetron Hcl 4 Mg/2 Ml Vial) 4 mg IVPUSH Q8H PRN PRN Reason: Nausea and Vomiting Prednisone (Prednisone 20 Mg Tablet) 40 mg PO DAILY [facility] Last Admin: 07/14/24 10:29 Dose: 40 mg Documented By: DOMINIQUE Sodium Chloride (0.9 % Sodium Chloride Flush 3 Ml Syringe) 3 ml IVFLUSH QSHIFT [facility] Last Admin: 07/14/24 19:53 Dose: 3 ml Documented By: CONNIE Labs 07/14/24 06:30 07/15/24 06:00 Labs: Laboratory Results - last 24 hr 07/15/24 06:00 Anion Gap 11 L Estim Creat Clear Calc 124.8 Estimated GFR > 60 Random Glucose 111 Calcium 9.0 Microbiology Microbiology Results: Microbiology 07/13/24 11:10 Blood Culture - Preliminary Blood - Venous No growth after 24 hours. 07/13/24 10:59 Blood Culture - Preliminary Blood - Venous No growth after 24 hours. Assessment and Plan (1) Asthma exacerbation: Status: Acute (2) Consolidation of middle lobe of lung: Status: Acute (3) Left lower lobe consolidation: Status: Acute (4) Acute respiratory failure with hypoxia and hypercapnia: Status: Acute Plan This is a 54-year-old female with pertinent history of chronic hypoxemic respiratory failure due to asthma on 2-3 L baseline supplemental oxygen, hypertension, multiple sclerosis, mood disorder, peripheral neuropathy, polysubstance use disorder, mixed hyperlipidemia who presents to the emergency department for evaluation of dyspnea. #Acute on chronic hypoxemic hypercapnic respiratory failure due to community- acquired pneumonia and asthma exacerbation -weaned from bipap in ed -Continue supplemental O2 -IV ceftriaxone and azithromycin (initiated 07/14) -strep pneumo antigen, Legionella antigen, sputum culture, and MRSA nasal swab pending -PO presnidone changed to IV methylprednisolone (07/15) due to worsening wheezing -duonebs #Hypertension -uncontrolled. Increase amlodipine to 10mg daily. added losartan 25mg daily 07/14 -monitor bp #Mixed hyperlipidemia -On statin #Mood disorder -Continue home mood stabilizers #Peripheral neuropathy - gabapentin # cocaine abuse -tox screen positive for cocaine -addiction med consult placed- patient reported one time use and declined services DVT prophylaxis: Lovenox Full code Patient requires ongoing inpatient stay due to community-acquired pneumonia with hypoxia requiring supplemental O2 as well as asthma exacerbation requiring IV steroids Quality Stroke Does the patient have a stroke diagnosis?: No VTE Prior VTE?: No VTE Risk Level:: Medical - moderate - high VTE Device Contraindication: Treatment Not Indicated VTE Drug Contraindication: N/A - Med Ordered
[2024-07-15] MEDS: Baclofen 20 MG TABLET PO ×3 (07:48→21:25)
[2024-07-15] MEDS: amLODIPine Besylate 5 MG TABLET PO ×2 (07:48→08:22)
[2024-07-15] MEDS: Acetaminophen 325 MG TABLET 650 MG PO (07:48)
[2024-07-15] MEDS: Gabapentin 600 MG TABLET PO ×3 (07:48→21:25)
[2024-07-15] MEDS: predniSONE 20 MG TABLET 40 MG PO (07:48)
[2024-07-15] MEDS: 0.9 % Sodium Chloride Flush 3 ML SYRINGE IVFLUSH ×3 (07:49→21:26)
[2024-07-15] MEDS: Azithromycin 500 MG in 0.9 % Sodium Chloride 250 ML 125 MG IV (07:56)
[2024-07-15] MEDS: cefTRIAXone sodium 1 GM VIAL IVPUSH (07:56)
[2024-07-15] MEDS: Albuterol/Iprat 2.5/0.5MG 3 ML AMPUL.NEB INHALE ×4 (08:10→19:08)
[2024-07-15] MEDS: Fluticasone/Vilanterol 200/25 BLST.W.DEV 1 PUFF INHALE (08:11)
[2024-07-15] MEDS: Losartan Potassium 25 MG TABLET PO (08:22)
[2024-07-15 09:30] LABS: MRSA Nasal PCR NEGATIVE (Negative); SA Nasal PCR POSITIVE (Negative)
--- NOTE | 2024-07-15 10:21 | MHC.RECOVRN ---
Briefly met with pt in 383 after receiving Addiction Medicine consult for cocaine use. Pt currently admitted with asthma exacerbation and pneumonia. Pt sitting in bed, awake, alert, easily engages in conversation. Reports she does not have a problem with cocaine. Pt reports she had been at the bar on Tuesday with a friend and was smoking marijuana. Friend and pt met some guys and began smoking cocaine. Pt reports she doesn't do this regularly and will not be doing it again. Declines recovery support/resources. Encouraged pt to reach out to t/w if needed. Discussed with provider.
--- NOTE | 2024-07-15 10:44 | MHC.CM.PN ---
Addendum entered by Renate Cerda 07/15/24 10:50: COPY OF UPDATED HCP LOCATED IN [facility] FROM LAST ADMISSION CORRECTION: PTS PCP IS MARY HORAN AT [facility] Original Note: CM ATTEMPTED TO MEET WITH PT MULTIPLE TIMES SINCE 07/14/24, PT SLEEPING AND DOES NOT WAKE TO NAME CM CALLED PTS SISTER/PRIMARY CONTACT, ARISTIDES [phone] ARISTIDES REPORTS THE SISTER LIVES WITH HER AND HAS DAILY LICENSED WEIGHER SERVICES PT USES A WALKER AND NEBULIZER AND HAS HOME O2 FROM [facility] THERE IS A HCP ON FILE, HOWEVER THE AGENT LISTED IS PTS A NEW HCP WILL NEED TO BE COMPLETED ONCE PT IS ALERT AND ORIENTED ARISTIDES REPORTS PTS PCP IS AT [facility] IMM DELIVERED DCP: HOME, RESUME LICENSED WEIGHER SERVICES [facility] REFERRAL PLACED IN THE EVENT PT REQUIRES INCREASED SERVICES SISTER TO TRANSPORT
[2024-07-15] MEDS: methylPREDNISolone Sod Succ 40 MG/ML VIAL IVPUSH (14:44)
[2024-07-15] MEDS: DULoxetine HCl 60 MG CAPSULE.DR PO (21:25)
[2024-07-15] MEDS: Montelukast Sodium 10 MG TABLET PO (21:25)
[2024-07-16] VITALS (11 sets, daily range): BP systolic 133–170; BP diastolic 73–96; PULSE 79–99; RESP 15–20; TEMP 36.3–36.6; O2SAT 77–98
[2024-07-16] MEDS: Enoxaparin Sodium 40 MG/0.4 ML SYRINGE SUBCUT (02:13)
[2024-07-16] MEDS: methylPREDNISolone Sod Succ 40 MG/ML VIAL IVPUSH ×2 (02:13→14:59)
[2024-07-16] MEDS: Acetaminophen 325 MG TABLET 650 MG PO ×3 (02:17→22:04)
[2024-07-16 06:29] LABS: Anion Gap 11 (12-20); Blood Urea Nitrogen 15 mg/dL (9-16); Calcium 8.6 mg/dL (8.4-10.2); Carbon Dioxide 39 mmol/L (22-29); Chloride 98 mmol/L (96-108); Creatinine Clr Calc Pharmacy 111.4; Estimated Glomerular Filt Rate > 60; Glucose Random 162 mg/dL (60-115); Sodium 144 mmol/L (135-145)
[2024-07-16] MEDS: cefTRIAXone sodium 1 GM VIAL IVPUSH (07:39)
[2024-07-16] MEDS: Gabapentin 600 MG TABLET PO ×2 (07:40→20:07)
[2024-07-16] MEDS: Baclofen 20 MG TABLET PO ×2 (07:40→20:07)
[2024-07-16] MEDS: amLODIPine Besylate 10 MG TABLET PO (07:40)
[2024-07-16] MEDS: Losartan Potassium 25 MG TABLET PO (07:40)
[2024-07-16] MEDS: Azithromycin 500 MG in 0.9 % Sodium Chloride 250 ML 125 MG IV (07:49)
[2024-07-16] MEDS: 0.9 % Sodium Chloride Flush 3 ML SYRINGE IVFLUSH ×3 (07:55→20:08)
[2024-07-16] MEDS: Albuterol/Iprat 2.5/0.5MG 3 ML AMPUL.NEB INHALE ×3 (08:08→20:42)
[2024-07-16] MEDS: Fluticasone/Vilanterol 200/25 BLST.W.DEV 1 PUFF INHALE (08:08)
--- NOTE | 2024-07-16 08:21 | P.PNIM_ITS ---
Subjective Subjective Date of Service: 07/16/24 Interval History: Seen in follow up for hypoxia, pneumonia, asthma exacerbation Interval history: Admitted overnight. Reports improvement in sob/wheezing, still with productive cough with yellow sputum. No chest pain. Patient has been unclear about whether or not she uses oxygen at home. Initially she states that she does use this intermittently. However, she is now stating that she has not used this in months since her last hospitalization. She is still requiring 4-5 L. When sleeping has been hypoxic to 77% on room air and noted to be somewhat disoriented upon waking Review of Systems Review of Systems: Yes all other systems are reviewed and are negative Physical Exam 2 Vital Signs: Vital Signs: Last Vital Signs Temp 97.6 F 07/16/24 07:07 Pulse 82 07/16/24 08:08 Resp 16 07/16/24 08:08 BP 170/96 H 07/16/24 07:07 Pulse Ox 92 07/16/24 07:07 O2 Del Method Oxymask 07/16/24 07:07 O2 Flow Rate 5 07/16/24 07:07 BMI result Body Mass Index 38.0 Constitutional - Awake and Alert, No apparent distress Eyes - PERRLA, EOMI Cardiovascular - S1S2, RRR, No edema Respiratory - Normal lung expansion, Normal respiratory effort, No respiratory distress on 4L O2. Bilateral wheezing and diminished bases Extremities - no calf tenderness bilaterally, no swelling Skin - Warm/Dry Neurological - Alert & oriented x3 Psychological - Appropriate affect Objective Data Active Medications Acetaminophen (Acetaminophen 325 Mg Tablet) 650 mg PO Q6H PRN PRN Reason: Pain, Mild 1-3,fever,headache Last Admin: 07/16/24 07:40 Dose: 650 mg Documented By: MATIAS Albuterol Sulfate (Albuterol Sulfate (0.083%) 2.5 Mg/3 Ml Vial.Neb) 2.5 mg INHALE Q6H PRN PRN Reason: Shortness Of Breath Or Wheezing Albuterol Sulfate (Albuterol Sulfate 90 Mcg 8 Gm Inhaler) 2 puff INHALE QID PRN PRN Reason: wheezing Albuterol/Ipratropium (Albuterol/Iprat 2.5/0.5mg 3 Ml Ampul.Neb) 3 ml INHALE Q4H PRN PRN Reason: Shortness of Breath/Wheezing Albuterol/Ipratropium (Albuterol/Iprat 2.5/0.5mg 3 Ml Ampul.Neb) 3 ml INHALE RQ4H WHILE AWAKE [facility] Last Admin: 07/16/24 08:08 Dose: 3 ml Documented By: JACE Amlodipine Besylate (Amlodipine Besylate 10 Mg Tablet) 10 mg PO DAILY [facility]; Protocol Last Admin: 07/16/24 07:40 Dose: 10 mg Documented By: MATIAS Baclofen (Baclofen 20 Mg Tablet) 20 mg PO TID [facility] Last Admin: 07/16/24 07:40 Dose: 20 mg Documented By: MATIAS Benzonatate (Benzonatate 100 Mg Capsule) 100 mg PO TID PRN PRN Reason: Cough Calcium Carbonate (Calcium Carbonate 750 Mg Tab.Chew) 750 mg PO Q4H PRN PRN Reason: Heartburn Ceftriaxone Sodium (Ceftriaxone Sodium 1 Gm Vial) 1 gm IVPUSH Q24H [facility] Last Admin: 07/16/24 07:39 Dose: 1 gm Documented By: MATIAS Duloxetine HCl (Duloxetine Hcl 60 Mg Capsule.Dr) 60 mg PO BEDTIME [facility] Last Admin: 07/15/24 21:25 Dose: 60 mg Documented By: SUHA Enoxaparin Sodium (Enoxaparin Sodium 40 Mg/0.4 Ml Syringe) 40 mg SUBCUT Q24H [facility] Last Admin: 07/16/24 02:13 Dose: 40 mg Documented By: SUHA Ergocalciferol (Ergocalciferol (Vitamin D2) 1,250 Mcg Capsule) 1,250 mcg PO We@1000 [facility] Fluticasone/Vilanterol (Fluticasone/Vilanterol 200/25 Blst.W.Dev) 1 puff INHALE RDAILY [facility] Last Admin: 07/16/24 08:08 Dose: 1 puff Documented By: JACE Gabapentin (Gabapentin 600 Mg Tablet) 600 mg PO TID [facility] Last Admin: 07/16/24 07:40 Dose: 600 mg Documented By: MATIAS Azithromycin 500 mg/ Sodium (Chloride) 250 mls @ 125 mls/hr IV Q24H [facility] Last Admin: 07/16/24 07:49 Dose: 125 mls/hr Documented By: MATIAS Losartan Potassium (Losartan Potassium 25 Mg Tablet) 25 mg PO DAILY [facility]; Protocol Last Admin: 07/16/24 07:40 Dose: 25 mg Documented By: MATIAS Magnesium Hydroxide (Milk Of Magnesia 30 Ml Oral.Susp) 30 ml PO DAILY PRN PRN Reason: Constipation Melatonin (Melatonin 3 Mg Tablet) 6 mg PO BEDTIME PRN PRN Reason: Insomnia Methylprednisolone Sodium Succinate (Methylprednisolone Sod Succ 40 Mg/Ml Vial) 40 mg IVPUSH Q12H [facility] Last Admin: 07/16/24 02:13 Dose: 40 mg Documented By: SUHA Montelukast Sodium (Montelukast Sodium 10 Mg Tablet) 10 mg PO BEDTIME [facility] Last Admin: 07/15/24 21:25 Dose: 10 mg Documented By: SUHA Ondansetron HCl (Ondansetron Hcl 4 Mg/2 Ml Vial) 4 mg IVPUSH Q8H PRN PRN Reason: Nausea and Vomiting Sodium Chloride (0.9 % Sodium Chloride Flush 3 Ml Syringe) 3 ml IVFLUSH QSHIFT [facility] Last Admin: 07/16/24 07:55 Dose: 3 ml Documented By: MATIAS Labs 07/14/24 06:30 07/16/24 05:34 Labs: Laboratory Results - last 24 hr 07/14/24 07/16/24 15:50 05:34 Anion Gap 11 L Estim Creat Clear Calc 111.4 Estimated GFR > 60 Random Glucose 162 H Calcium 8.6 Nasal Screen MRSA (PCR) NEGATIVE Nasal S. aureus Screen POSITIVE A Nasal MRSA/S.aureus Interp SEE NOTE Microbiology Microbiology Results: Microbiology 07/13/24 11:10 Blood Culture - Preliminary Blood - Venous No growth after 48 hours. 07/13/24 10:59 Blood Culture - Preliminary Blood - Venous No growth after 48 hours. Assessment and Plan (1) Asthma exacerbation: Status: Acute (2) Consolidation of middle lobe of lung: Status: Acute (3) Left lower lobe consolidation: Status: Acute (4) Acute respiratory failure with hypoxia and hypercapnia: Status: Acute Plan This is a 54-year-old female with pertinent history of chronic hypoxemic respiratory failure due to asthma on 2-3 L baseline supplemental oxygen, hypertension, multiple sclerosis, mood disorder, peripheral neuropathy, polysubstance use disorder, mixed hyperlipidemia who presents to the emergency department for evaluation of dyspnea. #Acute on chronic hypoxemic hypercapnic respiratory failure due to community- acquired pneumonia and asthma exacerbation -weaned from bipap in ed -Continue supplemental O2 -IV ceftriaxone and azithromycin (initiated 07/14) -strep pneumo antigen, Legionella antigen pending, sputum culture contaminated with normal maddie. MSSA positive, negative for MRSA -PO presnidone changed to IV methylprednisolone (07/15) due to worsening wheezing -duonebs -patient hypoxic to 77% on room air while sleeping and noted to be disoriented upon waking. Initial VBG showed ph 7.74, bicarb 68, pco2 49. Likely lab error. repeated with pH 7.43. Bicarb appears to be increasing. Trial diamox -inpatient sleep study ordered due to nocturnal hypoxia #Hypertension -Now controlled. Increased amlodipine to 10mg daily. added losartan 25mg daily 07/14 -monitor bp #Mixed hyperlipidemia -On statin #Mood disorder -Continue home mood stabilizers #Peripheral neuropathy - gabapentin # cocaine abuse -tox screen positive for cocaine -addiction med consult placed- patient reported one time use and declined services DVT prophylaxis: Lovenox Full code Patient requires ongoing inpatient stay due to community-acquired pneumonia with hypoxia requiring supplemental O2 as well as asthma exacerbation requiring IV steroids Quality Stroke Does the patient have a stroke diagnosis?: No VTE Prior VTE?: No VTE Risk Level:: Medical - moderate - high VTE Device Contraindication: Treatment Not Indicated VTE Drug Contraindication: N/A - Med Ordered
--- NOTE | 2024-07-16 12:02 | MHC.CM.PN ---
Addendum entered by Caty Mcclain RN 07/16/24 12:21: DC cancelled. Patient not medically cleared. Original Note: Per MD rounds patient medically cleared for dc home w/ resumption of TECHNOLOGY COACH services. Patient's sister will transport.
--- NOTE | 2024-07-16 12:32 | PC.NURSE ---
Addendum entered by Humaira Will RN 07/16/24 14:48: Repeat pH 7.43. Addendum entered by Humaira Will RN 07/16/24 14:08: VBGs drawn, and resulted with critical result of pH 7.74, FAY Garcia notified, STAT confirmatory lab ordered, pending phlebotomy collection. Original Note: CM informed RN that pt appeared sleepy but arousable to voice. Upon assessment pt noted to be 77% on room, previously in low 90s on room air. FAY Garcia notified, and came to bedside to assess pt with this RN. Pt Was placed back on NC 5L saturating 91%. Pt giving inconsistent information regarding how much o2 she uses at baseline. Pt stated this morning she uses 4-5L nc at home as needed, now stating she does not use any nc at Home. FAY Garcia at bedside for conversation, plans to stay one more night, per PA sleep study will be preformed. Pt agreeable to plan.
[2024-07-16 13:51] LABS: VBG Base Excess 42.5 mmol/L; VBG HCO3 68 mmol/L (22-26); VBG pCO2 49 mmHg; VBG pH 7.74 (7.32-7.43); VBG pO2 204 mmHg
[2024-07-16 13:54] LABS: Venous Blood Gas Refer to POC result
[2024-07-16 14:19] LABS: Venous Blood Gas Refer to POC result
[2024-07-16 14:25] LABS: VBG pH 7.43 (7.32-7.43)
[2024-07-16 14:26] LABS: VBG Base Excess 19.4 mmol/L; VBG HCO3 48 mmol/L (22-26); VBG pCO2 72 mmHg; VBG pO2 168 mmHg
[2024-07-16 14:57] LABS: Appearance Urine Cloudy; Color Urine Yellow; Glucose Urine UA Negative (Negative); Leukocyte Esterase Urine Negative (Negative); Nitrite Urine Negative (Negative); Specific Gravity - Urine 1.015 (1.005-1.025); Urine Blood Negative (Negative); Urine Ketones Negative (Negative); Urine Protein Trace mg/dL (Neg-Trace)
[2024-07-16 15:01] LABS: Potassium Urine Random 12.3 mmol/L
[2024-07-16 15:08] LABS: Amphetamine Screen Urine Not Detected (Not Detect); Barbiturates, Urine Not Detected (Not Detect); Benzodiazepines Screen Urine Not Detected (Not Detect); Buprenorphine Scr Not Detected (Not Detect); Cannabinoid Screen Urine Not Detected (Not Detect); Cocaine Screen Urine POSITIVE (Not Detect); Fentanyl, urine Not Detected (Not Detect); Methadone Screen, Urine Not Detected (Not Detect); Opiate Screen Urine Not Detected (Not Detect); Oxycodone Screen Urine Not Detected (Not Detect); Phencyclidine Screen Urine Not Detected (Not Detect)
[2024-07-16] MEDS: Montelukast Sodium 10 MG TABLET PO (20:07)
[2024-07-16] MEDS: DULoxetine HCl 60 MG CAPSULE.DR PO (20:07)
[2024-07-16] MEDS: acetaZOLAMIDE 250 MG TABLET PO (20:07)
--- NOTE | 2024-07-17 00:02 | PC.RT ---
Addendum entered by Kilo Frank 07/17/24 05:22: Sleep study end 0500 Original Note: Sleep study placed on pt at 0015: 3L O2 via NC while study is running due to O2 desaturation.
[2024-07-17] MEDS: Enoxaparin Sodium 40 MG/0.4 ML SYRINGE SUBCUT (00:35)
[2024-07-17 03:13] VITALS: BP 133/70; PULSE 86; RESP 20; TEMP 36.4; O2SAT 93
[2024-07-17] MEDS: methylPREDNISolone Sod Succ 40 MG/ML VIAL IVPUSH (04:05)
[2024-07-17 05:42] LABS: Venous Blood Gas Refer to POC result
[2024-07-17 05:47] LABS: VBG Base Excess 11.9 mmol/L; VBG HCO3 40 mmol/L (22-26); VBG pCO2 65 mmHg; VBG pH 7.39 (7.32-7.43); VBG pO2 103 mmHg
[2024-07-17 06:24] LABS: Anion Gap 9 (12-20); Blood Urea Nitrogen 16 mg/dL (9-16); Carbon Dioxide 37 mmol/L (22-29); Chloride 100 mmol/L (96-108); Creatinine Clr Calc Pharmacy 113.1; Estimated Glomerular Filt Rate > 60; Glucose Random 175 mg/dL (60-115); Potassium 3.8 mmol/L (3.3-5.1); Sodium 142 mmol/L (135-145)
[2024-07-17] MEDS: Acetaminophen 325 MG TABLET 650 MG PO (06:24)
[2024-07-17 07:05] VITALS: BP 127/69; PULSE 70; RESP 16; TEMP 36.9; O2SAT 94
[2024-07-17] MEDS: Losartan Potassium 25 MG TABLET PO (07:32)
[2024-07-17] MEDS: amLODIPine Besylate 10 MG TABLET PO (07:32)
[2024-07-17] MEDS: Baclofen 20 MG TABLET PO (07:32)
[2024-07-17] MEDS: acetaZOLAMIDE 250 MG TABLET PO (07:32)
[2024-07-17] MEDS: Gabapentin 600 MG TABLET PO (07:32)
[2024-07-17] MEDS: Azithromycin 500 MG in 0.9 % Sodium Chloride 250 ML 125 MG IV (07:32)
[2024-07-17] MEDS: 0.9 % Sodium Chloride Flush 3 ML SYRINGE IVFLUSH (07:39)
[2024-07-17] MEDS: cefTRIAXone sodium 1 GM VIAL IVPUSH (07:41)
--- NOTE | 2024-07-17 08:39 | P.DS_ITS ---
DS: Providers Provider Date of Service: 07/17/24 Date of admission: 07/14/24 01:14 Date of discharge: 07/17/24 Primary care physician: Elida Powell MD Attending physician on admission: Francie Le Consults: 07/14/24 15:08 Addiction Medicine Routine Consulting Provider: Addiction Covering Reason for consultation: cocaine abuse Attending physician on discharge: Brain Beltrán Discharging clinician: Hetal Garcia DS: Diagnosis Discharge Diagnosis (1) Asthma exacerbation: Status: Acute (2) Consolidation of middle lobe of lung: Status: Acute (3) Left lower lobe consolidation: Status: Acute (4) Acute respiratory failure with hypoxia and hypercapnia: Status: Acute DS: Summary Hospital Course Hospital Course: HPI and admission by Dr. Le on 07/14: Chief Complaint: Dyspnea This is a 54-year-old female with pertinent history of chronic hypoxemic respiratory failure due to asthma on 2-3 L baseline supplemental oxygen, hypertension, multiple sclerosis, mood disorder, peripheral neuropathy who presents to the emergency department for evaluation of dyspnea. Patient states her symptoms started 2 days prior to presentation. She has been having productive cough and wheezing. Also dyspnea is worse with exertion. No orthopnea or PND. No sick contacts. No fever, chills, chest pain, palpitations, abdominal pain, changes in urinary or bowel habits. In the emergency department, imaging with pneumonia. Patient initially required BiPAP in the ER due to respiratory acidosis. Given IV ceftriaxone and azithromycin in the ER and multiple DuoNeb treatments Hospital course: Patient admitted to [facility] for management of acute hypoxic hypercapnic respiratory failure secondary to community-acquired pneumonia as well as asthma exacerbation. She was initially found to be tachypneic with mild tachycardia while in the ED which was likely related to increased work of breathing and respiratory distress which resolved with BiPAP prior to arrival to the floor. This was not related to sepsis or severe sepsis. She was treated with IV ceftriaxone and azithromycin x4 days. She was initially treated with prednisone 40 mg daily which was transitioned to IV methylprednisolone twice daily due to worsening wheezing as well as scheduled DuoNebs. She was found to desaturate to 77 from% on room air while sleeping and was noted to be disoriented upon waking. VBG at that time was pH was 7.43. There was a slight increase in CO2 levels and as a result she did receive a dose of Diamox with improvement in CO2. Due to significant nocturnal hypoxia, inpatient sleep study was attempted but patient did not tolerate this. It is recommended that she complete a diagnostic sleep study outpatient. She did not require any further treatment with BiPAP and was eventually weaned to 3 L supplemental O2 from 5 L. Symptomatically, patient did improve with scattered wheezes on exam and improvement in cough. Blood cultures were negative after 48 hours. Sputum culture revealed oropharyngeal contamination and was not repeated given symptomatic improvement. Strep pneumo antigen was negative and Legionella antigen remains pending though there is low suspicion for this. Per patient, she does have oxygen at home due to recent hospitalization. She will be discharged home on doxycycline x5 days. She is advised to continue supplemental O2 to maintain oximetry 90-92 %, wean as tolerated and continue use overnight. Recommend outpatient sleep study. She was evaluated by Physical therapy recommending home PT. Referral placed to [facility] for physical therapy as well as vital signs monitoring given hypoxia. She is advised to continue all home inhalers. Blood pressures were slightly elevated while admitted likely related to steroid use. Amlodipine was increased to 10 mg daily during admission. She should follow-up with her primary care provider for blood pressure checks and management. Continue gabapentin for peripheral neuropathy as well as mood stabilizers for depression/anxiety. Continue statin for hyperlipidemia. Smoking cessation is advised. She does decline nicotine patches that she states she has these at home. Time spent discussing smoking cessation with patient: 3 to 10 minutes Time Attestation Discharge Coordination Time (in mins): 40 Quality: Safe Use of Opioids Does Pt have an Active Cancer Diagnosis on the Problem List?: No Quality: Stroke Does the patient have a stroke diagnosis?: No Physical Exam Vital Signs: Vital Signs: Last Vital Signs Temp 98.5 F 07/17/24 07:05 Pulse 70 07/17/24 07:05 Resp 16 07/17/24 07:05 BP 127/69 07/17/24 07:05 Pulse Ox 94 07/17/24 07:05 O2 Del Method Nasal Cannula 07/17/24 07:05 O2 Flow Rate 3 07/17/24 07:05 BMI result Body Mass Index 38.0 DS: Data Data Completed and Pending Completed studies during hospitalization [Text1]: Procedures Assistance with Respiratory Ventilation, Less than 24 Consecutive Hours, Continuous Positive Airway Pressure (12/30/23) Insertion of Endotracheal Airway into Trachea, Via Natural or Artificial Opening (12/30/23) Respiratory Ventilation, 24-96 Consecutive Hours (09/07/23) Respiratory Ventilation, Less than 24 Consecutive Hours (12/30/23) Labs on day of discharge: Laboratory Results - last 24 hr 07/16/24 07/16/24 07/16/24 13:43 14:25 14:42 Hold Purple Top VBG pH 7.74 H* 7.43 VBG pCO2 49 72 VBG pO2 204 168 VBG HCO3 68 H 48 H VBG O2 Saturation 99.0 100.0 VBG Base Excess 42.5 19.4 Sodium Potassium Chloride Carbon Dioxide Anion Gap BUN Creatinine Estim Creat Clear Calc Estimated GFR Random Glucose Calcium Urine Color Yellow Urine Appearance Cloudy Urine pH 8.0 Ur Specific [place] 1.015 Urine Protein Trace Urine Glucose (UA) Negative Urine Ketones Negative Urine Blood Negative Urine Nitrite Negative Ur Leukocyte Esterase Negative Ur Random Potassium 12.3 Ur Random Chloride 114.0 Urine Opiates Screen Not Detected Ur Buprenorphine Scrn Not Detected Ur Oxycodone Screen Not Detected Urine Methadone Screen Not Detected Urine Fentanyl Screen Not Detected Ur Barbiturates Screen Not Detected Ur Phencyclidine Scrn Not Detected Ur Amphetamines Screen Not Detected U Benzodiazepines Scrn Not Detected Urine Cocaine Screen POSITIVE H U Marijuana (THC) Screen Not Detected 07/17/24 07/17/24 05:38 05:41 Hold Purple Top SEE NOTE VBG pH 7.39 VBG pCO2 65 VBG pO2 103 VBG HCO3 40 H VBG O2 Saturation 99.0 VBG Base Excess 11.9 Sodium 142 Potassium 3.8 Chloride 100 Carbon Dioxide 37 H Anion Gap 9 L BUN 16 Creatinine 0.64 Estim Creat Clear Calc 113.1 Estimated GFR > 60 Random Glucose 175 H Calcium 9.0 Urine Color Urine Appearance Urine pH Ur Specific [place] Urine Protein Urine Glucose (UA) Urine Ketones Urine Blood Urine Nitrite Ur Leukocyte Esterase Ur Random Potassium Ur Random Chloride Urine Opiates Screen Ur Buprenorphine Scrn Ur Oxycodone Screen Urine Methadone Screen Urine Fentanyl Screen Ur Barbiturates Screen Ur Phencyclidine Scrn Ur Amphetamines Screen U Benzodiazepines Scrn Urine Cocaine Screen U Marijuana (THC) Screen Preliminary micro results at discharge 07/13/24 11:10 Blood Culture - Preliminary Blood - Venous No growth after 48 hours. 07/13/24 10:59 Blood Culture - Preliminary Blood - Venous No growth after 48 hours. Discharge Plan Discharge Anticipated Discharge Date/Time: 07/16/24 12:05 Patient Disposition: Home Health Service Discharge Diagnosis: pneumonia, respiratory failure, asthma exacerbation Referrals: Gerald Tirado [Outside] - 3-5 Days (Gerald will call you to schedule nursing and physical therapy appointments) Physician,Amalia Pierre [Physician] - 1 Week Discharge Medications: New doxycycline hyclate 100 mg capsule 100 mg PO BID Qty: 10 0RF prednisone 20 mg tablet 20 mg PO DAILY Qty: 3 0RF Continued gabapentin 600 mg tablet 600 mg PO TID albuterol sulfate 2.5 mg /3 mL (0.083 %) solution for nebulization 2.5 mg inhalation Q6H PRN (Reason: Shortness Of Breath Or Wheezing) amlodipine 5 mg tablet 5 mg PO DAILY baclofen 20 mg tablet 20 mg PO TID montelukast 10 mg tablet 10 mg PO DAILY ergocalciferol (vitamin D2) 1,250 mcg (50,000 unit) capsule 1,250 mcg PO WE albuterol sulfate 90 mcg/actuation HFA aerosol inhaler 2 puff INHALATION QID PRN (Reason: wheezing) duloxetine 30 mg capsule,delayed release(DR/EC) 60 mg PO BEDTIME acetaminophen 500 mg Tablet 500 mg PO Q6H PRN (Reason: Pain) budesonide-formoterol 160-4.5 mcg/actuation HFA aerosol inhaler 2 puff INHALATION BID PRN (Reason: Shortness Of Breath Or Wheezing) Discharge Orders: Discharge Order (Routine); Ordered 07/17/24 Ordered By: Hetal Garcia Diet: Advance to usual diet Activity on Discharge: As tolerated Stand Alone Forms: Patient Portal Discharge page Print Language: Tuvaluan Care Plan Goals: Continue antibiotics for treatment of pneumonia. Take doxycycline 100mg BID x10 more doses. Take all of the medicaiton even if feeling better Take prednisone 20mg every morning x 3 days Use nebulizers and inhalers as prescribed Use supplemental oxygen to keep oxygen levels >90%, titrate as needed Avoid all illicit substances including cocaine as this can exacerbate respiratory conditions Health Concerns: Acute hypoxic hypercapnic respiratory failure Pneumonia Asthma exacerbation Cocaine use Plan of Treatment: See above. Take antibiotics and prednisone as prescribed. Avoid cocaine Assessment: See above. See discharge summary Discharge Date/Time: 07/17/24 15:33
[2024-07-17] MEDS: Fluticasone/Vilanterol 200/25 BLST.W.DEV 1 PUFF INHALE (08:59)
[2024-07-17] MEDS: Albuterol/Iprat 2.5/0.5MG 3 ML AMPUL.NEB INHALE ×2 (08:59→12:29)
[2024-07-17 09:01] VITALS: PULSE 89; RESP 17; O2SAT 91
--- NOTE | 2024-07-17 11:50 | P.CDIM_ITS ---
PROVIDER RESPONSE TEXT: To clarify, the appropriate diagnosis supported by the clinical indicators: Obesity Due to excess calories QUERY TEXT: PHYSICIAN'S DOCUMENTATION REQUEST Date of Query: 07/16/2024 07:56 AM EST Patient Name: Roxane Chapa Admit Date: 07/14/2024 Dear Hetal APONTE, A review of the medical record indicates additional documentation may be needed. Please review below and update the documentation accordingly. Clinical Indicators: Height: 5ft 4in Weight: 100.5kg BMI: 38.0 Other Clinical Notes Supporting Significance of the BMI: Nursing notes Height and Weight 07/14: Patient is Obese class II If possible, please provide an associated diagnosis related to the abnormal BMI, such as: Overweight Obesity Due to excess calories Obesity Drug induced Obesity Due to other cause Specify the other cause Severe or Morbid Obesity With alveolar hypoventilation Severe or Morbid Obesity Without alveolar hypoventilation Other (explain) Clinically unable to determine (explain) Thank you, Regi Ghosh, CCS, CDIS Use of terms such as suspected, likely, concern for, or probable (associated with a specific diagnosi s that is being evaluated, monitored, or treated as if it exists) are acceptable and can be coded in the inpatient se tting, when documented at the time of discharge. Please use your independent medical judgment in providing your response. THIS QUERY IS PART OF THE PERMANENT MEDICAL RECORD
--- NOTE | 2024-07-17 11:50 | P.CDIM_ITS ---
PROVIDER RESPONSE TEXT: To clarify, the appropriate diagnosis supported by the clinical indicators: Other (explain): unspecified asthma exacerbation QUERY TEXT: PHYSICIAN'S DOCUMENTATION REQUEST Date of Query: 07/16/2024 07:51 AM EST Patient Name: Roxane Chapa Admit Date: 07/14/2024 Dear Hetal APONTE, A review of the medical record indicates additional documentation may be needed. Please review below and update the documentation accordingly. Clinical indicators: Progress note dated 07/15 - Acute on chronic hypoxemic hypercapnic respiratory failure due to community acquired pneumonia and Asthma exacerbation. Albuterol Sulfate 2.5 mg inhale Q6H PRN. Based on the above, please clarify in the Progress Notes further specificity regarding the type of as thma: Mild intermittent Mild persistent Moderate persistent Severe persistent Exercise induced Other (explain) Clinically unable to determine (explain) Thank you, Regi Ghosh, CCS, CDIS Use of terms such as suspected, likely, concern for, or probable (associated with a specific diagnosi s that is being evaluated, monitored, or treated as if it exists) are acceptable and can be coded in the inpatient se tting, when documented at the time of discharge. Please use your independent medical judgment in providing your response. THIS QUERY IS PART OF THE PERMANENT MEDICAL RECORD
[2024-07-17 12:30] VITALS: PULSE 88; RESP 16; O2SAT 95
--- NOTE | 2024-07-17 13:42 | P.F2F_ITS ---
Service Date Service Date: 07/17/24 Encounter Date of encounter: 07/17/24 Reasons for Services Signs and symptoms assessed: weakness- requiring 1 person assist for transfer hypoxia and hypercapnea related to pneumonia and asthma exacerbation and noncompliance with home oxygen Reason for retirement: medication management and other (vital signs monitoring) Reason for physical therapy: therapeutic exercises and gait/transfer training Homebound: Leaving the home is medically contraindicated at this time without the asist of a device and/or another person due th the listed conditions above and below. Reason homebound: unsteady gait / fall risk, shortness of breath with minimal effort and poor balance / fall risk Certification: Based on the above findings, I certify that this patient is confined to the home and needs intermittent retirement care, physical therapy and/or speech therapy, or continues to need occupational therapy. The patient is under my care, and I have initiated the establishment of the plan of care. The patient will be followed by a physician who will periodically review the plan of care. Time Spent With Patient Time: Total time managing care of this patient today ____ minutes.
--- NOTE | 2024-07-17 13:57 | MHC.CM.PN ---
Per PA, patient medically cleared for dc home w/ services. Gerald PINEDA will provide PT/SN. Sister to transport.
[2024-07-17 15:02] VITALS: BP 113/64; PULSE 81; RESP 15; TEMP 36.1; O2SAT 96
[2024-07-18 03:19] LABS: Strep Pneumo Ag urine Not Detected (Not Detected)
[2024-07-21 04:19] LABS: Legionella Ag Urine Not Detected (Not Detected)
== END 2024-07-17 15:33 | disposition home health service (06) | DRG 193 ==
LOC: HO.ED 22:07 → HO.EDOVER 07-14 01:19 → HO.S3 07-14 11:31
PROVIDERS: Internal Medicine; Admitting Provider Student in an Organized Health Care Education/Training Program; Emergency Provider Emergency Medicine; PCP Internal Medicine; Visit Provider Physician Assistant
DX: J18.9 Pneumonia, unspecified organism (principal); J96.21 Acute and chronic respiratory failure with hypoxia; J96.22 Acute and chronic respiratory failure with hypercapnia; J45.901 Unspecified asthma with (acute) exacerbation; G35 Multiple sclerosis; F17.210 Nicotine dependence, cigarettes, uncomplicated; F39 Unspecified mood [affective] disorder; F14.10 Cocaine abuse, uncomplicated; G62.9 Polyneuropathy, unspecified; Z71.6 Tobacco abuse counseling; E66.09 Other obesity due to excess calories; Z68.38 Body mass index [BMI] 38.0-38.9, adult; Z71.3 Dietary counseling and surveillance; E78.2 Mixed hyperlipidemia; Z20.822 Contact with and (suspected) exposure to COVID-19; Z79.899 Other long term (current) drug therapy
CPT/HCPCS: 0241U; 36415; 71046; 71275; 80048; 80053; 80307; 81003; 82436; 82803; 83605; 83880; 84133; 85025; 85379; 86140; 87040; 87070; 87205; 87449; 87640; 87641; 87899; 93005; 93970; 94640; 97162; 99285; J0456; J0696; J1171; J1650; J2060; J2270; J2919; Q9967

== ENCOUNTER → 2024-07-13 08:00 | Outpatient (BNV) | payer MEDICARE, SELFPAY | PROVIDERS: Visit Provider Radiology Diagnostic Radiology | DX: I51.7 Cardiomegaly (principal); I70.0 Atherosclerosis of aorta; J18.9 Pneumonia, unspecified organism; J98.11 Atelectasis; R91.8 Other nonspecific abnormal finding of lung field; R22.43 Localized swelling, mass and lump, lower limb, bilateral | CPT/HCPCS: 71046; 71275; 93970 ==

== ENCOUNTER → 2024-07-13 08:40 | Outpatient (BNV) | payer MEDICARE, SELFPAY | PROVIDERS: Admitting Provider Student in an Organized Health Care Education/Training Program; Emergency Provider Emergency Medicine; Visit Provider Internal Medicine Cardiovascular Disease | DX: I51.7 Cardiomegaly (principal) | CPT/HCPCS: 93010 ==

== ENCOUNTER → 2024-07-14 01:14 | Outpatient (BNV) | payer MEDICARE, SELFPAY | PROVIDERS: Admitting Provider Student in an Organized Health Care Education/Training Program; Emergency Provider Emergency Medicine; Visit Provider Student in an Organized Health Care Education/Training Program | DX: J18.1 Lobar pneumonia, unspecified organism (principal); J96.21 Acute and chronic respiratory failure with hypoxia; J96.02 Acute respiratory failure with hypercapnia; J45.901 Unspecified asthma with (acute) exacerbation | CPT/HCPCS: 99223; 99232; 99239; G0180 ==